=== PATIENT | female | born 1940 | race Caucasian/White ===

== ENCOUNTER → 2016-04-26 | Outpatient (CLI) | payer MEDICARE, BC ==
[2016-04-26 09:47] LABS: ALT 31 U/L (9-52); AST 24 U/L (14-36); Alkaline Phosphatase 61 U/L (38-126); Anion Gap 12 mmol/L; Blood Urea Nitrogen 22 mg/dL (7-17); Calcium 9.7 mg/dL (8.4-10.2); Carbon Dioxide 25 mmol/L (22-30); Chloride 100 mmol/L (98-107); Glucose 138 mg/dL (74-99); Non-African American GFR(MDRD) 51 (>60 ml/min/1.73 sqM); Sodium 137 mmol/L (137-145); Total Bilirubin 1.1 mg/dL (0.2-1.3); Total Protein 7.5 g/dL (6.3-8.2)
[2016-04-26 11:17] LABS: Hemoglobin A1C 3.9 % (4.2-6.1)
== END | disposition home or self-care (01) ==
LOC: LABWHC1 08:38
PROVIDERS: ATTEND Internal Medicine
DX: E87.8 Other disorders of electrolyte and fluid balance, not elsewhere classified (principal); E11.69 Type 2 diabetes mellitus with other specified complication
CPT/HCPCS: 36415; 80053; 83036

== ENCOUNTER → 2016-05-23 | Outpatient (CLI) | payer MEDICARE, BC | END | disposition home or self-care (01) | LOC: LABWHC1 10:16 | PROVIDERS: ATTEND Dermatology | DX: L13.0 Dermatitis herpetiformis (principal) | CPT/HCPCS: 83050 ==

== ENCOUNTER → 2016-10-05 | Outpatient (CLI) | payer MEDICARE, BC | END | disposition home or self-care (01) | LOC: LABWHC1 08:43 | PROVIDERS: ATTEND Dermatology | DX: L13.0 Dermatitis herpetiformis (principal) | CPT/HCPCS: 83050 ==

== ENCOUNTER → 2016-11-03 | Outpatient (CLI) | payer MEDICARE, BC ==
[2016-11-03 08:48] LABS: Basophils % (A) 0 %; CH 33.3; CHCM 32.5; Eosinophils # (A) 0.2 k/uL (0-0.7); Eosinophils % (A) 2 %; HCT 34.1 % (34.0-46.0); HDW 2.45; HGB 11.2 gm/dL (11.4-16.0); Luc # (Auto) 0.13; Luc % (Auto) 2; Lymphocytes # (A) 1.8 k/uL (1.0-4.8); Lymphocytes % (A) 26 %; MCH 33.7 pg (25.0-35.0); MCHC 32.8 g/dL (31.0-37.0); MCV 102.9 fL (80.0-100.0); Macrocytosis Slight; Mean Platelet Volume 8.3; Monocytes # (A) 0.3 k/uL (0-1.0); Monocytes % (A) 5 %; Neutrophils # (A) 4.3 k/uL (1.3-7.7); Neutrophils % (A) 64 %; RBC 3.31 m/uL (3.80-5.40); RDW 14.1 % (11.5-15.5); WBC 6.6 k/uL (3.8-10.6); WBC (Perox) 6.83
[2016-11-03 08:55] LABS: Calcium 9.4 mg/dL (8.4-10.2); Potassium 4.9 mmol/L (3.5-5.1); Total Bilirubin 0.9 mg/dL (0.2-1.3); Total Protein 6.5 g/dL (6.3-8.2)
[2016-11-03 16:33] LABS: Urine Creatinine 26.5 mg/dL
== END | disposition home or self-care (01) ==
LOC: LABWHC1 07:42
PROVIDERS: ATTEND Internal Medicine
DX: E78.2 Mixed hyperlipidemia (principal); E11.69 Type 2 diabetes mellitus with other specified complication; M15.9 Polyosteoarthritis, unspecified; I10 Essential (primary) hypertension
CPT/HCPCS: 36415; 80053; 80061; 82043; 82570; 83036; 85025

== ENCOUNTER → 2017-06-14 | Outpatient (CLI) | payer MEDICARE, BC | END | disposition home or self-care (01) | LOC: LABWHC1 08:10 | PROVIDERS: ATTEND Dermatology | DX: L13.0 Dermatitis herpetiformis (principal) | CPT/HCPCS: 36415; 83050 ==

== ENCOUNTER → 2017-10-02 | Outpatient (CLI) | payer MEDICARE, BC ==
[2017-10-02 15:44] LABS: HCT 33.9 % (34.0-46.0); HGB 10.5 gm/dL (11.4-16.0); MCH 31.5 pg (25.0-35.0); MCV 101.8 fL (80.0-100.0); Macrocytosis Slight; Mean Platelet Volume 8.7; Platelet Count 203 k/uL (150-450); RBC 3.33 m/uL (3.80-5.40); RDW 13.2 % (11.5-15.5); WBC 6.7 k/uL (3.8-10.6)
[2017-10-02 15:54] LABS: Potassium 4.7 mmol/L (3.5-5.1)
== END | disposition home or self-care (01) ==
LOC: LABPAT 14:30
PROVIDERS: ATTEND Internal Medicine Interventional Cardiology
DX: Z01.812 Encounter for preprocedural laboratory examination (principal); I25.118 Atherosclerotic heart disease of native coronary artery with other forms of angina pectoris; I10 Essential (primary) hypertension
CPT/HCPCS: 36415; 80051; 82565; 84520; 85027

== ENCOUNTER → 2017-10-16 | Day surgery (SDC) | payer MEDICARE, BC ==
[2017-10-09 12:19] VITALS: BMI 27.3
[~2017-10-16] MED LIST: ALPRAZolam 0.25 MG TAB PO PRN; ALPRAZolam 0.5 MG TAB PO PRN; ASPIRIN 325 MG TAB PO ONE; ATORVASTATIN 80 MG TAB PO ONE; IOPAMIDOL-370 100ML BTL INJ ONE; LIDOCAINE 1% INJ 10MG/ML (20 ML MDV) ONE; LIDOCAINE 1% INJ 10MG/ML (20 ML MDV) SQ ONE; MIDAZOLAM 2 MG/2 ML VIAL IVP ONE; MIDAZOLAM 2 MG/2 ML VIAL ONE; NITROGLYCERIN SL TABS 0.4 MG TAB SUBLINGUAL ONE; NITROGLYCERIN SL TABS 0.4 MG TAB SUBLINGUAL PRN; SODIUM CHLORIDE 0.9% 1,000 ML in EMPTY BAG 1 BAG IV ONE; diphenhydrAMINE 50 MG/ML 1 ML VIAL IVP ONE; diphenhydrAMINE 50 MG/ML 1 ML VIAL ONE; fentaNYL (PF) 50 MCG/ML 2 ML AMP IVP ONE; fentaNYL (PF) 50 MCG/ML 2 ML AMP ONE
[2017-10-16 06:42] VITALS: TEMP 98
[2017-10-16 07:07] LABS: Glucose,Whole Blood 113 mg/dL (75-99)
[2017-10-16] MEDS: BENZOCAINE SPRAY 1 CAN TOPICAL ONE ×2 (07:13→07:17)
--- NOTE | 2017-10-16 07:54 | ECHOT ---
TRANSESOPHAGEAL ECHOCARDIOGRAM INDICATION: 1. Mitral regurgitation. 2. PFO. PROCEDURE NOTE: After obtaining informed consent, transesophageal echocardiogram was performed in left lateral position using an Omni plane probe. Local and IV sedation were obtained using Xylocaine spray, 2 mg of intravenous Versed and 50 mcg of fentanyl. The patient tolerated the procedure well without any obvious immediate complications. FINDINGS: 1. Mitral valve appears anatomically normal. There is mild to moderate central mitral regurgitation noted. 2. Left atrium appears enlarged. 3. Right atrium and right ventricle seen within normal limits. 4. Left ventricle has diffuse global hypokinesis with an ejection fraction of 50% to 55%. 5. Tricuspid valve shows moderate tricuspid regurgitation. 6. Aortic valve is a 3-leaflet valve. There is no evidence of aortic stenosis or regurgitation. 7. Aortic root appears normal. 8. Interatrial septum: There is evidence of left to right shunt by color-flow Doppler. Agitated saline contrast study did not show [id number] shunt. CONCLUSIONS: 1. [id number] shunt across the interatrial septum. 2. Mild to moderate central mitral regurgitation. MMODL / IJN: [id number] /
[2017-10-16 08:30] LABS: O2 Sat Blood Gas 68.7 %
[2017-10-16 08:32] LABS: O2 Sat Blood Gas 66.8 %
[2017-10-16 08:34] LABS: O2 Sat Blood Gas 67.9 %
[2017-10-16 08:36] LABS: O2 Sat Blood Gas 97.3 %
--- NOTE | 2017-10-16 09:18 | LTR ---
October 16, 2017 Re: NighatVanessa desai Dear Dr. Bateman: Thank you for the opportunity to participate in the care of Mrs. Rucker. Please find enclosed my detailed cardiac cath report for your records. This lady has a small PFO without significant flow and there is no enlargement of right-sided chambers. She has moderate pulmonary hypertension, but no significant obstructive CAD. We will pursue medical therapy with risk factor modification and she will be discharged later on today if she remains stable. Thank you for your referral and please call for questions. With kindest regards. Sincerely yours, Tish Harris MD [id number] / IJN: [id number] /
--- NOTE | 2017-10-16 09:24 | CC ---
CARDIAC CATHETERIZATION REPORT DATE OF SERVICE: 10/16/2017. PROCEDURE: Right and left heart catheterization, coronary angiography. PERFORMED BY: Dr. Tish Harris. CLINICAL INFORMATION: Mrs. 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 She also had some chest tightness and pressure. She was advised coronary angiography after due discussion. She also advised to have a transesophageal echo and was brought in for the procedure electively. Transesophageal echocardiogram revealed PFO without significant flow and moderate mitral regurgitation. LV function was preserved and right side was not enlarged. The moderate conscious sedation time for the procedure was 31 minutes. Patient was administered Versed and fentanyl during the STEVE. Additionally, Benadryl was given. Oxygen saturation, hemodynamics and EKG were monitored closely. PROCEDURE NOTE: Under local anesthesia and strict aseptic precautions, a 6-Ku[place]i introducer was placed in the right femoral artery and an 8-[place] introducer in the right femoral vein. Using a balloon tipped floatation catheter, I performed right heart catheterization, checked hemodynamic saturations and thermodilution cardiac output was performed. Subsequently, using standard Favian catheters I performed coronary angiography and checked LV pressures but did not perform the LV gram. The catheters were taken out and sheaths were pulled and manual compression used to secure hemostasis and she was sent to the room in a stable condition. Results were discussed with the patient and family. CARDIAC CATHETERIZATION FINDINGS: The right atrial pressure was 3 mmHg. The right ventricular pressure was about 44/4. Pulmonary arterial pressure was 44/10 with a mean of 24 mmHg. The pulmonary capillary wedge pressure was 9 to 10 mmHg. The thermodilution cardiac output was 4.07 L/minute. The pulmonary arterial saturation was 68%. Right atrial saturation was 66%. Right ventricular saturation was 68%. There was no oxygen step-up noted. The femoral arterial saturation was 97% on 1 L nasal cannula. Using the PA and FA saturation, the Debra cardiac output was 4.16 L. The left ventricular end-diastolic pressure was about 14 mmHg and there was no gradient across aortic valve. CORONARY ANGIOGRAPHY FINDINGS: RIGHT CORONARY ARTERY: Right coronary artery a technically dominant vessel, has about a 40% minor irregularities in the proximal 1/3, then the caliber improves and distally bifurcates into PDA and PLV, both of which supply a sizable amount of myocardium. There is no significant disease in the branches of the dominant RCA. LEFT MAIN CORONARY ARTERY: This is a short patent disease-free vessel that bifurcates into LAD and circumflex. LEFT ANTERIOR DESCENDING CORONARY ARTERY: Good caliber vessel extends along the anterior wall. In the proximal 1/3, there is about a 30% to 35% narrowing. The caliber improves. It runs all the way to the apex. It gives off septal and diagonal branches, has no significant disease. LEFT POSTERIOR CIRCUMFLEX CORONARY ARTERY: This gives off a single obtuse marginal that runs laterally. Good caliber, mildly tortuous. No significant disease, has minor irregularities. LEFT VENTRICULOGRAM: This was not performed. FINAL IMPRESSION: This patient has moderate pulmonary hypertension with right-sided pressures in the range of 44 mmHg. The mean pulmonary artery pressure is 24 mmHg. There is no oxygen step up. The thermodilution and Debra cardiac output were in the range 4.0 to 4.1 L. An LV-gram was not performed. There is no significant obstructive coronary artery disease. There is a right dominant system noted with 30% to 40% narrowing. RECOMMENDATIONS: Findings were discussed with the patient and . We will pursue medical therapy without any intervention either percutaneously or by surgically. Her PFO is evident on the TE echo, but there is no significant shunt. The right side is not enlarged and the PA pressures are moderate. We will therefore pursue medical therapy. Results were discussed with the patient and family and she will be discharged later on today if she remains stable. MMODL / IJN: [id number] /
[2017-10-16 12:28] VITALS: BP 152/65; PULSE 55; RESP 18
== END ==
LOC: CATHCVL 06:04
PROVIDERS: ATTEND Internal Medicine Interventional Cardiology
DX: I08.1 Rheumatic disorders of both mitral and tricuspid valves (principal); I25.10 Atherosclerotic heart disease of native coronary artery without angina pectoris; I10 Essential (primary) hypertension; Z87.891 Personal history of nicotine dependence; I77.1 Stricture of artery; E78.00 Pure hypercholesterolemia, unspecified; R55 Syncope and collapse; I27.20 Pulmonary hypertension, unspecified; E11.9 Type 2 diabetes mellitus without complications; Z79.84 Long term (current) use of oral hypoglycemic drugs; Z79.82 Long term (current) use of aspirin; Z79.899 Other long term (current) drug therapy; E78.5 Hyperlipidemia, unspecified; Z88.6 Allergy status to analgesic agent
CPT/HCPCS: 93312; 93320; 93325; 93460; 85018; 82810; C1769 ×3; C1894 ×2; J2250; J1200; J2001; J3010; Q9967

== ENCOUNTER → 2017-11-13 | Outpatient (CLI) | payer MEDICARE, BC ==
[2017-11-13 08:27] LABS: HCT 34.7 % (34.0-46.0); HGB 10.9 gm/dL (11.4-16.0); MCHC 31.5 g/dL (31.0-37.0); MCV 101.5 fL (80.0-100.0); Macrocytosis Slight; Mean Platelet Volume 8.7; Platelet Count 199 k/uL (150-450); RBC 3.41 m/uL (3.80-5.40); RDW 13.2 % (11.5-15.5); WBC 4.5 k/uL (3.8-10.6)
[2017-11-13 08:37] LABS: Calcium 9.4 mg/dL (8.4-10.2); Potassium 4.5 mmol/L (3.5-5.1); Total Protein 6.7 g/dL (6.3-8.2)
[2017-11-13 17:38] LABS: Hemoglobin A1C 4.2 % (4.0-6.0)
== END | disposition home or self-care (01) ==
LOC: LABWHC1 07:40
PROVIDERS: ATTEND Internal Medicine
DX: E78.2 Mixed hyperlipidemia (principal); E11.9 Type 2 diabetes mellitus without complications; M15.9 Polyosteoarthritis, unspecified
CPT/HCPCS: 36415; 80053; 80061; 82043; 82570; 83036; 85027

== ENCOUNTER → 2018-04-16 | Outpatient (CLI) | payer MEDICARE, BC | END | disposition home or self-care (01) | LOC: LABWHC1 10:56 | PROVIDERS: ATTEND Dermatology | DX: L13.0 Dermatitis herpetiformis (principal) | CPT/HCPCS: 83050 ==

== ENCOUNTER → 2018-10-12 | Outpatient (CLI) | payer MEDICARE, BC | END | disposition home or self-care (01) | LOC: LABWHC1 09:55 | PROVIDERS: ATTEND Dermatology | DX: D74.9 Methemoglobinemia, unspecified (principal) | CPT/HCPCS: 83050 ==

== ENCOUNTER → 2019-09-12 | Outpatient (CLI) | payer MEDICARE, BC | END | disposition home or self-care (01) | LOC: LABWHC1 10:06 | PROVIDERS: ATTEND Dermatology | DX: D74.9 Methemoglobinemia, unspecified (principal) | CPT/HCPCS: 83050 ==

== ENCOUNTER → 2020-01-17 | Outpatient (CLI) | payer MEDICARE ==
[2020-01-18 02:53] LABS: Albumin 4.5 g/dL (3.80-4.90); Albumin/Globulin Ratio 1.96 (1.60-3.17); Anion Gap 7.6 mmol/L (4.00-12.00); BUN/Creat Ratio 21.43 Ratio (12.00-20.00); Calcium 9.4 mg/dL (8.7-10.3); Carbon Dioxide 28.4 mmol/L (21.6-31.8); Globulin 2.3 g/dL (1.6-3.3); Magnesium 1.9 mg/dL (1.5-2.4); Non-African American GFR(CKD) 35.4 (60.0-200.0); Potassium 4.4 mmol/L (3.5-5.5); Total Bilirubin 1.2 mg/dL (0.3-1.2); Total Protein 6.8 g/dL (6.2-8.2)
== END | disposition home or self-care (01) ==
LOC: LABWHC1 16:09
PROVIDERS: ATTEND Internal Medicine
DX: N18.32 Chronic kidney disease, stage 3b (principal)
CPT/HCPCS: 36415; 80053; 83735

== ENCOUNTER → 2020-01-24 | Outpatient (CLI) | payer MEDICARE ==
--- NOTE | 2020-01-25 08:36 | US ---
EXAMINATION TYPE: US kidneys/renal and bladder DATE OF EXAM: 01/24/2020 COMPARISON: NONE CLINICAL HISTORY: N18.32 stage 3b chronic kidney disease. chronic kidney disease EXAM MEASUREMENTS: Right Kidney: 9.3 x 4.0 x 4.4 cm Left Kidney: 9.1 x 4.8 x 4.1 cm Right Kidney: no evidence of hydronephrosis Left Kidney: no evidence of hydronephrosis Bladder: appears wnl Bilateral Jets seen: yes There is no evidence for hydronephrosis at this point in time. No nephrolithiasis is seen. No ellen s are identified. The urinary bladder is anechoic. Bilateral ureteral jets are seen. IMPRESSION: The kidneys are diminutive in size otherwise distinct abnormality appreciated.
== END | disposition home or self-care (01) ==
LOC: RADUSWWP 15:23
PROVIDERS: ATTEND Internal Medicine
DX: N18.32 Chronic kidney disease, stage 3b (principal)
CPT/HCPCS: 76770

== ENCOUNTER 2020-03-13 08:31 | Inpatient (IN) | payer MEDICARE, OTHER ==
--- NOTE | 2020-03-13 08:55 | ED ---
General Adult HPI - General Chief complaint: Fall Stated complaint: FALL Time Seen by Provider: 03/13/20 08:31 Source: patient, EMS, RN notes reviewed, old records reviewed Mode of arrival: EMS Limitations: no limitations - History of Present Illness Initial comments: This is an 79-year-old female who states she was going to let her dog out and was having no symptoms whatsoever and the next thing she remembers is waking up on the ground. Patient complains of right posterior head pain and bleeding. Patient also complains of right hip pain. Patient states she has no chest pain difficulty breathing shortness of breath. Patient denies abdominal pain patient denies any other extremity pain aside from the right hip. Patient denies any symptoms prior to falling so she has no recollection of the fall itself. Patient states she was unconscious because she does not remember falling and she remembers waking up and she was already on the ground. Patient denies being on any blood thinners. - Related Data Home Medications Medication Instructions Recorded Confirmed Aspirin 81 mg PO DAILY 07/14/14 10/16/17 Folic Acid 1 mg PO DAILY 07/14/14 10/16/17 Metoprolol Tartrate [Lopressor] 25 mg PO BID 07/14/14 10/16/17 [place]-3 Fatty Acids/Fish Oil [Fish 1 tab PO BID 07/14/14 10/16/17 Oil 1,000 mg Softgel] Simvastatin 20 mg PO HS 07/14/14 10/16/17 glipiZIDE [Glipizide ER] 2.5 mg PO DAILY 07/14/14 10/16/17 lisinopriL [Lisinopril] 20 mg PO QAM 07/14/14 10/16/17 metFORMIN HCL 1,000 mg PO 07/14/14 10/16/17 Dapsone 25 mg PO BID 10/09/17 10/16/17 Furosemide [Lasix] 20 mg PO QAM 10/09/17 10/16/17 Gabapentin [Neurontin] 100 mg PO 10/09/17 10/16/17 Allergies Allergy/AdvReac Type Severity Reaction Status Date / Time gluten Allergy Rash/Hives Verified 03/13/20 08:37 Review of Systems ROS Statement: Those systems with pertinent positive or pertinent negative responses have been documented in the HPI. ROS Other: All systems not noted in ROS Statement are negative. Past Medical History Past Medical History: Diabetes Mellitus, Eye Disorder, Skin Disorder Additional Past Medical History / Comment(s): Has an "eye disorder with fluid behind eyes, gets injection in eyes every 4 weeks." Lesions on skin, sees a [facility]. History of Any Multi-Drug Resistant Organisms: None Reported Past Surgical History: Joint Replacement, Orthopedic Surgery Additional Past Surgical History / Comment(s): Right ankle surgery, right leg surgery, left shoulder replacement. Past Anesthesia/Blood Transfusion Reactions: No Reported Reaction Past Psychological History: No Psychological Hx Reported Smoking Status: Never smoker Past Alcohol Use History: None Reported Past Drug Use History: None Reported - Past Family History Sister(s) Family Medical History: Dementia Mother Family Medical History: Congestive Heart Failure (CHF) Additional Family Medical History / Comment(s): at 29 yrs old. General Exam - General Exam Comments Initial Comments: GENERAL: Patient is well-developed and well-nourished. Patient is nontoxic and well-hydrated and is in mild distress. ENT: Neck is soft and supple. No significant lymphadenopathy is noted. Oropharynx is clear. Moist mucous membranes. Neck has full range of motion without eliciting any pain. EYES: The sclera were anicteric and conjunctiva were pink and moist. Extraocular movements were intact and pupils were equal round and reactive to light. Eyelids were unremarkable. PULMONARY: Unlabored respirations. Good breath sounds bilaterally. No audible rales rhonchi or wheezing was noted. CARDIOVASCULAR: There is a regular rate and rhythm without any murmurs gallops or rubs. ABDOMEN: Soft and nontender with normal bowel sounds. SKIN: Skin is clear with no lesions or rashes and otherwise unremarkable. NEUROLOGIC: Patient is alert and oriented x3. Cranial nerves II through XII are grossly intact. Motor and sensory are also intact. Normal speech, volume and content. Symmetrical smile. MUSCULOSKELETAL: Patient's right lateral hip is tender to palpation. Patient hip is painful with even a little flexion. LYMPHATICS: No significant lymphadenopathy is noted PSYCHIATRIC: Normal psychiatric evaluation. Limitations: no limitations Course Vital Signs 03/13/20 08:37 Temperature 97.9 F Pulse Rate 78 Respiratory 20 Rate Blood Pressure 192/85 O2 Sat by Pulse 94 L Oximetry Medical Decision Making - Medical Decision Making EKG shows sinus rhythm at 66 bpm WA interval 264 QRS is 118 QT interval is 432 QTC is 452. Patient's EKG shows no ST segment elevation or depression. CT of the brain shows no acute abnormality. Chest x-ray shows no acute abnormality. CT of the neck shows no acute abnormality however there are some round lytic lesions of the neck that need to be investigated at a later time. X-ray of the right hip shows shortening of the right hip and probable fracture of the right femoral neck I spoke with neck branch he will admit the patient and I'll write admitting orders. - Lab Data Result diagrams: 03/13/20 08:53 03/13/20 08:53 Lab Results 03/13/20 03/13/20 Range/Units 08:53 08:53 WBC 9.3 (3.8-10.6) k/uL RBC 3.31 L (3.80-5.40) m/uL Hgb 10.4 L (11.4-16.0) gm/dL Hct 33.0 L (34.0-46.0) % MCV 99.6 D (80.0-100.0) fL MCH 31.4 (25.0-35.0) pg MCHC 31.5 (31.0-37.0) g/dL RDW 14.7 (11.5-15.5) % Plt Count 243 (150-450) k/uL MPV 7.9 Neutrophils % 80 % Lymphocytes % 14 % Monocytes % 4 % Eosinophils % 1 % Basophils % 0 % Neutrophils # 7.5 (1.3-7.7) k/uL Lymphocytes # 1.3 (1.0-4.8) k/uL Monocytes # 0.3 (0-1.0) k/uL Eosinophils # 0.1 (0-0.7) k/uL Basophils # 0.0 (0-0.2) k/uL Macrocytosis Slight Sodium 130 L (137-145) mmol/L Potassium 4.6 (3.5-5.1) mmol/L Chloride 96 L (98-107) mmol/L Carbon Dioxide 27 (22-30) mmol/L Anion Gap 7 mmol/L BUN 36 H (7-17) mg/dL Creatinine 1.44 H (0.52-1.04) mg/dL Est GFR (CKD-EPI)AfAm 40 (>60 ml/min/1.73 sqM) Est GFR (CKD-EPI)NonAf 34 (>60 ml/min/1.73 sqM) Glucose 173 H (74-99) mg/dL Calcium 9.4 (8.4-10.2) mg/dL Total Bilirubin 1.1 (0.2-1.3) mg/dL AST 30 (14-36) U/L ALT 23 (4-34) U/L Alkaline Phosphatase 76 (38-126) U/L Total Protein 6.9 (6.3-8.2) g/dL Albumin 4.2 (3.5-5.0) g/dL Disposition Clinical Impression: Fall, Femoral neck fracture, Scalp laceration, Lesion of bone of cervical spine Disposition: ADMITTED IP TO THIS HOSP Referrals: None,Stated [Primary Care Provider] - 1-2 days Time of Disposition: 10:12
[2020-03-13] MEDS ORDERED: DIAZEPAM 5 MG/ML 2 ML INJ IVP STA (08:57)
--- NOTE | 2020-03-13 09:26 | XR ---
EXAMINATION TYPE: XR chest 2V DATE OF EXAM: 03/13/2020 COMPARISON: 06/23/1714 TECHNIQUE: PA and lateral views submitted. HISTORY: Shortness of breath FINDINGS: Heart is enlarged and there is diffuse osteopenia and arthropathy of the shoulders and postsurgical c hange left shoulder. No consolidation. Mildly prominent central interstitial. No pleural effusion or pneumothorax. Hypertrophic change of the spine. IMPRESSION: 1. Cardiomegaly with mildly prominent central interstitium could be associated with bronchitis or int erstitial pneumonitis. Correlate clinically.
--- NOTE | 2020-03-13 09:29 | XR ---
EXAMINATION TYPE: XR Hip RT and AP Pelvis DATE OF EXAM: 03/13/2020 COMPARISON: NONE HISTORY: Pain TECHNIQUE: A single AP view of the pelvis is obtained. Two views of the right hip are obtained. FINDINGS: There is diffuse osteopenia and degenerative change of the spine. SI joints symmetric. Art hropathy of the hip bilaterally. There is foreshortening the right femoral neck suspicious for fractu re of the femoral neck. This could be confirmed with CT scan. IMPRESSION: 1. Foreshortening of the right femoral neck suspicious for fracture. CT scan could be obtained for co nfirmation.
[2020-03-13 09:46] LABS: Albumin 4.2 g/dL (3.5-5.0); Calcium 9.4 mg/dL (8.4-10.2); Potassium 4.6 mmol/L (3.5-5.1); Total Bilirubin 1.1 mg/dL (0.2-1.3); Total Protein 6.9 g/dL (6.3-8.2)
[2020-03-13 09:51] LABS: Basophils % (A) 0 %; Eosinophils # (A) 0.1 k/uL (0-0.7); Eosinophils % (A) 1 %; HGB 10.4 gm/dL (11.4-16.0); Lymphocytes # (A) 1.3 k/uL (1.0-4.8); Lymphocytes % (A) 14 %; MCH 31.4 pg (25.0-35.0); MCHC 31.5 g/dL (31.0-37.0); Macrocytosis Slight; Mean Platelet Volume 7.9; Monocytes # (A) 0.3 k/uL (0-1.0); Monocytes % (A) 4 %; Neutrophils # (A) 7.5 k/uL (1.3-7.7); Neutrophils % (A) 80 %; Platelet Count 243 k/uL (150-450); RBC 3.31 m/uL (3.80-5.40); RDW 14.7 % (11.5-15.5); WBC 9.3 k/uL (3.8-10.6)
--- NOTE | 2020-03-13 09:52 | CT ---
EXAMINATION TYPE: CT brain sheryl gusman DATE OF EXAM: 03/13/2020 COMPARISON: NONE HISTORY: Fall injury with headache and neck pain CT DLP: 1295 mGycm. Automated Exposure Control for Dose Reduction was Utilized. TECHNIQUE: CT scan of the head and cervical spine are performed without contrast. FINDINGS: There is no acute intracranial hemorrhage or midline shift identified. Mild to moderate D iffuse ventricular and sulcal prominence. Mild low attenuation in the periventricular white matter. M oderate to large size right parietal acute scalp hematoma. Small area of focal encephalomalacia right parietal lobe axial image 33. The calvarium is intact. Some scattered tiny lucent foci. Incidental s clerotic 3 mm lesion left frontal region coronal image 7. Moderate mucosal thickening with air-fluid level in the left maxillary sinus. Nasal septum is deviated to right of midline. Globes are intact bi laterally. Prominent soft tissue density consistent with cerumen in the right external auditory canal . Cervical spine is visualized in its entirety from C1 through upper thoracic levels and demonstrates satisfactory alignment without evidence of acute fracture or dislocation. Prevertebral soft tissue a ppears within normal limits. The C1-C2 articulation is within normal limits on the coronal images. V ertebral body heights are maintained. Moderate to severe narrowing and spurring C5-C6 level. Mild dis c space narrowing C4-C5 level. Mild disc space narrowing with moderate to severe anterior spurring at C6-C7 level. Posterior spur disc complex effaces anterior thecal sac at C5-C6 level. Review of axial images shows multilevel vertebral facet degenerative changes contributing to multilevel bilateral ne ural foraminal narrowing. There are small round lucent lesions scattered throughout the cervical vert ebra. For reference right C6 4 mm lesion coronal image 22. IMPRESSION: 1. There is no acute fracture or dislocation evident in the cervical spine. Multilevel degenerative c hanges as described above. Multiple round lucent lesions, follow-up advised to exclude osseous metast atic disease or multiple myeloma as etiology. 2. No acute intracranial hemorrhage or midline shift is seen. Moderate to large size acute right paula etal scalp hematoma. Mild to moderate diffuse cerebral atrophy and mild chronic small vessel ischemic change. Old right parietal lobe infarct. 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
[2020-03-13 09:56] LABS: MCV 99.6 fL (80.0-100.0)
[2020-03-13] MEDS ORDERED: SODIUM CHLORIDE 0.9% 1,000 ML IV ONE (10:14)
[2020-03-13] MEDS ORDERED: HYDROmorphone 0.5 MG/0.5 ML SYRINGE IVP STA (10:16)
[2020-03-13] MEDS ORDERED: HYDROmorphone 0.5 MG/0.5 ML SYRINGE IVP PRN (10:16)
--- NOTE | 2020-03-13 11:28 | P.HPOR ---
History of Present Illness H&P Date: 03/13/20 Chief Complaint: Right hip fracture, status post fall from standing Patient is an 79-year-old female who was brought to [facility] early this morning for evaluation of a right leg injury. Apparently the patient was letting her dog out when she apparently tripped and fell in her doorway landing inside the house. She doesn't remember the occurrence of the fall, she does waking up on the ground. This was an unwitnessed fall. Patient was able to contact EMS and they did arrive, she is placed in a c-collar and transported to [facility] for further workup. Upon arrival to the hospital, multiple imaging and lab tests were done. Compu misa tomography scan of the head was negative for any acute fractures or bleeds, there was a notable scalp laceration. X-rays of the pelvis and right hip demonstrate a displaced right femoral neck fracture. I was contacted by the emergency room staff and was able to discuss the case and review the images by attending Dr. Apodaca. Patient was evaluated in the emergency room by myself today. She was resting comfortably in the hospital bed. She notes most discomfort in the right lower extremity with movement. She denies any pain involving the left lower extremity, bilateral upper extremities, new onset cervical, thoracic or lumbar pain. She denies any paresthesias of the bilateral upper or lower extremities. She denies any loss of bowel or bladder control. She does have a history of a previous right ankle fracture that Dr. Apodaca took care of in 2008 and also a right proximal humerus fracture that she underwent surgery by Dr. Apodaca in 2009. She does live alone, she lost her last year. Patient states that she still drives and does most activities by herself. She utilizes a cane occasionally if her balance feels off. Currently she denies any headaches, lightheadedness, chest pain, shortness of breath, fever chills, nausea vomiting. Review of Systems Constitutional: Reports as per HPI Past Medical History Past Medical History: Diabetes Mellitus, Eye Disorder, Skin Disorder Additional Past Medical History / Comment(s): Has an "eye disorder with fluid behind eyes, gets injection in eyes every 4 weeks." Lesions on skin, sees a Film Developer. History of Any Multi-Drug Resistant Organisms: None Reported Past Surgical History: Joint Replacement, Orthopedic Surgery Additional Past Surgical History / Comment(s): Right ankle surgery, right leg surgery, left shoulder replacement. Past Anesthesia/Blood Transfusion Reactions: No Reported Reaction Past Psychological History: No Psychological Hx Reported Smoking Status: Never smoker Past Alcohol Use History: None Reported Past Drug Use History: None Reported - Past Family History Sister(s) Family Medical History: Dementia Mother Family Medical History: Congestive Heart Failure (CHF) Additional Family Medical History / Comment(s): at 29 yrs old. Medications and Allergies Home Medications Medication Instructions Recorded Confirmed Type Aspirin 81 mg PO DAILY 07/14/14 03/13/20 History Folic Acid 1 mg PO DAILY 07/14/14 03/13/20 History [place]-3 Fatty Acids/Fish Oil [Fish 1 cap PO BID 07/14/14 03/13/20 History Oil 1,000 mg Softgel] Simvastatin 20 mg PO HS 07/14/14 03/13/20 History glipiZIDE [Glipizide ER] 2.5 mg PO DAILY 07/14/14 03/13/20 History Dapsone 25 mg PO BID 10/09/17 03/13/20 History Furosemide [Lasix] 20 mg PO DAILY 10/09/17 03/13/20 History Ascorbic Acid [Vitamin C] 1,000 mg PO BID 03/13/20 03/13/20 History Cholecalciferol [Vitamin D3 (25 1,000 unit PO DAILY 03/13/20 03/13/20 History Mcg = 1000 Iu)] Hydrochlorothiazide 12.5 mg PO DAILY 03/13/20 03/13/20 History [hydroCHLOROthiazide] Losartan Potassium [Cozaar] 50 mg PO DAILY 03/13/20 03/13/20 History Metoprolol Succinate (ER) [Toprol 25 mg PO BID 03/13/20 03/13/20 History Xl] Allergies Allergy/AdvReac Type Severity Reaction Status Date / Time gluten Allergy Rash/Hives Verified 03/13/20 10:43 Physical Examination Right lower extremity: No obvious open lesions or sores visualized throughout the extremity. No symptoms areas of erythema or soft tissue swelling. No significant malalignment of the leg is noted. She is unable to straight leg raise, logroll maneuver reproduces pain. There is no effusion present around the knee, there is no tenderness with palpation surrounding the knee, lower leg, foot or ankle. Plantar flexion, dorsiflexion, EHL, FHL are intact. The calf is soft, no tenderness with palpation. Strength testing was not assessed of the right lower extremity. Her dorsalis pedis pulses 2+. Gen. orthopedic exam: No focal neurologic deficits appreciated with exam of the bilateral upper extremities, left lower extremity and limited a right lower extremity exam She demonstrates no tenderness with palpation or step-off throughout the cervical, thoracic or lumbar spine Range of motion is intact in all major muscle groups of bilateral upper extremities, sensory exam to light touch throughout the bilateral upper extremit ies is intact, radial and ulnar pulses are 2+ bilaterally She will tenderness with palpation noted throughout the left lower extremity, range of motion is intact in all groups. Calf is soft, no tenderness with palpation. Plantar flexion, dorsiflexion, EHL, FHL are intact. Sensory exam to light touch throughout the extremity intact. Dorsalis pedis pulses 2+. Results - Labs Labs: Abnormal Lab Results - Last 24 Hours (Table) 03/13/20 03/13/20 Range/Units 08:53 08:53 RBC 3.31 L (3.80-5.40) m/uL Hgb 10.4 L (11.4-16.0) gm/dL Hct 33.0 L (34.0-46.0) % Sodium 130 L (137-145) mmol/L Chloride 96 L (98-107) mmol/L BUN 36 H (7-17) mg/dL Creatinine 1.44 H (0.52-1.04) mg/dL Glucose 173 H (74-99) mg/dL H & H 03/13/20 Range/Units 08:53 Hgb 10.4 L (11.4-16.0) gm/dL Hct 33.0 L (34.0-46.0) % Result Diagrams: 03/13/20 08:53 03/13/20 08:53 - Diagnostic results Hip x-ray: report reviewed, image reviewed (Displaced right femoral neck fracture. Mild to moderate are symmetric changes of the right hip noted with loss of joint space and bone spur formation) CT scan - cervical: report reviewed Assessment and Plan Assessment: Right femoral neck fracture Right hip osteoarthritis Status post fall from standing, syncopal episode Multiple bone lesions cervical spine Other medical comorbidities Plan: I was able to discuss the case comfortable physical exam findings and imaging studies with attending Dr. Apodaca. Taking into consideration the patient's general physical health, age, and fracture pattern we would like to proceed with a total hip arthroplasty of the right hip. Other surgical options were discussed the patient, she would like to proceed with a right total hip arthroplasty. Risks and benefits of procedure were discussed with the patient this including but not excluded, infection, blood loss, neurovascular injury, development of blood clots, pain and stiffness, and adequate healing of bone, need for subsequent surgery. Patient is in good understanding and elect to proceed. Obtain consent Urinary catheter insertion to be done in ER Pain control, IV medication as needed, low-dose narcotics due to age. We'll likely begin orals after surgery DVT prophylaxis, subcu medication after surgery Discussed with internal medicine, they would like clearance prior to surgery, this has been ordered Other medical specialty recommendations With regards to the bone lesions that were found throughout cervical spine, I will discuss my attending and decide whether further imaging will be done during inpatient stay, or consult to hematology/oncology. Further recommendations to follow Time with Patient: Less than 30
[2020-03-13] MEDS ORDERED: RX INFO: IV CONTRAST WAS GIVEN 1 EACH MISC MISCELLANE PRN (12:46)
[2020-03-13] MEDS ORDERED: HEPARIN SODIUM,PORCINE 5,000 UNIT/ML 1 ML VIAL IV PRN (12:53)
[2020-03-13] MEDS ORDERED: HEPARIN SODIUM,PORCINE 10,000 UNIT/ML 1 ML VIAL IV ONE (12:53)
[2020-03-13] MEDS ORDERED: HEPARIN SOD,PORK IN 0.45% NACL 25,000 UNIT in 0.45% NACL 1 250ML.BAG IV SCH (13:00)
--- NOTE | 2020-03-13 13:05 | P.CRDCN ---
History of Present Illness Consult date: 03/13/20 History of present illness: CHIEF COMPLAINT: Cardiac clearance HISTORY OF PRESENT ILLNESS: This is a 79-year-old female with a past medical history significant for diabetes mellitus, hyperlipidemia, hypertension, and pulmonary hypertension. Patient follows in the office with Dr. Harris. We have been asked to see the patient in consultation for cardiac clearance. Patient is admitted with a hip fracture secondary to a fall. She is scheduled for surgery this afternoon. Patient denies chest pain or pressure. She denies shortness of breath. She denies dizziness or lightheadedness. DIAGNOSTICS: EKG reveals sinus mechanism with first-degree AV block. Left axis deviation. Chest xray cardiomegaly with mildly prominent central interstitium could be associated with bronchitis or interstitial pneumonitis Laboratory data: WBC 9.3. Hemoglobin 10.4. Platelet count 243. Sodium 130. Potassium 4.6. BUN 36. Creatinine 1.44. Current home cardiac medications include simvastatin 20 mg daily, losartan 50 mg daily, aspirin 81 mg daily, metoprolol 25 mg twice a day, hydrochlorothiazide 12.5 mg daily, Lasix 20 mg daily Patient underwent STEVE in 2018 revealing [id number] shunt across the interatrial septum and mild to moderate mitral regurgitation Cardiac cath completed in 2018 revealed moderate pulmonary hypertension. No significant obstructive coronary artery disease. REVIEW OF SYSTEMS: At the time of my exam: CONSTITUTIONAL: Denies fever or chills. HEENT: Denies blurred vision, vision changes, or eye pain. Denies hemoptysis CARDIOVASCULAR: Denies chest pain, orthopnea, PND or palpitations RESPIRATORY: No shortness of breath. GASTROINTESTINAL: Denies abdominal pain. Denies nausea or vomiting. HEMATOLOGIC: Denies bleeding disorders. GENITOURINARY: Denies any blood in urine. SKIN: Denies pruitis. Denies rash. PHYSICAL EXAM: VITAL SIGNS: Reviewed. GENERAL: Well-developed in no acute distress. HEENT: Head is normocephalic. Pupils are equal, round. Sclerae anicteric. Mucous membranes of the mouth are moist. Neck supple. No JVD or thyromegaly LUNGS: Respirations even and unlabored. Lungs essentially clear to auscultation bilaterally. HEART: Regular rate and rhythm. S1 and S2 heard. Systolic murmur noted. ABDOMEN: Soft. Nondistended. Nontender. EXTREMITIES: Decreased range of motion of right lower extremity. No clubbing or cyanosis. Peripheral pulses intact. No lower extremity edema NEUROLOGIC: Awake and alert. Oriented x 3. ASSESSMENT: Right hip fracture, s/p fall Hypertension Hyperlipidemia Moderate pulmonary hypertension Moderate mitral regurgitation Elevated d-dimer PLAN: Begin high dose IV heparin Transfer patient to 3S Obtain stat CT angio Resume additional cardiac medications Obtain 2D echo to assess cardiac structure and function Patient is not cleared for surgery today from a cardiac standpoint Further recommendations pending patient course Nurse practitioner note has been reviewed by physician. Signing provider agrees with the documented findings, assessment, and plan of care. Past Medical History Past Medical History: Diabetes Mellitus, Eye Disorder, Skin Disorder Additional Past Medical History / Comment(s): Has an "eye disorder with fluid behind eyes, gets injection in eyes every 4 weeks." Lesions on skin, sees a Car Packer. History of Any Multi-Drug Resistant Organisms: None Reported Past Surgical History: Joint Replacement, Orthopedic Surgery Additional Past Surgical History / Comment(s): Right ankle surgery, right leg surgery, left shoulder replacement. Past Anesthesia/Blood Transfusion Reactions: No Reported Reaction Past Psychological History: No Psychological Hx Reported Smoking Status: Never smoker Past Alcohol Use History: None Reported Past Drug Use History: None Reported - Past Family History Sister(s) Family Medical History: Dementia Mother Family Medical History: Congestive Heart Failure (CHF) Additional Family Medical History / Comment(s): at 29 yrs old. Medications and Allergies Home Medications Medication Instructions Recorded Confirmed Type Aspirin 81 mg PO DAILY 07/14/14 03/13/20 History Folic Acid 1 mg PO DAILY 07/14/14 03/13/20 History [place]-3 Fatty Acids/Fish Oil [Fish 1 cap PO BID 07/14/14 03/13/20 History Oil 1,000 mg Softgel] Simvastatin 20 mg PO HS 07/14/14 03/13/20 History glipiZIDE [Glipizide ER] 2.5 mg PO DAILY 07/14/14 03/13/20 History Dapsone 25 mg PO BID 10/09/17 03/13/20 History Furosemide [Lasix] 20 mg PO DAILY 10/09/17 03/13/20 History Ascorbic Acid [Vitamin C] 1,000 mg PO BID 03/13/20 03/13/20 History Cholecalciferol [Vitamin D3 (25 1,000 unit PO DAILY 03/13/20 03/13/20 History Mcg = 1000 Iu)] Hydrochlorothiazide 12.5 mg PO DAILY 03/13/20 03/13/20 History [hydroCHLOROthiazide] Losartan Potassium [Cozaar] 50 mg PO DAILY 03/13/20 03/13/20 History Metoprolol Succinate (ER) [Toprol 25 mg PO BID 03/13/20 03/13/20 History Xl] Allergies Allergy/AdvReac Type Severity Reaction Status Date / Time gluten Allergy Rash/Hives Verified 03/13/20 10:43 Physical Exam Vitals: Vital Signs Temp Pulse Resp BP Pulse Ox 03/13/20 10:55 98.1 F 60 18 169/71 97 03/13/20 10:25 62 20 173/66 94 L 03/13/20 08:37 97.9 F 78 20 192/85 94 L Intake and Output 03/12/20 03/13/20 03/13/20 22:59 06:59 14:59 Other: Weight 72.121 kg Results 03/13/20 08:53 03/13/20 08:53 Cardiac Enzymes 03/13/20 Range/Units 08:53 AST 30 (14-36) U/L CBC 03/13/20 Range/Units 08:53 WBC 9.3 (3.8-10.6) k/uL RBC 3.31 L (3.80-5.40) m/uL Hgb 10.4 L (11.4-16.0) gm/dL Hct 33.0 L (34.0-46.0) % Plt Count 243 (150-450) k/uL Comprehensive Metabolic Panel 03/13/20 Range/Units 08:53 Sodium 130 L (137-145) mmol/L Potassium 4.6 (3.5-5.1) mmol/L Chloride 96 L (98-107) mmol/L Carbon Dioxide 27 (22-30) mmol/L BUN 36 H (7-17) mg/dL Creatinine 1.44 H (0.52-1.04) mg/dL Glucose 173 H (74-99) mg/dL Calcium 9.4 (8.4-10.2) mg/dL AST 30 (14-36) U/L ALT 23 (4-34) U/L Alkaline Phosphatase 76 (38-126) U/L Total Protein 6.9 (6.3-8.2) g/dL Albumin 4.2 (3.5-5.0) g/dL Current Medications Generic Name Dose Route Start Last Admin Trade Name Freq PRN Reason Stop Dose Admin Hydromorphone HCl 0.5 mg 03/13/20 10:16 Hydromorphone 0.5 Mg/0.5 Ml Syringe IVP Q4HR PRN Pain Sodium Chloride 1,000 mls @ 50 mls/hr 03/13/20 10:14 03/13/20 10:22 Saline 0.9% IV 03/14/20 06:13 50 mls/hr .Q20H ONE Administration Intake and Output 03/12/20 03/13/20 03/13/20 22:59 06:59 14:59 Other: Weight 72.121 kg Patient Weight 03/14/20 06:59 Weight 72.121 kg 03/13/20 08:53 03/13/20 08:53
[2020-03-13] MEDS ORDERED: bisacodyL 5 MG TABLET.DR PO PRN (13:16)
[2020-03-13] MEDS ORDERED: MELATONIN 3 MG TABLET PO PRN (13:16)
[2020-03-13] MEDS ORDERED: ACETAMINOPHEN TAB 325 MG TAB PO PRN (13:16)
[2020-03-13] MEDS ORDERED: NALOXONE 0.4 MG/ML 1 ML VIAL IV PRN (13:16)
[2020-03-13 13:20] LABS: Partial Thromboplastin Time 22.9 sec (22.0-30.0); Prothrombin Time 10.7 sec (9.0-12.0)
--- NOTE | 2020-03-13 13:44 | CT ---
EXAMINATION TYPE: CT chest angio for PE DATE OF EXAM: 03/13/2020 COMPARISON: Chest x-ray earlier today. HISTORY: Elevated d-dimer CT DLP: 368.3 mGycm Automated exposure control for dose reduction was used. CONTRAST: CT Chest for pulmonary embolism performed with with IV Contrast, patient injected with 80 mL of Isovu e 370. FINDINGS: LUNGS: There is 5 mm subpleural calcified nodule or granuloma posteriorly right lower lobe axial imag e 101. There is medial left basilar linear scarring with tiny calcified nodules are granulomas. Exam is degraded by patient motion artifact as patient unable to hold breath. No suspicious focal consolid ation. No pleural effusion or pneumothorax noted bilaterally. MEDIASTINUM: There is satisfactory enhancement of the pulmonary artery and its branches, there is no CT evidence for pulmonary embolism. There are no greater than 1 cm noncalcified hilar or mediastinal lymph nodes. No pericardial effusion is seen. Mild cardiomegaly is present. Coronary artery calci fication is noted which is larger for underlying coronary artery disease. Satisfactory enhancement of the aorta without dissection or aneurysm OTHER: Moderate multilevel spurring in the spine. IMPRESSION: No CT evidence for acute pulmonary embolism. No suspicious acute pulmonary process.
[2020-03-13] MEDS: SODIUM CHLORIDE 0.9% 1,000 ML IV SCH (15:03)
--- NOTE | 2020-03-13 15:03 | US ---
EXAMINATION TYPE: US venous doppler duplex LE BI DATE OF EXAM: 03/13/2020 2:51 PM COMPARISON: NONE CLINICAL HISTORY: rule out DVT. SIDE PERFORMED: Bilateral TECHNIQUE: The lower extremity deep venous system is examined utilizing real time linear array sonog natalie with graded compression, doppler sonography and color-flow sonography. VESSELS IMAGED: Common Femoral Vein Deep Femoral Vein Greater Saphenous Vein * Femoral Vein Popliteal Vein Small Saphenous Vein * Proximal Calf Veins (* superficial vessels) Technically difficult study due to patient position, poor venous return and swelling Right Leg: Appears negative for DVT, posterior calf veins not visualized due to patient positioning. Unable to augment due to technologist reach. Left Leg: Femoral vein is thin with thready flow, unable to compress distally, it is believed there is some chronic DVT in this vein, the popliteal vein appears patent. IMPRESSION: 1. There is reduced flow within the left superficial femoral vein with eccentric suspected thrombus. 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 Small acute component not excluded. Correlate clinically.
--- NOTE | 2020-03-13 15:03 | P.CONS ---
History of Present Illness - Reason for Consult Consult date: 03/13/20 Bone Lesions Requesting physician: Carlos Geronimo - Chief Complaint Syncopal Episode - History of Present Illness this is a pleasant 79 year old female who states she woke up on the floor of her home, last remembering she was taking her dog out. She was [facility] to [facility], with complaints of right hip pain. Denied SOB, Fever, Nausea, VOmiting, loss of bowels or bladder, Headache, or chest pain. She denies ever "passing out" in the past. During work-up renal function mildly elevated, no baseline to trend. Normocytic anemia, CT Neck revealed concern of round cervical lytic lesions and therefore we have been asked to further evaluate for the possibility of malignancy. Her D- Dimer was increased along with increased troponins, was initially on heparin, has since been discontinued. Her CT pelvis and hip reveals possible right femoral neck fracture. Review of Systems All systems: negative Past Medical History Past Medical History: Diabetes Mellitus, Eye Disorder, Skin Disorder Additional Past Medical History / Comment(s): Has an "eye disorder with fluid behind eyes, gets injection in eyes every 4 weeks." Lesions on skin, sees a Social Media Analyst. History of Any Multi-Drug Resistant Organisms: None Reported Past Surgical History: Joint Replacement, Orthopedic Surgery Additional Past Surgical History / Comment(s): Right ankle surgery, right leg surgery, left shoulder replacement. Past Anesthesia/Blood Transfusion Reactions: No Reported Reaction Past Psychological History: No Psychological Hx Reported Smoking Status: Never smoker Past Alcohol Use History: None Reported Past Drug Use History: None Reported - Past Family History Sister(s) Family Medical History: Dementia Mother Family Medical History: Congestive Heart Failure (CHF) Additional Family Medical History / Comment(s): at 29 yrs old. Medications and Allergies Home Medications Medication Instructions Recorded Confirmed Type Aspirin 81 mg PO DAILY 07/14/14 03/13/20 History Folic Acid 1 mg PO DAILY 07/14/14 03/13/20 History [place]-3 Fatty Acids/Fish Oil [Fish 1 cap PO BID 07/14/14 03/13/20 History Oil 1,000 mg Softgel] Simvastatin 20 mg PO HS 07/14/14 03/13/20 History glipiZIDE [Glipizide ER] 2.5 mg PO DAILY 07/14/14 03/13/20 History Dapsone 25 mg PO BID 10/09/17 03/13/20 History Furosemide [Lasix] 20 mg PO DAILY 10/09/17 03/13/20 History Ascorbic Acid [Vitamin C] 1,000 mg PO BID 03/13/20 03/13/20 History Cholecalciferol [Vitamin D3 (25 1,000 unit PO DAILY 03/13/20 03/13/20 History Mcg = 1000 Iu)] Hydrochlorothiazide 12.5 mg PO DAILY 03/13/20 03/13/20 History [hydroCHLOROthiazide] Losartan Potassium [Cozaar] 50 mg PO DAILY 03/13/20 03/13/20 History Metoprolol Succinate (ER) [Toprol 25 mg PO BID 03/13/20 03/13/20 History Xl] Allergies Allergy/AdvReac Type Severity Reaction Status Date / Time gluten Allergy Rash/Hives Verified 03/13/20 10:43 Physical Exam Vitals: Vital Signs Temp Pulse Pulse Resp BP BP Pulse Ox 03/13/20 13:37 98.1 F 65 16 178/52 93 L 03/13/20 10:55 98.1 F 60 18 169/71 97 03/13/20 10:25 62 20 173/66 94 L 03/13/20 08:37 97.9 F 78 20 192/85 94 L Intake and Output 03/12/20 03/13/20 03/13/20 22:59 06:59 14:59 Other: Weight 72.121 kg - Constitutional General appearance: cooperative, no acute distress - EENT Eyes: EOMI ENT: hard of hearing, NA/AT, normal oropharynx - Respiratory Respiratory: bilateral: CTA - Cardiovascular Rhythm: regular Heart sounds: normal: S1, S2 leg Peripheral Edema: right: 1+ - Gastrointestinal General gastrointestinal: soft, tenderness - Integumentary Eccymosis on right hip buttock area of fall - Neurologic Neurologic: CNII-XII intact - Musculoskeletal Musculoskeletal: generalized weakness, right sided weakness - Psychiatric Psychiatric: A&O x's 3, appropriate affect Results CBC & Chem 7: 03/14/20 06:13 03/14/20 06:13 Labs: Abnormal Lab Results - Last 24 Hours (Table) 03/13/20 03/13/20 03/13/20 Range/Units 08:53 08:53 12:02 RBC 3.31 L (3.80-5.40) m/uL Hgb 10.4 L (11.4-16.0) gm/dL Hct 33.0 L (34.0-46.0) % D-Dimer (<0.60) mg/L FEU Sodium 130 L (137-145) mmol/L Chloride 96 L (98-107) mmol/L BUN 36 H (7-17) mg/dL Creatinine 1.44 H (0.52-1.04) mg/dL Glucose 173 H (74-99) mg/dL Troponin I 0.066 H* (0.000-0.034) ng/mL 03/13/20 Range/Units 12:02 RBC (3.80-5.40) m/uL Hgb (11.4-16.0) gm/dL Hct (34.0-46.0) % D-Dimer 25.69 H (<0.60) mg/L FEU Sodium (137-145) mmol/L Chloride (98-107) mmol/L BUN (7-17) mg/dL Creatinine (0.52-1.04) mg/dL Glucose (74-99) mg/dL Troponin I (0.000-0.034) ng/mL Chest x-ray: report reviewed CT Scan - head: report reviewed CT scan - pelvis: report reviewed Venous US: report reviewed Assessment and Plan Plan: Assessment and Recommendations: Cervical Round Lytic Lesion: - Further evaluation for monoclonal proteins and nuclear bone scan ordered - Finding is insignificant at the moment, but will further evaluate for potential underlying malignancy Syncopal Episode with loss of consciousness: - Cardiology and neurology to follow - CT brain without acute abnormality Normocytic Anemia: - Work-up ordered to further evaluate for etiology - In addition work-up for monoclonal proteins and autoimmune inflammatory underlying disorders Right Femoral Fracture: - Ortho following, likely surgical intervention per Ortho Increased D-Dimer/Trop: - CTA negative for PE - Venous doppler is pending - Hep gtt has been discontinued but was initially started Await full work-up of blood work-up and imaging Continue active intervention and monitoring per other specialities for acute problems Thank you for allowing us to participate in the care of your patient will follow along with you.
--- NOTE | 2020-03-13 15:13 | P.CONS ---
<Yan Mayberry - Last Filed: 03/13/20 15:22> History of Present Illness - Reason for Consult Consult date: 03/13/20 syncopal episode - Chief Complaint Loss of consciousness - History of Present Illness History of presenting illness: Patient is an 79-year-old female with a past medical history including hyp ertension, hyperlipidemia, pulmonary hypertension, igb-fitfoge-sojuynkei diabetes mellitus type 2, chronic kidney disease, and dermatitis herpetiformis. Patient presented to [facility] with a chief complaint of head injury and right leg/hip pain status post reported fall with loss of consciousness. Patient reports that she was letting her dog inside and remembers going outside and unhooking the dogs 20 foot leash in bringing the dog inside and the next thing she remembers is awakening on her utility room floor. Patient states she is unsure if she tripped and fell on the leash or had a syncopal episode. Patient does not remember fall. The only thing patient remembers is awakening on the utility room cement floor and sitting up wondering what happened and states she touched her head and noticed a lot of blood on her hands so she became very concerned and attempted to stand up but had pain in her right hip. Patient reports she crawled to the chair in her living room and was able to climb up into the chair and called her neighbor for assistance. Patient states that she lives alone after her this past April. Once in the emergency department, patient was found to have a displaced right femoral neck fracture and a head injury. Laceration to right parietal scalp was repaired in ED with dari. Patient was admitted under orthopedic surgeon with consults placed to cardiology and hospitalist medicine. We were consulted on this patient for continued medical management. Patient was assessed at bedside. She was alert and oriented to person, place, time, and situation. She denied remembering the fall and denies currently or recently having any headache, lightheadedness, dizziness, changes in her vision or hearing, tinnitus, chest p ain, palpitations, shortness of breath, abdominal pain, nausea, vomiting, or any other complaints. She states over the past week she has had a healthy appetite with no recent illnesses or infections, fevers, chills, or any other complaints or concerns. Labs: CBC revealing normocytic normochromic anemia with hemoglobin of 10.4, hematocrit 33.0, MCV 99.6, MCH 31.4, MCHC 31.5, and RDW of 14.7. Coagulation profile normal findings. BMP revealing mild hyponatremia with sodium of 1:30 and hypochloremia with chloride of 96, it is also conclusive with patient stage III CKG with BUN 36, creatinine 1.44, and GFR of 34. D-Dimer was significantly elevated at 25.[address] PE which was negative for acute pulmonary emboli. Troponin also elevated at 0.066. Chest x-ray revealing cardiomegaly with mildly prominent central interstitium could be associated with bronchitis or interstitial pneumonitis. X-ray right hip revealing a displaced right femoral neck fracture. CT head revealing: No acute intracranial hemorrhage or midline shift is seen. Moderate to large sized acute right parietal scalp hematoma. Mild to moderate diffuse cerebral atrophy and mild chronic small vessel ischemic changes. Old right parietal lobe infarct. 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 CT cervical spine revealing: No acute fracture or dislocation evident in the cervical spine with multilevel degenerative changes as described above. Multiple round lucent lesions, follow-up advised to exclude osseous metastatic disease versus multiple myeloma. EKG revealing sinus rhythm at 66 bpm with a first-degree AV block with FL interval of 264 ms Assessment: Review of systems: Pertinent positives and negatives as discussed in HPI, a complete review of systems was performed and all other systems are negative. Physical exam: General: non toxic, no distress, appears at stated age Derm: warm, dry Head: Pt with moderate sized hematoma to right parietal scalp accompanied by laceration with repair, dari intact. Eyes: EOMI, no lid lag, anicteric sclera Mouth: No lip lesion, mucus membranes moist, no evidence that pt bit tongue or lip during loss of consciousness. Cardiovascular: S1S2 reg, soft murmur present, positive posterior tibial pulses bilaterally. Cap refill < 2 seconds. Lungs: Respiratins even, regular, and unlabored on room air. Lungs CTA bilaterally, no rhonchi, no rales, no wheezes and no accessory muscle use Abdominal: Soft, nontender to palpation, no guarding, no appreciable organom egaly. : laura in place to dependent drainage with dark straw colored urine. Ext: Pain upon palpation to right lateral hip and right lateral proximal region of leg. No obvious bruising, no shortening or rotation. Movement and sensation intact to distal region of right leg. Posterior tibial pulses intact bilaterally. LLE normal findings. Neuro: CN II-XII grossly intact, movement and sensation intact, no focal neuro deficits. Psych: Alert, oriented, appropriate affect Plan of care: Loss of Consciousness -Likely secondary to postconcussion syndrome. Cardiology consulted to rule out syncopal episode with cardiac etiology. Unlikely neurologic, as pt had no postictal confusion, involuntary loss of bowel or bladder, and no bite klein to tongue or cheeks. -CT head revealing: No acute intracranial hemorrhage or midline shift is seen. -D-Dimer elevated at 25.69, order was placed for a CT PE, which was negative for acute pulmonary emboli. Troponin also significantly elevated at 0.066. EKG revealed sinus rhythm at 66 bpm with a first-degree AV block with FL interval of 264 ms. Cardiology placed transfer for patient to go to stepdown unit and is recommending to hold off on anticoagulation at this time pending echocardiogram and bilateral lower extremity Doppler results. -Neuro checks to be in place every 4 hours -Fall precaution -Trend troponins every 3 hours 3 Right femoral neck fracture -X-ray right hip revealing a displaced right femoral neck fracture. -Orthopedic surgery to care for with anticipated plan for surgery tomorrow once cleared by cardiology. Head injury with laceration from fall -Patient sustained a head injury status post fall in which patient suffered a loss of consciousness and awoken on the floor. Patient has no memory of the event. Patient remembers everything leading up to and immediately after only. -CT had revealing: No acute intracranial hemorrhage or midline shift is seen. Moderate to large sized acute right parietal scalp hematoma. Mild to moderate diffuse cerebral atrophy and mild chronic small vessel ischemic changes. Old right parietal lobe infarct. 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 -Laceration to right parietal scalp repaired in ED with dari, which are intact. -Neuro checks to remain in place every 4 hours along with fall precautions. Lucent lesions of cervical spine, found incidentally on CT imaging -CT cervical spine revealing: No acute fracture or dislocation evident in the cervical spine with multilevel degenerative changes as described above. Multiple round lucent lesions, follow-up advised to exclude osseous metastatic d isease versus multiple myeloma. -Oncology consult. To rule out multiple myeloma in place order for bone scan at this time. Hyponatremia secondary to mild dehydration -Sodium 130. Chloride 96. -Hold Lasix and hydrochlorothiazide and manage patient with gentle hydration with 0.9% normal saline at 75 mL's per hour. -We will continue to monitor with repeat a.m. labs. Hypertension, elevated above normal limits upon admission. -Monitor vital signs and continue daily medication management. Hyperlipidemia, stable -Continue daily medication management CKD stage III, stable -Patient with a history of CKG stage III currently BUN 36, creatinine 1.44, and GFR 34. -This is patient's baseline levels, we'll continue to monitor with repeat a.m. labs. Dermatitis Herpetiformis, stable -Continue daily dapsone 25 mg twice a day Code status: DNR/DNI, Yes to all medical interventions with the exception of CPR and intubation. DVT prophylaxis: As ordered by primary admitted orthopedic team. Home medications reviewed and ordered. A total of 35 minutes spent on the care of this complex patient more than 50% of the time was spent in counseling and care coordination. Thank you for allowing us to participate in the care of this pleasant patient. Do not hesitate to contact us with questions. Someone can be reached from the [facility] hospitalist group all hours of the day at [phone] or via [employer]. Review of Systems . Past Medical History Past Medical History: Diabetes Mellitus, Eye Disorder, Skin Disorder Additional Past Medical History / Comment(s): Has an "eye disorder with fluid behind eyes, gets injection in eyes every 4 weeks." Lesions on skin, sees a Traffic Checker. History of Any Multi-Drug Resistant Organisms: None Reported Past Surgical History: Joint Replacement, Orthopedic Surgery Additional Past Surgical History / Comment(s): Right ankle surgery, right leg surgery, left shoulder replacement. Past Anesthesia/Blood Transfusion Reactions: No Reported Reaction Past Psychological History: No Psychological Hx Reported Smoking Status: Never smoker Past Alcohol Use History: None Reported Past Drug Use History: None Reported - Past Family History Sister(s) Family Medical History: Dementia Mother Family Medical History: Congestive Heart Failure (CHF) Additional Family Medical History / Comment(s): at 29 yrs old. Medications and Allergies Home Medications Medication Instructions Recorded Confirmed Type Aspirin 81 mg PO DAILY 07/14/14 03/13/20 History Folic Acid 1 mg PO DAILY 07/14/14 03/13/20 History Lutz-3 Fatty Acids/Fish Oil [Fish 1 cap PO BID 07/14/14 03/13/20 History Oil 1,000 mg Softgel] Simvastatin 20 mg PO HS 07/14/14 03/13/20 History glipiZIDE [Glipizide ER] 2.5 mg PO DAILY 07/14/14 03/13/20 History Dapsone 25 mg PO BID 10/09/17 03/13/20 History Furosemide [Lasix] 20 mg PO DAILY 10/09/17 03/13/20 History Ascorbic Acid [Vitamin C] 1,000 mg PO BID 03/13/20 03/13/20 History Cholecalciferol [Vitamin D3 (25 1,000 unit PO DAILY 03/13/20 03/13/20 History Mcg = 1000 Iu)] Hydrochlorothiazide 12.5 mg PO DAILY 03/13/20 03/13/20 History [hydroCHLOROthiazide] Losartan Potassium [Cozaar] 50 mg PO DAILY 03/13/20 03/13/20 History Metoprolol Succinate (ER) [Toprol 25 mg PO BID 03/13/20 03/13/20 History Xl] Allergies Allergy/AdvReac Type Severity Reaction Status Date / Time gluten Allergy Rash/Hives Verified 03/13/20 10:43 Physical Exam Vitals: Vital Signs Temp Pulse Resp BP Pulse Ox 03/13/20 10:55 98.1 F 60 18 169/71 97 03/13/20 10:25 62 20 173/66 94 L 03/13/20 08:37 97.9 F 78 20 192/85 94 L Intake and Output 03/12/20 03/13/20 03/13/20 22:59 06:59 14:59 Other: Weight 72.121 kg Results CBC & Chem 7: 03/13/20 08:53 03/13/20 08:53 Labs: Abnormal Lab Results - Last 24 Hours (Table) 03/13/20 03/13/20 03/13/20 Range/Units 08:53 08:53 12:02 RBC 3.31 L (3.80-5.40) m/uL Hgb 10.4 L (11.4-16.0) gm/dL Hct 33.0 L (34.0-46.0) % D-Dimer 25.69 H (<0.60) mg/L FEU Sodium 130 L (137-145) mmol/L Chloride 96 L (98-107) mmol/L BUN 36 H (7-17) mg/dL Creatinine 1.44 H (0.52-1.04) mg/dL Glucose 173 H (74-99) mg/dL <Dawna Milligan - Last Filed: 03/13/20 15:51> History of Present Illness - History of Present Illness Patient seen and examined independently. Patient was also seen by aYn Mayberry NP and case was discussed. I am in agreement with subjective, physical exam, assessment and plan as written above and amended below. General examination - Alert and Oriented 3 in NAD HEENT: Hematoma on the back of her head with laceration Heart - + S1S2 no murmurs Lungs - Clear to auscultation Abdomen soft NT ND +ve BS Extremities - No edema MAINTENANCE JOB TITLES - Moving all 4 extremities spontaneously Psych - Calm and cooperative Physical Exam Osteopathic Statement: *. No significant issues noted on an osteopathic structural exam other than those noted in the History and Physical/Consult. Vitals: Vital Signs Temp Pulse Pulse Resp BP BP Pulse Ox 03/13/20 15:30 98.1 F 68 16 176/70 98 03/13/20 13:37 98.1 F 65 16 178/52 93 L 03/13/20 10:55 98.1 F 60 18 169/71 97 03/13/20 10:25 62 20 173/66 94 L 03/13/20 08:37 97.9 F 78 20 192/85 94 L Intake and Output 03/13/20 03/13/20 03/13/20 06:59 14:59 22:59 Other: Weight 72.121 kg Results CBC & Chem 7: 03/13/20 08:53 03/13/20 08:53 Labs: Abnormal Lab Results - Last 24 Hours (Table) 03/13/20 03/13/20 03/13/20 Range/Units 08:53 08:53 12:02 RBC 3.31 L (3.80-5.40) m/uL Hgb 10.4 L (11.4-16.0) gm/dL Hct 33.0 L (34.0-46.0) % Retic Count (0.5-2.0) % D-Dimer (<0.60) mg/L FEU Sodium 130 L (137-145) mmol/L Chloride 96 L (98-107) mmol/L BUN 36 H (7-17) mg/dL Creatinine 1.44 H (0.52-1.04) mg/dL Glucose 173 H (74-99) mg/dL Troponin I 0.066 H* (0.000-0.034) ng/mL 03/13/20 03/13/20 Range/Units 12:02 14:56 RBC (3.80-5.40) m/uL Hgb (11.4-16.0) gm/dL Hct (34.0-46.0) % Retic Count 2.3 H (0.5-2.0) % D-Dimer 25.69 H (<0.60) mg/L FEU Sodium (137-145) mmol/L Chloride (98-107) mmol/L BUN (7-17) mg/dL Creatinine (0.52-1.04) mg/dL Glucose (74-99) mg/dL Troponin I (0.000-0.034) ng/mL
[2020-03-13 15:25] LABS: Reticulocyte % 2.3 % (0.5-2.0)
--- NOTE | 2020-03-13 16:26 | ECHOF ---
Referral Reason:surgical clearance MEASUREMENTS -------- HEIGHT: 170.2 cm WEIGHT: 71.2 kg BP: IVSd: 1.4 cm (0.6 - 1.1) LVIDd: 4.3 cm (3.9 - 5.3) LVPWd: 1.4 cm (0.6 - 1.1) IVSs: 1.5 cm LVIDs: 3.6 cm LVPWs: 1.4 cm LAESV Index (A-L): 48.90 ml/m Ao Diam: 2.9 cm (2.0 - 3.7) AV Cusp: 1.6 cm (1.5 - 2.6) LA Diam: 4.5 cm (2.7 - 3.8) MV EXCURSION: 18.395 mm (> 18.000) MV EF SLOPE: 44 mm/s (70 - 150) EPSS: 1.0 cm MV E Олег: 0.54 m/s MV DecT: 385 ms MV A Олег: 0.90 m/s MV E/A Ratio: 0.60 RAP: 5.00 mmHg RVSP: 48.68 mmHg FINDINGS -------- Sinus rhythm. This was a technically adequate study. The left ventricular size is normal. There is moderate concentric left ventricular hypertrophy. O verall left ventricular systolic function is normal with, an EF between 55 - 60 %. The right ventricle is normal in size. LA is severely dilated >40 ml/m2 The right atrial size is normal. There is mild aortic valve sclerosis. Mild mitral annular calcification present. [id number] mitral regurgitation is present. Mild tricuspid regurgitation present. There is mild to moderate pulmonary hypertension. The right ventricular systolic pressure, as measured by Doppler, is 48.68mmHg. There is no pulmonic regurgitation present. The aortic root size is normal. There is no pericardial effusion. CONCLUSIONS -------- 1. There is moderate concentric left ventricular hypertrophy. 2. Overall left ventricular systolic function is normal with, an EF between 55 - 60 %. 3. LA is severely dilated >40 ml/m2 4. There is mild aortic valve sclerosis. 5. [id number] mitral regurgitation is present. 6. Mild tricuspid regurgitation present. 7. There is mild to moderate pulmonary hypertension. 8. There is no pericardial effusion. COURT BAILIFF: Kami Abdi RDCS
[2020-03-13 16:41] LABS: Glucose,Whole Blood 168 mg/dL (75-99)
[2020-03-13] MEDS: INSULIN ASPART (NovoLOG) 100 UNIT/ML VIAL SQ SCH (17:00)
[2020-03-13] MEDS ORDERED: levETIRAcetam IV 1,000 MG in SALINE 1 100ML.BAG IVPB STA (18:38)
--- NOTE | 2020-03-13 18:43 | P.CNNES ---
History of Present Illness Consult date: 03/13/20 Requesting physician: Eloy Milligan Reason for Consult: possible post concussiion syndrome History of Present Illness: This is an 79-year-old woman with history of diabetes, hypertension, chronic kidney insufficiency presented emergency department on the 03/13/2020 after a fall episode. He stated that the she was letting her dog and from the backdoor and then when the she reached down to take off her dog's leash all of a sudden she passed out and lost consciousness. She does not know how long she passed out for. She said that she had the minimal urinary incontinence upon waking up. Denies bowel incontinence or any tongue bites or soreness. He denies any warning signs prior to the episode. She denies of feeling lightheaded, diplopia, chest pain or palpitation. She resides by herself and upon waking up she was crawling and she called her neighbor who came and then the EMS was called as a result. She denies any focal weakness, numbness. Currently she denies any headache, nausea or vomiting. Denies any photophobia or phonophobia. In the ED she complained of pain in the back of the head and she was bleeding from that side. She was also complaining of right hip pain. Patient denies any history of strokes. Denies any history of seizures. She stated that she is on aspirin 81 mg at home daily. She denies any tobacco use or alcohol use. Workup in the hospital consisted of: Initial vitals consisted of blood pressure of 192/85, heart rate of 78, Restoril of 20, temperature of 97.9 Fahrenheit oral and pulse ox of the 94% at room air. CT of the head and the cervical spine is reported as there is no acute fracture or dislocation evident in the cervical spine. Multilevel degenerative changes as described above. Multiple round lucent lesion, follow up advised to exclude osseous metastatic disease or multiple myeloma as etiology. No acute intracranial hemorrhage of midline shift is seen. Moderate to large sized acute right parietal scalp hematoma. Mild to moderate diffuse cerebral atrophy and mild chronic small vessel ischemic change. Old right parietal infarct. 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 EKG is reported as sinus rhythm with first-degree AV block. Left axis deviation. Anterior infarct, age undetermined. Abnormal EKG. Hip x-ray was reported as foreshortening of the right femoral neck suspicious for fracture. CAT scan could be obtained for confirmation. 2-D echo was reported as overall left ventricular systolic function was normal with an ejection fraction between 55-60%. Left atrium is severely dilated. There is mild to moderate mitral regurgitation is present. There is mild to moderate pulmonary hypertension. White blood cell is 9.3 which is normal. Hemoglobin is 10.4. Sodium is 1:30. The BUN is 36 and creatinine is 1.44. The initial serum glucose is 173. The troponin is 0.066 and the repeat his 0.092. Review of Systems 12 point review of system was done and apparent positive and negative per HPI. Past Medical History Past Medical History: Diabetes Mellitus, Eye Disorder, Skin Disorder Additional Past Medical History / Comment(s): Has an "eye disorder with fluid behind eyes, gets injection in eyes every 4 weeks." Lesions on skin, sees a Hand Stripper. History of Any Multi-Drug Resistant Organisms: None Reported Past Surgical History: Joint Replacement, Orthopedic Surgery Additional Past Surgical History / Comment(s): Right ankle surgery, right leg s urgery, left shoulder replacement. Past Anesthesia/Blood Transfusion Reactions: No Reported Reaction Past Psychological History: No Psychological Hx Reported Smoking Status: Never smoker Past Alcohol Use History: None Reported Past Drug Use History: None Reported - Past Family History Sister(s) Family Medical History: Dementia Mother Family Medical History: Congestive Heart Failure (CHF) Additional Family Medical History / Comment(s): at 29 yrs old. Medications and Allergies Home Medications Medication Instructions Recorded Confirmed Type Aspirin 81 mg PO DAILY 07/14/14 03/13/20 History Folic Acid 1 mg PO DAILY 07/14/14 03/13/20 History [place]-3 Fatty Acids/Fish Oil [Fish 1 cap PO BID 07/14/14 03/13/20 History Oil 1,000 mg Softgel] Simvastatin 20 mg PO HS 07/14/14 03/13/20 History glipiZIDE [Glipizide ER] 2.5 mg PO DAILY 07/14/14 03/13/20 History Dapsone 25 mg PO BID 10/09/17 03/13/20 History Furosemide [Lasix] 20 mg PO DAILY 10/09/17 03/13/20 History Ascorbic Acid [Vitamin C] 1,000 mg PO BID 03/13/20 03/13/20 History Cholecalciferol [Vitamin D3 (25 1,000 unit PO DAILY 03/13/20 03/13/20 History Mcg = 1000 Iu)] Hydrochlorothiazide 12.5 mg PO DAILY 03/13/20 03/13/20 History [hydroCHLOROthiazide] Losartan Potassium [Cozaar] 50 mg PO DAILY 03/13/20 03/13/20 History Metoprolol Succinate (ER) [Toprol 25 mg PO BID 03/13/20 03/13/20 History Xl] Allergies Allergy/AdvReac Type Severity Reaction Status Date / Time gluten Allergy Rash/Hives Verified 03/13/20 10:43 Physical Examination - Vital Signs Vital Signs: Vital Signs Temp Pulse Pulse Resp BP BP Pulse Ox 03/13/20 15:30 98.1 F 68 16 176/70 98 03/13/20 13:37 98.1 F 65 16 178/52 93 L 03/13/20 10:55 98.1 F 60 18 169/71 97 03/13/20 10:25 62 20 173/66 94 L 03/13/20 08:37 97.9 F 78 20 192/85 94 L Intake and Output 03/13/20 03/13/20 03/13/20 06:59 14:59 22:59 Other: Weight 72.121 kg GENERAL: The patient is lying in bed and is not in acute distress. HENT: Old blood clot over right posterior/parietal head. CHEST: The heart rate is regular rate rhythm. No murmurs to auscultation. No carotid bruit bilaterally. LUNG: Clear to auscultation bilaterally no wheezing noted throughout. Not labored breathing. ABDOMEN/GI: Bowel sounds present in all 4 quadrants. No tenderness to palpation throughout. NEUROLOGICAL: Higher mental function: The patient is awake, alert, oriented to self, place and time. Patient is following commands. No aphasia and no neglect. Cranial nerves: The pupils are round, equal and reactive to light and accommodation. Visual conteh are full to confrontation throughout. Extraocular movement is intact no nystagmus is noted. There is mild echymosis of right lateral side of eye. Facial sensation is normal to touch throughout. The facial strength is normal throughout. Hearing is normal bilaterally to hand rub. Tongue is midline and moved [id number] without any difficulty. No dysarthria is noted. Shoulder shrug is normal bilaterally. Motor: Gait is deferred because of pain in right hip. The strength is limited of the right lower extremity because of right hip pain from fracture but was able to raise above gravity without difficulty. Otherwise 5 over 5 throughout. Normal tone and bulk. Cerebellum: Normal finger to nose bilaterally. Sensation: Sensation is normal to touch throughout. Reflexes (right/left): 2+ Plantars are downgoing over the right while upgoing over the left. Results Cognition study: PT of 10.7, INR 1.0, PTT of 22.9. - Laboratory Findings CBC and BMP: 03/13/20 08:53 03/13/20 08:53 Abnormal Lab Findings: Abnormal Labs 03/13/20 03/13/20 03/13/20 08:53 08:53 12:02 RBC 3.31 L Hgb 10.4 L Hct 33.0 L Retic Count D-Dimer Sodium 130 L Chloride 96 L BUN 36 H Creatinine 1.44 H Glucose 173 H POC Glucose (mg/dL) Troponin I 0.066 H* 03/13/20 03/13/20 03/13/20 12:02 14:56 14:56 RBC Hgb Hct Retic Count 2.3 H D-Dimer 25.69 H Sodium Chloride BUN Creatinine Glucose POC Glucose (mg/dL) Troponin I 0.092 H* 03/13/20 16:40 RBC Hgb Hct Retic Count D-Dimer Sodium Chloride BUN Creatinine Glucose POC Glucose (mg/dL) 168 H Troponin I Assessment and Plan Assessment: This is an 79-year-old woman who presented emergency department on the 03/13/2020 after a fall episode this morning. She remembers reaching down to unleash her dog but then lost consciousness. He denies any warning signs prior to the episodes. Episode of fall with loss of consciousness: I think the patient had a seizure in my opinion especially since she has a right parietal lesion which can be focus for seizure. Right parietal encephalomalacia (she denies history of stroke that she recalls) Small round lucent lesions scattered throughout the cervical vertebra: Exclude osseous metastasis disease or multiple myeloma Right femoral neck fracture due to fall Mild hyponatremia (Sodium 130) Elevated troponin and likely reactive Hyperlipidemia Chronic stage kidney disease Diabetes mellitus Plan: Placed the patient on Keppra 500 mg 1 tablet twice a day with a loading of 1 gm now. I ordered an EEG but likely will be done Monday. If the patient has further episodes of loss consciousness I recommend getting as stat EEG. I recommend MRI of the brain as well as MRI of the cervical spine with and without gadolinium once the patient's creatinine and GFR improves. I ordered carotid duplex is a history of strokes. Lipid panel on 12/03/2019 and it's the triglyceride is 84, cholesterol is 117, LDL is 61 and HDL is 39. Therefore there is no need to repeat another one. TSH is 1.120 on 12/03/2019 again there is no need to repeat 1. Currently the patient's is on Lipitor 10 mg daily. I recommend for the patient continue her home dose aspirin 81mg, once cleared by Orthopedic team. Physical therapy and occupation therapy are consulted. Heme/Oncology team is consulted for CT of the neck finding because of the concern of round cervical lytic lesion possibility of osseous metastatic lesion vs multiple myeloma. Continue cardiac monitoring Cardiology team is on board. Because of episode of loss of consciousness/seizure patient's avoid driving per [employer] for 6 month until seizure-free. She is to avoid the heavy machinery, [place] or swimming unassisted. Will defer the rest of the medical management to the primary team. The plan was discussed with the patient and her nurse. Thank You for the consultation. There is no neurology service over the weekend. Please Perfect Serve if needed. Dr. Fonseca will take over this coming-up Monday. Davi Reyes M.D. Neuro-hospitalist Time with Patient: Greater than 30
[2020-03-13] MEDS: DAPSONE 25 MG TAB PO SCH (20:06)
[2020-03-13] MEDS: ATORVASTATIN 10 MG TAB PO SCH (20:06)
[2020-03-13] MEDS: METOPROLOL SUCCINATE (ER) 25 MG TAB.ER.24H PO SCH (20:06)
--- NOTE | 2020-03-13 20:09 | NM ---
EXAMINATION TYPE: NM bone scan whole body DATE OF EXAM: 03/13/2020 COMPARISON: NONE HISTORY: Lytic lesions Delayed whole-body scanning was performed following the injection of 22.9 mCi Tc 99m MDP. Images acq uired 4 hours post injection. FINDINGS: There is abnormal increased uptake in the lateral aspect of the right knee involving the lateral femo ral condyle and consistent with arthritic disease. There is also abnormal increased uptake in the lef t ankle region of the distal tibia and the left hindfoot. This is consistent with trauma or arthritic disease. There is focal increased uptake in the posterior right side mid cervical spine and consiste nt with arthritic disease. IMPRESSION: Areas of increased uptake are consistent with arthritic disease. This patient has multiple small oste olytic foci in the cervical vertebra on the CT scan of today. These are nonspecific. This could relat e to multiple myeloma. The bone scan is insensitive for detecting myeloma lesions.
[2020-03-13 20:30] LABS: % Iron Saturation 19.05 (12.00-45.00); Iron 56 ug/dL (50-170); LDH 274 U/L (120-246); Rheumatoid Factor, Qnt 5 IU/mL (0-15); Total Iron Binding Capacity 294 ug/dL (228-460)
[2020-03-13 20:39] LABS: Protein, Total 6.3 g/dL (6.2-8.2)
[2020-03-13 20:46] LABS: Glucose,Whole Blood 237 mg/dL (75-99)
[2020-03-13 20:49] LABS: Ferritin 379.4 ng/mL (10.0-291.0); Folate, Serum >24.0 ng/mL
--- NOTE | 2020-03-13 20:52 | US ---
EXAMINATION TYPE: US carotid duplex BILAT DATE OF EXAM: 03/13/2020 COMPARISON: NONE CLINICAL HISTORY: stroke. stroke EXAM MEASUREMENTS: RIGHT: Peak Systolic Velocity (PSV) cm/sec ----- Right CCA: 85.7 ----- Right ICA: 109.9 ----- Right ECA: 107.3 ICA/CCA ratio: 1.3 RIGHT: End Diastole cm/sec ----- Right CCA: 15.9 ----- Right ICA: 23.2 ----- Right ECA: 0.0 LEFT: Peak Systolic Velocity (PSV) cm/sec ----- Left CCA: 95.6 ----- Left ICA: 112.9 ----- Left ECA: 199.6 ICA/CCA ratio: 1.2 LEFT: End Diastole cm/sec ----- Left CCA: 12.8 ----- Left ICA: 12.8 ----- Left ECA: 0.0 VERTEBRALS (direction of flow): Right Vertebral: Antegrade Left Vertebral: Antegrade Rhythm: Normal Mild plaque bilateral bifurcations. Increased velocities left ECA IMPRESSION: There is antegrade flow in the vertebral arteries. The images and measurements suggest close to 50% s tenosis in both internal carotid arteries. There is 50-70% stenosis in the left external carotid dave ry. Criteria for Assigning % of Stenosis / Diameter reduction (Estimation based on the indirect measurements of the internal carotid artery velocities (ICA PSV). 1. Normal (no stenosis)=ICA PSV < 125 cm/s: ratio < 2.0: ICA EDV<40 cm/s. 2. Less than 50% stenosis=ICA PSV < 125 cm/s: ratio < 2.0: ICA EDV<40 cm/s. 3. 50 to 69% stenosis=ICA PSV of 125 to 230 cm/s: ration 2.0 ? 4.0: ICA EDV 40-100 cm/s. 4. Greater than 70% stenosis to near occlusion= ICA PSV > 230 cm/s: ratio > 4.0: ICA EDV > 100 cm/s. 5. Near occlusion= ICA PSV velocities may be low or undetectable: variable ratio and ICA EDV. 6. Total occlusion=unable to detect flow.
[2020-03-14] MEDS: SODIUM CHLORIDE 0.9% 1,000 ML IV SCH ×2 (02:17→16:17)
[2020-03-14 06:53] LABS: Basophils % (A) 0 %; Eosinophils # (A) 0.2 k/uL (0-0.7); Eosinophils % (A) 2 %; HCT 27.3 % (34.0-46.0); Lymphocytes # (A) 1.3 k/uL (1.0-4.8); Lymphocytes % (A) 14 %; MCH 31.6 pg (25.0-35.0); MCHC 31.7 g/dL (31.0-37.0); MCV 99.7 fL (80.0-100.0); Macrocytosis Slight; Monocytes # (A) 0.4 k/uL (0-1.0); Monocytes % (A) 4 %; Neutrophils # (A) 7.2 k/uL (1.3-7.7); Neutrophils % (A) 79 %; Platelet Count 207 k/uL (150-450); RBC 2.74 m/uL (3.80-5.40); RDW 14.8 % (11.5-15.5); WBC 9.1 k/uL (3.8-10.6)
[2020-03-14 06:57] LABS: HGB 8.6 gm/dL (11.4-16.0)
[2020-03-14 07:06] LABS: Glucose,Whole Blood 156 mg/dL (75-99)
[2020-03-14] MEDS: INSULIN ASPART (NovoLOG) 100 UNIT/ML VIAL SQ SCH ×3 (07:18→17:18)
[2020-03-14] MEDS ORDERED: SUCCINYLCHOLINE CHLORIDE 100 MG/5 ML SYR IV ONE (08:00)
[2020-03-14] MEDS ORDERED: DEXAMETHASONE SOD PHOSPHATE 4 MG/ML 1 ML VIAL ONE (08:00)
[2020-03-14] MEDS ORDERED: fentaNYL (PF) 50 MCG/ML 2 ML AMP ONE (08:00)
[2020-03-14] MEDS ORDERED: TRANEXAMIC ACID 1,000 MG/10 ML VIAL ONE (08:00)
[2020-03-14] MEDS ORDERED: LIDOCAINE 1% INJ 10MG/ML (20 ML MDV) ONE (08:00)
[2020-03-14] MEDS ORDERED: ceFAZolin 1,000 MG VIAL ONE (08:00)
[2020-03-14] MEDS ORDERED: ONDANSETRON 4 MG/2 ML VIAL ONE (08:00)
[2020-03-14] MEDS ORDERED: NEOSTIGMINE 1 MG/ML 10 ML VIAL ONE (08:00)
[2020-03-14] MEDS ORDERED: GLYCOPYRROLATE 0.2 MG/ML 2 ML VIAL ONE (08:00)
[2020-03-14] MEDS ORDERED: PROPOFOL 10 MG/ML 20 ML VIAL IV ONE (08:00)
[2020-03-14] MEDS ORDERED: SODIUM CHLORIDE 0.9% 100 ML BAG ONE ×2 (08:00)
[2020-03-14] MEDS ORDERED: MIDAZOLAM 2 MG/2 ML VIAL ONE (08:00)
[2020-03-14] MEDS ORDERED: ePHEDrine SULFATE/0.9% NACL/PF 50 MG/5 ML SYRINGE IV ONE (08:00)
[2020-03-14] MEDS ORDERED: ROCURONIUM 10 MG/ML (10 ML VIAL) IV ONE (08:00)
[2020-03-14] MEDS ORDERED: LACTATED RINGERS 1,000 ML IV ONE ×2 (08:00→09:18)
[2020-03-14] MEDS ORDERED: TRANEXAMIC ACID 1,000 MG in SODIUM CHLORIDE 0.9% 100 ML IVPB ONE ×2 (08:25→08:30)
[2020-03-14] MEDS ORDERED: ceFAZolin 3,000 MG in SODIUM CHLORIDE 0.9% IRRIGATIO 3,000 ML IRRIGATION ONE (08:36)
[2020-03-14] MEDS ORDERED: hydroCHLOROthiazide 12.5 MG CAP PO SCH (09:00)
[2020-03-14] MEDS ORDERED: FUROSEMIDE 20 MG TAB PO SCH (09:00)
[2020-03-14] MEDS ORDERED: HYDROmorphone 0.5 MG/0.5 ML SYRINGE IVP PRN (09:49)
[2020-03-14] MEDS ORDERED: ACETAMINOPHEN TAB 325 MG TAB PO PRN (09:49)
[2020-03-14] MEDS ORDERED: NALOXONE 0.4 MG/ML 1 ML VIAL IV PRN (09:49)
[2020-03-14 09:57] LABS: Anion Gap 8.3 mmol/L (4.00-12.00); BUN/Creat Ratio 27.14 Ratio (12.00-20.00); Calcium 8.7 mg/dL (8.7-10.3); Carbon Dioxide 25.7 mmol/L (21.6-31.8); Non-African American GFR(CKD) 35.4 (60.0-200.0); Potassium 4.3 mmol/L (3.5-5.5)
--- NOTE | 2020-03-14 09:59 | P.OP ---
Date of Procedure: 03/14/20 Preoperative Diagnosis: Displaced right subcapital femoral neck fracture Postoperative Diagnosis: Same Procedure(s) Performed: Right total hip arthroplastypress-fit Implants: Depuy Corail size 12 standard press-fit collared femoral stem, 36 mm +1.5 cobalt chrome femoral head, 52 mm [place] acetabular shell with neutral polyethylene liner. Anesthesia: PHUONG Surgeon: Jesus Apodaca Estimated Blood Loss (ml): 100 Pathology: other (Femoral head) Condition: stable Disposition: PACU Indications for Procedure: The patient's an 79-year-old community ambulator presents after falling injuring her right hip. Upon evaluation she was noted of evidence of a displaced right subcapital femoral neck fracture. A discussion of the risks and benefits of operative intervention was made with patient. She opted to proceed. Operative risks to include infection, neurovascular injury, development of blood clots, fracture, leg length discrepancy, possible instability need for subsequent procedures was discussed. Operative options also were discussed to include open reduction and internal fixation versus hemiarthroplasty versus total hip arthroplasty. With her active nature/lifestyle, she opted to proceed with total hip arthroplasty. Operative Findings: As below Description of Procedure: The patient was brought to the operating room, and after induction of spinal anesthesia was placed in a lateral decubitus position. The bony prominences were appropriately padded. The pelvis was stable perpendicular to the floor with a pegboard. The right lower extremity was prepped and draped in normal f ashion. A 12 cm incision was then made centered over the greater trochanter extending superiorly to level the ASIS and distally in line with the femoral shaft. The skin and subcutaneous tissues were divided sharply. Electrocautery was used for hemostasis. The fascia jarred and gluteus chelsea fascia was split in line with the skin incision. The muscle fibers were bluntly dissected proximally. A self-retaining retractor was placed. The anterior and posterior margins of the gluteus medius muscles identified and the anterior two thirds was detached from the greater trochanter with electrocautery. The gluteus minimus tendon was identified and detached in a similar fashion. A wide capsulotomy was performed. The femoral neck fracture was identified in the lower neck cut was made approximately 1 1/2 cm above the level of the lesser trochanter with a sagittal saw at a 45 the shaft. The head was then extracted with a corkscrew. Attention was then paid towards preparing the acetabular. Anterior and posterior retractors were placed. The remaining capsular labral tissues debrided sharply clearly defining the acetabular margins. Began reaming with a 45 mm reamer taking care to initially medialize, then reaming at 45 of abduction and 20 of anteversion. Sequential reaming is performed up to 51 mm. This was down to bleeding bony surface. A trial 52 mm acetabular shell was in serted at 45 of abduction and 20 of anteversion. This was fully seated. There was good rim fit and stability. A neutral polyethylene liner was then impacted. Care taken to avoid any soft tissue interposition. Attention was then paid towards preparing the proximal femur. A box chisel was used to open the metaphyseal region. A canal finder was used to find the femoral canal. Sequential broaching was performed up to a size 12. This is placed in 15 of anteversion with the leg perpendicular floor judging off the trans-epicondylar axis. There is good rotational stability. A calcar mill was used to fashion the medial calcar. A trial standard neck along with a 36 mm + 1.5 trial head was placed. The hip was gently reduced. It was taken through range of motion. I felt to be stable in flexion and extension with internal and external rotation. I felt there was adequate druze of soft tissue tension. The hip was gently dislocated. The trial components removed. Pulsatile lavage was utilized. The final size 12 standard collared femoral stem was inserted again with the leg perpendicular to the floor in 15 of anteversion. Again there was good rotational stability. A 36 mm + 1.5 cobalt chrome femoral head was gently impacted. The hip was gently reduced. Again it was taken through motion and felt to be stable in flexion and extension with internal and external rotation. Pulsatile lavage was again utilized. With the leg in abduction the gluteus minimus and medius tendons reattached to the greater trochanter with #2 Ethibond suture. There was minimal drainage therefore a deep drain was not placed. The fascia jarred and gluteus chelsea fascia was closed with #2 Ethibond suture. The subcutaneous tissues were reapproximated interrupted 2-0 Vicryl sutures. The skin was reapproximated with 3-0 subcuticular strata fix suture. Skin tape and adhesive was applied. A sterile dressing was applied. The patient was awoken from sedation and transferred to recovery room in good condition. Blood loss was estimated 100 mL. No complications were incurred. Sponge and needle counts were correct in the case.
--- NOTE | 2020-03-14 10:04 | XR ---
EXAMINATION TYPE: XR Hip Limited RT DATE OF EXAM: 03/14/2020 COMPARISON: NONE HISTORY: Postop TECHNIQUE: One view submitted. FINDINGS: There is postsurgical change in near anatomic alignment. There is soft tissue edema and emphysema. IMPRESSION: 1. Postoperative change. Appears in near-anatomic alignment.
[2020-03-14 10:30] LABS: Glucose,Whole Blood 195 mg/dL (75-99)
[2020-03-14] MEDS ORDERED: INSULIN ASPART (NovoLOG) 100 UNIT/ML VIAL SQ ONE (10:34)
[2020-03-14 11:47] LABS: Glucose,Whole Blood 189 mg/dL (75-99)
--- NOTE | 2020-03-14 11:58 | P.PN ---
Subjective Progress Note Date: 03/14/20 The patient is status post surgery, and was somewhat drowsy postop. She was however arousable. No obvious bleeding. She denies any neck pain. Objective - Vital Signs Vital signs: Vital Signs Temp 97.2 F L 03/14/20 09:53 Pulse 67 03/14/20 10:24 Resp 16 03/14/20 10:24 BP 157/70 03/14/20 10:24 Pulse Ox 98 03/14/20 10:24 Intake & Output 03/13/20 03/14/20 03/14/20 18:59 06:59 18:59 Intake Total 1401 Output Total 1050 325 Balance -1050 1076 Weight 72.121 kg 72.121 kg Intake: IV 1401 Output: Urine 1050 225 Estimated Blood Loss 100 Other: Voiding Method Indwelling Catheter Indwelling Catheter - Constitutional Constitutional Comment(s): Drowsy but arousable - EENT Eyes: Present: EOMI ENT: Present: hearing grossly normal, normal oropharynx - Respiratory Respiratory: bilateral: CTA - Cardiovascular Rhythm: regular Heart sounds: normal: S1, S2 - Gastrointestinal General gastrointestinal: Present: normal bowel sounds, soft - Integumentary Integumentary: Present: normal - Neurologic Neurologic: Present: CNII-XII intact - Musculoskeletal Musculoskeletal: Present: generalized weakness - Psychiatric Psychiatric: Present: A&O x's 3 - Labs CBC & Chem 7: 03/14/20 06:13 03/14/20 06:13 Labs: Abnormal Lab Results - Last 24 Hours (Table) 03/13/20 03/13/20 03/13/20 Range/Units 12:02 12:02 14:56 RBC (3.80-5.40) m/uL Hgb (11.4-16.0) gm/dL Hct (34.0-46.0) % Retic Count (0.5-2.0) % D-Dimer 25.69 H (<0.60) mg/L FEU Sodium (135-145) mmol/L BUN (9.0-27.0) mg/dL Est GFR (CKD-EPI)AfAm (60.0-200.0) Est GFR (CKD-EPI)NonAf (60.0-200.0) BUN/Creatinine Ratio (12.00-20.00) Ratio Glucose (70-110) mg/dL POC Glucose (mg/dL) (75-99) mg/dL Ferritin (10.0-291.0) ng/mL Lactate Dehydrogenase (120-246) U/L Troponin I 0.066 H* 0.092 H* (0.000-0.034) ng/mL 03/13/20 03/13/20 03/13/20 Range/Units 14:56 14:56 16:40 RBC (3.80-5.40) m/uL Hgb (11.4-16.0) gm/dL Hct (34.0-46.0) % Retic Count 2.3 H (0.5-2.0) % D-Dimer (<0.60) mg/L FEU Sodium (135-145) mmol/L BUN (9.0-27.0) mg/dL Est GFR (CKD-EPI)AfAm (60.0-200.0) Est GFR (CKD-EPI)NonAf (60.0-200.0) BUN/Creatinine Ratio (12.00-20.00) Ratio Glucose (70-110) mg/dL POC Glucose (mg/dL) 168 H (75-99) mg/dL Ferritin 379.4 H (10.0-291.0) ng/mL Lactate Dehydrogenase 274 H (120-246) U/L Troponin I (0.000-0.034) ng/mL 03/13/20 03/13/20 03/14/20 Range/Units 17:40 20:45 06:13 RBC 2.74 L (3.80-5.40) m/uL Hgb 8.6 L D (11.4-16.0) gm/dL Hct 27.3 L (34.0-46.0) % Retic Count (0.5-2.0) % D-Dimer (<0.60) mg/L FEU Sodium (135-145) mmol/L BUN (9.0-27.0) mg/dL Est GFR (CKD-EPI)AfAm (60.0-200.0) Est GFR (CKD-EPI)NonAf (60.0-200.0) BUN/Creatinine Ratio (12.00-20.00) Ratio Glucose (70-110) mg/dL POC Glucose (mg/dL) 237 H (75-99) mg/dL Ferritin (10.0-291.0) ng/mL Lactate Dehydrogenase (120-246) U/L Troponin I 0.087 H* (0.000-0.034) ng/mL 03/14/20 03/14/20 03/14/20 Range/Units 06:13 07:04 10:27 RBC (3.80-5.40) m/uL Hgb (11.4-16.0) gm/dL Hct (34.0-46.0) % Retic Count (0.5-2.0) % D-Dimer (<0.60) mg/L FEU Sodium 134 L (135-145) mmol/L BUN 38.0 H (9.0-27.0) mg/dL Est GFR (CKD-EPI)AfAm 41.0 L (60.0-200.0) Est GFR (CKD-EPI)NonAf 35.4 L (60.0-200.0) BUN/Creatinine Ratio 27.14 H (12.00-20.00) Ratio Glucose 155 H (70-110) mg/dL POC Glucose (mg/dL) 156 H 195 H (75-99) mg/dL Ferritin (10.0-291.0) ng/mL Lactate Dehydrogenase (120-246) U/L Troponin I (0.000-0.034) ng/mL 03/14/20 Range/Units 11:44 RBC (3.80-5.40) m/uL Hgb (11.4-16.0) gm/dL Hct (34.0-46.0) % Retic Count (0.5-2.0) % D-Dimer (<0.60) mg/L FEU Sodium (135-145) mmol/L BUN (9.0-27.0) mg/dL Est GFR (CKD-EPI)AfAm (60.0-200.0) Est GFR (CKD-EPI)NonAf (60.0-200.0) BUN/Creatinine Ratio (12.00-20.00) Ratio Glucose (70-110) mg/dL POC Glucose (mg/dL) 189 H (75-99) mg/dL Ferritin (10.0-291.0) ng/mL Lactate Dehydrogenase (120-246) U/L Troponin I (0.000-0.034) ng/mL Assessment and Plan (1) Lesion of bone of cervical spine Narrative/Plan: The patient's bone scan was negative for evidence of metastasis. Patient had mild uptake suggestive of degenerative disease. Therefore solid tumor metastasis can essentially be ruled out. This was discussed with the patient. - Workup for myeloma pending. She was advised that this can cause lytic lesions which would be negative on bone scan. However small lucent areas noted on the x-ray could also be due to bone density loss/ venous lakes. Therefore if labs for myeloma are negative, additional hematology workup would not be required. Current Visit: Yes Status: Acute Code(s): M89.9 - DISORDER OF BONE, UNSPECIFIED SNOMED Code(s): 363623788 (2) Femoral neck fracture Narrative/Plan: Status post surgery which she has tolerated well so far. Defer to orthopedic surgery for continued management Current Visit: Yes Status: Acute Code(s): S72.009A - FRACTURE OF UNSP PART OF NECK OF UNSP FEMUR, INIT SNOMED Code(s): 9760849
[2020-03-14] MEDS: LOSARTAN 50 MG TAB PO SCH (12:12)
[2020-03-14] MEDS: DAPSONE 25 MG TAB PO SCH ×2 (12:12→20:20)
[2020-03-14] MEDS: METOPROLOL SUCCINATE (ER) 25 MG TAB.ER.24H PO SCH ×2 (12:12→20:20)
[2020-03-14] MEDS: levETIRAcetam 500 MG TAB PO SCH ×2 (12:12→20:20)
--- NOTE | 2020-03-14 13:50 | P.PN ---
Subjective Progress Note Date: 03/14/20 Principal diagnosis: Fall with right hip fracture Patient was seen after her hip repair. Patient is currently denying any pain or shortness of breath. Objective - Vital Signs Vital signs: Vital Signs Temp 97.7 F 03/14/20 11:00 Pulse 60 03/14/20 11:00 Resp 98 H 03/14/20 11:00 BP 140/66 03/14/20 13:00 Pulse Ox 98 03/14/20 11:00 Intake & Output 03/13/20 03/14/20 03/14/20 18:59 06:59 18:59 Intake Total 1401 Output Total 1050 375 Balance -1050 1026 Weight 72.121 kg 72.121 kg Intake: IV 1401 Output: Urine 1050 275 Estimated Blood Loss 100 Other: Voiding Method Indwelling Catheter Indwelling Catheter - Exam General examination - Alert and Oriented 3 in NAD. 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 Psych - Calm and cooperative - Labs CBC & Chem 7: 03/14/20 06:13 03/14/20 06:13 Labs: Abnormal Lab Results - Last 24 Hours (Table) 03/13/20 03/13/20 03/13/20 Range/Units 12:02 14:56 14:56 RBC (3.80-5.40) m/uL Hgb (11.4-16.0) gm/dL Hct (34.0-46.0) % Retic Count 2.3 H (0.5-2.0) % Sodium (135-145) mmol/L BUN (9.0-27.0) mg/dL Est GFR (CKD-EPI)AfAm (60.0-200.0) Est GFR (CKD-EPI)NonAf (60.0-200.0) BUN/Creatinine Ratio (12.00-20.00) Ratio Glucose (70-110) mg/dL POC Glucose (mg/dL) (75-99) mg/dL Ferritin (10.0-291.0) ng/mL Lactate Dehydrogenase (120-246) U/L Troponin I 0.066 H* 0.092 H* (0.000-0.034) ng/mL 03/13/20 03/13/20 03/13/20 Range/Units 14:56 16:40 17:40 RBC (3.80-5.40) m/uL Hgb (11.4-16.0) gm/dL Hct (34.0-46.0) % Retic Count (0.5-2.0) % Sodium (135-145) mmol/L BUN (9.0-27.0) mg/dL Est GFR (CKD-EPI)AfAm (60.0-200.0) Est GFR (CKD-EPI)NonAf (60.0-200.0) BUN/Creatinine Ratio (12.00-20.00) Ratio Glucose (70-110) mg/dL POC Glucose (mg/dL) 168 H (75-99) mg/dL Ferritin 379.4 H (10.0-291.0) ng/mL Lactate Dehydrogenase 274 H (120-246) U/L Troponin I 0.087 H* (0.000-0.034) ng/mL 03/13/20 03/14/20 03/14/20 Range/Units 20:45 06:13 06:13 RBC 2.74 L (3.80-5.40) m/uL Hgb 8.6 L D (11.4-16.0) gm/dL Hct 27.3 L (34.0-46.0) % Retic Count (0.5-2.0) % Sodium 134 L (135-145) mmol/L BUN 38.0 H (9.0-27.0) mg/dL Est GFR (CKD-EPI)AfAm 41.0 L (60.0-200.0) Est GFR (CKD-EPI)NonAf 35.4 L (60.0-200.0) BUN/Creatinine Ratio 27.14 H (12.00-20.00) Ratio Glucose 155 H (70-110) mg/dL POC Glucose (mg/dL) 237 H (75-99) mg/dL Ferritin (10.0-291.0) ng/mL Lactate Dehydrogenase (120-246) U/L Troponin I (0.000-0.034) ng/mL 03/14/20 03/14/20 03/14/20 Range/Units 07:04 10:27 11:44 RBC (3.80-5.40) m/uL Hgb (11.4-16.0) gm/dL Hct (34.0-46.0) % Retic Count (0.5-2.0) % Sodium (135-145) mmol/L BUN (9.0-27.0) mg/dL Est GFR (CKD-EPI)AfAm (60.0-200.0) Est GFR (CKD-EPI)NonAf (60.0-200.0) BUN/Creatinine Ratio (12.00-20.00) Ratio Glucose (70-110) mg/dL POC Glucose (mg/dL) 156 H 195 H 189 H (75-99) mg/dL Ferritin (10.0-291.0) ng/mL Lactate Dehydrogenase (120-246) U/L Troponin I (0.000-0.034) ng/mL Assessment and Plan Assessment: Loss of Consciousness -Patient sustained a head injury status post fall in which patient suffered a loss of consciousness and awoken on the floor. Patient has no memory of the event. Patient remembers everything leading up to and immediately after only. -Syncope versus postconcussion syndrome -Carotid Dopplers did not show significant stenosis in the internal carotids -CTA chest negative for pulmonary embolism -Unable to rule out seizure. Patient has been empirically started on Keppra by neurology. EEG ordered. Neurology to order MRI if creatinine function improves. -Cardiology to evaluate for any cardiac etiology. Echocardiogram shows EF of 55-60%. No severe valvular abnormalities noted. Troponin is elevated but does not follow the trend of ACS. -CT head revealing: No acute intracranial hemorrhage or midline shift is seen. -Neuro checks to be in place every 4 hours -Fall precaution Acute blood loss Anemia -Could be due to right parietal scalp hematoma -Monitor patient for bleeding -Monitor CBC Right femoral neck fracture -Status post right hip repair on 03/14/2020 -Appreciated cardiac clearance by cardiology -Your or thrill management Head injury with laceration from fall -Laceration to right parietal scalp repaired in ED with dari, which are intact. -Neuro checks to remain in place every 4 hours along with fall precautions. 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 -Multiple myeloma workup as per hematology Hypovolemic Hyponatremia secondary to mild dehydration -Gentle fluids -Hold home diuretics -Resolved Hypertension, elevated above normal limits upon admission. -Resume current blood pressure medication regimen and monitor BP Hyperlipidemia, stable -Continue daily medication management CKD stage III, stable -Creatinine is stable Dermatitis Herpetiformis, stable -Continue daily dapsone 25 mg twice a day Code status: DNR/DNI, Yes to all medical interventions with the exception of CPR and intubation. DVT prophylaxis: Subcu heparin (started by ortho) Home medications reviewed and ordered.
[2020-03-14 17:19] LABS: Glucose,Whole Blood 306 mg/dL (75-99)
[2020-03-14] MEDS: BENZOCAINE/MENTHOL LOZENG 1 EACH LOZENGE MUCOUS MEM PRN ×2 (18:56→23:36)
[2020-03-14] MEDS: ATORVASTATIN 10 MG TAB PO SCH (20:20)
[2020-03-14] MEDS: HEPARIN SODIUM,PORCINE 5,000 UNIT/ML 1 ML VIAL SQ SCH (20:20)
[2020-03-14 20:22] LABS: Glucose,Whole Blood 306 mg/dL (75-99)
[2020-03-15] MEDS: SODIUM CHLORIDE 0.9% 1,000 ML IV SCH ×2 (04:24→20:17)
[2020-03-15 06:21] LABS: Basophils % (A) 0 %; Eosinophils # (A) 0.1 k/uL (0-0.7); Eosinophils % (A) 1 %; HCT 22.7 % (34.0-46.0); HGB 7.4 gm/dL (11.4-16.0); Lymphocytes # (A) 1.2 k/uL (1.0-4.8); Lymphocytes % (A) 14 %; MCH 32.4 pg (25.0-35.0); MCHC 32.6 g/dL (31.0-37.0); MCV 99.3 fL (80.0-100.0); Mean Platelet Volume 8.4; Monocytes # (A) 0.5 k/uL (0-1.0); Monocytes % (A) 6 %; Neutrophils % (A) 79 %; Platelet Count 168 k/uL (150-450); RBC 2.29 m/uL (3.80-5.40); RDW 14.5 % (11.5-15.5)
[2020-03-15 07:21] LABS: Glucose,Whole Blood 167 mg/dL (75-99)
[2020-03-15] MEDS: INSULIN ASPART (NovoLOG) 100 UNIT/ML VIAL SQ SCH ×3 (07:57→17:09)
[2020-03-15] MEDS: HEPARIN SODIUM,PORCINE 5,000 UNIT/ML 1 ML VIAL SQ SCH ×2 (07:58→20:17)
[2020-03-15] MEDS: DAPSONE 25 MG TAB PO SCH ×2 (07:58→20:17)
[2020-03-15] MEDS: levETIRAcetam 500 MG TAB PO SCH ×2 (07:59→20:17)
[2020-03-15] MEDS: LOSARTAN 50 MG TAB PO SCH (07:59)
[2020-03-15] MEDS: METOPROLOL SUCCINATE (ER) 25 MG TAB.ER.24H PO SCH ×2 (07:59→20:17)
--- NOTE | 2020-03-15 09:05 | P.PN ---
Subjective Progress Note Date: 03/15/20 Principal diagnosis: Status post right total hip arthroplasty for fracture Acute blood loss anemia The patient notes overall she is doing well. She has some mild right hip soreness. She has been out of bed today. Objective - Vital Signs Vital signs: Vital Signs Temp 98.4 F 03/15/20 01:21 Pulse 78 03/15/20 01:21 Resp 15 03/15/20 01:21 BP 148/60 03/15/20 01:21 Pulse Ox 94 L 03/15/20 01:21 Intake & Output 03/14/20 03/15/20 03/15/20 18:59 06:59 18:59 Intake Total 1701 Output Total 625 325 Balance 1076 -325 Weight 72.121 kg Intake: IV 1401 Oral 300 Output: Urine 525 325 Estimated Blood Loss 100 Other: Voiding Method Indwelling Catheter - Exam Right hip dressing clean/try/intact Neurovascular exam intact right lower extremity Homans negative bilaterally - Constitutional General appearance: Present: no acute distress - Labs CBC & Chem 7: 03/15/20 05:52 03/14/20 06:13 Labs: Abnormal Lab Results - Last 24 Hours (Table) 03/14/20 03/14/20 03/14/20 Range/Units 06:13 10:27 11:44 RBC (3.80-5.40) m/uL Hgb (11.4-16.0) gm/dL Hct (34.0-46.0) % Sodium 134 L (135-145) mmol/L BUN 38.0 H (9.0-27.0) mg/dL Est GFR (CKD-EPI)AfAm 41.0 L (60.0-200.0) Est GFR (CKD-EPI)NonAf 35.4 L (60.0-200.0) BUN/Creatinine Ratio 27.14 H (12.00-20.00) Ratio Glucose 155 H (70-110) mg/dL POC Glucose (mg/dL) 195 H 189 H (75-99) mg/dL 03/14/20 03/14/20 03/15/20 Range/Units 17:16 20:18 05:52 RBC 2.29 L (3.80-5.40) m/uL Hgb 7.4 L (11.4-16.0) gm/dL Hct 22.7 L (34.0-46.0) % Sodium (135-145) mmol/L BUN (9.0-27.0) mg/dL Est GFR (CKD-EPI)AfAm (60.0-200.0) Est GFR (CKD-EPI)NonAf (60.0-200.0) BUN/Creatinine Ratio (12.00-20.00) Ratio Glucose (70-110) mg/dL POC Glucose (mg/dL) 306 H 306 H (75-99) mg/dL 03/15/20 Range/Units 07:19 RBC (3.80-5.40) m/uL Hgb (11.4-16.0) gm/dL Hct (34.0-46.0) % Sodium (135-145) mmol/L BUN (9.0-27.0) mg/dL Est GFR (CKD-EPI)AfAm (60.0-200.0) Est GFR (CKD-EPI)NonAf (60.0-200.0) BUN/Creatinine Ratio (12.00-20.00) Ratio Glucose (70-110) mg/dL POC Glucose (mg/dL) 167 H (75-99) mg/dL Assessment and Plan Assessment: Status post right total hip arthroplasty for fracture Acute blood loss anemia Plan: Continue with physical therapy. Discharge planning. Subcu heparin for DVT pro phylaxis. Transfuse 1 unit packed red blood cells today and monitor hemoglobin. Time with Patient: Less than 30
[2020-03-15 10:27] LABS: Immunoglobulin M 28.7 mg/dL (40.0-280.0)
--- NOTE | 2020-03-15 10:36 | P.PN ---
Subjective Progress Note Date: 03/15/20 Principal diagnosis: Fall with right hip fracture Patient denies any acute complaints. No acute issues overnight. Patient denies any chest pain. Objective - Vital Signs Vital signs: Vital Signs Temp 98.4 F 03/15/20: Pulse 78 03/15/20 08:00 Resp 15 03/15/20 08:00 BP 148/60 03/15/20 01:21 Pulse Ox 94 L 03/15/20 01:21 Intake & Output 03/14/20 03/15/20 03/15/20 18:59 06:59 18:59 Intake Total 1701 Output Total 625 325 325 Balance 1076 -325 -325 Weight 72.121 kg Intake: IV 1401 Oral 300 Output: Urine 525 325 325 Estimated Blood Loss 100 Other: Voiding Method Indwelling Catheter Indwelling Catheter - Exam General examination - Alert and Oriented 3 in NAD. 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 Psych - Calm and cooperative - Labs CBC & Chem 7: 03/15/20 05:52 03/14/20 06:13 Labs: Abnormal Lab Results - Last 24 Hours (Table) 03/13/20 03/14/20 03/14/20 Range/Units 14:56 11:44 17:16 RBC (3.80-5.40) m/uL Hgb (11.4-16.0) gm/dL Hct (34.0-46.0) % POC Glucose (mg/dL) 189 H 306 H (75-99) mg/dL IgM 28.7 L (40.0-280.0) mg/dL 03/14/20 03/15/20 03/15/20 Range/Units 20:18 05:52 07:19 RBC 2.29 L (3.80-5.40) m/uL Hgb 7.4 L (11.4-16.0) gm/dL Hct 22.7 L (34.0-46.0) % POC Glucose (mg/dL) 306 H 167 H (75-99) mg/dL IgM (40.0-280.0) mg/dL Assessment and Plan Assessment: Loss of Consciousness -Patient sustained a head injury status post fall in which patient suffered a loss of consciousness and awoken on the floor. Patient has no memory of the event. Patient remembers everything leading up to and immediately after only. -Syncope versus seizure versus postconcussion syndrome -Carotid Dopplers did not show significant stenosis in the internal carotids -CTA chest negative for pulmonary embolism -Unable to rule out seizure. Patient has been empirically started on Keppra by neurology. EEG ordered. Neurology to order MRI if creatinine function improves. -Echocardiogram shows EF of 55-60%. No severe valvular abnormalities noted. Troponin is elevated but does not follow the trend of ACS. -CT head revealing: No acute intracranial hemorrhage or midline shift is seen. -Neuro checks to be in place every 4 hours -Fall precaution Acute blood loss Anemia -Could be due to right parietal scalp hematoma -Monitor patient for bleeding -Monitor CBC -Orthopedic order 1 unit of PRBC Right femoral neck fracture -Status post right hip repair on 03/14/2020 -Appreciated cardiac clearance by cardiology -Your ortho management -PT OT. Patient will likely need placement Head injury with laceration from fall -Laceration to right parietal scalp repaired in ED with dari, which are intact. -Neuro checks to remain in place every 4 hours along with fall precautions. Elevated d-dimer likely due to trauma -CTA head and neck negative for thromboembolism -Lower extremity Dopplers show findings consistent with chronic DVT. Patient has no clinical signs of acute DVT Lucent lesions of cervical spine, found incidentally on CT imaging -Bone scan was done and findings aren't consistent with arthritis and not metastasis. -Multiple myeloma workup as per hematology Hypovolemic Hyponatremia secondary to mild dehydration -Gentle fluids -Hold home diuretics -Resolved Hypertension, elevated above normal limits upon admission. -Resume current blood pressure medication regimen and monitor BP Hyperlipidemia, stable -Continue daily medication management CKD stage III, stable -Creatinine is stable Dermatitis Herpetiformis, stable -Continue daily dapsone 25 mg twice a day Code status: DNR/DNI, Yes to all medical interventions with the exception of CPR and intubation. DVT prophylaxis: Subcu heparin (started by ortho) Home medications reviewed and ordered.
[2020-03-15 10:42] LABS: BUN/Creat Ratio 24.29 Ratio (12.00-20.00); Calcium 8.5 mg/dL (8.7-10.3); Non-African American GFR(CKD) 35.4 (60.0-200.0); Potassium 4.6 mmol/L (3.5-5.5)
[2020-03-15 11:45] LABS: Glucose,Whole Blood 220 mg/dL (75-99)
[2020-03-15 12:01] LABS: Free Kappa Lt Chain Qnt, Serum 5.42 mg/dL (0.33-1.94)
[2020-03-15] MEDS: BENZOCAINE/MENTHOL LOZENG 1 EACH LOZENGE MUCOUS MEM PRN (12:15)
--- NOTE | 2020-03-15 12:21 | P.PN ---
Subjective Progress Note Date: 03/15/20 CHIEF COMPLAINT: Cardiac clearance HISTORY OF PRESENT ILLNESS: Patient examined this morning at the bedside. She is status post right total hip arthroplasty. Postoperative day #1. Patient denies chest pain or pressure. Denies shortness of breath. Blood pressure 148/60. Heart rate in the 70s. PHYSICAL EXAM: VITAL SIGNS: Reviewed. GENERAL: Well-developed in no acute distress. HEENT: Head is normocephalic. Pupils are equal, round. Sclerae anicteric. Mucous membranes of the mouth are moist. Neck supple. No JVD or thyromegaly LUNGS: Respirations even and unlabored. Lungs essentially clear to auscultation bilaterally. HEART: Regular rate and rhythm. S1 and S2 heard. Systolic murmur noted. ABDOMEN: Soft. Nondistended. Nontender. EXTREMITIES: Decreased range of motion of right lower extremity. No clubbing or cyanosis. Peripheral pulses intact. No lower extremity edema NEUROLOGIC: Awake and alert. Oriented x 3. ASSESSMENT: Right hip fracture, s/p fall Hypertension Hyperlipidemia Moderate pulmonary hypertension Moderate mitral regurgitation Elevated d-dimer, CT negative for PE PLAN: Patient is stable from a cardiac standpoint. We will sign off. Please reconsult if needed. Nurse practitioner note has been reviewed by physician. Signing provider agrees with the documented findings, assessment, and plan of care. Objective - Vital Signs Vital signs: Vital Signs Temp 98.4 F 03/15/20 01:21 Pulse 78 03/15/20 08:00 Resp 15 03/15/20 08:00 BP 148/60 03/15/20 01:21 Pulse Ox 94 L 03/15/20 01:21 Intake & Output 03/14/20 03/15/20 03/15/20 18:59 06:59 18:59 Intake Total 1701 Output Total 625 325 325 Balance 1076 -325 -325 Weight 72.121 kg Intake: IV 1401 Oral 300 Output: Urine 525 325 325 Estimated Blood Loss 100 Other: Voiding Method Indwelling Catheter Indwelling Catheter - Labs CBC & Chem 7: 03/15/20 05:52 03/15/20 05:52 Labs: Abnormal Lab Results - Last 24 Hours (Table) 03/13/20 03/13/20 03/14/20 Range/Units 14:56 14:56 17:16 RBC (3.80-5.40) m/uL Hgb (11.4-16.0) gm/dL Hct (34.0-46.0) % Sodium (135-145) mmol/L BUN (9.0-27.0) mg/dL Est GFR (CKD-EPI)AfAm (60.0-200.0) Est GFR (CKD-EPI)NonAf (60.0-200.0) BUN/Creatinine Ratio (12.00-20.00) Ratio Glucose (70-110) mg/dL POC Glucose (mg/dL) 306 H (75-99) mg/dL Calcium (8.7-10.3) mg/dL IgM 28.7 L (40.0-280.0) mg/dL Free [place] LC, Quant 5.42 H (0.33-1.94) mg/dL Crossmatch 03/14/20 03/15/20 03/15/20 Range/Units 20:18 05:52 05:52 RBC 2.29 L (3.80-5.40) m/uL Hgb 7.4 L (11.4-16.0) gm/dL Hct 22.7 L (34.0-46.0) % Sodium 131 L (135-145) mmol/L BUN 34.0 H (9.0-27.0) mg/dL Est GFR (CKD-EPI)AfAm 41.0 L (60.0-200.0) Est GFR (CKD-EPI)NonAf 35.4 L (60.0-200.0) BUN/Creatinine Ratio 24.29 H (12.00-20.00) Ratio Glucose 148 H (70-110) mg/dL POC Glucose (mg/dL) 306 H (75-99) mg/dL Calcium 8.5 L (8.7-10.3) mg/dL IgM (40.0-280.0) mg/dL Free [place] LC, Quant (0.33-1.94) mg/dL Crossmatch 03/15/20 03/15/20 03/15/20 Range/Units 07:19 09:42 11:44 RBC (3.80-5.40) m/uL Hgb (11.4-16.0) gm/dL Hct (34.0-46.0) % Sodium (135-145) mmol/L BUN (9.0-27.0) mg/dL Est GFR (CKD-EPI)AfAm (60.0-200.0) Est GFR (CKD-EPI)NonAf (60.0-200.0) BUN/Creatinine Ratio (12.00-20.00) Ratio Glucose (70-110) mg/dL POC Glucose (mg/dL) 167 H 220 H (75-99) mg/dL Calcium (8.7-10.3) mg/dL IgM (40.0-280.0) mg/dL Free [place] LC, Quant (0.33-1.94) mg/dL Crossmatch See Detail
[2020-03-15 16:44] LABS: Glucose,Whole Blood 180 mg/dL (75-99)
[2020-03-15] MEDS: HYDROcodone/APAP 5-325MG 1 EACH TAB PO PRN ×2 (17:27→23:29)
[2020-03-15] MEDS: ATORVASTATIN 10 MG TAB PO SCH (20:17)
[2020-03-15 20:23] LABS: Glucose,Whole Blood 222 mg/dL (75-99)
[2020-03-16 07:05] LABS: Basophils % (A) 0 %; Eosinophils # (A) 0.3 k/uL (0-0.7); Eosinophils % (A) 5 %; HGB 8.4 gm/dL (11.4-16.0); Lymphocytes # (A) 1.7 k/uL (1.0-4.8); Lymphocytes % (A) 26 %; MCH 32.7 pg (25.0-35.0); MCHC 33.8 g/dL (31.0-37.0); MCV 96.7 fL (80.0-100.0); Mean Platelet Volume 8.3; Monocytes # (A) 0.5 k/uL (0-1.0); Monocytes % (A) 7 %; Neutrophils # (A) 4.1 k/uL (1.3-7.7); Neutrophils % (A) 61 %; Platelet Count 149 k/uL (150-450); RBC 2.58 m/uL (3.80-5.40); RDW 15.4 % (11.5-15.5); WBC 6.8 k/uL (3.8-10.6)
[2020-03-16 07:24] LABS: Glucose,Whole Blood 171 mg/dL (75-99)
--- NOTE | 2020-03-16 10:18 | P.PN ---
Subjective Progress Note Date: 03/16/20 No new complaints today. Pt is overall improving, anticipate discharge in next 24-48 hours. Objective - Vital Signs Vital signs: Vital Signs Temp 98.3 F 03/16/20 08:22 Pulse 68 03/16/20 08:22 Resp 16 03/16/20 08:22 BP 147/70 03/16/20 08:22 Pulse Ox 95 03/16/20 01:24 Intake & Output 03/15/20 03/16/20 03/16/20 18:59 06:59 18:59 Intake Total 310 Output Total 925 1000 Balance -615 -1000 Intake: Blood Product 310 Rc As-1 Unit 310 [id number] Output: Urine 925 1000 Other: Voiding Method Indwelling Catheter # Bowel Movements 0 - Exam Gen: awake, alert HEENT: normocephalic, atraumatic, good hearing acuity, moist mucous membranes Resp: good air exchange, breathing comfortably with no accessory muscle use CVS: good distal perfusion x 4, GI: soft, NTTP, ND : no SPT, no CVAT, laura catheter not present MSK: no pitting edema, no clubbing Neuro: non-focal, moving all extremities Psych: cooperative, euthymic mood - Labs CBC & Chem 7: 03/16/20 06:31 03/15/20 05:52 Labs: Abnormal Lab Results - Last 24 Hours (Table) 03/13/20 03/13/20 03/15/20 Range/Units 14:56 14:56 05:52 RBC (3.80-5.40) m/uL Hgb (11.4-16.0) gm/dL Hct (34.0-46.0) % Plt Count (150-450) k/uL Sodium 131 L (135-145) mmol/L BUN 34.0 H (9.0-27.0) mg/dL Est GFR (CKD-EPI)AfAm 41.0 L (60.0-200.0) Est GFR (CKD-EPI)NonAf 35.4 L (60.0-200.0) BUN/Creatinine Ratio 24.29 H (12.00-20.00) Ratio Glucose 148 H (70-110) mg/dL POC Glucose (mg/dL) (75-99) mg/dL Calcium 8.5 L (8.7-10.3) mg/dL IgM 28.7 L (40.0-280.0) mg/dL Free [place] LC, Quant 5.42 H (0.33-1.94) mg/dL Crossmatch 03/15/20 03/15/20 03/15/20 Range/Units 09:42 11:44 16:43 RBC (3.80-5.40) m/uL Hgb (11.4-16.0) gm/dL Hct (34.0-46.0) % Plt Count (150-450) k/uL Sodium (135-145) mmol/L BUN (9.0-27.0) mg/dL Est GFR (CKD-EPI)AfAm (60.0-200.0) Est GFR (CKD-EPI)NonAf (60.0-200.0) BUN/Creatinine Ratio (12.00-20.00) Ratio Glucose (70-110) mg/dL POC Glucose (mg/dL) 220 H 180 H (75-99) mg/dL Calcium (8.7-10.3) mg/dL IgM (40.0-280.0) mg/dL Free [place] LC, Quant (0.33-1.94) mg/dL Crossmatch See Detail 03/15/20 03/16/20 03/16/20 Range/Units 20:21 06:31 07:07 RBC 2.58 L (3.80-5.40) m/uL Hgb 8.4 L (11.4-16.0) gm/dL Hct 25.0 L (34.0-46.0) % Plt Count 149 L (150-450) k/uL Sodium (135-145) mmol/L BUN (9.0-27.0) mg/dL Est GFR (CKD-EPI)AfAm (60.0-200.0) Est GFR (CKD-EPI)NonAf (60.0-200.0) BUN/Creatinine Ratio (12.00-20.00) Ratio Glucose (70-110) mg/dL POC Glucose (mg/dL) 222 H 171 H (75-99) mg/dL Calcium (8.7-10.3) mg/dL IgM (40.0-280.0) mg/dL Free [place] LC, Quant (0.33-1.94) mg/dL Crossmatch Assessment and Plan Assessment: Loss of Consciousness -Patient sustained a head injury status post fall in which patient suffered a loss of consciousness and awoken on the floor. Patient has no memory of the event. Patient remembers everything leading up to and immediately after only. -Syncope versus seizure versus postconcussion syndrome -Carotid Dopplers did not show significant stenosis in the internal carotids -CTA chest negative for pulmonary embolism -Unable to rule out seizure. Patient has been empirically started on Keppra by neurology. EEG ordered. Neurology to order MRI if creatinine function improves. -Echocardiogram shows EF of 55-60%. No severe valvular abnormalities noted. Troponin is elevated but does not follow the trend of ACS. -CT head revealing: No acute intracranial hemorrhage or midline shift is seen. -Neuro checks to be in place every 4 hours -Fall precaution Acute blood loss Anemia -Could be due to right parietal scalp hematoma -Monitor patient for bleeding -Monitor CBC -Orthopedic order 1 unit of PRBC Right femoral neck fracture -Status post right hip repair on 03/14/2020 -Appreciated cardiac clearance by cardiology -Your ortho management -PT OT. Patient will likely need placement Head injury with laceration from fall -Laceration to right parietal scalp repaired in ED with dari, which are intact. -Neuro checks to remain in place every 4 hours along with fall precautions. Elevated d-dimer likely due to trauma -CTA head and neck negative for thromboembolism -Lower extremity Dopplers show findings consistent with chronic DVT. Patient has no clinical signs of acute DVT Lucent lesions of cervical spine, found incidentally on CT imaging -Bone scan was done and findings aren't consistent with arthritis and not metastasis. -Multiple myeloma workup as per hematology Hypovolemic Hyponatremia secondary to mild dehydration -Gentle fluids -Hold home diuretics -Resolved Hypertension, elevated above normal limits upon admission. -Resume current blood pressure medication regimen and monitor BP Hyperlipidemia, stable -Continue daily medication management CKD stage III, stable -Creatinine is stable Dermatitis Herpetiformis, stable -Continue daily dapsone 25 mg twice a day Code status: DNR/DNI, Yes to all medical interventions with the exception of CPR and intubation. DVT prophylaxis: Subcu heparin (started by ortho) Home medications reviewed and ordered.
[2020-03-16] MEDS: INSULIN ASPART (NovoLOG) 100 UNIT/ML VIAL SQ SCH ×3 (10:25→17:41)
[2020-03-16] MEDS: HEPARIN SODIUM,PORCINE 5,000 UNIT/ML 1 ML VIAL SQ SCH ×2 (10:26→21:20)
[2020-03-16] MEDS: LOSARTAN 50 MG TAB PO SCH (10:26)
[2020-03-16] MEDS: METOPROLOL SUCCINATE (ER) 25 MG TAB.ER.24H PO SCH ×2 (10:26→21:19)
[2020-03-16] MEDS: levETIRAcetam 500 MG TAB PO SCH ×2 (10:26→21:19)
[2020-03-16] MEDS: DAPSONE 25 MG TAB PO SCH ×2 (10:26→21:19)
[2020-03-16] MEDS: HYDROcodone/APAP 5-325MG 1 EACH TAB PO PRN ×2 (10:27→17:42)
[2020-03-16 11:42] LABS: African American GFR (CKD) 49.4 (60.0-200.0); Anion Gap 6.3 mmol/L (4.00-12.00); BUN/Creat Ratio 23.33 Ratio (12.00-20.00); Calcium 8.2 mg/dL (8.7-10.3); Carbon Dioxide 24.7 mmol/L (21.6-31.8); Non-African American GFR(CKD) 42.6 (60.0-200.0); Potassium 4.5 mmol/L (3.5-5.5)
[2020-03-16 11:49] LABS: Glucose,Whole Blood 316 mg/dL (75-99)
[2020-03-16 13:55] LABS: Albumin 3.73 g/dL (3.80-4.90); Gamma Globulin 0.89 g/dL (0.70-1.50)
[2020-03-16] MEDS: SODIUM CHLORIDE 0.9% 1,000 ML IV SCH (14:43)
--- NOTE | 2020-03-16 15:09 | P.PN ---
Subjective Progress Note Date: 03/16/20 Principal diagnosis: Status post right total hip arthroplasty Patient is evaluated at bedside, she is resting comfortably. Patient is actually up in the chair. She did work with physical therapy today. Her hemoglobin is improved from the one unit of packed RBCs that was given. Patient currently denies any headaches, lightheadedness, chest pain or shortness of breath. Objective - Vital Signs Vital signs: Vital Signs Temp 98.3 F 03/16/20 08:22 Pulse 68 03/16/20 08:22 Resp 16 03/16/20 08:22 BP 147/70 03/16/20 08:22 Pulse Ox 95 03/16/20 01:24 Intake & Output 03/15/20 03/16/20 03/16/20 18:59 06:59 18:59 Intake Total 310 360 Output Total 925 1000 1600 Balance -027 -3615 -8770 Intake: Oral 360 Blood Product 310 Rc As-1 Unit 310 [id number] Output: Urine 925 1000 1600 Uretheral (Bletre) 1600 Other: Voiding Method Indwelling Catheter Indwelling Catheter # Bowel Movements 0 - Exam Right lower extremity: Incision is clean, dry, and intact. The exofin fusion tape is in good condition. There is minimal soft tissue swelling and ecchymosis surrounding the medial and lateral aspects of the incision. Calf is soft, no tenderness with palpation. Plantar flexion, dorsiflexion, EHL, FHL are intact. Sensory exam to light touch throughout the extremity is intact, dorsal pedis pulses 2+. - Labs CBC & Chem 7: 03/16/20 06:31 03/16/20 06:31 Labs: Abnormal Lab Results - Last 24 Hours (Table) 03/13/20 03/15/20 03/15/20 Range/Units 14:56 09:42 16:43 RBC (3.80-5.40) m/uL Hgb (11.4-16.0) gm/dL Hct (34.0-46.0) % Plt Count (150-450) k/uL Sodium (135-145) mmol/L BUN (9.0-27.0) mg/dL Est GFR (CKD-EPI)AfAm (60.0-200.0) Est GFR (CKD-EPI)NonAf (60.0-200.0) BUN/Creatinine Ratio (12.00-20.00) Ratio Glucose (70-110) mg/dL POC Glucose (mg/dL) 180 H (75-99) mg/dL Calcium (8.7-10.3) mg/dL Albumin (PEP) 3.73 L (3.80-4.90) g/dL Byoqf-[id number]-Firuywqpc 0.47 L (0.60-1.00) g/dL Crossmatch See Detail 03/15/20 03/16/20 03/16/20 Range/Units 20:21 06:31 06:31 RBC 2.58 L (3.80-5.40) m/uL Hgb 8.4 L (11.4-16.0) gm/dL Hct 25.0 L (34.0-46.0) % Plt Count 149 L (150-450) k/uL Sodium 132 L (135-145) mmol/L BUN 28.0 H (9.0-27.0) mg/dL Est GFR (CKD-EPI)AfAm 49.4 L (60.0-200.0) Est GFR (CKD-EPI)NonAf 42.6 L (60.0-200.0) BUN/Creatinine Ratio 23.33 H (12.00-20.00) Ratio Glucose 141 H (70-110) mg/dL POC Glucose (mg/dL) 222 H (75-99) mg/dL Calcium 8.2 L (8.7-10.3) mg/dL Albumin (PEP) (3.80-4.90) g/dL Eyuee-[id number]-Gjjafkkeh (0.60-1.00) g/dL Crossmatch 03/16/20 03/16/20 Range/Units 07:07 11:47 RBC (3.80-5.40) m/uL Hgb (11.4-16.0) gm/dL Hct (34.0-46.0) % Plt Count (150-450) k/uL Sodium (135-145) mmol/L BUN (9.0-27.0) mg/dL Est GFR (CKD-EPI)AfAm (60.0-200.0) Est GFR (CKD-EPI)NonAf (60.0-200.0) BUN/Creatinine Ratio (12.00-20.00) Ratio Glucose (70-110) mg/dL POC Glucose (mg/dL) 171 H 316 H (75-99) mg/dL Calcium (8.7-10.3) mg/dL Albumin (PEP) (3.80-4.90) g/dL [id number] (0.60-1.00) g/dL Crossmatch Assessment and Plan Assessment: Status post right total hip arthroplasty History of recent fall with right femoral neck fracture Plan: Pain control, continue oral medication as needed DVT prophylaxis, continue current medication Wound care instructions were discussed Continue work with physical therapy, walker ambulation Continue to monitor hemoglobin Other medical specialty recommendations Plan for discharge to rehab the next day or 2 Time with Patient: Less than 30
[2020-03-16 17:04] LABS: Glucose,Whole Blood 209 mg/dL (75-99)
--- NOTE | 2020-03-16 17:10 | P.PN ---
Subjective Progress Note Date: 03/16/20 Principal diagnosis: lytic bone lesions In f/u today pt is doing ok. Her hip is sore but not unbearable. She has been sitting up at the bedside and is in chair today. She denies any acute c/o. We discussed her lab results Objective - Vital Signs Vital signs: Vital Signs Temp 98.0 F 03/16/20 15:18 Pulse 66 03/16/20 15:18 Resp 16 03/16/20 15:18 BP 161/69 03/16/20 15:18 Pulse Ox 98 03/16/20 15:18 Intake & Output 03/15/20 03/16/20 03/16/20 18:59 06:59 18:59 Intake Total 310 360 Output Total 925 1000 1600 Balance -615 1000 1240 Intake: Oral 360 Blood Product 310 Rc As-1 Unit 310 [id number] Output: Urine 925 1000 1600 Uretheral (Beltre) 1600 Other: Voiding Method Indwelling Catheter Indwelling Catheter # Bowel Movements 0 - Constitutional General appearance: Present: average body habitus, cooperative, no acute distress - EENT Eyes: Present: anicteric sclerae, EOMI ENT: Present: hearing grossly normal - Respiratory Details: resp even and unlabored at rest - Integumentary Integumentary: Present: pale - Neurologic Neurologic: Present: CNII-XII intact - Musculoskeletal Musculoskeletal: Present: generalized weakness, strength equal bilaterally - Psychiatric Psychiatric: Present: A&O x's 3, appropriate affect, intact judgment & insight - Labs CBC & Chem 7: 03/16/20 06:31 03/16/20 06:31 Labs: Abnormal Lab Results - Last 24 Hours (Table) 03/13/20 03/15/20 03/15/20 Range/Units 14:56 09:42 20:21 RBC (3.80-5.40) m/uL Hgb (11.4-16.0) gm/dL Hct (34.0-46.0) % Plt Count (150-450) k/uL Sodium (135-145) mmol/L BUN (9.0-27.0) mg/dL Est GFR (CKD-EPI)AfAm (60.0-200.0) Est GFR (CKD-EPI)NonAf (60.0-200.0) BUN/Creatinine Ratio (12.00-20.00) Ratio Glucose (70-110) mg/dL POC Glucose (mg/dL) 222 H (75-99) mg/dL Calcium (8.7-10.3) mg/dL Albumin (PEP) 3.73 L (3.80-4.90) g/dL Hzldq-7-Jqmipvovt 0.47 L (0.60-1.00) g/dL Crossmatch See Detail 03/16/20 03/16/20 03/16/20 Range/Units 06:31 06:31 07:07 RBC 2.58 L (3.80-5.40) m/uL Hgb 8.4 L (11.4-16.0) gm/dL Hct 25.0 L (34.0-46.0) % Plt Count 149 L (150-450) k/uL Sodium 132 L (135-145) mmol/L BUN 28.0 H (9.0-27.0) mg/dL Est GFR (CKD-EPI)AfAm 49.4 L (60.0-200.0) Est GFR (CKD-EPI)NonAf 42.6 L (60.0-200.0) BUN/Creatinine Ratio 23.33 H (12.00-20.00) Ratio Glucose 141 H (70-110) mg/dL POC Glucose (mg/dL) 171 H (75-99) mg/dL Calcium 8.2 L (8.7-10.3) mg/dL Albumin (PEP) (3.80-4.90) g/dL Xrmgl-8-Zevxbwzoc (0.60-1.00) g/dL Crossmatch 03/16/20 Range/Units 11:47 RBC (3.80-5.40) m/uL Hgb (11.4-16.0) gm/dL Hct (34.0-46.0) % Plt Count (150-450) k/uL Sodium (135-145) mmol/L BUN (9.0-27.0) mg/dL Est GFR (CKD-EPI)AfAm (60.0-200.0) Est GFR (CKD-EPI)NonAf (60.0-200.0) BUN/Creatinine Ratio (12.00-20.00) Ratio Glucose (70-110) mg/dL POC Glucose (mg/dL) 316 H (75-99) mg/dL Calcium (8.7-10.3) mg/dL Albumin (PEP) (3.80-4.90) g/dL Bgqqc-1-Wqqpksqfe (0.60-1.00) g/dL Crossmatch Assessment and Plan Plan: Bone lesions on imaging: NM bone scan does not show evidence of lytic lesions. Pending path on bone specimen. Normocytic, normochromic Anemia: Mild, exacerbated post op. No monoclonal paraproteinemia, low normal B12 levels and iron studies. No transfusions needed at this time. Labs daily. F/U on path
[2020-03-16 20:34] LABS: Glucose,Whole Blood 141 mg/dL (75-99)
[2020-03-16] MEDS: ATORVASTATIN 10 MG TAB PO SCH (21:19)
[2020-03-16] MEDS: BENZOCAINE/MENTHOL LOZENG 1 EACH LOZENGE MUCOUS MEM PRN (21:21)
--- NOTE | 2020-03-16 23:31 | EEG ---
ELECTROENCEPHALOGRAM REPORT DATE OF SERVICE: 03/16/2020 PREAMBLE: This is an 79-year-old female who suffered from a fall and passed out, suffering a right femoral neck fracture. The patient did have some minimal loss of control of urine with this spell but no tongue-biting. This study is performed to rule out any epileptiform activity. EEG FINDINGS: This is a 21-channel routine EEG recording in a patient utilizing 10/20 international system with referential and bipolar montages. Background consists of well developed, well regulated, moderate voltage activity in 7-8 hertz, posterior-dominant, reactive to eye opening and closing. There is intermittent frontal rhythmic delta activity seen in bihemispheric region. Different stages of sleep were not clearly seen. No focal or generalized epileptiform activity was seen. Photic driving response was not seen. IMPRESSION: This is an abnormal EEG due to minimal background slowing as well as presence of frontal intermittent rhythmic delta activity. This is suggestive of mild generalized cerebral dysfunction as can be seen with toxic metabolic encephalopathies. No epileptiform activity was seen. MMODL / IJN: [id number] /
[2020-03-17] MEDS: HYDROcodone/APAP 5-325MG 1 EACH TAB PO PRN (02:38)
[2020-03-17 06:47] LABS: Basophils % (A) 0 %; Eosinophils # (A) 0.2 k/uL (0-0.7); Eosinophils % (A) 4 %; HCT 24.2 % (34.0-46.0); HGB 8.4 gm/dL (11.4-16.0); Lymphocytes # (A) 1.7 k/uL (1.0-4.8); Lymphocytes % (A) 27 %; MCH 33.1 pg (25.0-35.0); MCHC 34.5 g/dL (31.0-37.0); MCV 96.1 fL (80.0-100.0); Mean Platelet Volume 8.1; Monocytes # (A) 0.5 k/uL (0-1.0); Monocytes % (A) 8 %; Neutrophils # (A) 3.6 k/uL (1.3-7.7); Neutrophils % (A) 58 %; Platelet Count 158 k/uL (150-450); RBC 2.52 m/uL (3.80-5.40); WBC 6.2 k/uL (3.8-10.6)
[2020-03-17 06:55] LABS: Glucose,Whole Blood 188 mg/dL (75-99)
[2020-03-17] MEDS: METOPROLOL SUCCINATE (ER) 25 MG TAB.ER.24H PO SCH (07:22)
[2020-03-17] MEDS: LOSARTAN 50 MG TAB PO SCH (07:22)
[2020-03-17] MEDS: INSULIN ASPART (NovoLOG) 100 UNIT/ML VIAL SQ SCH ×2 (07:22→12:44)
[2020-03-17] MEDS: HEPARIN SODIUM,PORCINE 5,000 UNIT/ML 1 ML VIAL SQ SCH (07:22)
[2020-03-17] MEDS: levETIRAcetam 500 MG TAB PO SCH (07:23)
[2020-03-17] MEDS: DAPSONE 25 MG TAB PO SCH (07:24)
--- NOTE | 2020-03-17 10:48 | P.PN ---
Subjective Progress Note Date: 03/17/20 Principal diagnosis: Status post right total hip arthroplasty Patient is evaluated at bedside, she is resting comfortably. Patient is actually up in the chair. She did work with physical therapy today. Patient currently denies any headaches, lightheadedness, chest pain or shortness of breath. Objective - Vital Signs Vital signs: Vital Signs Temp 98.3 F 03/17/20 06:40 Pulse 66 03/17/20 06:40 Resp 17 03/17/20 06:40 BP 169/55 03/17/20 06:40 Pulse Ox 97 03/17/20 06:40 Intake & Output 03/16/20 03/17/20 03/17/20 18:59 06:59 18:59 Intake Total 720 Output Total 1950 Balance -1230 Intake: Oral 720 Output: Urine 1950 Uretheral (Beltre) 1600 Other: Voiding Method Indwelling Catheter Toilet # Voids 2 2 - Exam Right lower extremity: Incision is clean, dry, and intact. The exofin fusion tape is in good condition. There is minimal soft tissue swelling and ecchymosis surrounding the medial and lateral aspects of the incision. Calf is soft, no tenderness with palpation. Plantar flexion, dorsiflexion, EHL, FHL are intact. Sensory exam to light touch throughout the extremity is intact, dorsal pedis pulses 2+. - Labs CBC & Chem 7: 03/17/20 05:56 03/16/20 06:31 Labs: Abnormal Lab Results - Last 24 Hours (Table) 03/13/20 03/16/20 03/16/20 Range/Units 14:56 06:31 11:47 RBC (3.80-5.40) m/uL Hgb (11.4-16.0) gm/dL Hct (34.0-46.0) % Sodium 132 L (135-145) mmol/L BUN 28.0 H (9.0-27.0) mg/dL Est GFR (CKD-EPI)AfAm 49.4 L (60.0-200.0) Est GFR (CKD-EPI)NonAf 42.6 L (60.0-200.0) BUN/Creatinine Ratio 23.33 H (12.00-20.00) Ratio Glucose 141 H (70-110) mg/dL POC Glucose (mg/dL) 316 H (75-99) mg/dL Calcium 8.2 L (8.7-10.3) mg/dL Albumin (PEP) 3.73 L (3.80-4.90) g/dL Fhwoj-8-Kzzlosbny 0.47 L (0.60-1.00) g/dL 03/16/20 03/16/20 03/17/20 Range/Units 16:58 20:33 05:56 RBC 2.52 L (3.80-5.40) m/uL Hgb 8.4 L (11.4-16.0) gm/dL Hct 24.2 L (34.0-46.0) % Sodium (135-145) mmol/L BUN (9.0-27.0) mg/dL Est GFR (CKD-EPI)AfAm (60.0-200.0) Est GFR (CKD-EPI)NonAf (60.0-200.0) BUN/Creatinine Ratio (12.00-20.00) Ratio Glucose (70-110) mg/dL POC Glucose (mg/dL) 209 H 141 H (75-99) mg/dL Calcium (8.7-10.3) mg/dL Albumin (PEP) (3.80-4.90) g/dL Zrdzu-9-Oyxvgrffw (0.60-1.00) g/dL 03/17/20 Range/Units 06:51 RBC (3.80-5.40) m/uL Hgb (11.4-16.0) gm/dL Hct (34.0-46.0) % Sodium (135-145) mmol/L BUN (9.0-27.0) mg/dL Est GFR (CKD-EPI)AfAm (60.0-200.0) Est GFR (CKD-EPI)NonAf (60.0-200.0) BUN/Creatinine Ratio (12.00-20.00) Ratio Glucose (70-110) mg/dL POC Glucose (mg/dL) 188 H (75-99) mg/dL Calcium (8.7-10.3) mg/dL Albumin (PEP) (3.80-4.90) g/dL Rhbqa-7-Mkfjrytei (0.60-1.00) g/dL Assessment and Plan Assessment: Status post right total hip arthroplasty History of recent fall with right femoral neck fracture Plan: Pain control, plan for discharge on oral medication DVT prophylaxis, aspirin 81 mg twice a day for 1 month Wound care instructions were discussed Continue work with physical therapy, walker ambulation Ferrous sulfate 325mg bid for 1 month Other medical specialty recommendations Hopeful discharge to rehab today Time with Patient: Less than 30
[2020-03-17 11:21] LABS: Glucose,Whole Blood 181 mg/dL (75-99)
--- NOTE | 2020-03-17 12:55 | P.DS ---
Providers Date of admission: 03/13/20 10:15 Expected date of discharge: 03/17/20 Attending physician: Summer Tyson MD Consults: 03/13/20 10:14 Consult Physician Urgent Consulting Provider: Venkata Dickey Consult Reason/Comments: Medical management Do you want consulting provider notified?: Yes 03/13/20 11:38 Consult Physician Routine Consulting Provider: Moe Rivera Consult Reason/Comments: Bone lesions, cervical spine Do you want consulting provider notified?: Yes 03/13/20 16:02 Consult Physician Routine Consulting Provider: Davi Reyes Consult Reason/Comments: possible post concussion syndrome Do you want consulting provider notified?: Yes Primary care physician: Stated None Hospital Course: 1. Syncope 2. Right Femoral Neck Fracture 3. MGUS with Anemia 4. HTN 5. HLD 6. CKD III 7. Dermatitis Herpetiformis 79 year old woman with HTN/HLD, CKD III, Dematitis Herpetiformis presented after mechanical fall resulted in right hip fracture. She was admitted for further work up and was seen by neurology, cardiology, and orthopedic teams. Pt was pre-operatively cleared by cardiology and then underwent successful ORIF via ortho without complication. She was started on keppra and monitored on telemetry. Carotid doppler demonstrate ~50% stenosis in b/l ICAs. Echo demonstrated large LA, and mild to moderate MR and pHTN. EEG did not demonstr ate findings of epileptic focus, but showed generalized slowing. Patient was noted to be anemic as well, requiring 1U PRBC with appropriate response. Hematology was consulted due to anemia and evidence of lytic lesion in cervical spine. Their workup demonstrated 2:1 [place] to lambda ratio with VALENTIN and SPEP/UPEP pending. Bone scan was negative for abnormal uptake. Pt was seen by PT/OT and was recommended for SNF prior to return home. Pt discharged to [facility] in stable condition. Plan will be to follow up with PCP, ortho, and hematology. I spent 40 minutes preparing this discharge. Assessment: Gen: awake, alert HEENT: normocephalic, atraumatic, good hearing acuity, moist mucous membranes Resp: good air exchange, breathing comfortably with no accessory muscle use CVS: good distal perfusion x 4, GI: soft, NTTP, ND : no SPT, no CVAT, laura catheter not present MSK: no pitting edema, no clubbing Neuro: non-focal, moving all extremities Psych: cooperative, euthymic mood Patient Condition at Discharge: Good Plan - Discharge Summary Discharge Rx Participant: No New Discharge Prescriptions: New Aspirin [Adult Low Dose Aspirin EC] 81 mg PO BID #60 tablet. Docusate [Colace] 100 mg PO DAILY #30 capsule Ferrous Sulfate [Feosol] 325 mg PO BID #30 tab Hydrocodone/Acetaminophen [Norman 5-325] 1 each PO Q6HR PRN #28 tab PRN Reason: Pain levETIRAcetam [Keppra] 500 mg PO Q12HR tab Acetaminophen Tab [Tylenol] 650 mg PO Q4HR PRN tab PRN Reason: Pain Scale 1 To 5 Acetaminophen Tab [Tylenol] 650 mg PO Q6HR PRN tab PRN Reason: Mild Pain Or Fever > 100.5 Continue glipiZIDE [Glipizide ER] 2.5 mg PO DAILY Simvastatin 20 mg PO HS [place]-3 Fatty Acids/Fish Oil [Fish Oil 1,000 mg Softgel] 1 cap PO BID Folic Acid 1 mg PO DAILY Dapsone 25 mg PO BID Furosemide [Lasix] 20 mg PO DAILY Cholecalciferol [Vitamin D3 (25 Mcg = 1000 Iu)] 1,000 unit PO DAILY Losartan Potassium [Cozaar] 50 mg PO DAILY Ascorbic Acid [Vitamin C] 1,000 mg PO BID Metoprolol Succinate (ER) [Toprol XL] 25 mg PO BID Discontinued Aspirin 81 mg PO DAILY Hydrochlorothiazide [hydroCHLOROthiazide] 12.5 mg PO DAILY Discharge Medication List Folic Acid 1 mg PO DAILY 07/14/14 [History] [place]-3 Fatty Acids/Fish Oil [Fish Oil 1,000 mg Softgel] 1 cap PO BID 07/14/14 [History] Simvastatin 20 mg PO HS 07/14/14 [History] glipiZIDE [Glipizide ER] 2.5 mg PO DAILY 07/14/14 [History] Dapsone 25 mg PO BID 10/09/17 [History] Furosemide [Lasix] 20 mg PO DAILY 10/09/17 [History] Ascorbic Acid [Vitamin C] 1,000 mg PO BID 03/13/20 [History] Cholecalciferol [Vitamin D3 (25 Mcg = 1000 Iu)] 1,000 unit PO DAILY 03/13/20 [History] Losartan Potassium [Cozaar] 50 mg PO DAILY 03/13/20 [History] Metoprolol Succinate (ER) [Toprol XL] 25 mg PO BID 03/13/20 [History] Acetaminophen Tab [Tylenol] 650 mg PO Q4HR PRN tab 03/17/20 [Rx] Acetaminophen Tab [Tylenol] 650 mg PO Q6HR PRN tab 03/17/20 [Rx] Aspirin [Adult Low Dose Aspirin EC] 81 mg PO BID #60 tablet. 03/17/20 [Rx] Docusate [Colace] 100 mg PO DAILY #30 capsule 03/17/20 [Rx] Ferrous Sulfate [Feosol] 325 mg PO BID #30 tab 03/17/20 [Rx] Hydrocodone/Acetaminophen [[place] 5-325] 1 each PO Q6HR PRN #28 tab 03/17/20 [Rx] levETIRAcetam [Keppra] 500 mg PO Q12HR tab 03/17/20 [Rx] Follow up Appointment(s)/Referral(s): Carlos Geronimo PAC [PHYSICIAN RESIDENTIAL INSURANCE INSPECTOR] - 04/01/20 10:40 am None,Stated [Primary Care Provider] - 1-2 days Activity/Diet/Wound Care/Special Instructions: Orthopedic discharge instructions: 1. Pain medication as needed 2. Aspirin 81 mg twice a day for DVT prophylaxis for month 3. Utilize walker with ambulation at all times 4. Keep incision dry and covered while showering 5. Tape may be removed from incision on 03/28/2020 6. Ferrous sulfate 325 mg twice a day for anemia, utilize for the next 3-4 weeks 7. Plan [facility] 2 [facility] for checkup Discharge Disposition: TRANSFER TO SNF/ECF
[2020-03-17 14:26] VITALS: BP 154/63; PULSE 81; RESP 16; TEMP 97.6
--- NOTE | 2020-03-17 15:36 | P.PN ---
Subjective Progress Note Date: 03/17/20 Patient was seen for a follow-up. Patient initially seen by Dr. Davi Reyes in consultation on 03/13/2020. Please refer to his note for details. Patient is sitting in the recliner, very pleasant, in no distress. Patient states that she fell down prior to arrival to the hospital. Patient states she went outside as the dog was tangled up. She opened the least, and somehow without any idea, she fell. She does not remember how she got into the house. When she came to, she was sitting in the recliner. Patient apparently crawled from walkway to inside the house and managed to get up on the recliner, called the neighbor and was brought to the hospital. Patient was diagnosed with right hip fracture. She had undergone surgery on 03/14/2020. Patient states that today she is feeling better. She was able to walk with assist. Patient has history of right ankle fracture in 2008, left shoulder fracture in 2009 as well, requiring surgery. Patient had a carotid Doppler on 03/13/2020 which revealed antegrade flow in the vertebral arteries. There is close to 50% stenosis in both ICAs. There is 50- 70% stenosis in the left external carotid artery. 2-D echo showed moderate concentric LVH, EF is 55-60%. Left atrium is severely dilated. Mild aortic valve sclerosis. Mild to moderate mitral regurgitation. EEG revealed minimal background slowing as well as presence of frontal intermittent rhythmic delta activity. Objective - Vital Signs Vital signs: Vital Signs Temp 97.6 F 03/17/20 14:00 Pulse 81 03/17/20 14:00 Resp 16 03/17/20 14:00 BP 154/63 03/17/20 14:00 Pulse Ox 96 03/17/20 14:00 Intake & Output 03/16/20 03/17/20 03/17/20 18:59 06:59 18:59 Intake Total 720 Output Total 1950 Balance -1230 Intake: Oral 720 Output: Urine 1950 Uretheral (Beltre) 1600 Other: Voiding Method Indwelling Catheter Toilet Toilet # Voids 2 2 - Exam Patient's mental status, speech and language functions are normal. She is alert and oriented 3. Knows it is 03/17/2020. She knows that it is [facility]. Speech and language functions are normal. Cranial nerves are grossly normal. Muscle strength is normal except left deltoid which is weak from previous fracture. Right leg not checked. Ankles appears normal. Sensations are equal. No ataxia for powzws-cf-rjbl testing. - Labs CBC & Chem 7: 03/17/20 05:56 03/16/20 06:31 Labs: Abnormal Lab Results - Last 24 Hours (Table) 03/16/20 03/16/20 03/17/20 Range/Units 16:58 20:33 05:56 RBC 2.52 L (3.80-5.40) m/uL Hgb 8.4 L (11.4-16.0) gm/dL Hct 24.2 L (34.0-46.0) % POC Glucose (mg/dL) 209 H 141 H (75-99) mg/dL 03/17/20 03/17/20 Range/Units 06:51 11:18 RBC (3.80-5.40) m/uL Hgb (11.4-16.0) gm/dL Hct (34.0-46.0) % POC Glucose (mg/dL) 188 H 181 H (75-99) mg/dL Assessment and Plan Assessment: * Status post fall with possible syncope. Patient suffered from right hip fracture, status post arthroplasty. * Elevated troponins. * Chronic renal disease (mild). * Rule out myeloma * Anemia Plan: * Patient's mentation is normal. Exam is relatively nonfocal. * Patient had normal carotid Doppler. * Bone scan was negative for myeloma. Hematology saw the patient, does not feel patient has myeloma. Myeloma workup negative. * EEG showed minimal background slowing frontal intermittent rhythmic delta activity. Patient on Keppra 500 mg twice a day. * Other recommendations as per initial consultation from Dr. Reyes.
== END 2020-03-17 14:48 | DRG 522 ==
LOC: EC 08:31 → 4SSUR 10:15
PROVIDERS: ADMIT Internal Medicine; ATTEND Internal Medicine
PROC: 0HQ0XZZ Repair Scalp Skin, External Approach (ICD-10-PCS; 2020-03-13)
PROC: 0SR902A Replacement of Right Hip Joint with Metal on Polyethylene Synthetic Substitute, Uncemented, Open Approach (ICD-10-PCS; principal; 2020-03-14 08:00)
PROC: 30233N1 Transfusion of Nonautologous Red Blood Cells into Peripheral Vein, Percutaneous Approach (ICD-10-PCS; 2020-03-15)
DX: S72.011A Unspecified intracapsular fracture of right femur, initial encounter for closed fracture (principal); D62 Acute posthemorrhagic anemia; E87.1 Hypo-osmolality and hyponatremia; I27.20 Pulmonary hypertension, unspecified; F07.81 Postconcussional syndrome; L13.0 Dermatitis herpetiformis; E11.22 Type 2 diabetes mellitus with diabetic chronic kidney disease; N18.30 Chronic kidney disease, stage 3 unspecified; Z20.822 Contact with and (suspected) exposure to COVID-19; D47.2 Monoclonal gammopathy; E86.0 Dehydration; S01.01XA Laceration without foreign body of scalp, initial encounter; Z66 Do not resuscitate; G93.89 Other specified disorders of brain; I12.9 Hypertensive chronic kidney disease with stage 1 through stage 4 chronic kidney disease, or unspecified chronic kidney disease; M16.11 Unilateral primary osteoarthritis, right hip; E86.1 Hypovolemia; I65.23 Occlusion and stenosis of bilateral carotid arteries; J01.00 Acute maxillary sinusitis, unspecified; J32.0 Chronic maxillary sinusitis; H57.9 Unspecified disorder of eye and adnexa; E78.5 Hyperlipidemia, unspecified; I08.0 Rheumatic disorders of both mitral and aortic valves; I44.0 Atrioventricular block, first degree; M89.9 Disorder of bone, unspecified; M54.9 Dorsalgia, unspecified; R77.8 Other specified abnormalities of plasma proteins; R32 Unspecified urinary incontinence; H91.90 Unspecified hearing loss, unspecified ear; Z79.82 Long term (current) use of aspirin; Z79.84 Long term (current) use of oral hypoglycemic drugs; Z79.899 Other long term (current) drug therapy; Z87.81 Personal history of (healed) traumatic fracture; Z96.612 Presence of left artificial shoulder joint; Z91.018 Allergy to other foods; W01.0XXA Fall on same level from slipping, tripping and stumbling without subsequent striking against object, initial encounter; Y92.008 Other place in unspecified non-institutional (private) residence as the place of occurrence of the external cause; Z81.8 Family history of other mental and behavioral disorders; Z82.49 Family history of ischemic heart disease and other diseases of the circulatory system; Z86.73 Personal history of transient ischemic attack (TIA), and cerebral infarction without residual deficits
CPT/HCPCS: 36415; 70450; 71046; 71275; 72125; 73501; 73502; 78306; 80048; 80053; 82607; 82728; 82746; 82784; 83540; 83550; 83615; 83883; 84165; 84484; 85025; 85045; 85379; 85610; 85652; 85730; 86038; 86334; 86431; 86850; 86900; 86901; 86920; 87635; 88305; 88311; 93005; 93306; 93880; 93970; 95819; 96374; 99285

== ENCOUNTER → 2020-07-06 | Outpatient (CLI) | payer MEDICARE ==
[2020-07-06 12:36] LABS: ALT 8 U/L (4-34); AST 17 U/L (14-36); African American GFR (CKD) 52 (>60 ml/min/1.73 sqM); Albumin 3.3 g/dL (3.5-5.0); Albumin/Globulin Ratio 1.2; Alkaline Phosphatase 76 U/L (38-126); Anion Gap 9 mmol/L; Blood Urea Nitrogen 30 mg/dL (7-17); Calcium 8.4 mg/dL (8.4-10.2); Carbon Dioxide 24 mmol/L (22-30); Chloride 94 mmol/L (98-107); Globulin 2.8 g/dL; Glucose 195 mg/dL (74-99); Magnesium 1.8 mg/dL (1.6-2.3); Non-African American GFR(CKD) 45 (>60 ml/min/1.73 sqM); Phosphorus 3.7 mg/dL (2.5-4.5); Sodium 127 mmol/L (137-145); Total Bilirubin 2.1 mg/dL (0.2-1.3); Total Protein 6.1 g/dL (6.3-8.2); Uric Acid 5.3 mg/dL (3.7-7.4)
[2020-07-06 12:40] LABS: Amorphous Sediment,Urine Occasional /hpf; Appearance,Urine Cloudy (Clear); Bilirubin,Urine Negative (Negative); Blood,Urine Trace (Negative); Color,Urine Yellow; Glucose,Urine (UA) Negative (Negative); Ketones,Urine Negative (Negative); Leukocyte Esterase,Urine Large (Negative); Mucus,Urine Rare /hpf; Nitrite,Urine Negative (Negative); Protein,Urine 1+ (Negative); RBC,Urine 9 /hpf (0-5); Specific Gravity,Urine 1.016 (1.001-1.035); Squamous Epithelial Cell,Urine 3 /hpf (0-4); WBC,Urine 28 /hpf (0-5)
[2020-07-06 18:44] LABS: Basophils # (A) 0.02 X 10*3/uL (0.00-0.10); Basophils % (A) 0.2 %; Eosinophils # (A) 0.02 X 10*3/uL (0.04-0.35); Eosinophils % (A) 0.2 %; HCT 29.1 % (37.2-46.3); HGB 9.4 g/dL (12.0-15.0); Lymphocytes # (A) 0.97 X 10*3/uL (0.90-5.00); Lymphocytes % (A) 8.3 %; MCH 32.9 pg (27.0-32.0); MCHC 32.3 g/dL (32.0-37.0); MCV 101.7 fL (80.0-97.0); Mean Platelet Volume 10.7 fL (9.5-12.2); Monocytes # (A) 0.95 X 10*3/uL (0.20-1.00); Monocytes % (A) 8.1 %; Neutrophils # (A) 9.67 X 10*3/uL (1.80-7.70); Neutrophils % (A) 82.8 %; Platelet Count 204 X 10*3/uL (140-440); RBC 2.86 X 10*6/uL (4.10-5.20); RDW 14.7 % (11.5-14.5); WBC 11.68 X 10*3/uL (4.50-10.00)
[2020-07-06 19:56] LABS: Ferritin 184.1 ng/mL (10.0-291.0)
[2020-07-06 20:04] LABS: % Iron Saturation 5.62 (12.00-45.00); Iron 14 ug/dL (50-170); Total Iron Binding Capacity 249 ug/dL (228-460)
[2020-07-07 02:30] LABS: Urine Creatinine 102.7 mg/dL
== END | disposition home or self-care (01) ==
LOC: LABWHC1 10:31
PROVIDERS: ATTEND Nurse Practitioner Family
DX: N18.32 Chronic kidney disease, stage 3b (principal); N39.0 Urinary tract infection, site not specified; E87.1 Hypo-osmolality and hyponatremia; E83.39 Other disorders of phosphorus metabolism; D64.9 Anemia, unspecified; M10.9 Gout, unspecified; N25.81 Secondary hyperparathyroidism of renal origin; R80.9 Proteinuria, unspecified
CPT/HCPCS: 36415; 80053; 81001; 82043; 82306; 82570; 82728; 83540; 83550; 83735; 83930; 83935; 83970; 84100; 84300; 84550; 85025

== ENCOUNTER 2020-07-30 11:04 | Emergency (ER) | payer MEDICARE ==
[2020-07-30 11:27] VITALS: RESP 16; TEMP 98.7
--- NOTE | 2020-07-30 12:58 | XR ---
EXAMINATION TYPE: XR Hip RT and AP Pelvis DATE OF EXAM: 07/30/2020 COMPARISON: Pelvic and hip xray March 13, 2020 HISTORY: Pain after fall injury 3 weeks ago. TECHNIQUE: A single AP view of the pelvis is obtained. Two views of the right hip are obtained. FINDINGS: Osseous structures are demineralized which is notable radiographic sensitivity. There is no displaced fracture evident in the pelvis. The sacroiliac joints remain symmetric and within normal limits. Pubic symphysis is intact. Moderate axial joint space loss left hip. Scattered pelvic vascula r calcification. Two views of right hip show no acute fracture or dislocation. Metallic prosthesis is satisfactory in position. The overlying soft tissue is unremarkable. IMPRESSION: There is no acute fracture or dislocation in the pelvis or right hip.
--- NOTE | 2020-07-30 13:23 | ED ---
Lower Extremity Injury HPI - General Chief Complaint: Extremity Injury, Lower Stated Complaint: Hip pain Time Seen by Provider: 07/30/20 11:41 Source: patient, family (Son), EMS, RN notes reviewed Mode of arrival: EMS - History of Present Illness Initial Comments: 79-year-old white female presents to emergency room, alert and oriented 4, with nephew at bedside. Patient states that the night before last she was sitting in chair when her book fell to the floor, as she reached down to pharmacy picking technician book she felt a pop in her right hip. Pt was able to go out to a restaurant with use of her walker yesterday and had no complications however today she started increased pain with weight bearing on the right hip. Patient states pain is 9 out of 10. Patient had a hip fracture in March 2020 and had a prostatitis placed at that time. Patient states she is already done physical therapy post hip replacement and is scheduled to do occupational therapy. MD Complaint: hip injury (Patient had a hip fracture on the right with prosthesis placed March 2020) -: days(s) (1) Injury: Hip: Right Type of Injury: unknown Place: home Severity scale (1-10): 9 Improves With: immobilization Worsens With: weight bearing, movement Context: other (Reached over to get appropriate sitting in a chair and felt a pop) - Related Data Home Medications Medication Instructions Recorded Confirmed Folic Acid 1 mg PO DAILY 07/14/14 07/30/20 [place]-3 Fatty Acids/Fish Oil [Fish 1 cap PO BID 07/14/14 07/30/20 Oil 1,000 mg Softgel] Simvastatin 20 mg PO HS 07/14/14 07/30/20 glipiZIDE [Glipizide ER] 2.5 mg PO DAILY 07/14/14 07/30/20 Dapsone 25 mg PO BID 10/09/17 07/30/20 Losartan Potassium [Cozaar] 50 mg PO DAILY 03/13/20 07/30/20 Metoprolol Succinate (ER) [Toprol 25 mg PO BID 03/13/20 07/30/20 XL] Aspirin [Adult Low Dose Aspirin EC] 81 mg PO DAILY 07/30/20 07/30/20 Medihoney 1 applic TOPICAL DAILY 07/30/20 07/30/20 hydroCHLOROthiazide [Hydrodiuril] 12.5 mg PO DAILY 07/30/20 07/30/20 Allergies Allergy/AdvReac Type Severity Reaction Status Date / Time gluten Allergy Rash/Hives Verified 07/30/20 12:46 Review of Systems ROS Statement: Those systems with pertinent positive or pertinent negative responses have been documented in the HPI. ROS Other: All systems not noted in ROS Statement are negative. Past Medical History Past Medical History: Diabetes Mellitus, Eye Disorder, Hypertension, Renal Disease, Skin Disorder Additional Past Medical History / Comment(s): Has an "eye disorder with fluid behind eyes, gets injection in eyes every 4 weeks." Lesions on skin, sees a Chemist Physical. History of Any Multi-Drug Resistant Organisms: None Reported Past Surgical History: Joint Replacement, Orthopedic Surgery Additional Past Surgical History / Comment(s): Right ankle surgery, right leg surgery, left shoulder replacement.rt hip replacement Past Anesthesia/Blood Transfusion Reactions: No Reported Reaction Past Psychological History: No Psychological Hx Reported Smoking Status: Former smoker Past Alcohol Use History: None Reported Past Drug Use History: None Reported - Past Family History Sister(s) Family Medical History: Dementia Mother Family Medical History: Congestive Heart Failure (CHF) Additional Family Medical History / Comment(s): at 29 yrs old. General Exam General appearance: alert, in no apparent distress Head exam: Present: atraumatic, normocephalic, normal inspection Eye exam: Present: normal appearance, PERRL, EOMI. Absent: scleral icterus, conjunctival injection, periorbital swelling ENT exam: Present: normal exam, normal oropharynx, mucous membranes moist Neck exam: Present: normal inspection. Absent: tenderness, meningismus, lymphadenopathy Respiratory exam: Present: normal lung sounds bilaterally. Absent: respiratory distress, wheezes, rales, rhonchi, stridor, decreased breath sounds Cardiovascular Exam: Present: regular rate, normal rhythm, normal heart sounds. Absent: systolic murmur, diastolic murmur, rubs, gallop, clicks GI/Abdominal exam: Present: soft, normal bowel sounds. Absent: distended, tenderness, guarding, rebound, rigid Extremities exam: Present: normal inspection, full ROM, normal capillary refill. Absent: tenderness, pedal edema, joint swelling, calf tenderness Right Hip exam: Present: normal inspection, tenderness. Absent: deformity Upper Leg exam: Present: normal inspection. Absent: ecchymosis, deformity Knee exam: Present: normal inspection. Absent: dislocation Lower Leg exam: Present: normal inspection. Absent: dislocation, erythema Ankle exam: Present: normal inspection Foot/Toe exam: Present: normal inspection Neurovascular tendon exam: Present: no vascular compromise. Absent: abnormal cap refill, motor deficit, sensory deficit, extremity cold to touch, pallor, foot drop Back exam: Present: normal inspection. Absent: tenderness, CVA tenderness (R), CVA tenderness (L), muscle spasm, paraspinal tenderness, vertebral tenderness Neurological exam: Present: alert, oriented X3, CN II-XII intact Psychiatric exam: Present: normal affect, normal mood Skin exam: Present: warm, dry, intact, normal color. Absent: rash Course Vital Signs 07/30/20 11:20 Temperature 98.7 F Pulse Rate 65 Respiratory 16 Rate Blood Pressure 182/80 O2 Sat by Pulse 98 Oximetry Medical Decision Making - Medical Decision Making X-ray of the right hip and pelvis shows no acute fracture dislocation. There is moderate metallic prosthesis in satisfactory position. Patient states is able to ambulate when she has her walker. Neurovascularly intact in the right lower extremity. Patient's nephew at bedside will take patient home. Patient directed to follow up with Dr. Nicole this week. Patient refusing any pain medication at this time states she does not take pain pills. Patient offered Tylenol and refused. Case discussed with Dr. Castro who is agreeable to discharge. Disposition Clinical Impression: Hip pain Disposition: HOME SELF-CARE Condition: Fair Instructions (If sedation given, give patient instructions): Hip Pain (ED) Additional Instructions: Continue to use walker, follow-up with Dr. Apodaca office next week. Is patient prescribed a controlled substance at d/c from ED?: No Referrals: Janeen Banks MD [Primary Care Provider] - 1-2 days Jesus Apodaca MD [STAFF PHYSICIAN] - 1-2 days Time of Disposition: 13:40
[2020-07-30 14:16] VITALS: BP 161/83; PULSE 66
== END 2020-07-30 14:37 | disposition home or self-care (01) ==
LOC: EC 11:04
DX: M25.551 Pain in right hip (principal); I10 Essential (primary) hypertension; E11.9 Type 2 diabetes mellitus without complications; Z87.891 Personal history of nicotine dependence; Z79.84 Long term (current) use of oral hypoglycemic drugs; Z79.82 Long term (current) use of aspirin; Z79.899 Other long term (current) drug therapy; Z96.641 Presence of right artificial hip joint; Z96.612 Presence of left artificial shoulder joint
CPT/HCPCS: 73502; 99284

== ENCOUNTER → 2020-10-19 | Outpatient (CLI) | payer MEDICARE ==
[2020-10-19 14:57] LABS: Anisocytosis Slight; Basophils # (A) 0.1 k/uL (0-0.2); Basophils % (A) 1 %; Eosinophils # (A) 0.2 k/uL (0-0.7); Eosinophils % (A) 3 %; HCT 36.3 % (34.0-46.0); HGB 10.8 gm/dL (11.4-16.0); Hypochromasia Slight; Lymphocytes % (A) 23 %; MCH 26.4 pg (25.0-35.0); MCHC 29.8 g/dL (31.0-37.0); MCV 88.6 fL (80.0-100.0); Mean Platelet Volume 7.5; Monocytes # (A) 0.5 k/uL (0-1.0); Monocytes % (A) 6 %; Neutrophils # (A) 5.8 k/uL (1.3-7.7); Neutrophils % (A) 67 %; Platelet Count 452 k/uL (150-450); RBC 4.09 m/uL (3.80-5.40); RDW 16.4 % (11.5-15.5); WBC 8.7 k/uL (3.8-10.6)
[2020-10-19 15:16] LABS: C Reactive Protein 3.3 mg/dL (<1.0); Potassium 4.5 mmol/L (3.5-5.1)
[2020-10-19 15:21] LABS: Prothrombin Time 10.8 sec (9.0-12.0)
[2020-10-19 17:38] LABS: Erythrocyte Sedimentation Rate 79 mm/hr (0-20)
== END | disposition home or self-care (01) ==
LOC: LABPAT 14:01
PROVIDERS: ATTEND Orthopaedic Surgery
DX: Z01.812 Encounter for preprocedural laboratory examination (principal); T14.8XXD Other injury of unspecified body region, subsequent encounter
CPT/HCPCS: 36415; 80051; 85025; 85610; 85652; 86140

== ENCOUNTER 2020-10-20 13:06 | Inpatient (IN) | payer MEDICARE, OTHER ==
--- NOTE | 2020-10-19 15:07 | HP ---
HISTORY AND PHYSICAL CHIEF COMPLAINT: Right hip pain. HISTORY OF PRESENT ILLNESS: Patient is an 79-year-old retired female who presents after undergoing a right total hip arthroplasty for fracture, March 14, 2020, with a 2 day history of a lump over her right lateral hip with new drainage. She denies any fevers or chills. She notes a clear drainage for the past day or so. She has been using a walker for balance. She has otherwise been doing well with the hip. PAST MEDICAL HISTORY: Significant for hypertension, hypercholesterolemia, and type 2 diabetes. PAST SURGICAL HISTORY: Significant for right total hip arthroplasty for a femoral neck fracture. CURRENT MEDICATIONS: Aspirin, Colace, dapsone, iron, glipizide, Keppra, Lasix, losartan, simvastatin, Toprol, and Tylenol. ALLERGIES: She denies drug allergies. FAMILY HISTORY: Noncontributory. SOCIAL HISTORY: Negative for current tobacco or alcohol use. REVIEW OF SYSTEMS: Sixteen-point review of systems otherwise reviewed and is noncontributory. PHYSICAL EXAMINATION: On examination, the patient is approximately 5 feet 7 inches, 148 pounds of mesomorphic habitus. HEENT exam is nonfocal. NECK is supple. On examination RIGHT HIP, she does have erythema about the distal incision. There is a 1 to 2 mm opening with mild serous drainage. There is swelling, however, no gross fluctuance. Passive motion right hip, flexion 90 degrees, external rotation with the hip flexed 70 degrees, internal rotation 20 degrees. Homans are negative. Right lower extremity. Her distal neurovascular exam appears intact in the right lower extremity. X-rays of the right hip to include AP and lateral views obtained in the office show a total hip arthroplasty and overall good alignment. IMPRESSION: 1. Right hip probable seroma. 2. Status post right total hip arthroplasty for a femoral neck fracture. RECOMMENDATIONS: I talked to the patient at length regarding her condition, along with treatment options. At this point, I would recommend proceeding with surgical intervention to include incision and drainage of the distal incision/seroma. At this point, I do not feel this is a deep infection. However, we will obtain laboratory studies to include CBC with differential, sed rate and C-reactive protein prior to the procedure. We will potentially keep the patient for 23 hour hold postoperatively. We will also obtain deep cultures during the procedure. MMODL / IJN: [id number] /
[~2020-10-20 13:06] MED LIST changes: -ALPRAZolam 0.25 MG TAB PO PRN; -ALPRAZolam 0.5 MG TAB PO PRN; -ASPIRIN 325 MG TAB PO ONE; -ATORVASTATIN 80 MG TAB PO ONE; +DEXAMETHASONE SOD PHOSPHATE 4 MG/ML 1 ML VIAL IV ONE; +HYDROmorphone 0.5 MG/0.5 ML SYRINGE IVP PRN; -IOPAMIDOL-370 100ML BTL INJ ONE; -LIDOCAINE 1% INJ 10MG/ML (20 ML MDV) ONE; -LIDOCAINE 1% INJ 10MG/ML (20 ML MDV) SQ ONE; +MIDAZOLAM 2 MG/2 ML VIAL IV PRN; -MIDAZOLAM 2 MG/2 ML VIAL IVP ONE; -MIDAZOLAM 2 MG/2 ML VIAL ONE; -NITROGLYCERIN SL TABS 0.4 MG TAB SUBLINGUAL ONE; -NITROGLYCERIN SL TABS 0.4 MG TAB SUBLINGUAL PRN; +ONDANSETRON 4 MG/2 ML VIAL IVP ONE; -SODIUM CHLORIDE 0.9% 1,000 ML in EMPTY BAG 1 BAG IV ONE; -diphenhydrAMINE 50 MG/ML 1 ML VIAL IVP ONE; -diphenhydrAMINE 50 MG/ML 1 ML VIAL ONE; -fentaNYL (PF) 50 MCG/ML 2 ML AMP IVP ONE; -fentaNYL (PF) 50 MCG/ML 2 ML AMP ONE
[2020-10-20 13:44] LABS: Glucose,Whole Blood 107 mg/dL (75-99)
[2020-10-20] MEDS: LACTATED RINGERS 1,000 ML IV SCH (13:47)
[2020-10-20] MEDS ORDERED: LIDOCAINE 1% INJ 10MG/ML (20 ML MDV) ONE (14:32)
[2020-10-20] MEDS ORDERED: fentaNYL (PF) 50 MCG/ML 2 ML AMP ONE (14:32)
[2020-10-20] MEDS ORDERED: PROPOFOL 10 MG/ML 20 ML VIAL IV ONE (14:32)
[2020-10-20] MEDS ORDERED: ePHEDrine SULFATE/0.9% NACL/PF 50 MG/5 ML SYRINGE IV ONE (14:32)
[2020-10-20] MEDS ORDERED: ceFAZolin 1,000 MG in SODIUM CHLORIDE 0.9% 1,000 ML IRRIGATION ONE ×2 (15:05→15:06)
[2020-10-20] MEDS ORDERED: ACETAMINOPHEN TAB 325 MG TAB PO PRN (15:18)
[2020-10-20] MEDS ORDERED: NALOXONE 0.4 MG/ML 1 ML VIAL IV PRN (15:18)
--- NOTE | 2020-10-20 15:24 | P.OP ---
Date of Procedure: 10/20/20 Preoperative Diagnosis: Right hip abscesssuperficial Postoperative Diagnosis: Same Procedure(s) Performed: Incision and drainage with irrigation and debridement right superficial hip abscess Anesthesia: PHUONG Surgeon: Jesus [employer] Coordinator #1: Jerrod Clemens Estimated Blood Loss (ml): 10 Pathology: other (Cultures) Condition: stable Disposition: PACU Indications for Procedure: The patient is 79-year-old female who in March of this year underwent right total hip arthroplasty for fracture presents with a 2 day history of swelling about the right hip and drainage for 1 day. She denies fevers or chills. She is doing well up until this point. Clinically she was noted to have evidence of a localized cellulitis with possible superficial abscess. A discussion of the risks and benefits of operative intervention was made with patient. She opted to proceed. Operative risks to include persistence of infection and possible need for subsequent procedures was discussed. Informed consent was obtained. Operative Findings: As below Description of Procedure: The patient was brought to the operating room, and after induction of general anesthesia was placed in the lateral decubitus position. The pelvis was stabilized perpendicular floor with a pegboard. Bony prominences were properly padded. The right lower extremity was prepped and draped in normal fashion. The distal 5 cm of the previous incision was opened sharply with a scalpel. Moderate purulence was encountered in the superficial soft tissues. Cultures were obtained. The underlying fascia was completely intact. The wound edges were sharply debrided with a scalpel including skin and subcutaneous tissue down to level of the fascia. This was taken back to bleeding healthy-appearing tissue. Pulsatile lavage was utilized copiously. Since the fascia was intact, it was elected to not go into the deep tissues. The skin was loosely reapproximated with simple 3-0 nylon suture. A sterile dressing was applied. The patient was then awoken from general anesthesia and transferred to recovery room in good condition. Blood loss was estimated at 10 mL. No complications were incurred. Sponge and needle counts were correct in the case.
[2020-10-20] MEDS ORDERED: hydrALAZINE HCL 20 MG/ML 1 ML VIAL ONE (15:55)
[2020-10-20] MEDS ORDERED: hydrALAZINE HCL 20 MG/ML 1 ML VIAL IVP ONE (15:57)
[2020-10-20 16:20] LABS: Glucose,Whole Blood 113 mg/dL (75-99)
[2020-10-20 17:45] LABS: Anisocytosis Slight; Basophils % (A) 0 %; Eosinophils % (A) 0 %; HCT 34.1 % (34.0-46.0); HGB 10.7 gm/dL (11.4-16.0); Hypochromasia Slight; Lymphocytes # (A) 0.5 k/uL (1.0-4.8); Lymphocytes % (A) 10 %; MCH 27.7 pg (25.0-35.0); MCHC 31.3 g/dL (31.0-37.0); MCV 88.6 fL (80.0-100.0); Mean Platelet Volume 7.9; Monocytes # (A) 0.1 k/uL (0-1.0); Monocytes % (A) 1 %; Neutrophils # (A) 4.9 k/uL (1.3-7.7); Neutrophils % (A) 88 %; Platelet Count 357 k/uL (150-450); RBC 3.86 m/uL (3.80-5.40); RDW 16.6 % (11.5-15.5); WBC 5.5 k/uL (3.8-10.6)
--- NOTE | 2020-10-20 20:36 | P.CONS ---
History of Present Illness - Reason for Consult Consult date: 10/20/20 - History of Present Illness Patient is an 79-year-old female with a PMH of hypertension, hyperlipidemia, type II DM, right total hip arthroplasty who was admitted for a scheduled incision and drainage of a right hip superficial abscess. The patient underwent the procedure earlier today with no immediate postoperative complications. She was seen postoperatively on the medicine unit. She reported excellent control of her pain, currently at a 1 out of 10. She denied any additional complaints. She has been up and out of bed to use the bedside commode. She also has been passing gas and urine. She denied chest discomfort, shortness of breath, fever, chills, cough. Also denied nausea, vomiting, abdominal pain, diarrhea. Review of systems: Pertinent positives and negatives as discussed in HPI, a complete review of systems was performed and all other systems are negative. Physical examination: General: non toxic, no distress, appears at stated age, normal weight Derm: no unusual rashes/lesions no unusual ecchymoses, warm, dry Head: atraumatic, normocephalic, symmetric Eyes: EOMI, no lid lag, anicteric sclera, pupils equal round reactive to light ENT: Nose and ears atraumatic, no thrush, no pharyngeal erythema Neck: No thyromegaly, no cervical lymphadenopathy, trachea midline, supple Mouth: no lip lesion, mucus membranes moist Cardiovascular: S1S2 reg, no murmur, positive posterior tibial pulse bilateral, no edema, capillary refill less than 2 seconds Lungs: CTA bilateral, no rhonchi, no rales , no accessory muscle use Abdominal: soft, nontender to palpation, no guarding, no appreciable organo megaly, normal bowel sounds Ext: no gross muscle atrophy, muscle strength 5 out of 5 in all 4 extremities grossly, no contractures, right lateral hip dressing in place clean and dry Neuro: CN II-XI grossly intact, light touch intact all 4 extremities, finger to nose within normal limits, Psych: Alert, oriented, appropriate affect Assessment/plan Chronic conditions: Type II DM, hypertension, hyperlipidemia -Continue with home meds -Check A1c -Lispro insulin sliding scale blood glucose monitoring Status post right hip incision and drainage for superficial abscess with history of right hip arthroplasty -Defer management including pain control and DVT prophylaxis to the surgery service We appreciate this opportunity to be involved in this patient's care. We will follow the patient with you. For any further questions, please not hesitate to contact the [facility] inpatient team. Past Medical History Past Medical History: Diabetes Mellitus, Eye Disorder, Hypertension, Renal Disease, Skin Disorder Additional Past Medical History / Comment(s): Has an "eye disorder with fluid behind eyes, gets injection in eyes every 4 weeks." Lesions on skin, sees a Batter Out. History of Any Multi-Drug Resistant Organisms: None Reported Past Surgical History: Joint Replacement, Orthopedic Surgery Additional Past Surgical History / Comment(s): Right ankle surgery, right leg surgery, left shoulder replacement.rt hip replacement Past Anesthesia/Blood Transfusion Reactions: No Reported Reaction Past Psychological History: No Psychological Hx Reported Smoking Status: Never smoker Past Alcohol Use History: None Reported Additional Past Alcohol Use History / Comment(s): Quit smoking at 34 yrs old. Past Drug Use History: None Reported - Past Family History Sister(s) Family Medical History: Dementia Mother Family Medical History: Congestive Heart Failure (CHF) Additional Family Medical History / Comment(s): at 29 yrs old. Medications and Allergies Home Medications Medication Instructions Recorded Confirmed Type Folic Acid 1 mg PO DAILY 07/14/14 10/20/20 History [place]-3 Fatty Acids/Fish Oil [Fish 1 cap PO BID 07/14/14 10/20/20 History Oil 1,000 mg Softgel] Simvastatin 20 mg PO HS 07/14/14 10/20/20 History glipiZIDE [Glipizide ER] 2.5 mg PO DAILY 07/14/14 10/20/20 History Dapsone 25 mg PO BID 10/09/17 10/20/20 History Losartan Potassium [Cozaar] 50 mg PO BID 03/13/20 10/20/20 History Metoprolol Succinate (ER) [Toprol 25 mg PO BID 03/13/20 10/20/20 History XL] Aspirin [Adult Low Dose Aspirin EC] 81 mg PO DAILY 07/30/20 10/20/20 History Medihoney 1 applic TOPICAL DAILY 07/30/20 10/20/20 History Furosemide [Lasix] 20 mg PO DAILY 10/09/20 10/20/20 History Allergies Allergy/AdvReac Type Severity Reaction Status Date / Time gluten Allergy Rash/Hives Verified 10/20/20 13:32 Physical Exam Vitals: Vital Signs Temp Pulse Pulse Resp BP Pulse Ox 10/20/20 20:00 97.6 F 78 16 178/83 98 10/20/20 16:42 97.5 F L 55 L 17 166/64 94 L 10/20/20 16:16 65 16 158/67 92 L 10/20/20 16:01 61 16 191/76 98 10/20/20 15:45 63 16 203/84 100 10/20/20 15:31 61 12 187/80 100 10/20/20 15:22 97.2 F L 67 10 L 187/82 100 10/20/20 13:46 177/79 10/20/20 13:37 98.3 F 69 16 206/82 99 Intake and Output 10/20/20 10/20/20 10/20/20 06:59 14:59 22:59 Intake Total 850 2 Output Total 10 Balance 850 -8 Intake: IV 850 2 Output: Estimated Blood Loss 10 Other: Weight 66 kg 66 kg Results CBC & Chem 7: 10/20/20 17:34 Labs: Abnormal Lab Results - Last 24 Hours (Table) 10/20/20 10/20/20 10/20/20 Range/Units 13:43 16:19 17:34 Hgb 10.7 L (11.4-16.0) gm/dL RDW 16.6 H (11.5-15.5) % Lymphocytes # 0.5 L (1.0-4.8) k/uL POC Glucose (mg/dL) 107 H 113 H (75-99) mg/dL C-Reactive Protein (<1.0) mg/dL 10/20/20 Range/Units 17:34 Hgb (11.4-16.0) gm/dL RDW (11.5-15.5) % Lymphocytes # (1.0-4.8) k/uL POC Glucose (mg/dL) (75-99) mg/dL C-Reactive Protein 4.0 H (<1.0) mg/dL
[2020-10-20 21:25] LABS: Glucose,Whole Blood 339 mg/dL (75-99)
[2020-10-20 21:25] LABS: Erythrocyte Sedimentation Rate 65 mm/hr (0-20)
[2020-10-20] MEDS: METOPROLOL SUCCINATE (ER) 25 MG TAB.ER.24H PO SCH (21:52)
[2020-10-20] MEDS: SENNOSIDES-DOCUSATE SODIUM 1 EACH TAB PO SCH (21:53)
[2020-10-20] MEDS: LOSARTAN 50 MG TAB PO SCH (21:53)
[2020-10-20] MEDS: ATORVASTATIN 10 MG TAB PO SCH (21:53)
[2020-10-20] MEDS: INSULIN ASPART (NovoLOG) 100 UNIT/ML VIAL SQ SCH (21:54)
[2020-10-20] MEDS: DAPSONE 25 MG TAB PO SCH (22:13)
[2020-10-21 06:32] LABS: Anisocytosis Slight; Basophils % (A) 0 %; Eosinophils % (A) 0 %; Hypochromasia Slight; Lymphocytes # (A) 0.8 k/uL (1.0-4.8); Lymphocytes % (A) 17 %; MCH 27.9 pg (25.0-35.0); MCHC 31.4 g/dL (31.0-37.0); MCV 88.9 fL (80.0-100.0); Mean Platelet Volume 7.8; Monocytes # (A) 0.2 k/uL (0-1.0); Monocytes % (A) 5 %; Neutrophils # (A) 3.8 k/uL (1.3-7.7); Neutrophils % (A) 77 %; Platelet Count 378 k/uL (150-450); RDW 16.7 % (11.5-15.5); WBC 4.9 k/uL (3.8-10.6)
[2020-10-21] MEDS: LACTATED RINGERS 1,000 ML IV SCH (07:07)
[2020-10-21 07:44] LABS: Glucose,Whole Blood 169 mg/dL (75-99)
[2020-10-21] MEDS: LOSARTAN 50 MG TAB PO SCH ×2 (08:21→20:51)
[2020-10-21] MEDS: FOLIC ACID 1 MG TAB PO SCH (08:21)
[2020-10-21] MEDS: ASPIRIN 81 MG PO SCH (08:21)
[2020-10-21] MEDS: METOPROLOL SUCCINATE (ER) 25 MG TAB.ER.24H PO SCH ×2 (08:21→20:51)
[2020-10-21] MEDS: FUROSEMIDE 20 MG TAB PO SCH (08:21)
[2020-10-21] MEDS: DAPSONE 25 MG TAB PO SCH ×2 (08:22→20:51)
[2020-10-21] MEDS: INSULIN ASPART (NovoLOG) 100 UNIT/ML VIAL SQ SCH ×4 (08:22→20:51)
[2020-10-21] MEDS ORDERED: VANCOMYCIN IV PER PHARMACY 1 EACH MISC MISCELLANE PRN (08:42)
[2020-10-21] MEDS ORDERED: VANCOMYCIN 1,500 MG in SODIUM CHLORIDE 0.9% 250 ML IVPB ONE (09:15)
[2020-10-21 09:46] LABS: African American GFR (CKD) 63 (>60 ml/min/1.73 sqM); Anion Gap 9 mmol/L; Blood Urea Nitrogen 21 mg/dL (7-17); Calcium 8.9 mg/dL (8.4-10.2); Carbon Dioxide 25 mmol/L (22-30); Chloride 97 mmol/L (98-107); Glucose 180 mg/dL (74-99); Non-African American GFR(CKD) 55 (>60 ml/min/1.73 sqM); Potassium 4.8 mmol/L (3.5-5.1); Sodium 131 mmol/L (137-145)
--- NOTE | 2020-10-21 10:45 | P.PN ---
Subjective Progress Note Date: 10/21/20 Principal diagnosis: Right hip abscess Patient seen at bedside this morning. Patient was lying semirecumbent in bed reading a book. Patient says she is doing well with pain control. Patient says yesterday she used ice over hip. She says she did have some pain in her hip yesterday evening, but has since subsided. She says she is wondering when she can go home. Patient denies chest pain, fever, shortness breath, nausea, vomiting, change in vision, loss of bowel/bladder control. Objective - Vital Signs Vital signs: Vital Signs Temp 97.5 F L 10/21/20 05:42 Pulse 56 L 10/21/20 05:42 Resp 16 10/21/20 05:42 BP 164/69 10/21/20 05:42 Pulse Ox 99 10/21/20 05:42 Intake & Output 10/20/20 10/21/20 10/21/20 18:59 06:59 18:59 Intake Total 852 Output Total 10 Balance 842 Weight 66 kg Intake: IV 852 Output: Estimated Blood Loss 10 Other: Voiding Method Bedside Commode # Voids 3 - Exam Right hip: Sutures intact and in good position. Minimal serous drainage from incision site. Minimal ecchymosis. Some tenderness to palpation along incision site. Negative for any fluctuance/purulence. Neurovascularly intact. Cap refill under 3 seconds. Dorsalis pedis pulses present, intact, 2+. Negative Homans. - Labs CBC & Chem 7: 10/21/20 05:42 10/21/20 05:42 Labs: Abnormal Lab Results - Last 24 Hours (Table) 10/20/20 10/20/20 10/20/20 Range/Units 13:43 16:19 17:34 RBC (3.80-5.40) m/uL Hgb 10.7 L (11.4-16.0) gm/dL Hct (34.0-46.0) % RDW 16.6 H (11.5-15.5) % Lymphocytes # 0.5 L (1.0-4.8) k/uL ESR 65 H (0-20) mm/hr Sodium (137-145) mmol/L Chloride (98-107) mmol/L BUN (7-17) mg/dL Glucose (74-99) mg/dL POC Glucose (mg/dL) 107 H 113 H (75-99) mg/dL C-Reactive Protein (<1.0) mg/dL 10/20/20 10/20/20 10/21/20 Range/Units 17:34 21:23 05:42 RBC 3.60 L (3.80-5.40) m/uL Hgb 10.0 L (11.4-16.0) gm/dL Hct 32.0 L (34.0-46.0) % RDW 16.7 H (11.5-15.5) % Lymphocytes # 0.8 L (1.0-4.8) k/uL ESR (0-20) mm/hr Sodium (137-145) mmol/L Chloride (98-107) mmol/L BUN (7-17) mg/dL Glucose (74-99) mg/dL POC Glucose (mg/dL) 339 H (75-99) mg/dL C-Reactive Protein 4.0 H (<1.0) mg/dL 10/21/20 10/21/20 Range/Units 05:42 07:43 RBC (3.80-5.40) m/uL Hgb (11.4-16.0) gm/dL Hct (34.0-46.0) % RDW (11.5-15.5) % Lymphocytes # (1.0-4.8) k/uL ESR (0-20) mm/hr Sodium 131 L (137-145) mmol/L Chloride 97 L (98-107) mmol/L BUN 21 H (7-17) mg/dL Glucose 180 H (74-99) mg/dL POC Glucose (mg/dL) 169 H (75-99) mg/dL C-Reactive Protein (<1.0) mg/dL Microbiology - Last 24 Hours (Table) 10/20/20 15:10 Gram Stain - Preliminary Hip - Right Wound Culture - Preliminary 10/20/20 15:10 Gram Stain - Preliminary Hip - Right Wound Culture - Preliminary 10/20/20 15:10 Anaerobic Culture - Preliminary Hip - Right 10/20/20 15:10 Anaerobic Culture - Preliminary Hip - Right Assessment and Plan Assessment: Right hip superficial abscess Postoperative day #1 status post Incision and drainage with irrigation and debridement right superficial hip abscess Plan: 1. Right hip superficial abscess - Incision and drainage with irrigation and debridement right superficial hip abscess performed yesterday, 10/20/2020. Patient stable this morning. Cultures pending. We'll continue to follow 2. Appreciate medical management; appreciate infectious disease management - On vanco 3. Pain management - stable at this time. Tylenol prn 4. GI prophylaxis - Senna 5. DVT prophylaxis - mechanical 6. PT/OT - weightbearing as tolerated with walker for assistance 7. Discharge planning - planning to discharge home tomorrow versus Monday. Time with Patient: Less than 30
[2020-10-21 11:25] LABS: Glucose,Whole Blood 198 mg/dL (75-99)
--- NOTE | 2020-10-21 14:07 | P.PN ---
Subjective Progress Note Date: 10/21/20 Principal diagnosis: hip pain Patient is an 79 year-old female hypertension, dyslipidemia, and osteoarthtis who was sent in by ortho due to sermoa or hip abscess and underwent operative I and D on 10/21. Cultures are pending. Patient seen and examined at bedside. No chest pain, no nasuea, no shortness of breath. She lives alone. General: non toxic, no distress, appears at stated age Derm: incision right hip C/D/I no arround cellulitis, warm, dry Head: atraumatic, normocephalic, symmetric Eyes: EOMI, no lid lag, anicteric sclera Mouth: no lip lesion, mucus membranes moist Cardiovascular: S1S2 reg, no murmur, positive posterior tibial pulse bilateral, Lungs: Decreased bs bilateral, no rhonchi, no rales , no accessory muscle use Abdominal: soft, nontender to palpation, no guarding, no appreciable organomegaly Ext: no gross muscle atrophy, no edema, no contractures Neuro: CN II-XI grossly intact, no focal neuro deficits Psych: Alert, oriented, appropriate affect RIght hip abscess - await cultures - vanco - ID recs - IV fluids DM 2 - hold oral - SSI - follow BS HTN - losartan - lasix - follow BP HLD - statin Anemia - chronic at bedside - follow CBC - check iron levels Thank you for allowing us to participate in the care of this pleasant patient. Do not hesitate to contact us with questions. Someone can be reached from the [facility] hospitalist group all hours of the day at [phone] or via perfect serve. Objective - Vital Signs Vital signs: Vital Signs Temp 97.9 F 10/21/20 11:58 Pulse 60 10/21/20 11:58 Resp 17 10/21/20 11:58 BP 141/57 10/21/20 11:58 Pulse Ox 100 10/21/20 11:58 Intake & Output 10/20/20 10/21/20 10/21/20 18:59 06:59 18:59 Intake Total 852 Output Total 10 Balance 842 Weight 66 kg Intake: IV 852 Output: Estimated Blood Loss 10 Other: Voiding Method Bedside Commode Bedside Commode # Voids 3 - Labs CBC & Chem 7: 10/21/20 05:42 10/21/20 05:42 Labs: Abnormal Lab Results - Last 24 Hours (Table) 10/20/20 10/20/20 10/20/20 Range/Units 16:19 17:34 17:34 RBC (3.80-5.40) m/uL Hgb 10.7 L (11.4-16.0) gm/dL Hct (34.0-46.0) % RDW 16.6 H (11.5-15.5) % Lymphocytes # 0.5 L (1.0-4.8) k/uL ESR 65 H (0-20) mm/hr Sodium (137-145) mmol/L Chloride (98-107) mmol/L BUN (7-17) mg/dL Glucose (74-99) mg/dL POC Glucose (mg/dL) 113 H (75-99) mg/dL C-Reactive Protein 4.0 H (<1.0) mg/dL 10/20/20 10/21/20 10/21/20 Range/Units 21:23 05:42 05:42 RBC 3.60 L (3.80-5.40) m/uL Hgb 10.0 L (11.4-16.0) gm/dL Hct 32.0 L (34.0-46.0) % RDW 16.7 H (11.5-15.5) % Lymphocytes # 0.8 L (1.0-4.8) k/uL ESR (0-20) mm/hr Sodium 131 L (137-145) mmol/L Chloride 97 L (98-107) mmol/L BUN 21 H (7-17) mg/dL Glucose 180 H (74-99) mg/dL POC Glucose (mg/dL) 339 H (75-99) mg/dL C-Reactive Protein (<1.0) mg/dL 10/21/20 10/21/20 Range/Units 07:43 11:24 RBC (3.80-5.40) m/uL Hgb (11.4-16.0) gm/dL Hct (34.0-46.0) % RDW (11.5-15.5) % Lymphocytes # (1.0-4.8) k/uL ESR (0-20) mm/hr Sodium (137-145) mmol/L Chloride (98-107) mmol/L BUN (7-17) mg/dL Glucose (74-99) mg/dL POC Glucose (mg/dL) 169 H 198 H (75-99) mg/dL C-Reactive Protein (<1.0) mg/dL Microbiology - Last 24 Hours (Table) 10/20/20 15:10 Gram Stain - Preliminary Hip - Right Wound Culture - Preliminary 10/20/20 15:10 Gram Stain - Preliminary Hip - Right Wound Culture - Preliminary 10/20/20 15:10 Anaerobic Culture - Preliminary Hip - Right 10/20/20 15:10 Anaerobic Culture - Preliminary Hip - Right
[2020-10-21 17:52] LABS: Glucose,Whole Blood 170 mg/dL (75-99)
[2020-10-21 20:09] LABS: Glucose,Whole Blood 257 mg/dL (75-99)
[2020-10-21 20:15] VITALS: RESP 16
[2020-10-21] MEDS: SENNOSIDES-DOCUSATE SODIUM 1 EACH TAB PO SCH (20:51)
[2020-10-21] MEDS: ATORVASTATIN 10 MG TAB PO SCH (20:51)
--- NOTE | 2020-10-21 23:38 | P.CONS ---
History of Present Illness - Reason for Consult Consult date: 10/21/20 right hip abscess Requesting physician: Jesus Apodaca - Chief Complaint right hip swelling and pian x few days - History of Present Illness History of present illness : Patient is 79-year-old female with a past medical history significant for right total hip arthroplasty for fracture that was done on March 14, 2020 patient subsequently did well postoperatively however over the last 2 days patient noticed to have a lump over her right lateral hip with drainage from the site patient denies having any trauma to the area she has been complaining of some pain which is more of a dull aching 3-4 out of 10 and no radiation patient denies having any fever or chills with the symptom the patient has been evaluated by orthopedic surgery patient on presentation the hospital was afebrile did have a normal white count patient was taken to the OR yesterday afternoon and the patient is status post I&D of the right hip superficial abscess culture has been obtained underlying fascia was intact with no extension onto the wound patient did receive cefazolin periopera tively infectious was consulted for further management of antibiotic therapy Review of system: Positive point has been mentioned in HPI rest of the systems are negative Past medical history : Reviewed, documented below Past surgical history : Reviewed, documented below Social history: Reviewed, documented below Medications: Reviewed, as documented below GENERAL DESCRIPTION: Elderly female lying in bed, no distress. No tachypnea or accessory muscle of respiration use. HEENT: Shows Pallor , no scleral icterus. Oral mucous membrane is dry. NECK: Trachea central, no thyromegaly. LUNGS: Unlabored breathing. Clear to auscultation anteriorly. No wheeze or crackle. HEART: S1, S2, regular rate and rhythm. ABDOMEN: Soft, no tenderness , guarding or rigidity EXTREMITIES: No edema of feet. Right hip incision is currently intact no significant swelling or drainage SKIN: No rash, no masses palpable. NEUROLOGICAL: The patient is awake, alert, oriented x3, mood and affect normal. LABS AND RADIOLOGY: Reviewed results see below Assessment : Patient presented to hospital with painful lump to the right hip area and its patient did have history of right hip arthroplasty for fracture patient is status post drainage of a superficial abscess with the fascia intact and no evidence of any extension of infection down to the prosthetic hip will need to cover for the gram-positive skin lion to be the likely pathogen Plan: 1-vancomycin pharmacy to dose her with a target trough of 15 while andrew jenni her kidney function and Vanco trough closely. 2-discharge antibiotic on the basis of the culture report however the patient would benefit from a short course of IV antibiotic in view of underlying prosthetic joint We will follow on clinical condition and cultures to further adjust medication if needed Thank you for this consultation we will follow the patient along with you Past Medical History Past Medical History: Diabetes Mellitus, Eye Disorder, Hypertension, Renal Disease, Skin Disorder Additional Past Medical History / Comment(s): Has an "eye disorder with fluid behind eyes, gets injection in eyes every 4 weeks." Lesions on skin, sees a Physical Integration Practitioner. History of Any Multi-Drug Resistant Organisms: None Reported Past Surgical History: Joint Replacement, Orthopedic Surgery Additional Past Surgical History / Comment(s): Right ankle surgery, right leg surgery, left shoulder replacement.rt hip replacement Past Anesthesia/Blood Transfusion Reactions: No Reported Reaction Past Psychological History: No Psychological Hx Reported Smoking Status: Never smoker Past Alcohol Use History: None Reported Additional Past Alcohol Use History / Comment(s): Quit smoking at 34 yrs old. Past Drug Use History: None Reported - Past Family History Sister(s) Family Medical History: Dementia Mother Family Medical History: Congestive Heart Failure (CHF) Additional Family Medical History / Comment(s): at 29 yrs old. Medications and Allergies Home Medications Medication Instructions Recorded Confirmed Type Folic Acid 1 mg PO DAILY 07/14/14 10/20/20 History [place]-3 Fatty Acids/Fish Oil [Fish 1 cap PO BID 07/14/14 10/20/20 History Oil 1,000 mg Softgel] Simvastatin 20 mg PO HS 07/14/14 10/20/20 History glipiZIDE [Glipizide ER] 2.5 mg PO DAILY 07/14/14 10/20/20 History Dapsone 25 mg PO BID 10/09/17 10/20/20 History Losartan Potassium [Cozaar] 50 mg PO BID 03/13/20 10/20/20 History Metoprolol Succinate (ER) [Toprol 25 mg PO BID 03/13/20 10/20/20 History XL] Aspirin [Adult Low Dose Aspirin EC] 81 mg PO DAILY 07/30/20 10/20/20 History Medihoney 1 applic TOPICAL DAILY 07/30/20 10/20/20 History Furosemide [Lasix] 20 mg PO DAILY 10/09/20 10/20/20 History Allergies Allergy/AdvReac Type Severity Reaction Status Date / Time gluten Allergy Rash/Hives Verified 10/20/20 13:32 Physical Exam Vitals: Vital Signs Temp Pulse Pulse Resp BP Pulse Ox 10/21/20 05:42 97.5 F L 56 L 16 164/69 99 10/20/20 20:00 97.6 F 78 16 178/83 98 10/20/20 16:42 97.5 F L 55 L 17 166/64 94 L 10/20/20 16:16 65 16 158/67 92 L 10/20/20 16:01 61 16 191/76 98 10/20/20 15:45 63 16 203/84 100 10/20/20 15:31 61 12 187/80 100 10/20/20 15:22 97.2 F L 67 10 L 187/82 100 10/20/20 13:46 177/79 10/20/20 13:37 98.3 F 69 16 206/82 99 Intake and Output 10/20/20 10/21/20 10/21/20 22:59 06:59 14:59 Intake Total 2 Output Total 10 Balance -8 Intake: IV 2 Output: Estimated Blood Loss 10 Other: Voiding Method Bedside Commode # Voids 3 Weight 66 kg Results CBC & Chem 7: 10/21/20 05:42 10/21/20 05:42 Labs: Abnormal Lab Results - Last 24 Hours (Table) 10/20/20 10/20/20 10/20/20 Range/Units 13:43 16:19 17:34 RBC (3.80-5.40) m/uL Hgb 10.7 L (11.4-16.0) gm/dL Hct (34.0-46.0) % RDW 16.6 H (11.5-15.5) % Lymphocytes # 0.5 L (1.0-4.8) k/uL ESR 65 H (0-20) mm/hr POC Glucose (mg/dL) 107 H 113 H (75-99) mg/dL C-Reactive Protein (<1.0) mg/dL 10/20/20 10/20/20 10/21/20 Range/Units 17:34 21:23 05:42 RBC 3.60 L (3.80-5.40) m/uL Hgb 10.0 L (11.4-16.0) gm/dL Hct 32.0 L (34.0-46.0) % RDW 16.7 H (11.5-15.5) % Lymphocytes # 0.8 L (1.0-4.8) k/uL ESR (0-20) mm/hr POC Glucose (mg/dL) 339 H (75-99) mg/dL C-Reactive Protein 4.0 H (<1.0) mg/dL 10/21/20 Range/Units 07:43 RBC (3.80-5.40) m/uL Hgb (11.4-16.0) gm/dL Hct (34.0-46.0) % RDW (11.5-15.5) % Lymphocytes # (1.0-4.8) k/uL ESR (0-20) mm/hr POC Glucose (mg/dL) 169 H (75-99) mg/dL C-Reactive Protein (<1.0) mg/dL Microbiology - Last 24 Hours (Table) 10/20/20 15:10 Gram Stain - Preliminary Hip - Right Wound Culture - Preliminary 10/20/20 15:10 Gram Stain - Preliminary Hip - Right Wound Culture - Preliminary 10/20/20 15:10 Anaerobic Culture - Preliminary Hip - Right 10/20/20 15:10 Anaerobic Culture - Preliminary Hip - Right
[2020-10-22] MEDS: VANCOMYCIN 1,250 MG in SODIUM CHLORIDE 0.9% 250 ML IVPB SCH ×2 (02:31→18:05)
[2020-10-22] MEDS: LACTATED RINGERS 1,000 ML IV SCH (04:57)
[2020-10-22 07:21] LABS: Glucose,Whole Blood 122 mg/dL (75-99)
[2020-10-22] MEDS: INSULIN ASPART (NovoLOG) 100 UNIT/ML VIAL SQ SCH ×4 (07:33→20:48)
[2020-10-22 07:42] LABS: Anisocytosis Slight; Basophils % (A) 1 %; Eosinophils # (A) 0.1 k/uL (0-0.7); Eosinophils % (A) 2 %; HCT 29.9 % (34.0-46.0); HGB 9.7 gm/dL (11.4-16.0); Lymphocytes # (A) 1.8 k/uL (1.0-4.8); Lymphocytes % (A) 32 %; MCHC 32.3 g/dL (31.0-37.0); MCV 86.6 fL (80.0-100.0); Mean Platelet Volume 7.6; Monocytes # (A) 0.3 k/uL (0-1.0); Monocytes % (A) 6 %; Neutrophils # (A) 3.3 k/uL (1.3-7.7); Neutrophils % (A) 58 %; Platelet Count 345 k/uL (150-450); RBC 3.45 m/uL (3.80-5.40); RDW 16.7 % (11.5-15.5); WBC 5.7 k/uL (3.8-10.6)
[2020-10-22] MEDS: DAPSONE 25 MG TAB PO SCH ×2 (08:31→20:49)
[2020-10-22] MEDS: ASPIRIN 81 MG PO SCH (08:31)
[2020-10-22] MEDS: LOSARTAN 50 MG TAB PO SCH ×2 (08:31→20:49)
[2020-10-22] MEDS: FOLIC ACID 1 MG TAB PO SCH (08:31)
[2020-10-22] MEDS: METOPROLOL SUCCINATE (ER) 25 MG TAB.ER.24H PO SCH ×2 (08:31→20:49)
[2020-10-22] MEDS: FUROSEMIDE 20 MG TAB PO SCH (08:31)
--- NOTE | 2020-10-22 09:58 | P.PN ---
Subjective Progress Note Date: 10/22/20 Principal diagnosis: Right hip abscess Patient seen at bedside this morning. Patient was lying semirecumbent in bed eating breakfast. Patient says she is doing well with pain control. Patient says yesterday she used ice over hip. She says she did have some pain in her hip yesterday but has since subsided. She says she is wondering when she can go home. Patient denies chest pain, fever, shortness breath, nausea, vomiting, change in vision, loss of bowel/bladder control. Objective - Vital Signs Vital signs: Vital Signs Temp 97.6 F 10/22/20 05:00 Pulse 60 10/22/20 08:35 Resp 16 10/22/20 05:00 BP 157/65 10/22/20 08:35 Pulse Ox 96 10/22/20 05:00 Intake & Output 10/21/20 10/22/20 10/22/20 18:59 06:59 18:59 Intake Total 1320 Balance 1320 Intake: Intake, IV Titration 250 Amount Vancomycin 1,250 mg In 250 Sodium Chloride 0.9% 250 ml @ 125 mls/hr IVPB Q16H [facility] Rx#:[id number] Oral 1070 Other: Voiding Method Bedside Commode Bedside Commode # Voids 3 2 - Exam Right hip: Sutures intact and in good position. Minimal serous drainage from incision site. Minimal ecchymosis. Some tenderness to palpation along incision site. Negative for any fluctuance/purulence. Neurovascularly intact. Cap refill under 3 seconds. Dorsalis pedis pulses present, intact, 2+. Negative Homans. - Labs CBC & Chem 7: 10/22/20 07:06 10/21/20 05:42 Labs: Abnormal Lab Results - Last 24 Hours (Table) 10/21/20 10/21/20 10/21/20 Range/Units 05:42 11:24 17:50 RBC (3.80-5.40) m/uL Hgb (11.4-16.0) gm/dL Hct (34.0-46.0) % RDW (11.5-15.5) % POC Glucose (mg/dL) 198 H 170 H (75-99) mg/dL Hemoglobin A1c 8.4 H (4.0-6.0) % 10/21/20 10/22/20 10/22/20 Range/Units 20:08 07:06 07:19 RBC 3.45 L (3.80-5.40) m/uL Hgb 9.7 L (11.4-16.0) gm/dL Hct 29.9 L (34.0-46.0) % RDW 16.7 H (11.5-15.5) % POC Glucose (mg/dL) 257 H 122 H (75-99) mg/dL Hemoglobin A1c (4.0-6.0) % Microbiology - Last 24 Hours (Table) 10/20/20 15:10 Gram Stain - Preliminary Hip - Right Wound Culture - Preliminary 10/20/20 15:10 Gram Stain - Preliminary Hip - Right Wound Culture - Preliminary Assessment and Plan Assessment: Right hip superficial abscess Postoperative day #2 status post Incision and drainage with irrigation and debridement right superficial hip abscess Plan: 1. Right hip superficial abscess - Incision and drainage with irrigation and debridement right superficial hip abscess performed 10/20/2020. Patient stable this morning. Cultures pending. We'll continue to follow 2. Appreciate medical management; appreciate infectious disease management - On vanco; waiting on cultures. 3. Pain management - stable at this time. Tylenol prn 4. GI prophylaxis - Senna 5. DVT prophylaxis - mechanical 6. PT/OT - weightbearing as tolerated with walker for assistance 7. Discharge planning - planning to discharge home later today vs tomorrow with abx, pending cultures and ID recommendations Time with Patient: Less than 30
[2020-10-22] MEDS ORDERED: LACTULOSE 20 GM/30 ML CUP PO ONE (11:16)
[2020-10-22 11:49] LABS: Glucose,Whole Blood 168 mg/dL (75-99)
[2020-10-22 12:44] LABS: Erythrocyte Sedimentation Rate 40 mm/hr (0-20)
[2020-10-22 14:24] LABS: Ferritin 96.6 ng/mL (10.0-291.0)
[2020-10-22 14:30] LABS: African American GFR (CKD) 54.9 (60.0-200.0); Anion Gap 7.3 mmol/L (4.00-12.00); BUN/Creat Ratio 14.55 Ratio (12.00-20.00); C Reactive Protein 1.6 mg/dL (0.0-0.8); Calcium 8.8 mg/dL (8.7-10.3); Carbon Dioxide 26.7 mmol/L (21.6-31.8); Non-African American GFR(CKD) 47.4 (60.0-200.0); Potassium 4.3 mmol/L (3.5-5.5)
--- NOTE | 2020-10-22 15:47 | P.PN ---
Subjective Progress Note Date: 10/22/20 Principal diagnosis: hip pain Patient is an 79 year-old female hypertension, dyslipidemia, and osteoarthtis who was sent in by ortho due to sermoa or hip abscess and underwent operative I and D on 10/21. Cultures are pending. Patient seen and examined at bedside. She does not have to do IV antibiotics at home as she lives alone. She denies any chest discomfort, shortness of breath. Still with no bowel movement since Monday. General: non toxic, no distress, appears at stated age Derm: incision right hip C/D/I no surrounding cellulitis, warm, dry Head: atraumatic, normocephalic, symmetric Eyes: EOMI, no lid lag, anicteric sclera Mouth: no lip lesion, mucus membranes moist Cardiovascular: S1S2 reg, no murmur, positive posterior tibial pulse bilateral, Lungs: Decreased bs bilateral, no rhonchi, no rales , no accessory muscle use Abdominal: soft, nontender to palpation, no guarding, no appreciable organomegaly Ext: no gross muscle atrophy, no edema, no contractures Neuro: CN II-XI grossly intact, no focal neuro deficits Psych: Alert, oriented, appropriate affect RIght hip abscess, preliminary staph. - await cultures - vanco - ID recs, may need short course of IV antibiotics - IV fluids DM 2, mildly elevated, start low-dose Levemir - hold oral, add januvia on discharge - a1c 8.4 - SSI - follow BS HTN - losartan - lasix - follow BP HLD - statin Anemia of chronic disease - chronic at bedside - follow CBC Thank you for allowing us to participate in the care of this pleasant patient. Do not hesitate to contact us with questions. Someone can be reached from the [facility] hospitalist group all hours of the day at [phone] or via perfect serve. Objective - Vital Signs Vital signs: Vital Signs Temp 97.8 F 10/22/20 11:47 Pulse 61 10/22/20 11:47 Resp 16 10/22/20 11:47 BP 155/68 10/22/20 11:47 Pulse Ox 99 10/22/20 11:47 Intake & Output 10/21/20 10/22/20 10/22/20 18:59 06:59 18:59 Intake Total 1320 Balance 1320 Intake: Intake, IV Titration 250 Amount Vancomycin 1,250 mg In 250 Sodium Chloride 0.9% 250 ml @ 125 mls/hr IVPB Q16H [facility] Rx#:[id number] Oral 1070 Other: Voiding Method Bedside Commode Bedside Commode # Voids 3 2 - Labs CBC & Chem 7: 10/22/20 07:06 10/22/20 07:06 Labs: Abnormal Lab Results - Last 24 Hours (Table) 10/21/20 10/21/20 10/21/20 Range/Units 05:42 17:50 20:08 RBC (3.80-5.40) m/uL Hgb (11.4-16.0) gm/dL Hct (34.0-46.0) % RDW (11.5-15.5) % ESR (0-20) mm/hr Sodium (135-145) mmol/L Est GFR (CKD-EPI)AfAm (60.0-200.0) Est GFR (CKD-EPI)NonAf (60.0-200.0) Glucose (70-110) mg/dL POC Glucose (mg/dL) 170 H 257 H (75-99) mg/dL Hemoglobin A1c 8.4 H (4.0-6.0) % Iron (50-170) ug/dL TIBC (228-460) ug/dL C-Reactive Protein (0.0-0.8) mg/dL 10/22/20 10/22/20 10/22/20 Range/Units 07:06 07:06 07:19 RBC 3.45 L (3.80-5.40) m/uL Hgb 9.7 L (11.4-16.0) gm/dL Hct 29.9 L (34.0-46.0) % RDW 16.7 H (11.5-15.5) % ESR 40 H (0-20) mm/hr Sodium 134 L (135-145) mmol/L Est GFR (CKD-EPI)AfAm 54.9 L (60.0-200.0) Est GFR (CKD-EPI)NonAf 47.4 L (60.0-200.0) Glucose 130 H (70-110) mg/dL POC Glucose (mg/dL) 122 H (75-99) mg/dL Hemoglobin A1c (4.0-6.0) % Iron 28 L (50-170) ug/dL TIBC 200 L (228-460) ug/dL C-Reactive Protein 1.6 H (0.0-0.8) mg/dL 10/22/20 Range/Units 11:45 RBC (3.80-5.40) m/uL Hgb (11.4-16.0) gm/dL Hct (34.0-46.0) % RDW (11.5-15.5) % ESR (0-20) mm/hr Sodium (135-145) mmol/L Est GFR (CKD-EPI)AfAm (60.0-200.0) Est GFR (CKD-EPI)NonAf (60.0-200.0) Glucose (70-110) mg/dL POC Glucose (mg/dL) 168 H (75-99) mg/dL Hemoglobin A1c (4.0-6.0) % Iron (50-170) ug/dL TIBC (228-460) ug/dL C-Reactive Protein (0.0-0.8) mg/dL Microbiology - Last 24 Hours (Table) 10/20/20 15:10 Gram Stain - Preliminary Hip - Right Wound Culture - Preliminary Presumptive Staph aureus 10/20/20 15:10 Gram Stain - Preliminary Hip - Right Wound Culture - Preliminary Presumptive Staph aureus
[2020-10-22 17:38] LABS: Glucose,Whole Blood 177 mg/dL (75-99)
--- NOTE | 2020-10-22 18:14 | PN ---
PROGRESS NOTE DATE OF SERVICE: 10/22/2020. REASON FOR FOLLOWUP: Right hip abscess and cellulitis. INTERVAL HISTORY: Patient is afebrile. The patient did have mild pain to the hip area but no worsening. The patient denies having any chest pain. No shortness of breath or cough. No abdominal pain or diarrhea. PHYSICAL EXAMINATION: Blood pressure 155/68 with a pulse of 61, temperature 97.8. She is 99% on room air. General description is an elderly female lying in bed in no distress. Respiratory system: Unlabored breathing, clear to auscultation anteriorly. Heart S1, S2. Regular rate and rhythm. Abdomen soft, no tenderness. Right hip is currently dressed. No drainage on the dressing. LABS: Wound culture showing a Staph aureus. Diagnostic impression and plan : patient with right hip abscess status post drainage. Culture with Staph aureus sensitivity is currently pending. Patient likely will need a PICC line for outpatient discharge antibiotic therapy, with discharge antibiotic based on the final cultures. Continue supportive care. MMODL / IJN: [id number] / JACKY
[2020-10-22 20:10] LABS: Glucose,Whole Blood 187 mg/dL (75-99)
[2020-10-22] MEDS: ATORVASTATIN 10 MG TAB PO SCH (20:49)
[2020-10-22] MEDS: SENNOSIDES-DOCUSATE SODIUM 1 EACH TAB PO SCH (20:49)
[2020-10-22] MEDS ORDERED: INSULIN DETEMIR (LEVEMIR) 100 UNIT/ML SYR SQ SCH (21:00)
[2020-10-23 06:10] LABS: Anisocytosis Slight; Basophils % (A) 0 %; Eosinophils # (A) 0.2 k/uL (0-0.7); Eosinophils % (A) 4 %; HCT 30.8 % (34.0-46.0); HGB 9.5 gm/dL (11.4-16.0); Hypochromasia Slight; Lymphocytes # (A) 1.7 k/uL (1.0-4.8); Lymphocytes % (A) 29 %; MCHC 30.8 g/dL (31.0-37.0); MCV 87.9 fL (80.0-100.0); Mean Platelet Volume 7.5; Monocytes # (A) 0.4 k/uL (0-1.0); Monocytes % (A) 6 %; Neutrophils # (A) 3.5 k/uL (1.3-7.7); Neutrophils % (A) 60 %; Platelet Count 355 k/uL (150-450); RDW 17.1 % (11.5-15.5); WBC 5.9 k/uL (3.8-10.6)
[2020-10-23 07:42] LABS: Glucose,Whole Blood 72 mg/dL (75-99)
--- NOTE | 2020-10-23 08:22 | P.PN ---
Subjective Progress Note Date: 10/23/20 Principal diagnosis: Right hip abscess Patient seen at bedside this morning. Patient was lying semirecumbent in bed eating breakfast. Patient says she is doing well with pain control. Patient says yesterday she used ice over hip. She says she has not had much pain in her hip. Patient denies chest pain, fever, shortness breath, nausea, vomiting, change in vision, loss of bowel/bladder control. Objective - Vital Signs Vital signs: Vital Signs Temp 97.8 F 10/23/20 05:00 Pulse 57 L 10/23/20 05:00 Resp 16 10/23/20 05:00 BP 165/73 10/23/20 05:00 Pulse Ox 96 10/23/20 05:00 Intake & Output 10/22/20 10/23/20 10/23/20 18:59 06:59 18:59 Intake Total 830 Balance 830 Intake: Oral 830 Other: Voiding Method Bedside Commode Bedside Commode # Voids 2 5 # Bowel Movements 1 - Exam Right hip: Sutures intact and in good position. Minimal serous drainage from incision site. Minimal ecchymosis. Some tenderness to palpation along incision site. Negative for any fluctuance/purulence. Neurovascularly intact. Cap refill under 3 seconds. Dorsalis pedis pulses present, intact, 2+. Negative Homans. - Labs CBC & Chem 7: 10/23/20 05:32 10/22/20 07:06 Labs: Abnormal Lab Results - Last 24 Hours (Table) 10/22/20 10/22/20 10/22/20 Range/Units 07:06 07:06 11:45 RBC (3.80-5.40) m/uL Hgb (11.4-16.0) gm/dL Hct (34.0-46.0) % MCHC (31.0-37.0) g/dL RDW (11.5-15.5) % ESR 40 H (0-20) mm/hr Sodium 134 L (135-145) mmol/L Est GFR (CKD-EPI)AfAm 54.9 L (60.0-200.0) Est GFR (CKD-EPI)NonAf 47.4 L (60.0-200.0) Glucose 130 H (70-110) mg/dL POC Glucose (mg/dL) 168 H (75-99) mg/dL Iron 28 L (50-170) ug/dL TIBC 200 L (228-460) ug/dL C-Reactive Protein 1.6 H (0.0-0.8) mg/dL 10/22/20 10/22/20 10/23/20 Range/Units 17:36 20:08 05:32 RBC 3.50 L (3.80-5.40) m/uL Hgb 9.5 L (11.4-16.0) gm/dL Hct 30.8 L (34.0-46.0) % MCHC 30.8 L (31.0-37.0) g/dL RDW 17.1 H (11.5-15.5) % ESR (0-20) mm/hr Sodium (135-145) mmol/L Est GFR (CKD-EPI)AfAm (60.0-200.0) Est GFR (CKD-EPI)NonAf (60.0-200.0) Glucose (70-110) mg/dL POC Glucose (mg/dL) 177 H 187 H (75-99) mg/dL Iron (50-170) ug/dL TIBC (228-460) ug/dL C-Reactive Protein (0.0-0.8) mg/dL 10/23/20 Range/Units 07:40 RBC (3.80-5.40) m/uL Hgb (11.4-16.0) gm/dL Hct (34.0-46.0) % MCHC (31.0-37.0) g/dL RDW (11.5-15.5) % ESR (0-20) mm/hr Sodium (135-145) mmol/L Est GFR (CKD-EPI)AfAm (60.0-200.0) Est GFR (CKD-EPI)NonAf (60.0-200.0) Glucose (70-110) mg/dL POC Glucose (mg/dL) 72 L (75-99) mg/dL Iron (50-170) ug/dL TIBC (228-460) ug/dL C-Reactive Protein (0.0-0.8) mg/dL Microbiology - Last 24 Hours (Table) 10/20/20 15:10 Gram Stain - Preliminary Hip - Right Wound Culture - Preliminary Presumptive Staph aureus 10/20/20 15:10 Gram Stain - Preliminary Hip - Right Wound Culture - Preliminary Presumptive Staph aureus Assessment and Plan Assessment: Right hip superficial abscess Postoperative day #3 status post Incision and drainage with irrigation and debridement right superficial hip abscess Plan: 1. Right hip superficial abscess - Incision and drainage with irrigation and debridement right superficial hip abscess performed 10/20/2020. Patient stable this morning. Cultures pending. We'll continue to follow 2. Appreciate medical management; appreciate infectious disease management - On vanco; waiting on cultures. PICC line today 3. Pain management - stable at this time. Tylenol prn 4. GI prophylaxis - Senna 5. DVT prophylaxis - mechanical 6. PT/OT - weightbearing as tolerated with walker for assistance 7. Discharge planning - planning to discharge to rehab today w/ PICC line, pending cultures and ID recommendations Time with Patient: Less than 30
[2020-10-23] MEDS: LACTATED RINGERS 1,000 ML IV SCH (08:33)
[2020-10-23] MEDS: INSULIN ASPART (NovoLOG) 100 UNIT/ML VIAL SQ SCH ×2 (08:33→13:05)
[2020-10-23] MEDS: FOLIC ACID 1 MG TAB PO SCH (09:17)
[2020-10-23] MEDS: METOPROLOL SUCCINATE (ER) 25 MG TAB.ER.24H PO SCH (09:17)
[2020-10-23] MEDS: ASPIRIN 81 MG PO SCH (09:17)
[2020-10-23] MEDS: FUROSEMIDE 20 MG TAB PO SCH (09:17)
[2020-10-23] MEDS: LOSARTAN 50 MG TAB PO SCH (09:17)
[2020-10-23] MEDS: DAPSONE 25 MG TAB PO SCH (09:17)
[2020-10-23] MEDS ORDERED: LIDOCAINE 1% INJ 10MG/ML (20 ML MDV) SQ ONE (09:36)
--- NOTE | 2020-10-23 10:11 | IR ---
PICC LINE PLACEMENT: HISTORY: Infection requiring long-term antibiotic therapy PROCEDURE: Ultrasound and fluoroscopic guidance of PICC line placement. COMPLICATIONS: None ANESTHESIA: 1. 1% Lidocaine locally. FINDINGS/TECHNIQUE: The procedure was explained to the patient. The risks, complications, benefits and alternatives were discussed and any questions were answered. Informed consent was obtained. The patient was placed supine on the fluoroscopic table and prepped and draped in the usual sterile fash ion. Utilizing a 21 gauge needle and sonographic and fluoroscopic guidance, access in the left basi lic vein was achieved and there is placement of a 0.018 guidewire. The vein is patent. A 4-F sheath was placed over the guidewire. The guidewire and dilator were removed and a 4-F. PICC line was plac ed through the sheath with the tip at the level of the SVC. The sheath was removed, the catheter was flushed and sutured into position. The patient was stable throughout the procedure and remained sta ble upon discharge from the Department of Radiology. The vein puncture was patent under ultrasound. A leiva scale image was obtained to document patency of the vein punctured. All elements of the maximal barrier technique were utilized. FLUOROSCOPY TIME: 0.1 minutes and 1 minute images submitted IMPRESSION: Successful PICC line placement under ultrasound and fluoroscopic guidance.
[2020-10-23 10:54] LABS: African American GFR (CKD) 54.9 (60.0-200.0); Anion Gap 7.4 mmol/L (4.00-12.00); BUN/Creat Ratio 16.36 Ratio (12.00-20.00); Calcium 8.5 mg/dL (8.7-10.3); Carbon Dioxide 27.6 mmol/L (21.6-31.8); Non-African American GFR(CKD) 47.4 (60.0-200.0); Potassium 4.1 mmol/L (3.5-5.5)
[2020-10-23] MEDS: VANCOMYCIN 1,250 MG in SODIUM CHLORIDE 0.9% 250 ML IVPB SCH (10:58)
[2020-10-23] MEDS ORDERED: DARBEPOETIN ALFA 40 MCG/0.4 ML SYRINGE SQ SCH (11:00)
[2020-10-23 11:55] LABS: Glucose,Whole Blood 180 mg/dL (75-99)
[2020-10-23 12:33] VITALS: BP 164/71; PULSE 62; TEMP 97.9
--- NOTE | 2020-10-23 14:47 | P.PN ---
Subjective Progress Note Date: 10/23/20 Principal diagnosis: hip pain Patient is an 79 year-old female hypertension, dyslipidemia, and osteoarthtis who was sent in by ortho due to sermoa or hip abscess and underwent operative I and D on 10/21. Cultures are pending. Patient seen and examined at bedside. Feeling well, still a bit week, no nausea or vomiting, had BM yesterday General: non toxic, no distress, appears at stated age Derm: incision right hip C/D/I no surrounding cellulitis, warm, dry Head: atraumatic, normocephalic, symmetric Eyes: EOMI, no lid lag, anicteric sclera Mouth: no lip lesion, mucus membranes moist Cardiovascular: S1S2 reg, no murmur, positive posterior tibial pulse bilateral, Lungs: Decreased bs bilateral, no rhonchi, no rales , no accessory muscle use Abdominal: soft, nontender to palpation, no guarding, no appreciable organomegaly Ext: no gross muscle atrophy, no edema, no contractures Neuro: CN II-XI grossly intact, no focal neuro deficits Psych: Alert, oriented, appropriate affect MSSA RIght hip abscess - Cefazolin - ID recs,IV abx X 2 weeks DM 2, mildly elevated, start low-dose Levemir - resume oral and add januvia - a1c 8.4 - SSI - follow BS HTN - losartan - lasix - follow BP HLD - statin Anemia of chronic disease - chronic at bedside - follow CBC Med recs addressed. D/W Dr. Wallace Cefazolin 2 gram q 8 hours for 2 weeks in total of antibiotics. Objective - Vital Signs Vital signs: Vital Signs Temp 97.9 F 10/23/20 11:56 Pulse 62 10/23/20 11:56 Resp 16 10/23/20 11:56 BP 164/71 10/23/20 11:56 Pulse Ox 98 10/23/20 11:56 Intake & Output 10/22/20 10/23/20 10/23/20 18:59 06:59 18:59 Intake Total 830 Balance 830 Intake: Oral 830 Other: Voiding Method Bedside Commode Bedside Commode # Voids 2 5 1 # Bowel Movements 1 1 - Labs CBC & Chem 7: 10/23/20 05:32 10/23/20 05:32 Labs: Abnormal Lab Results - Last 24 Hours (Table) 10/22/20 10/22/20 10/23/20 Range/Units 17:36 20:08 05:32 RBC 3.50 L (3.80-5.40) m/uL Hgb 9.5 L (11.4-16.0) gm/dL Hct 30.8 L (34.0-46.0) % MCHC 30.8 L (31.0-37.0) g/dL RDW 17.1 H (11.5-15.5) % Est GFR (CKD-EPI)AfAm (60.0-200.0) Est GFR (CKD-EPI)NonAf (60.0-200.0) POC Glucose (mg/dL) 177 H 187 H (75-99) mg/dL Calcium (8.7-10.3) mg/dL 10/23/20 10/23/20 10/23/20 Range/Units 05:32 07:40 11:53 RBC (3.80-5.40) m/uL Hgb (11.4-16.0) gm/dL Hct (34.0-46.0) % MCHC (31.0-37.0) g/dL RDW (11.5-15.5) % Est GFR (CKD-EPI)AfAm 54.9 L (60.0-200.0) Est GFR (CKD-EPI)NonAf 47.4 L (60.0-200.0) POC Glucose (mg/dL) 72 L 180 H (75-99) mg/dL Calcium 8.5 L (8.7-10.3) mg/dL Microbiology - Last 24 Hours (Table) 10/20/20 15:10 Gram Stain - Final Hip - Right Wound Culture - Final Staphylococcus aureus 10/20/20 15:10 Gram Stain - Final Hip - Right Wound Culture - Final Staphylococcus aureus
--- NOTE | 2020-10-23 14:48 | P.DS ---
Providers Date of admission: 10/20/2020 Expected date of discharge: 10/23/20 Attending physician: Jesus Apdoaca Consults: 10/20/20 15:22 Consult Physician Routine Consulting Provider: Charles Wallace Consult Reason/Comments: Infectious disease - s/p I&D abscess right hip; cultures pending Do you want consulting provider notified?: Yes 10/20/20 15:23 Consult Physician Routine Consulting Provider: Rere Cosme Consult Reason/Comments: Medical Management s/p I&D abscess right hip Do you want consulting provider notified?: Yes Primary care physician: Janeen Banks [facility] Course: Date of admission: 10/20/2020 Date of discharge: 10/23/2020 Admission diagnosis: Right hip superficial abscess Discharge diagnosis: Same Attending physician: Dr. Apodaca Surgical procedures: Incision and drainage with irrigation and debridement right superficial hip abscess Brief history: Patient is a 79-year-old female with a history of right total hip arthroplasty 6 months ago and right hip superficial abscess. At this point patient has failed conservative treatment measures and has opted to proceed with a elective Incision and drainage with irrigation and debridement right superficial hip abscess. Hospital course: Details of patient's surgery can be found in operative report. Patient tolerated the procedure well and was subsequently transported to orthopedic floor. Patient's orthopedic and medical care was provided daily. Patient had daily laboratory tests performed for evaluation of overall blood counts. Patient had daily physical therapy to include strengthening range of motion as well as education with walker ambulation. Patient was treated with aspirin for their postoperative DVT prophylaxis during their inpatient stay. Patient was noted to have a relatively uneventful postoperative course. Patient reported satisfactory pain control with oral pain medications by postoperative day 3. Patient showed satisfactory progress with physical therapy. Patient moved steadily through the program and had no difficulty meeting the goals by postoperative day 3. Given patient's otherwise satisfactory course and having met physical therapy goals, plan is to discharge patient to [facility] for rehab on postoperative day 3. Discharge condition/disposition: Patient will be discharged to [facility] for rehab in stable condition. Discharge medications: Instructions are given on resumption of patient's normal daily medications per primary care recommendation, in addition patient will be prescribed Kefzol, Senna. Discharge instructions: 1. Wound care and infection precautions, keep incision dry and covered while showering, no lotions, creams, moisturizers. No soaking, tubs, pools, hottubs. Do not scrub over the incision. 2. Weight-bear as tolerated with walker / cane until follow-up. 3. Ice and elevate when necessary. Do not exceed 20 minutes per hour with ice pack. 4. Utilize compression sleeve until seen at first follow up appointment. 5. Visiting nursing care. 6. Home physical therapy. 7. Pain meds and anticoagulants per prescription. 8. Pain medication has potential to cause constipation. Increase oral fluid and fiber intake. Contact primary care provider if you have not had a bowel movement within 48 hours after discharge 9. No anti-inflammatory medication until discussed at first post operative visit, this including Motrin, Aleve, Mobic, Diclofenac. 10. Follow up in office at 2 weeks postop with Melvin Geronimo PA-C / Jerrod Clemens PA-C 11. Follow up with your primary care doctor 7-10 days after discharge. 12. Contact [facility] with any questions, . Assessment: Right hip superficial abscess Procedures: Incision and drainage with irrigation and debridement right superficial hip abscess Patient Condition at Discharge: Good Plan - Discharge Summary Discharge Rx Participant: No New Discharge Prescriptions: New Sennosides-Docusate Sodium [Senokot-S] 2 each PO HS tab ceFAZolin [Kefzol] 2 gm IVP Q8HR 13 Days #39 bag Continue glipiZIDE [Glipizide ER] 2.5 mg PO DAILY Simvastatin 20 mg PO HS [place]-3 Fatty Acids/Fish Oil [Fish Oil 1,000 mg Softgel] 1 cap PO BID Folic Acid 1 mg PO DAILY Dapsone 25 mg PO BID Losartan Potassium [Cozaar] 50 mg PO BID Metoprolol Succinate (ER) [Toprol XL] 25 mg PO BID Aspirin [Adult Low Dose Aspirin EC] 81 mg PO DAILY Furosemide [Lasix] 20 mg PO DAILY Discontinued Medihoney 1 applic TOPICAL DAILY Discharge Medication List Folic Acid 1 mg PO DAILY 07/14/14 [History] [place]-3 Fatty Acids/Fish Oil [Fish Oil 1,000 mg Softgel] 1 cap PO BID 07/14/14 [History] Simvastatin 20 mg PO HS 07/14/14 [History] glipiZIDE [Glipizide ER] 2.5 mg PO DAILY 07/14/14 [History] Dapsone 25 mg PO BID 08/06/18 [History] Losartan Potassium [Cozaar] 50 mg PO BID 03/13/20 [History] Metoprolol Succinate (ER) [Toprol XL] 25 mg PO BID 03/13/20 [History] Aspirin [Adult Low Dose Aspirin EC] 81 mg PO DAILY 07/30/20 [History] Furosemide [Lasix] 20 mg PO DAILY 10/09/20 [History] Sennosides-Docusate Sodium [Senokot-S] 2 each PO HS tab 10/23/20 [Rx] ceFAZolin [Kefzol] 2 gm IVP Q8HR 13 Days #39 bag 10/23/20 [Rx] Follow up Appointment(s)/Referral(s): Jerrod Clemens PAC [PHYSICIAN RESPIRATORY CARE TECHNICIAN] - 11/05/20 Activity/Diet/Wound Care/Special Instructions: Orthopedic Discharge Instructions: 1. Wound care and infection precautions, keep incision dry and covered while showering, no lotions, creams, moisturizers. No soaking, pools, hot tubs. Do not scrub over incision. 2. Weight-bear as tolerated with walker / cane until follow-up. 3. Ice and elevate when necessary. Do not exceed 20 minutes per hour with ice pack. 4. Utilize compression sleeve until seen at first follow up appointment. 5. Pain meds and anticoagulants per prescription. 6. Pain medication has potential to cause constipation. Increase oral fluid and fiber intake. Contact primary care provider if you have not had a bowel movement within 48 hours after discharge. 7. No anti-inflammatory medication until discussed at first post operative visit, this including Motrin, Aleve, Mobic, Diclofenac. 8. Follow up in office at 2 weeks postop with Melvin Geronimo PA-C / Jerrod Clemens PA-C 9. Follow up with your primary care doctor 7-10 days after discharge. 10. Contact [facility] with any questions, . Discharge Disposition: TRANSFER TO SNF/ECF
--- NOTE | 2020-10-23 16:49 | PN ---
PROGRESS NOTE DATE OF SERVICE: 10/23/2020 REASON FOR FOLLOWUP: Right hip abscess, cellulitis. INTERVAL HISTORY: The patient is currently afebrile. The patient is feeling better. Pain to the right hip area has improved. No chest pain, shortness of breath or cough. No abdominal pain or diarrhea. PHYSICAL EXAMINATION: Blood pressure 164/71 with a pulse of 62, temperature 97.9. She is 98% on room air. GENERAL DESCRIPTION: General description is an elderly female up in the chair in no distress. RESPIRATORY SYSTEM: Unlabored breathing. Clear to auscultation anteriorly. HEART: S1, S2. Regular rate and rhythm. ABDOMEN: Soft. No tenderness. Right hip is currently dressed. No obvious drainage on the dressing. LABS: Hemoglobin is 9.4, white count 5.9, BUN of 18, creatinine 1.1. Culture has been finalized with MSSA. DIAGNOSTIC IMPRESSION AND PLAN: Patient with right gluteal abscess, superficial no extension down to the joint, status post drainage. Culture with MSSA. Antibiotic switched to cefazolin 2 grams q.8 hours for 2 weeks and close outpatient followup. MMODL / IJN: [id number] / MTDD
[2020-10-23] MEDS ORDERED: INSULIN DETEMIR (LEVEMIR) 100 UNIT/ML SYR SQ SCH (21:00)
[2020-10-24] MEDS ORDERED: VANCOMYCIN TROUGH DUE 1 EACH MISC MISCELLANE ONE (17:00)
--- NOTE | 2020-10-29 07:45 | CDI ---
Documentation Clarification Form Date: 10/29/20 From: Alondra Fuentes Admit Date: 10/23/2020 03:48:00 PM Patient Name: Vanessa Rucker Visit Number: [id number] Discharge Date: 10/23/2020 03:48:00 PM ATTENTION: The Clinical Documentation Specialists (CDI) and [facility] Coding Staff appreciate your assistance in clarifying documentation. Please respond to the clarification below the line at the bottom and electronically sign. The CDI & [facility] Coding staff will review the response and follow-up if needed. Please note: Queries are made part of the Legal Health Record. If you have any questions, please contact the author of this message via ITS. Dr. Jesus Apodaca, A debridement is documented in the op report on 10/20. Additional clarification regarding the procedure is requested. History/Risk Factors: March of this year underwent right total hip arthroplasty for fracture Clinical Indicators: Localized cellulitis with possible superficial abscess of right hip. Treatment: Incision and drainage with irrigation and debridement right superficial hip abscess Please clarify the type of procedure performed: [ ] Excisional debridement (the removal of necrotic, devitalized tissue or slough by means of cutting away of tissue) [ ] Non-excisional debridement (the removal of necrotic, devitalized tissue or slough by means of flushing, brushing, or washing. (Irrigation) [ ] Other; please specify [ ] Unable to determine Five elements required for accurate and compliant documentation of a debridement: Technique used (e.g., excisional, excised, cutting, brushing, jet lavage etc.) Instrument(s) used (e.g., scalpel, curette, etc.) Nature of the tissue removed (e.g., necrotic, devitalized tissues, non-viable tissue, etc.) Appearance and size of the wound (e.g., down to fresh bleeding tissue, 7cm x 10cm, etc.) Depth of the debridement* (e.g., skin, subcutaneous tissue, fascia, muscle, bone, etc.) excisional debridement of sloughing tissue with a scalpel and jet lavage. Nonviable tissue excised. Down to fascia, bleeding tissue measuring 4 by 6 cm. MTDD
== END 2020-10-23 15:48 | DRG 857 ==
LOC: OR 13:06 → 5NMEDONC 15:33 → OR 10-23 13:58 → 5NMEDONC 10-23 15:48 → OBSVTOIN 10-23 15:48 → UNDODISOB 10-23 18:07
PROVIDERS: ADMIT Orthopaedic Surgery; ATTEND Orthopaedic Surgery
PROC: 0JBL0ZZ Excision of Right Upper Leg Subcutaneous Tissue and Fascia, Open Approach (ICD-10-PCS; principal; 2020-10-20 14:25)
PROC: 02HV33Z Insertion of Infusion Device into Superior Vena Cava, Percutaneous Approach (ICD-10-PCS; 2020-10-23)
DX: T81.41XA Infection following a procedure, superficial incisional surgical site, initial encounter (principal); L02.415 Cutaneous abscess of right lower limb; L03.115 Cellulitis of right lower limb; D63.8 Anemia in other chronic diseases classified elsewhere; E11.9 Type 2 diabetes mellitus without complications; B95.61 Methicillin susceptible Staphylococcus aureus infection as the cause of diseases classified elsewhere; Z20.822 Contact with and (suspected) exposure to COVID-19; I10 Essential (primary) hypertension; E78.5 Hyperlipidemia, unspecified; E78.00 Pure hypercholesterolemia, unspecified; H57.9 Unspecified disorder of eye and adnexa; N28.9 Disorder of kidney and ureter, unspecified; L98.9 Disorder of the skin and subcutaneous tissue, unspecified; Z79.82 Long term (current) use of aspirin; Z79.84 Long term (current) use of oral hypoglycemic drugs; Z79.899 Other long term (current) drug therapy; Z60.2 Problems related to living alone; Z96.641 Presence of right artificial hip joint; Z87.81 Personal history of (healed) traumatic fracture; Z96.612 Presence of left artificial shoulder joint; Z87.891 Personal history of nicotine dependence; Z91.018 Allergy to other foods; Z81.8 Family history of other mental and behavioral disorders; Z82.49 Family history of ischemic heart disease and other diseases of the circulatory system
CPT/HCPCS: 36573; 80048; 83036; 85025; 85652; 86140; 87070; 87075; 87077; 87186; 87205; 87635

== ENCOUNTER → 2021-03-08 | Outpatient (CLI) | payer MEDICARE ==
[2021-03-08 17:17] LABS: Anisocytosis Slight; Basophils % (A) 0 %; Eosinophils # (A) 0.3 k/uL (0-0.7); Eosinophils % (A) 4 %; HCT 34.9 % (34.0-46.0); HGB 10.6 gm/dL (11.4-16.0); Hypochromasia Moderate; Lymphocytes # (A) 2.2 k/uL (1.0-4.8); Lymphocytes % (A) 27 %; MCH 27.5 pg (25.0-35.0); MCHC 30.5 g/dL (31.0-37.0); MCV 90.2 fL (80.0-100.0); Mean Platelet Volume 7.4; Monocytes # (A) 0.4 k/uL (0-1.0); Monocytes % (A) 5 %; Neutrophils % (A) 62 %; Platelet Count 389 k/uL (150-450); RBC 3.86 m/uL (3.80-5.40); RDW 17.2 % (11.5-15.5); WBC 8.1 k/uL (3.8-10.6)
[2021-03-08 17:27] LABS: C Reactive Protein 1.8 mg/dL (<1.0); Calcium 9.4 mg/dL (8.4-10.2); Potassium 4.9 mmol/L (3.5-5.1)
[2021-03-08 17:47] LABS: Erythrocyte Sedimentation Rate 90 mm/hr (0-20)
== END | disposition home or self-care (01) ==
LOC: LABPAT 16:12
PROVIDERS: ATTEND Orthopaedic Surgery
DX: Z01.812 Encounter for preprocedural laboratory examination (principal); T84.51XA Infection and inflammatory reaction due to internal right hip prosthesis, initial encounter
CPT/HCPCS: 80048; 85025; 85652; 86140

== ENCOUNTER → 2021-05-20 | Outpatient (CLI) | payer MEDICARE ==
[2021-05-20 18:26] LABS: African American GFR (CKD) 54.5 (60.0-200.0); Albumin/Globulin Ratio 1.21 (1.60-3.17); Anion Gap 10.2 mmol/L (10.00-18.00); BUN/Creat Ratio 38.27 Ratio (12.00-20.00); Blood Urea Nitrogen 42.1 mg/dL (9.0-27.0); C Reactive Protein 0.4 mg/dL (0.00-0.80); Calcium 9.8 mg/dL (8.7-10.3); Carbon Dioxide 24.8 mmol/L (20.0-27.5); Globulin 3.3 g/dL (1.6-3.3); Potassium 5.4 mmol/L (3.5-5.5); Total Bilirubin 0.3 mg/dL (0.30-1.20); Total Protein 7.3 g/dL (6.2-8.2)
[2021-05-20 18:27] LABS: Basophils # (A) 0.03 X 10*3/uL (0.00-0.10); Basophils % (A) 0.5 %; Eosinophils # (A) 0.26 X 10*3/uL (0.04-0.35); Eosinophils % (A) 4.3 %; HCT 41.2 % (37.2-46.3); HGB 12.7 g/dL (12.0-15.0); Immature Grans, Automated 0.3 %; Lymphocytes # (A) 1.72 X 10*3/uL (0.90-5.00); Lymphocytes % (A) 28.7 %; MCH 28.3 pg (27.0-32.0); MCHC 30.8 g/dL (32.0-37.0); MCV 91.8 fL (80.0-97.0); Mean Platelet Volume 11.1 fL (9.5-12.2); Monocytes # (A) 0.63 X 10*3/uL (0.20-1.00); Monocytes % (A) 10.5 %; NRBC Per 100 WBC 0 /100 WBCS (0.0-0.0); Neutrophils # (A) 3.34 X 10*3/uL (1.80-7.70); Neutrophils % (A) 55.7 %; Platelet Count 284 X 10*3/uL (140-440); RBC 4.49 X 10*6/uL (4.10-5.20); RDW 14.4 % (11.5-14.5)
[2021-05-20 19:19] LABS: Erythrocyte Sedimentation Rate 20 mm/Hr (0-30)
== END | disposition home or self-care (01) ==
LOC: LABWHC1 10:37
PROVIDERS: ATTEND Internal Medicine Infectious Disease
DX: M00.9 Pyogenic arthritis, unspecified (principal)
CPT/HCPCS: 36415; 80053; 85025; 85652; 86140

== ENCOUNTER 2022-03-30 18:32 | Emergency (ER) | payer MEDICARE ==
[2022-03-30 18:41] VITALS: TEMP 97.7
--- NOTE | 2022-03-30 18:58 | ED ---
General Adult HPI - General Chief complaint: Recheck/Abnormal Lab/Rx Stated complaint: Low hemoglobin Time Seen by Provider: 03/30/22 18:41 Source: patient, EMS Mode of arrival: EMS Limitations: no limitations - History of Present Illness Initial comments: Dictation was produced using [employer] dictation software. please excuse any grammatical, word or spelling errors. Chief Complaint: 81-year-old female presents emergency department for anemia History of Present Illness: Is 81-year-old female presents emergency department for anemia she had blood work drawn today found a hemoglobin of 6.7. Patient has had low hemoglobin in the past. Patient is a poor historian. She denies any complaints at this time. [facility] According to EMS patient was was be discharged from rehab facility tomorrow. Patient denies any anticoagulation medications. The ROS documented in this emergency department record has been reviewed and confirmed by me. Those systems with pertinent positive or negative responses have been documented in the HPI. All other systems are other negative and/or noncontributory. PHYSICAL EXAM: General Impression: Alert and oriented x3, not in acute distress HEENT: Normocephalic atraumatic, extra-ocular movements intact, pupils equal and reactive to light bilaterally, mucous membranes moist. Cardiovascular: Heart regular rate and rhythm Chest: Able to complete full sentences, no retractions, no tachypnea Abdomen: abdomen soft, non-tender, non-distended, no organomegaly Musculoskeletal: Pulses present and equal in all extremities, no peripheral edema Motor: no focal deficits noted Neurological: CN II-XII grossly intact, no focal motor or sensory deficits noted Skin: Intact with no visualized rashes Psych: Normal affect and mood Rectal exam: No gross blood, no black or bloody stools or melanotic stools. ED course: 66-year-old female presents to This emergency department with hemoglobin of 6.7. Vital signs upon arrival are within acceptable limits. Transient interpretation was reviewed. Nursing notes and chart review was performed EKG interpreted by me: Ventricular rate 82, sinus rhythm,. Interval 1262, QRS 108, QTc 440. No DC prolongation, no QTC prolongation, no ST or T-wave changes noted. EKG compared to 03/13/2020 showing no changes. Overall, this EKG is u nremarkable Laboratory evaluation obtained. CBC is unremarkable. Hemoglobin is 8.1. Concerned that patient likely had a lab error. Coag panel metabolic panel is unremarkable. Stool occult blood is negative. Patient discharged. Blood transfusion was considered however patient's repeat hemoglobin is normal for her. Was pt. sent in by a medical professional or institution (DENIA Simon, BACK ROLL LATHE OPERATOR, urgent care, hospital, or shelter...) When possible be specific @ -shelter Did you speak to anyone other than the patient for history (EMS, parent, family, police, friend...)? What history was obtained from this source @ -No Did you review nursing and triage notes (agree or disagree)? Why? @ -I reviewed and agree with nursing and triage notes Were old charts reviewed (outside hosp., previous admission, EMS record, old EKG, old radiological studies, urgent care reports/EKG's, shelter records)? Report findings @ -No old charts were reviewed Differential Diagnosis (chest pain, altered mental status, abdominal pain women, abdominal pain men, vaginal bleeding, weakness, fever, dyspnea, syncope, hea dache, dizziness, GI bleed, back pain, seizure, CVA, palpatations, mental health)? @ -not applicable EKG interpreted by me (3pts min.). @ -As above X-rays interpreted by me (1pt min.). @ -None done CT interpreted by me (1pt min.). @ -None done U/S interpreted by me (1pt. min.). @ -None done What testing was considered but not performed or refused? (CT, X-rays, U/S, labs)? Why? @ -None What meds were considered but not given or refused? Why? @ -See above Did you discuss the management of the patient with other professionals (pro fessionals i.e. DENIA Simon, BACK ROLL LATHE OPERATOR, lab, RT, psych nurse, social sciences professor, tetryl screen operator, teacher, conservation officer, cyanide case hardener)? Give summary @ -No Was smoking cessation discussed for >3mins.? @ -No Was critical care preformed (if so, how long)? @ -No Were there social determinants of health that impacted care today? How? (Homelessness, low income, unemployed, alcoholism, drug addiction, transporta tion, low edu. Level, literacy, decrease access to med. care, detention, rehab)? @ -Rehab Was there de-escalation of care discussed even if they declined (Discuss DNR or withdrawal of care, Hospice)? DNR status @ -No What co-morbidities impacted this encounter? (DM, HTN, Smoking, COPD, CAD, Cancer, CVA, ARF, Chemo, Hep., AIDS, mental health diagnosis, sleep apnea, morbid obesity)? @ -None Was patient admitted / discharged? Hospital course, mention meds given and route, prescriptions, significant lab abnormalities, going to OR and other pertinent info. @ -See above Undiagnosed new problem with uncertain prognosis? @ -No Drug Therapy requiring intensive monitoring for toxicity (Heparin, Nitro, Insulin, Cardizem)? @ -No Were any procedures done? @ -No Diagnosis/symptom? @ -Abnormal outpatient blood work Acute, or Chronic, or Acute on Chronic? @ -Acute Uncomplicated (without systemic symptoms) or Complicated (systemic symptoms)? @ -default Side effects of treatment? @ -No Exacerbation, Progression, or Severe Exacerbation? @ -No Poses a threat to life or bodily function? How? (Chest pain, [place], [place], pneumonia, PE, COPD, DKA, ARF, appy, cholecystitis, CVA, Diverticulitis, Homicidal, Suicidal, threat to staff... and all critical care pts) @ -No - Related Data Home Medications Medication Instructions Recorded Confirmed Folic Acid 1 mg PO DAILY 07/14/14 03/09/21 [place]-3 Fatty Acids/Fish Oil [Fish 1 cap PO BID 07/14/14 03/09/21 Oil 1,000 mg Softgel] Simvastatin 20 mg PO HS 07/14/14 03/09/21 glipiZIDE [Glipizide ER] 2.5 mg PO DAILY 07/14/14 03/09/21 Losartan Potassium [Cozaar] 50 mg PO BID 03/13/20 03/09/21 Metoprolol Succinate (ER) [Toprol 25 mg PO BID 03/13/20 03/09/21 XL] Aspirin [Adult Low Dose Aspirin EC] 81 mg PO DAILY 07/30/20 03/09/21 Acetaminophen Tab [Tylenol] 650 mg PO Q6H PRN 03/09/21 03/09/21 Ascorbic Acid [Vitamin C] 1,000 mg PO DAILY 03/09/21 03/09/21 Cholecalciferol [Vitamin D3 (25 25 mcg PO DAILY 03/09/21 03/09/21 Mcg = 1000 Iu)] Docusate [Colace] 100 mg PO DAILY 03/09/21 03/09/21 Ferrous Sulfate [Iron (65 MG 325 mg PO DAILY 03/09/21 03/09/21 Elemental)] HYDROcodone/APAP 5-325MG [[place] 1 tab PO Q6HR PRN 03/09/21 03/09/21 5-325] Previous Rx's Medication Instructions Recorded Acetaminophen Tab [Tylenol] 650 mg PO Q6H #24 tab 03/12/21 Aspirin [Adult Low Dose Aspirin EC] 81 mg PO BID #60 tab 03/12/21 Docusate [Colace] 100 mg PO DAILY #30 capsule 03/12/21 ceFAZolin [Kefzol] 2 gm IVP Q8HR 42 Days ml 03/12/21 Allergies Allergy/AdvReac Type Severity Reaction Status Date / Time gluten Allergy Rash/Hives Verified 03/09/21 10:29 Review of Systems ROS Statement: Those systems with pertinent positive or pertinent negative responses have been documented in the HPI. ROS Other: All systems not noted in ROS Statement are negative. 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 History of Any Multi-Drug Resistant Organisms: None Reported Past Surgical History: Joint Replacement, Orthopedic Surgery Additional Past Surgical History / Comment(s): Right ankle surgery, right leg surgery, left shoulder replacement.rt hip replacement, right hip I&D and revision (03/09/21) Past Anesthesia/Blood Transfusion Reactions: No Reported Reaction Past Psychological History: No Psychological Hx Reported Smoking Status: Former smoker Past Alcohol Use History: None Reported Past Drug Use History: None Reported - Past Family History Sister(s) Family Medical History: Dementia Mother Family Medical History: Congestive Heart Failure (CHF) Additional Family Medical History / Comment(s): at 29 yrs old. General Exam Limitations: no limitations Course Vital Signs 03/30/22 18:35 Temperature 97.7 F Pulse Rate 89 Respiratory 18 Rate Blood Pressure 127/90 O2 Sat by Pulse 99 Oximetry Medical Decision Making - Lab Data Result diagrams: 03/30/22 18:50 03/30/22 18:50 Lab Results 03/30/22 03/30/22 03/30/22 Range/Units 18:50 18:50 18:50 WBC 6.1 (3.8-10.6) k/uL RBC 2.31 L (3.80-5.40) m/uL Hgb 8.1 L (11.4-16.0) gm/dL Hct 25.8 L (34.0-46.0) % MCV 111.5 H (80.0-100.0) fL MCH 34.8 (25.0-35.0) pg MCHC 31.2 (31.0-37.0) g/dL RDW 16.3 H (11.5-15.5) % Plt Count 276 (150-450) k/uL MPV 8.4 Neutrophils % 51 % Lymphocytes % 33 % Monocytes % 9 % Eosinophils % 3 % Basophils % 1 % Neutrophils # 3.1 (1.3-7.7) k/uL Lymphocytes # 2.0 (1.0-4.8) k/uL Monocytes # 0.6 (0-1.0) k/uL Eosinophils # 0.2 (0-0.7) k/uL Basophils # 0.0 (0-0.2) k/uL Anisocytosis Slight Macrocytosis Marked A PT 10.2 (9.0-12.0) sec INR 1.0 (<1.2) APTT 25.0 (22.0-30.0) sec Sodium (137-145) mmol/L Potassium (3.5-5.1) mmol/L Chloride (98-107) mmol/L Carbon Dioxide (22-30) mmol/L Anion Gap mmol/L BUN (7-17) mg/dL Creatinine (0.52-1.04) mg/dL Est GFR (CKD-EPI)AfAm (>60 ml/min/1.73 sqM) Est GFR (CKD-EPI)NonAf (>60 ml/min/1.73 sqM) Glucose (74-99) mg/dL Calcium (8.4-10.2) mg/dL Stool Occult Blood Negative (Negative) 03/30/22 Range/Units 18:50 WBC (3.8-10.6) k/uL RBC (3.80-5.40) m/uL Hgb (11.4-16.0) gm/dL Hct (34.0-46.0) % MCV (80.0-100.0) fL MCH (25.0-35.0) pg MCHC (31.0-37.0) g/dL RDW (11.5-15.5) % Plt Count (150-450) k/uL MPV Neutrophils % % Lymphocytes % % Monocytes % % Eosinophils % % Basophils % % Neutrophils # (1.3-7.7) k/uL Lymphocytes # (1.0-4.8) k/uL Monocytes # (0-1.0) k/uL Eosinophils # (0-0.7) k/uL Basophils # (0-0.2) k/uL Anisocytosis Macrocytosis PT (9.0-12.0) sec INR (<1.2) APTT (22.0-30.0) sec Sodium 133 L (137-145) mmol/L Potassium 4.7 (3.5-5.1) mmol/L Chloride 102 (98-107) mmol/L Carbon Dioxide 24 (22-30) mmol/L Anion Gap 7 mmol/L BUN 38 H (7-17) mg/dL Creatinine 1.67 H (0.52-1.04) mg/dL Est GFR (CKD-EPI)AfAm 33 (>60 ml/min/1.73 sqM) Est GFR (CKD-EPI)NonAf 28 (>60 ml/min/1.73 sqM) Glucose 162 H (74-99) mg/dL Calcium 8.4 (8.4-10.2) mg/dL Stool Occult Blood (Negative) Disposition Clinical Impression: Abnormal laboratory test Disposition: HOME SELF-CARE Condition: Good Instructions (If sedation given, give patient instructions): Anemia (ED) Is patient prescribed a controlled substance at d/c from ED?: No Referrals: None,Stated [REFERRING] - 1-2 days Time of Disposition: 19:48
[2022-03-30 19:02] LABS: Anisocytosis Slight; Basophils % (A) 1 %; Eosinophils # (A) 0.2 k/uL (0-0.7); Eosinophils % (A) 3 %; HCT 25.8 % (34.0-46.0); HGB 8.1 gm/dL (11.4-16.0); Lymphocytes % (A) 33 %; MCH 34.8 pg (25.0-35.0); MCHC 31.2 g/dL (31.0-37.0); MCV 111.5 fL (80.0-100.0); Macrocytosis Marked; Mean Platelet Volume 8.4; Monocytes # (A) 0.6 k/uL (0-1.0); Monocytes % (A) 9 %; Neutrophils # (A) 3.1 k/uL (1.3-7.7); Neutrophils % (A) 51 %; Platelet Count 276 k/uL (150-450); RBC 2.31 m/uL (3.80-5.40); RDW 16.3 % (11.5-15.5); WBC 6.1 k/uL (3.8-10.6)
[2022-03-30 19:15] LABS: Calcium 8.4 mg/dL (8.4-10.2); Potassium 4.7 mmol/L (3.5-5.1)
[2022-03-30 19:35] LABS: Prothrombin Time 10.2 sec (9.0-12.0)
[2022-03-30 20:16] VITALS: BP 131/85; PULSE 75; RESP 15
== END 2022-03-30 20:39 | disposition home or self-care (01) ==
LOC: EC 18:32
DX: R79.9 Abnormal finding of blood chemistry, unspecified (principal); D64.9 Anemia, unspecified; E11.9 Type 2 diabetes mellitus without complications; I10 Essential (primary) hypertension; Z87.891 Personal history of nicotine dependence; Z91.048 Other nonmedicinal substance allergy status; Z79.82 Long term (current) use of aspirin; Z79.84 Long term (current) use of oral hypoglycemic drugs; Z79.899 Other long term (current) drug therapy
CPT/HCPCS: 36415; 80048; 82272; 85025; 85610; 85730; 86850; 86900; 86901; 99285

== ENCOUNTER 2022-11-30 12:44 | Inpatient (IN) | payer MEDICARE ==
--- NOTE | 2022-11-30 13:28 | ED ---
Lower Extremity Injury HPI - General Source: patient, family, RN notes reviewed Mode of arrival: wheelchair Limitations: no limitations <Real Lancaster - Last Filed: 11/30/22 13:27> <Yolanda Billingsley - Last Filed: 12/01/22 07:26> - General Chief Complaint: Extremity Injury, Lower Stated Complaint: R Leg Infection Time Seen by Provider: 11/30/22 13:27 - History of Present Illness Initial Comments: 81-year-old female presents emergency Department chief complaint infection to her right hip. Patient states she had surgery in the past with following up with wound center advised that she may need to have surgery again. Patient has been monitoring the area and states that pain has worsened along with the wound. Patient had surgery by Dr. Apodaca. (Real Lancaster) 81 year old female presents to ED with complaint of infection to her right hip. Patient had hip replacement in 2020. Patient reports afterwards she developed an infection. It was recommended she have the joint replaced but patient states she is "too old" to have any more procedures. States that her hip has been more painful. She has had more drainage from the site. She is currently on Cipro from Dr. Apodaca who performed the procedure. She has been on rounds of antibiotics previously as well. She sees wound care. She took 2 Tylenol before coming into the emergency department. She denies any fevers. No other allevia ting, precipitating or modifying factors (Yolanda Billingsley) - Related Data Home Medications Medication Instructions Recorded Confirmed Metoprolol Succinate (ER) [Toprol 12.5 mg PO BID 03/13/20 11/30/22 XL] Aspirin [Adult Low Dose Aspirin EC] 81 mg PO DAILY 07/30/20 11/30/22 Ascorbic Acid [Vitamin C] 1,000 mg PO DAILY 03/09/21 11/30/22 Cholecalciferol [Vitamin D3 (25 25 mcg PO DAILY 03/09/21 11/30/22 Mcg = 1000 Iu)] Ferrous Sulfate [Iron (65 MG 162.5 mg PO BID 03/09/21 11/30/22 Elemental)] Atorvastatin [Lipitor] 20 mg PO DAILY 05/05/22 11/30/22 Ciprofloxacin HCl [Cipro] 250 mg PO DAILY 11/30/22 11/30/22 Dapsone 100 mg PO DAILY PRN 11/30/22 11/30/22 Docusate [Colace] 100 mg PO DAILY PRN 11/30/22 11/30/22 Furosemide [Lasix] 20 mg PO Q48H 11/30/22 11/30/22 Omeprazole [PriLOSEC] 20 mg PO DAILY 11/30/22 11/30/22 calcitrioL [Calcitriol] 0.25 mcg PO FR 11/30/22 11/30/22 metFORMIN HCL ER [Glucophage XR] 500 mg PO DAILY 11/30/22 11/30/22 Allergies Allergy/AdvReac Type Severity Reaction Status Date / Time cefazolin Allergy Swelling Verified 11/30/22 16:00 gluten Allergy Rash/Hives Verified 11/30/22 16:00 Review of Systems ROS Other: All systems not noted in ROS Statement are negative. <Real Lancaster - Last Filed: 11/30/22 13:27> ROS Other: All systems not noted in ROS Statement are negative. <Yolanda Billingsley - Last Filed: 12/01/22 07:26> ROS Statement: Those systems with pertinent positive or pertinent negative responses have been documented in the HPI. Past Medical History Past Medical History: Diabetes Mellitus, Eye Disorder, Hypertension, Renal Disease, Skin Disorder Additional Past Medical History / Comment(s): Has an "eye disorder with fluid behind eyes, gets injection in eyes every 4 weeks." Lesions on skin, sees a Manager Asset. History of Any Multi-Drug Resistant Organisms: None Reported Past Surgical History: Joint Replacement, Orthopedic Surgery Additional Past Surgical History / Comment(s): Right ankle surgery, right leg surgery, left shoulder replacement.rt hip replacement, right hip I&D and revision (03/09/21) Past Anesthesia/Blood Transfusion Reactions: No Reported Reaction Past Psychological History: No Psychological Hx Reported Smoking Status: Former smoker - Past Family History Sister(s) Family Medical History: Dementia Mother Family Medical History: Congestive Heart Failure (CHF) Additional Family Medical History / Comment(s): at 29 yrs old. <Real Lancaster - Last Filed: 11/30/22 13:27> General Exam Limitations: no limitations <Real Lancaster - Last Filed: 11/30/22 13:27> General appearance: alert, in no apparent distress Head exam: Present: atraumatic, normocephalic, normal inspection Eye exam: Present: normal appearance, PERRL, EOMI. Absent: scleral icterus, conjunctival injection, periorbital swelling ENT exam: Present: normal exam, mucous membranes moist Neck exam: Present: normal inspection. Absent: tenderness, meningismus, lymphadenopathy Respiratory exam: Present: normal lung sounds bilaterally. Absent: respiratory distress, wheezes, rales, rhonchi, stridor Cardiovascular Exam: Present: regular rate, normal rhythm, normal heart sounds. Absent: systolic murmur, diastolic murmur, rubs, gallop, clicks GI/Abdominal exam: Present: soft, normal bowel sounds. Absent: distended, tenderness, guarding, rebound, rigid Extremities exam: Present: tenderness (Surgical incision over the right lateral hip. Most superior aspect has a half centimeter defect. There is purulent drainage coming from the site. Joint is tender to touch), normal capillary refill. Absent: pedal edema, joint swelling, calf tenderness Back exam: Present: normal inspection Neurological exam: Present: alert, oriented X3, CN II-XII intact Psychiatric exam: Present: normal affect, normal mood Skin exam: Present: warm, dry, intact, normal color. Absent: rash <Yolanda Billingsley - Last Filed: 12/01/22 07:26> - General Exam Comments Initial Comments: Visual Physical Exam Vital signs reviewed General: Well-appearing, nontoxic, no acute distress. Head: Normocephalic, atraumatic Eyes: PERRLA, EOMI ENT: Airway patent Chest: Nonlabored breathing Skin: No visual rash, normal skin tone Neuro: Alert and oriented 3 Musculoskeletal: No gross abnormalities (Real Lancaster) Course Vital Signs 11/30/22 11/30/22 11/30/22 12:50 18:00 20:37 Temperature 98.5 F 98.7 F 98.1 F Pulse Rate 100 76 74 Pulse Rate [ Left] Respiratory 20 15 18 Rate Blood Pressure 121/72 161/78 156/76 Blood Pressure [Left Arm] O2 Sat by Pulse 98 96 97 Oximetry 11/30/22 20:44 Temperature 97.9 F Pulse Rate Pulse Rate [ 74 Left] Respiratory 18 Rate Blood Pressure Blood Pressure 151/51 [Left Arm] O2 Sat by Pulse 97 Oximetry Medical Decision Making <Real Lancaster - Last Filed: 11/30/22 13:27> - Lab Data Result diagrams: 11/30/22 14:18 11/30/22 14:18 <Yolanda Billingsley - Last Filed: 12/01/22 07:26> - Medical Decision Making I performed a quick note portion of this chart signed Real Lancaster PA-C (Real Lancaster) Was pt. sent in by a medical professional or institution (DENIA Simon, TREASURY ASSISTANT, urgent care, hospital, or skilled nursing...) When possible be specific @ -Patient was sent in by her home care nurse Did you speak to anyone other than the patient for history (EMS, parent, family, police, friend...)? What history was obtained from this source @ -I spoke with a caregiver for the patient for history Did you review nursing and triage notes (agree or disagree)? Why? @ -I reviewed and agree with nursing and triage notes Were old charts reviewed (outside hosp., previous admission, EMS record, old EKG, old radiological studies, urgent care reports/EKG's, skilled nursing records)? Report findings @ -I reviewed the patient's chart including operative report from her right hip replacement Differential Diagnosis (chest pain, altered mental status, abdominal pain women, abdominal pain men, vaginal bleeding, weakness, fever, dyspnea, syncope, headache, dizziness, GI bleed, back pain, seizure, CVA, palpatations, mental health, musculoskeletal)? @ -Septic joint, infected prosthesis, cellulitis, bedsore EKG interpreted by me (3pts min.). @ -Not completed X-rays interpreted by me (1pt min.). @ -Yes and demonstrates no acute process CT interpreted by me (1pt min.). @ -None done U/S interpreted by me (1pt. min.). @ -None done What testing was considered but not performed or refused? (CT, X-rays, U/S, labs)? Why? @ -None What meds were considered but not given or refused? Why? @ -None Did you discuss the management of the patient with other professionals (professionals i.e. DENIA Simon, TREASURY ASSISTANT, lab, RT, psych nurse, social service coordinator, team driver, teacher, security flex utility officer, pillowcase sewer)? Give summary @ -I spoke with [facility]ma from [facility] - admit to medicine with ortho and ID consult Was smoking cessation discussed for >3mins.? @ -No Was critical care preformed (if so, how long)? @ -No Were there social determinants of health that impacted care today? How? (Homelessness, low income, unemployed, alcoholism, drug addiction, transportation, low edu. Level, literacy, decrease access to med. care, skilled nursing, rehab)? @ -No Was there de-escalation of care discussed even if they declined (Discuss DNR or withdrawal of care, Hospice)? DNR status @ -No What co-morbidities impacted this encounter? (DM, HTN, Smoking, COPD, CAD, Cancer, CVA, ARF, Chemo, Hep., AIDS, mental health diagnosis, sleep apnea, morbid obesity)? @ -None Was patient admitted / discharged? Hospital course, mention meds given and route, prescriptions, significant lab abnormalities, going to OR and other pertinent info. @ -Upon arrival patient was placed into room 33. A thorough history and physical exam was performed. I did culture this site. There is significant purulent drainage. Laboratory studies are conducted. X-ray was performed. I did speak with Alma who requested the patient be admitted to medicine. I did draw blood cultures and the patient will be started on Unasyn and Vanco. Patient was agreeable to admission. Awaiting about on the floor in stable condition Undiagnosed new problem with uncertain prognosis? @ -No Drug Therapy requiring intensive monitoring for toxicity (Heparin, Nitro, Insulin, Cardizem)? @ -No Were any procedures done? @ -No Diagnosis/symptom? @ -Acute right hip pain, suspected infected right hip prosthesis Acute, or Chronic, or Acute on Chronic? @ -Acute on chronic Uncomplicated (without systemic symptoms) or Complicated (systemic symptoms)? @ -Complicated Side effects of treatment? @ -No Exacerbation, Progression, or Severe Exacerbation? @ -No Poses a threat to life or bodily function? How? (Chest pain, [place], [place], pneumonia, PE, COPD, DKA, ARF, appy, cholecystitis, CVA, Diverticulitis, Homicidal, Suicidal, threat to staff... and all critical care pts) @ -No (Yolanda Billingsley) - Lab Data Lab Results 11/30/22 11/30/22 11/30/22 Range/Units 14:18 14:18 14:18 WBC 16.4 H (3.8-10.6) k/uL RBC 2.32 L (3.80-5.40) m/uL Hgb 7.1 L (11.4-16.0) gm/dL Hct 22.9 L (34.0-46.0) % MCV 98.6 (80.0-100.0) fL MCH 30.4 (25.0-35.0) pg MCHC 30.9 L (31.0-37.0) g/dL RDW 16.3 H (11.5-15.5) % Plt Count 363 (150-450) k/uL MPV 8.9 Neutrophils % 89 % Lymphocytes % 7 % Monocytes % 3 % Eosinophils % 0 % Basophils % 0 % Neutrophils # 14.5 H (1.3-7.7) k/uL Lymphocytes # 1.2 (1.0-4.8) k/uL Monocytes # 0.6 (0-1.0) k/uL Eosinophils # 0.1 (0-0.7) k/uL Basophils # 0.0 (0-0.2) k/uL Hypochromasia Marked Poikilocytosis Slight Anisocytosis Slight Macrocytosis Slight Sodium 130 L (137-145) mmol/L Potassium 5.2 H (3.5-5.1) mmol/L Chloride 98 (98-107) mmol/L Carbon Dioxide 22 (22-30) mmol/L Anion Gap 10 mmol/L BUN 56 H (7-17) mg/dL Creatinine 2.03 H (0.52-1.04) mg/dL Est GFR (CKD-EPI)AfAm 26 (>60 ml/min/1.73 sqM) Est GFR (CKD-EPI)NonAf 22 (>60 ml/min/1.73 sqM) Glucose 330 H (74-99) mg/dL Lactic Ac Sepsis Rflx Plasma Lactic Acid Adrian 2.1 H* (0.7-2.0) mmol/L Calcium 8.9 (8.4-10.2) mg/dL Total Bilirubin 1.7 H (0.2-1.3) mg/dL AST 15 (14-36) U/L ALT 12 (4-34) U/L Alkaline Phosphatase 116 (38-126) U/L C-Reactive Protein 21.0 H (<1.0) mg/dL Total Protein 6.5 (6.3-8.2) g/dL Albumin 3.3 L (3.5-5.0) g/dL 11/30/22 Range/Units 14:50 WBC (3.8-10.6) k/uL RBC (3.80-5.40) m/uL Hgb (11.4-16.0) gm/dL Hct (34.0-46.0) % MCV (80.0-100.0) fL MCH (25.0-35.0) pg MCHC (31.0-37.0) g/dL RDW (11.5-15.5) % Plt Count (150-450) k/uL MPV Neutrophils % % Lymphocytes % % Monocytes % % Eosinophils % % Basophils % % Neutrophils # (1.3-7.7) k/uL Lymphocytes # (1.0-4.8) k/uL Monocytes # (0-1.0) k/uL Eosinophils # (0-0.7) k/uL Basophils # (0-0.2) k/uL Hypochromasia Poikilocytosis Anisocytosis Macrocytosis Sodium (137-145) mmol/L Potassium (3.5-5.1) mmol/L Chloride (98-107) mmol/L Carbon Dioxide (22-30) mmol/L Anion Gap mmol/L BUN (7-17) mg/dL Creatinine (0.52-1.04) mg/dL Est GFR (CKD-EPI)AfAm (>60 ml/min/1.73 sqM) Est GFR (CKD-EPI)NonAf (>60 ml/min/1.73 sqM) Glucose (74-99) mg/dL Lactic Ac Sepsis Rflx Y Plasma Lactic Acid Adrian (0.7-2.0) mmol/L Calcium (8.4-10.2) mg/dL Total Bilirubin (0.2-1.3) mg/dL AST (14-36) U/L ALT (4-34) U/L Alkaline Phosphatase (38-126) U/L C-Reactive Protein (<1.0) mg/dL Total Protein (6.3-8.2) g/dL Albumin (3.5-5.0) g/dL Disposition <Real Lancaster - Last Filed: 11/30/22 13:27> Is patient prescribed a controlled substance at d/c from ED?: No Time of Disposition: 15:33 Decision to Admit Reason: Admit from EC Decision Date: 11/30/22 Decision Time: 15:33 <Yolanda Billingsley - Last Filed: 12/01/22 07:26> 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
--- NOTE | 2022-11-30 14:05 | XR ---
EXAMINATION TYPE: XR Hip RT and AP Pelvis DATE OF EXAM: 11/30/2022 CLINICAL HISTORY: pain TECHNIQUE: AP and frogleg views of the right hip are obtained. Single view pelvis is also submitted. COMPARISON: None. FINDINGS: There is no acute fracture/dislocation evident. Right total hip arthroplasty is noted to b e in place. Mild degenerative narrowing left hip joint space. The overlying soft tissue appears unrem arkable. IMPRESSION: 1. There is no acute fracture or dislocation. ICD 10 NO FRACTURE, INITIAL EVALUATION
[2022-11-30 14:31] LABS: Anisocytosis Slight; Basophils % (A) 0 %; Eosinophils # (A) 0.1 k/uL (0-0.7); Eosinophils % (A) 0 %; HCT 22.9 % (34.0-46.0); HGB 7.1 gm/dL (11.4-16.0); Hypochromasia Marked; Lymphocytes # (A) 1.2 k/uL (1.0-4.8); Lymphocytes % (A) 7 %; MCH 30.4 pg (25.0-35.0); MCHC 30.9 g/dL (31.0-37.0); MCV 98.6 fL (80.0-100.0); Macrocytosis Slight; Mean Platelet Volume 8.9; Monocytes # (A) 0.6 k/uL (0-1.0); Monocytes % (A) 3 %; Neutrophils # (A) 14.5 k/uL (1.3-7.7); Neutrophils % (A) 89 %; Platelet Count 363 k/uL (150-450); Poikilocytosis Slight; RBC 2.32 m/uL (3.80-5.40); RDW 16.3 % (11.5-15.5); WBC 16.4 k/uL (3.8-10.6)
[2022-11-30 14:47] LABS: ALT 12 U/L (4-34); AST 15 U/L (14-36); African American GFR (CKD) 26 (>60 ml/min/1.73 sqM); Albumin 3.3 g/dL (3.5-5.0); Alkaline Phosphatase 116 U/L (38-126); Anion Gap 10 mmol/L; Blood Urea Nitrogen 56 mg/dL (7-17); Calcium 8.9 mg/dL (8.4-10.2); Carbon Dioxide 22 mmol/L (22-30); Chloride 98 mmol/L (98-107); Glucose 330 mg/dL (74-99); Non-African American GFR(CKD) 22 (>60 ml/min/1.73 sqM); Potassium 5.2 mmol/L (3.5-5.1); Sodium 130 mmol/L (137-145); Total Bilirubin 1.7 mg/dL (0.2-1.3); Total Protein 6.5 g/dL (6.3-8.2)
[2022-11-30] MEDS ORDERED: MORPHINE SULFATE 4 MG/ML SYRINGE IV PRN (15:34)
[2022-11-30] MEDS ORDERED: NALOXONE 0.4 MG/ML 1 ML VIAL IV PRN (15:34)
[2022-11-30] MEDS ORDERED: VANCOMYCIN IV PER PHARMACY 1 EACH MISC MISCELLANE PRN (16:10)
[2022-11-30] MEDS ORDERED: AMPICILLIN-SULBACTAM 3 GM in SODIUM CHLORIDE 0.9% 100 ML IVPB STA (16:11)
[2022-11-30] MEDS ORDERED: VANCOMYCIN 1,000 MG in SODIUM CHLORIDE 0.9% 250 ML IVPB ONE (16:30)
[2022-11-30] MEDS ORDERED: DOCUSATE 100 MG CAP PO PRN (21:13)
[2022-11-30] MEDS ORDERED: DAPSONE 25 MG TAB PO PRN (21:13)
[2022-11-30] MEDS ORDERED: DEXTROSE 50% SYRINGE 50 ML IVP PRN ×2 (21:14)
--- NOTE | 2022-11-30 22:25 | P.CONS ---
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 and this patient was status post I&D and exchange of the femoral head that was done in March 2021 patient did received a 6-week course of IV cefazolin and the patient did have a overall healing of her right hip wound subsequently was on a suppressive oral antibiotic therapy however the patient was lost to follow-up patient now presenting back to [facility] ER this afternoon with the patient complaining of infection to the right hip apparently the patient did have reopening of the wound to the right hip and the patient has been following up in the wound care center at [facility] with Dr. Tyler and the patient was noticed to have worsening drainage from the right hip for the patient was sent to the ER for further evaluation patient mention she has nonhealing of this wound for couple of weeks now patient has been complaining of pain to the right hip to be more of a dull aching to sharp especially with weightbearing intensity could be 5-6 out of 10 no radiation with associated drainage denies fever no nausea vomiting abdominal pain or any diarrhea patient on presentation to the hospital was afebrile and no fever has been recorded subsequently patient did have white count 16.4 BUN/crea tinine has been mildly elevated lactic acid was 2.1 liver enzymes are normal blood culture has been obtained I was able to take deep culture from the right hip area patient is currently on vancomycin because of her cefazolin allergy infectious disease was consulted for further management of antibiotic therapy Review of Systems Positive point and negatives has been mentioned in the HPI, complete review of systems was performed and all other systems are negative Past Medical History Past Medical History: Diabetes Mellitus, Eye Disorder, Hypertension, Renal Disease, Skin Disorder Additional Past Medical History / Comment(s): Has an "eye disorder with fluid behind eyes, gets injection in eyes every 4 weeks." Lesions on skin, sees a Umbrella Frame Maker. History of Any Multi-Drug Resistant Organisms: None Reported Past Surgical History: Joint Replacement, Orthopedic Surgery Additional Past Surgical History / Comment(s): Right ankle surgery, right leg surgery, left shoulder replacement.rt hip replacement, right hip I&D and rev ision (03/09/21) Past Anesthesia/Blood Transfusion Reactions: No Reported Reaction Past Psychological History: No Psychological Hx Reported Smoking Status: Former smoker - Past Family History Sister(s) Family Medical History: Dementia Mother Family Medical History: Congestive Heart Failure (CHF) Additional Family Medical History / Comment(s): at 29 yrs old. Medications and Allergies Home Medications Medication Instructions Recorded Confirmed Type Metoprolol Succinate (ER) [Toprol 12.5 mg PO BID 03/13/20 11/30/22 History XL] Aspirin [Adult Low Dose Aspirin EC] 81 mg PO DAILY 07/30/20 11/30/22 History Ascorbic Acid [Vitamin C] 1,000 mg PO DAILY 03/09/21 11/30/22 History Cholecalciferol [Vitamin D3 (25 25 mcg PO DAILY 03/09/21 11/30/22 History Mcg = 1000 Iu)] Ferrous Sulfate [Iron (65 MG 162.5 mg PO BID 03/09/21 11/30/22 History Elemental)] Atorvastatin [Lipitor] 20 mg PO DAILY 05/05/22 11/30/22 History Ciprofloxacin HCl [Cipro] 250 mg PO DAILY 11/30/22 11/30/22 History Dapsone 100 mg PO DAILY PRN 11/30/22 11/30/22 History Docusate [Colace] 100 mg PO DAILY PRN 11/30/22 11/30/22 History Furosemide [Lasix] 20 mg PO Q48H 11/30/22 11/30/22 History Omeprazole [PriLOSEC] 20 mg PO DAILY 11/30/22 11/30/22 History calcitrioL [Calcitriol] 0.25 mcg PO FR 11/30/22 11/30/22 History metFORMIN HCL ER [Glucophage XR] 500 mg PO DAILY 11/30/22 11/30/22 History HYDROcodone/APAP 5-325MG [[place] 1 tab PO Q4HR PRN #21 tab 12/07/22 Rx 5-325] Allergies Allergy/AdvReac Type Severity Reaction Status Date / Time cefazolin Allergy Swelling Verified 11/30/22 16:00 gluten Allergy Rash/Hives Verified 11/30/22 16:00 Physical Exam Vitals: Vital Signs Temp Pulse Resp BP Pulse Ox 11/30/22 12:50 98.5 F 100 20 121/72 98 Intake and Output 11/30/22 11/30/22 11/30/22 06:59 14:59 22:59 Other: Weight 60.781 kg GENERAL DESCRIPTION: Elderly female lying in bed, no distress. No tachypnea or accessory muscle of respiration use. HEENT: Shows Pallor , no scleral icterus. Oral mucous membrane is dry. NECK: Trachea central, no thyromegaly. LUNGS: Unlabored breathing. Clear to auscultation anteriorly. No wheeze or crackle. HEART: S1, S2, regular rate and rhythm. No loud murmur ABDOMEN: Soft, no tenderness , EXTREMITIES: Right hip with the draining sinus with swelling redness and tenderness SKIN: No rash, no masses palpable. NEUROLOGICAL: The patient is awake, alert, oriented x3, mood and affect normal. Results CBC & Chem 7: 12/05/22 21:32 12/06/22 05:26 Labs: Abnormal Lab Results - Last 24 Hours (Table) 11/30/22 11/30/22 11/30/22 Range/Units 14:18 14:18 14:18 WBC 16.4 H (3.8-10.6) k/uL RBC 2.32 L (3.80-5.40) m/uL Hgb 7.1 L (11.4-16.0) gm/dL Hct 22.9 L (34.0-46.0) % MCHC 30.9 L (31.0-37.0) g/dL RDW 16.3 H (11.5-15.5) % Neutrophils # 14.5 H (1.3-7.7) k/uL Sodium 130 L (137-145) mmol/L Potassium 5.2 H (3.5-5.1) mmol/L BUN 56 H (7-17) mg/dL Creatinine 2.03 H (0.52-1.04) mg/dL Glucose 330 H (74-99) mg/dL Plasma Lactic Acid Adrian 2.1 H* (0.7-2.0) mmol/L Total Bilirubin 1.7 H (0.2-1.3) mg/dL C-Reactive Protein 21.0 H (<1.0) mg/dL Albumin 3.3 L (3.5-5.0) g/dL Assessment and Plan (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 Current Visit: Yes Status: Acute Code(s): T84.51XA - INFECT/INFLM REACTION DUE TO INTERNAL RIGHT HIP PROSTH, INIT SNOMED Code(s): 30173595472941538 Plan: 1patient presented hospital with a increasing pain to the right hip in addition to the reopening of the right hip wound and drainage high clinical suspicious for right hip septic arthritis with a previous culture positive for MSSA 2-cefazolin allergy therapy limit the number of antibiotics safe to use 3-renal insufficiency high risk of nephrotoxicity from vancomycin 4-await Ortho evaluation for further surgical procedure and deep culture 5-discontinue vancomycin we will start the patient on daptomycin while waiting for the culture to finalize We will follow on clinical condition and cultures to further adjust medication if needed Thank you for this consultation we will follow the patient along with you Dictation was produced using [employer] dictation software. please excuse any grammatical, word or spelling errors. Time with Patient: Greater than 30
[2022-11-30] MEDS: ACETAMINOPHEN TAB 325 MG TAB PO PRN (22:53)
[2022-12-01] MEDS: ACETAMINOPHEN TAB 325 MG TAB PO PRN ×2 (05:41→21:18)
[2022-12-01 06:31] LABS: Glucose,Whole Blood 326 mg/dL (70-110)
[2022-12-01] MEDS: INSULIN ASPART (NovoLOG) 100 UNIT/ML VIAL SQ SCH ×4 (06:36→21:18)
[2022-12-01] MEDS ORDERED: ATORVASTATIN 20 MG TAB PO SCH (09:00)
[2022-12-01] MEDS ORDERED: DAPTOmycin 350 MG in SODIUM CHLORIDE 0.9% 50 ML IVPB SCH (09:00)
[2022-12-01] MEDS ORDERED: FAMOTIDINE 20 MG/2 ML VIAL IV SCH (09:00)
[2022-12-01] MEDS: METOPROLOL SUCCINATE (ER) 25 MG TAB.ER.24H PO SCH ×2 (09:04→21:19)
[2022-12-01] MEDS: SODIUM CHLORIDE 0.9% 1,000 ML IV SCH (09:06)
[2022-12-01] MEDS: FERROUS SULFATE 325 MG TAB PO SCH ×2 (09:06→21:21)
[2022-12-01] MEDS: HEPARIN SODIUM,PORCINE 5,000 UNIT/ML 1 ML VIAL SQ SCH ×2 (09:07→21:18)
[2022-12-01] MEDS: ASPIRIN 81 MG PO SCH (09:07)
[2022-12-01] MEDS: FAMOTIDINE 20 MG/2 ML VIAL IV SCH (09:07)
[2022-12-01 11:19] LABS: ALT 6 U/L (8-44); AST 8 U/L (13-35); Albumin 3.2 d/dL (3.8-4.9); Albumin/Globulin Ratio 1.23 Ratio (1.60-3.17); Alkaline Phosphatase 102 U/L (41-126); Blood Urea Nitrogen 58.4 mg/dL (9.0-27.0); Calcium 8.5 mg/dL (8.7-10.3); Carbon Dioxide 22.8 mmol/L (21.6-31.8); Chloride 99 mmol/L (96-109); Globulin 2.6 d/dL (1.6-3.3); Glucose 259 mg/dL (70-110); Potassium 4.7 mmol/L (3.5-5.5); Sodium 132 mmol/L (135-145); Total Protein 5.8 d/dL (6.2-8.2)
--- NOTE | 2022-12-01 11:19 | P.HPIM ---
History of Present Illness This is a pleasant 81 years old female with past medical history of Diabetes Mellitus, Hypertension, Rt hip Replacement, Orthopedic Surgery, right hip I&D and revision (03/09/21) Patient she is awake and alert, she says she came because of her right hip infection. She states that her in 2019 she broke her hip and she got infected and after treatment she broke again 2020 and now is looks have similar problem. She has purulent discharge from the fistula and the lateral side of the right upper thigh. Patient denies other complaints. No chest pain or dyspnea. She denies smoking alcohol or illicit drugs Afebrile vitals stable Labs show leukocytosis 16.4 Hemoglobin 7.1, patient has history of anemia and hemoglobin fluctuating 6.5-10+ since beginning of 2021) last hemoglobin or system on 06/2022 was 7.9. Sodium 1:30, creatinine 2.0 which is elevated from baseline. On 03/30/22 creatinine was 1.59, before that it was 1.0-1. X-ray of the hip and pelvis showing no fracture Echocardiogram on 03/23/2020: Ejection fraction 55-60% with [id number] mitral and tricuspid regurgitation Review of Systems Review of systems CONSTITUTIONAL: No fever, no malaise, no fatigue. HEENT: No recent visual problems or hearing problems. Denied any sore throat. CARDIOVASCULAR: No orthopnea, PND, no palpitations, no syncope. PULMONARY: No shortness of breath, no cough, no hemoptysis. GASTROINTESTINAL: No diarrhea, no nausea, no vomiting, no abdominal pain. Normoactive bowel sounds. NEUROLOGICAL: No headaches, no weakness, no numbness. HEMATOLOGICAL: Denies any bleeding or petechiae. GENITOURINARY: Denies any burning micturition, frequency, or urgency. MUSCULOSKELETAL/RHEUMATOLOGICAL: Denies any joint pain, swelling, or any muscle pain. ENDOCRINE: Denies any polyuria or polydipsia. Past Medical History Past Medical History: Diabetes Mellitus, Eye Disorder, Hypertension, Renal Disease, Skin Disorder Additional Past Medical History / Comment(s): Has an "eye disorder with fluid behind eyes, gets injection in eyes every 4 weeks." Lesions on skin, sees a Assembly Inspector. History of Any Multi-Drug Resistant Organisms: None Reported Past Surgical History: Joint Replacement, Orthopedic Surgery Additional Past Surgical History / Comment(s): Right ankle surgery, right leg surgery, left shoulder replacement.rt hip replacement, right hip I&D and revision (03/09/21) Past Anesthesia/Blood Transfusion Reactions: No Reported Reaction Past Psychological History: No Psychological Hx Reported Smoking Status: Former smoker - Past Family History Sister(s) Family Medical History: Dementia Mother Family Medical History: Congestive Heart Failure (CHF) Additional Family Medical History / Comment(s): at 29 yrs old. Medications and Allergies Home Medications Medication Instructions Recorded Confirmed Type Metoprolol Succinate (ER) [Toprol 12.5 mg PO BID 03/13/20 11/30/22 History XL] Aspirin [Adult Low Dose Aspirin EC] 81 mg PO DAILY 07/30/20 11/30/22 History Ascorbic Acid [Vitamin C] 1,000 mg PO DAILY 03/09/21 11/30/22 History Cholecalciferol [Vitamin D3 (25 25 mcg PO DAILY 03/09/21 11/30/22 History Mcg = 1000 Iu)] Ferrous Sulfate [Iron (65 MG 162.5 mg PO BID 03/09/21 11/30/22 History Elemental)] Atorvastatin [Lipitor] 20 mg PO DAILY 05/05/22 11/30/22 History Ciprofloxacin HCl [Cipro] 250 mg PO DAILY 11/30/22 11/30/22 History Dapsone 100 mg PO DAILY PRN 11/30/22 11/30/22 History Docusate [Colace] 100 mg PO DAILY PRN 11/30/22 11/30/22 History Furosemide [Lasix] 20 mg PO Q48H 11/30/22 11/30/22 History Omeprazole [PriLOSEC] 20 mg PO DAILY 11/30/22 11/30/22 History calcitrioL [Calcitriol] 0.25 mcg PO FR 11/30/22 11/30/22 History metFORMIN HCL ER [Glucophage XR] 500 mg PO DAILY 11/30/22 11/30/22 History Allergies Allergy/AdvReac Type Severity Reaction Status Date / Time cefazolin Allergy Swelling Verified 11/30/22 16:00 gluten Allergy Rash/Hives Verified 11/30/22 16:00 Physical Exam Vitals: Vital Signs Temp Pulse Pulse Resp BP BP Pulse Ox 12/01/22 01:19 98.1 F 78 18 121/67 95 11/30/22 20:44 97.9 F 74 18 151/51 97 11/30/22 20:37 98.1 F 74 18 156/76 97 11/30/22 18:00 98.7 F 76 15 161/78 96 11/30/22 12:50 98.5 F 100 20 121/72 98 Intake and Output 11/30/22 12/01/22 12/01/22 22:59 06:59 14:59 Other: Voiding Method Toilet # Voids 1 # Bowel Movements 1 Weight 60.781 kg GENERAL: The patient is alert and oriented x3, not in any acute distress. Well developed, well nourished. HEENT: Pupils are round and equally reacting to light. EOMI. No scleral icterus. No conjunctival pallor. Normocephalic, atraumatic. No pharyngeal erythema. No thyromegaly. CARDIOVASCULAR: S1 and S2 present. No murmurs, rubs, or gallops. PULMONARY: Chest is clear to auscultation, no wheezing , no crackles. ABDOMEN: Soft, nontender, nondistended, normoactive bowel sounds. No palpable organomegaly. MUSCULOSKELETAL: No joint swelling or deformity. -EXTREMITIES: No cyanosis, clubbing, or pedal edema. open fistula on the lateral side with yellowish discharge. No surrounding cellulitis. No deformity NEUROLOGICAL: Gross neurological examination did not reveal any focal deficits. SKIN: No rashes. no petechiae. Results CBC & Chem 7: 11/30/22 14:18 11/30/22 14:18 Labs: Abnormal Lab Results - Last 24 Hours (Table) 11/30/22 11/30/22 11/30/22 Range/Units 14:18 14:18 14:18 WBC 16.4 H (3.8-10.6) k/uL RBC 2.32 L (3.80-5.40) m/uL Hgb 7.1 L (11.4-16.0) gm/dL Hct 22.9 L (34.0-46.0) % MCHC 30.9 L (31.0-37.0) g/dL RDW 16.3 H (11.5-15.5) % Neutrophils # 14.5 H (1.3-7.7) k/uL Sodium 130 L (137-145) mmol/L Potassium 5.2 H (3.5-5.1) mmol/L BUN 56 H (7-17) mg/dL Creatinine 2.03 H (0.52-1.04) mg/dL Glucose 330 H (74-99) mg/dL POC Glucose (mg/dL) (70-110) mg/dL Plasma Lactic Acid Adrian 2.1 H* (0.7-2.0) mmol/L Total Bilirubin 1.7 H (0.2-1.3) mg/dL C-Reactive Protein 21.0 H (<1.0) mg/dL Albumin 3.3 L (3.5-5.0) g/dL 12/01/22 Range/Units 06:29 WBC (3.8-10.6) k/uL RBC (3.80-5.40) m/uL Hgb (11.4-16.0) gm/dL Hct (34.0-46.0) % MCHC (31.0-37.0) g/dL RDW (11.5-15.5) % Neutrophils # (1.3-7.7) k/uL Sodium (137-145) mmol/L Potassium (3.5-5.1) mmol/L BUN (7-17) mg/dL Creatinine (0.52-1.04) mg/dL Glucose (74-99) mg/dL POC Glucose (mg/dL) 326 H (70-110) mg/dL Plasma Lactic Acid Adrian (0.7-2.0) mmol/L Total Bilirubin (0.2-1.3) mg/dL C-Reactive Protein (<1.0) mg/dL Albumin (3.5-5.0) g/dL Thrombosis Risk Factor Assmnt - Choose All That Apply Each Risk Factor Represents 3 Points: Age 75 years or older Thrombosis Risk Factor Assessment Total Risk Factor Score: 3 Thrombosis Risk Factor Assessment Level: Moderate Risk Assessment and Plan Assessment: Septic arthritis of the right hip, recurrent Sepsis secondary to above normochromic, normocytic anemia Chronic normocytic, normochromic anemia Acute kidney injury on chronic kidney disease stage III Hypertension Diabetes mellitus History of right hip replacement and history of infected right hip status post I&D and revision on 03/09/2021 Pulmonary hypertension Plan: Continue with antibiotic, currently with IV daptomycin as per ID team will follow the case closely. Follow-up culture results Orthopedic team consult Start normal saline at 75 mL/h Follow-up creatinine. Check bladder scan. Check hemoglobin A1c, monitor glucose with insulin sliding scale Labs and medication were reviewed.. Continue same treatment. Continue with symptomatic treatment. Resume home medication. Monitor labs and vitals. DVT and GI prophylaxis. Further recommendations as per clinical course of the patient DVT prophylaxis: Subcutaneous heparin GI Prophylaxis: Pepcid PT/OT: deferred Prognosis is guarded
[2022-12-01 11:21] LABS: Basophils # (A) 0.02 X 10*3/uL (0.00-0.10); Basophils % (A) 0.2 %; Eosinophils # (A) 0.06 X 10*3/uL (0.04-0.35); Eosinophils % (A) 0.5 %; HCT 19.5 % (37.2-46.3); HGB 5.8 d/dL (12.0-15.0); Lymphocytes # (A) 1.06 X 10*3/uL (0.90-5.00); MCH 29.4 pg (27.0-32.0); MCHC 29.7 d/dL (32.0-37.0); Mean Platelet Volume 10.3 FL (9.5-12.2); Monocytes % (A) 5.1 %; NRBC Per 100 WBC 0 X 10*3/uL (0.00-0.01); Neutrophils # (A) 9.89 X 10*3/uL (1.80-7.70); Neutrophils % (A) 84.4 %; Platelet Count 287 X 10*3/uL (140-440); RBC 1.97 X 10*6/uL (4.10-5.20); RDW 17.2 % (11.5-14.5); WBC 11.72 X 10*3/uL (4.50-10.00)
[2022-12-01 11:34] LABS: Erythrocyte Sedimentation Rate 26 mm/Hr (0-30)
[2022-12-01 11:36] LABS: Glucose,Whole Blood 238 mg/dL (70-110)
[2022-12-01 12:00] VITALS: BMI 20.9
[2022-12-01] MEDS ORDERED: VANCOMYCIN 1,000 MG in SODIUM CHLORIDE 0.9% 250 ML IVPB ONE (12:00)
--- NOTE | 2022-12-01 14:54 | P.PN ---
Subjective Progress Note Date: 12/01/22 Principal diagnosis: Right hip septic arthritis Patient is a 81-year-old female with a past medical history significant for diabetes mellitus hypertension patient also have a hip history of right hip septic arthritis and this patient was status post I&D and exchange of the femoral head that was done in March 2021 , patient presented to hospital with reopening of the right hip incision wound and drainage. On today's evaluation and that is12/01/2022, the patient remains to be afebrile, , the patient is breathing comfortably on room air , the patient denies chest pain shortness of breath or cough, patient denies nausea / vomiting and no abdominal pain , no diarrhea reported, the patient denies having any worsening pain to the right hip area Patient did have white count of 11.72, creatinine is 2.0, cultures are currently pending Objective - Vital Signs Vital signs: Vital Signs Temp 97.8 F 12/01/22 07:44 Pulse 67 12/01/22 07:44 Resp 17 12/01/22 07:44 BP 94/57 12/01/22 07:44 Pulse Ox 94 L 12/01/22 07:44 FiO2 Intake & Output 11/30/22 12/01/22 12/01/22 18:59 06:59 18:59 Weight 60.781 kg 60.781 kg 60.781 kg Other: Voiding Method Toilet # Voids 1 # Bowel Movements 1 - Exam GENERAL DESCRIPTION: An elderly female lying in bed in no distress RESPIRATORY SYSTEM: Unlabored breathing , decreased breath sounds at bases HEART: S1 S2 regular rate and rhythm , ABDOMEN: Soft , no tenderness EXTREMITIES: No edema feet - Labs CBC & Chem 7: 12/01/22 07:05 12/01/22 07:05 Labs: Abnormal Lab Results - Last 24 Hours (Table) 11/30/22 11/30/22 11/30/22 Range/Units 14:18 14:18 14:18 WBC 16.4 H (3.8-10.6) k/uL RBC 2.32 L (3.80-5.40) m/uL Hgb 7.1 L (11.4-16.0) gm/dL Hct 22.9 L (34.0-46.0) % MCV (80.0-97.0) FL MCHC 30.9 L (31.0-37.0) g/dL RDW 16.3 H (11.5-15.5) % Neutrophils # 14.5 H (1.3-7.7) k/uL Sodium 130 L (137-145) mmol/L Potassium 5.2 H (3.5-5.1) mmol/L BUN 56 H (7-17) mg/dL Creatinine 2.03 H (0.52-1.04) mg/dL Est GFR (CKD-EPI) (>=60) BUN/Creatinine Ratio (12.00-20.00) Ratio Glucose 330 H (74-99) mg/dL POC Glucose (mg/dL) (70-110) mg/dL Plasma Lactic Acid Adrian 2.1 H* (0.7-2.0) mmol/L Calcium (8.7-10.3) mg/dL Total Bilirubin 1.7 H (0.2-1.3) mg/dL AST (13-35) U/L ALT (8-44) U/L C-Reactive Protein 21.0 H (<1.0) mg/dL Total Protein (6.2-8.2) d/dL Albumin 3.3 L (3.5-5.0) g/dL Albumin/Globulin Ratio (1.60-3.17) Ratio Crossmatch 12/01/22 12/01/22 12/01/22 Range/Units 06:29 07:05 07:05 WBC 11.72 H (3.8-10.6) k/uL RBC 1.97 L (3.80-5.40) m/uL Hgb 5.8 H* (11.4-16.0) gm/dL Hct 19.5 H* (34.0-46.0) % MCV 99.0 H (80.0-97.0) FL MCHC 29.7 L (31.0-37.0) g/dL RDW 17.2 H (11.5-15.5) % Neutrophils # 9.89 H (1.3-7.7) k/uL Sodium 132 L (137-145) mmol/L Potassium (3.5-5.1) mmol/L BUN 58.4 H (7-17) mg/dL Creatinine 2.0 H (0.52-1.04) mg/dL Est GFR (CKD-EPI) 24 L (>=60) BUN/Creatinine Ratio 29.20 H (12.00-20.00) Ratio Glucose 259 H (74-99) mg/dL POC Glucose (mg/dL) 326 H (70-110) mg/dL Plasma Lactic Acid Adrian (0.7-2.0) mmol/L Calcium 8.5 L (8.7-10.3) mg/dL Total Bilirubin (0.2-1.3) mg/dL AST 8 L (13-35) U/L ALT 6 L (8-44) U/L C-Reactive Protein 15.20 H (<1.0) mg/dL Total Protein 5.8 L (6.2-8.2) d/dL Albumin 3.2 L (3.5-5.0) g/dL Albumin/Globulin Ratio 1.23 L (1.60-3.17) Ratio Crossmatch 12/01/22 12/01/22 Range/Units 11:34 11:35 WBC (3.8-10.6) k/uL RBC (3.80-5.40) m/uL Hgb (11.4-16.0) gm/dL Hct (34.0-46.0) % MCV (80.0-97.0) FL MCHC (31.0-37.0) g/dL RDW (11.5-15.5) % Neutrophils # (1.3-7.7) k/uL Sodium (137-145) mmol/L Potassium (3.5-5.1) mmol/L BUN (7-17) mg/dL Creatinine (0.52-1.04) mg/dL Est GFR (CKD-EPI) (>=60) BUN/Creatinine Ratio (12.00-20.00) Ratio Glucose (74-99) mg/dL POC Glucose (mg/dL) 238 H (70-110) mg/dL Plasma Lactic Acid Adrian (0.7-2.0) mmol/L Calcium (8.7-10.3) mg/dL Total Bilirubin (0.2-1.3) mg/dL AST (13-35) U/L ALT (8-44) U/L C-Reactive Protein (<1.0) mg/dL Total Protein (6.2-8.2) d/dL Albumin (3.5-5.0) g/dL Albumin/Globulin Ratio (1.60-3.17) Ratio Crossmatch See Detail Microbiology - Last 24 Hours (Table) 11/30/22 14:38 Gram Stain - Preliminary Hip - Right Assessment and Plan (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 Current Visit: Yes Status: Acute Code(s): T84.51XA - INFECT/INFLM REACTION DUE TO INTERNAL RIGHT HIP PROSTH, INIT SNOMED Code(s): 565995377 Plan: 1patient presented hospital with a increasing pain to the right hip in addition to the reopening of the right hip wound and drainage high clinical suspicious for right hip septic arthritis with a previous culture positive for MSSA 2-cefazolin allergy therapy limit the number of antibiotics safe to use 3-renal insufficiency high risk of nephrotoxicity from vancomycin 4Patient has been evaluated by Ortho with a plan for surgery on Monday morning 5Patient to continue with daptomycin while waiting for the culture to finalize Dictation was produced using paOnde dictation software. please excuse any grammatical, word or spelling errors. Time with Patient: Less than 30
--- NOTE | 2022-12-01 16:02 | P.CNOR ---
History of Present Illness - HPI Consult date: 12/01/22 History of present illness: Patient is an 7-year-old female who presented to the hospital due to worsening infection/drainage from the right hip. Patient did have revision right total hip arthroplasty in March [address] Apodaca with incision and drainage exchange of femoral head and acetabular liner. Patient was seen at [facility] this morning lying semirecumbent position. Patient says she has been following up at wound care center and recently the amount of drainage and frequency of need for dressing changes has increased. Patient mentions there is a brown type of discharge from the top portion of the incision. Patient denies having any significant fever/chills. Patient mentions the pain has increased some. Patient is currently been on ciprofloxacin daily to help control the infection. Patient denies any other issues at this time. Patient says she does ambulate at home and she is able to manage the pain when she ambulates. Patient denies any significant chest pain, fever, shortness breath, nausea, vomiting, change in vision, loss of bowel/bladder control. Past Medical History Past Medical History: Diabetes Mellitus, Eye Disorder, Hypertension, Renal Disease, Skin Disorder Additional Past Medical History / Comment(s): Has an "eye disorder with fluid behind eyes, gets injection in eyes every 4 weeks." Lesions on skin, sees a Computer Graphic Artist. History of Any Multi-Drug Resistant Organisms: None Reported Past Surgical History: Joint Replacement, Orthopedic Surgery Additional Past Surgical History / Comment(s): Right ankle surgery, right leg surgery, left shoulder replacement.rt hip replacement, right hip I&D and revision (03/09/21) Past Anesthesia/Blood Transfusion Reactions: No Reported Reaction Past Psychological History: No Psychological Hx Reported Smoking Status: Former smoker - Past Family History Sister(s) Family Medical History: Dementia Mother Family Medical History: Congestive Heart Failure (CHF) Additional Family Medical History / Comment(s): at 29 yrs old. Medications and Allergies Home Medications Medication Instructions Recorded Confirmed Type Metoprolol Succinate (ER) [Toprol 12.5 mg PO BID 03/13/20 11/30/22 History XL] Aspirin [Adult Low Dose Aspirin EC] 81 mg PO DAILY 07/30/20 11/30/22 History Ascorbic Acid [Vitamin C] 1,000 mg PO DAILY 03/09/21 11/30/22 History Cholecalciferol [Vitamin D3 (25 25 mcg PO DAILY 03/09/21 11/30/22 History Mcg = 1000 Iu)] Ferrous Sulfate [Iron (65 MG 162.5 mg PO BID 03/09/21 11/30/22 History Elemental)] Atorvastatin [Lipitor] 20 mg PO DAILY 05/05/22 11/30/22 History Ciprofloxacin HCl [Cipro] 250 mg PO DAILY 11/30/22 11/30/22 History Dapsone 100 mg PO DAILY PRN 11/30/22 11/30/22 History Docusate [Colace] 100 mg PO DAILY PRN 11/30/22 11/30/22 History Furosemide [Lasix] 20 mg PO Q48H 11/30/22 11/30/22 History Omeprazole [PriLOSEC] 20 mg PO DAILY 11/30/22 11/30/22 History calcitrioL [Calcitriol] 0.25 mcg PO FR 11/30/22 11/30/22 History metFORMIN HCL ER [Glucophage XR] 500 mg PO DAILY 11/30/22 11/30/22 History Allergies Allergy/AdvReac Type Severity Reaction Status Date / Time cefazolin Allergy Swelling Verified 11/30/22 16:00 gluten Allergy Rash/Hives Verified 11/30/22 16:00 Physical Examination Inspection: Brown purulent discharge evident from the superior portion of the incision measuring about 1 cm in length. Rest of the incision does look well- healed at this time. Minimal swelling. There is some erythema surrounding the open portion of the incision. Negative for any open fractures, significant ecchymosis/other wounds Sensation: Equal, symmetric, bilateral intact at the upper and lower extremities. Range of motion: Patient has full range of motion throughout bilateral upper extremities on exam. There is some minimal limited range of motion in the right hip secondary to referred pain to the right hip. Full range of motion throughout rest of lower extremities. Motor: 4/5 in resisted right hip flexion/extension. 4+/5 in all other major motor is in bilateral lower and upper extremities. Palpation: Fair to moderate amount of tenderness to palpation over the superior portion of the incision near the drainage. Nontender to palpation throughout rest of exam. Special tests: Negative log roll maneuver. Negative Homans. Neurovascular status: Radial pulses intact, 2+ bilaterally. Skin is lukewarm to touch in the right lower extremity. DP pulses palpable. Cap refill under 3 seconds in digits of upper extremities. Results - Labs Labs: Abnormal Lab Results - Last 24 Hours (Table) 11/30/22 11/30/22 11/30/22 Range/Units 14:18 14:18 14:18 WBC 16.4 H (3.8-10.6) k/uL RBC 2.32 L (3.80-5.40) m/uL Hgb 7.1 L (11.4-16.0) gm/dL Hct 22.9 L (34.0-46.0) % MCHC 30.9 L (31.0-37.0) g/dL RDW 16.3 H (11.5-15.5) % Neutrophils # 14.5 H (1.3-7.7) k/uL Sodium 130 L (137-145) mmol/L Potassium 5.2 H (3.5-5.1) mmol/L BUN 56 H (7-17) mg/dL Creatinine 2.03 H (0.52-1.04) mg/dL Glucose 330 H (74-99) mg/dL POC Glucose (mg/dL) (70-110) mg/dL Plasma Lactic Acid Adrian 2.1 H* (0.7-2.0) mmol/L Total Bilirubin 1.7 H (0.2-1.3) mg/dL C-Reactive Protein 21.0 H (<1.0) mg/dL Albumin 3.3 L (3.5-5.0) g/dL 12/01/22 Range/Units 06:29 WBC (3.8-10.6) k/uL RBC (3.80-5.40) m/uL Hgb (11.4-16.0) gm/dL Hct (34.0-46.0) % MCHC (31.0-37.0) g/dL RDW (11.5-15.5) % Neutrophils # (1.3-7.7) k/uL Sodium (137-145) mmol/L Potassium (3.5-5.1) mmol/L BUN (7-17) mg/dL Creatinine (0.52-1.04) mg/dL Glucose (74-99) mg/dL POC Glucose (mg/dL) 326 H (70-110) mg/dL Plasma Lactic Acid Adrian (0.7-2.0) mmol/L Total Bilirubin (0.2-1.3) mg/dL C-Reactive Protein (<1.0) mg/dL Albumin (3.5-5.0) g/dL Microbiology - Last 24 Hours (Table) 11/30/22 14:38 Gram Stain - Preliminary Hip - Right H & H 11/30/22 Range/Units 14:18 Hgb 7.1 L (11.4-16.0) gm/dL Hct 22.9 L (34.0-46.0) % Result Diagrams: 12/01/22 07:05 12/01/22 07:05 - Diagnostic results Hip x-ray: report reviewed, image reviewed (X-ray of the right hip and pelvis does reveal right total hip arthroplasty in place. Negative for any acute fracture/dislocation. Compared to old exams there is no evident change in position of the implant.) Assessment and Plan Assessment: 1. Right hip septic arthritis/infection Plan: 1. Right hip septic arthritis/infection - patient was examined at bedside this morning. I did discuss the findings of the imaging with my attending, Dr. Apodaca and discussed potential intervention with the patient. X-ray of the right hip and pelvis does reveal right total hip arthroplasty in place. Negative for any acute fracture/dislocation. Compared to old exams there is no evident change in position of the implant. At this time we are recommending surgical intervention in the form of revision right total hip arthroplasty and insertion of antibiotic spacer due to the patient's continued infection which has not been able to be controlled with oral antibiotics. The patient is aware the risks of surgery versus not performing surgery. Surgery has been scheduled for 12/03/2022. With hold blood thinners at this time. Weight-bear as tolerated with walker and assistance. Pain medication as needed. Antibiotics per medicine/infectious disease. We will continue to follow patient during her stay in hospital. 2. Appreciate medical and ID management 3. Pain management - [place] 4. GI prophylaxis - Colace; Pepcid 5. DVT prophylaxis - with hold blood thinners at this time. 6. PT/OT - weightbearing as tolerated with walker and assistance 7. Encourage incentive spirometer use 8. Appreciate consult Time with Patient: Less than 30
[2022-12-01 17:27] LABS: Glucose,Whole Blood 438 mg/dL (70-110)
[2022-12-01 19:54] LABS: Glucose,Whole Blood 351 mg/dL (70-110)
[2022-12-02 05:43] LABS: Glucose,Whole Blood 235 mg/dL (70-110)
[2022-12-02] MEDS: SODIUM CHLORIDE 0.9% 1,000 ML IV SCH ×3 (06:48→21:18)
[2022-12-02] MEDS: INSULIN ASPART (NovoLOG) 100 UNIT/ML VIAL SQ SCH ×4 (06:52→21:14)
[2022-12-02] MEDS: ASPIRIN 81 MG PO SCH (08:51)
[2022-12-02] MEDS: METOPROLOL SUCCINATE (ER) 25 MG TAB.ER.24H PO SCH ×2 (08:54→21:14)
[2022-12-02] MEDS: FERROUS SULFATE 325 MG TAB PO SCH ×2 (08:54→21:13)
[2022-12-02] MEDS: FAMOTIDINE 20 MG/2 ML VIAL IV SCH (08:55)
[2022-12-02] MEDS: HEPARIN SODIUM,PORCINE 5,000 UNIT/ML 1 ML VIAL SQ SCH ×2 (09:02→21:14)
--- NOTE | 2022-12-02 10:37 | P.PN ---
Subjective Progress Note Date: 12/02/22 Principal diagnosis: Right hip septic arthritis/infection Patient was seen at bedside this morning lying semirecumbent position with dressing over right hip. Patient says she is aware that her hemoglobin is low. Patient mentions she did receive blood yesterday. Patient denies any lightheadedness/dizziness/fatigue. Patient says she does live with her hemoglobin on the low and. Patient says her brother was planning to come to visit her later today. Patient denies any other changes at this time and is aware and planning for surgery this weekend. Patient denies chest pain, fever, shortness of breath, nausea, vomiting, change in vision, loss of bowel/bladder control. Objective - Vital Signs Vital signs: Vital Signs Temp 98.7 F 12/02/22 07:06 Pulse 67 12/02/22 07:06 Resp 16 12/02/22 07:06 BP 131/57 12/02/22 07:06 Pulse Ox 96 12/02/22 07:06 FiO2 Intake & Output 12/01/22 12/02/22 12/02/22 18:59 06:59 18:59 Intake Total 960 0 Balance 960 0 Weight 60.781 kg Intake: Intake, IV Titration 650 Amount DAPTOmycin 350 mg In 50 Sodium Chloride 0.9% 50 ml @ 100 mls/hr IVPB Q48H [facility] Rx#:[id number] Sodium Chloride 0.9% 1, 600 000 ml @ 75 mls/hr IV . [id number] [facility] Rx#:[id number] Blood Product 310 0 Rc As-1 Unit 0 0 [id number] Rc As-1 Unit 310 [id number] Other: Voiding Method Toilet # Voids 2 - Exam Inspection: Brown purulent discharge evident from the superior portion of the incision measuring about 1 cm in length. Rest of the incision does look well- healed at this time. Minimal swelling. There is some erythema surrounding the open portion of the incision. Negative for any open fractures, significant ecchymosis/other wounds Sensation: Equal, symmetric, bilateral intact at the upper and lower extremities. Range of motion: Patient has full range of motion throughout bilateral upper extremities on exam. There is some minimal limited range of motion in the right hip secondary to referred pain to the right hip. Full range of motion throughout rest of lower extremities. Motor: 4/5 in resisted right hip flexion/extension. 4+/5 in all other major motor is in bilateral lower and upper extremities. Palpation: Fair to moderate amount of tenderness to palpation over the superior portion of the incision near the drainage. Nontender to palpation throughout rest of exam. Special tests: Negative log roll maneuver. Negative Homans. Neurovascular status: Radial pulses intact, 2+ bilaterally. Skin is lukewarm to touch in the right lower extremity. DP pulses palpable. Cap refill under 3 seconds in digits of upper extremities. - Labs CBC & Chem 7: 12/01/22 07:05 12/01/22 07:05 Labs: Abnormal Lab Results - Last 24 Hours (Table) 12/01/22 12/01/22 12/01/22 Range/Units 07:05 07:05 11:34 WBC 11.72 H (4.50-10.00) X 10*3/uL RBC 1.97 L (4.10-5.20) X 10*6/uL Hgb 5.8 H* (12.0-15.0) d/dL Hct 19.5 H* (37.2-46.3) % MCV 99.0 H (80.0-97.0) FL MCHC 29.7 L (32.0-37.0) d/dL RDW 17.2 H (11.5-14.5) % Neutrophils # 9.89 H (1.80-7.70) X 10*3/uL Sodium 132 L (135-145) mmol/L BUN 58.4 H (9.0-27.0) mg/dL Creatinine 2.0 H (0.6-1.5) mg/dL Est GFR (CKD-EPI) 24 L (>=60) BUN/Creatinine Ratio 29.20 H (12.00-20.00) Ratio Glucose 259 H (70-110) mg/dL POC Glucose (mg/dL) 238 H (70-110) mg/dL Calcium 8.5 L (8.7-10.3) mg/dL AST 8 L (13-35) U/L ALT 6 L (8-44) U/L C-Reactive Protein 15.20 H (0.00-0.80) mg/dL Total Protein 5.8 L (6.2-8.2) d/dL Albumin 3.2 L (3.8-4.9) d/dL Albumin/Globulin Ratio 1.23 L (1.60-3.17) Ratio Crossmatch 12/01/22 12/01/22 12/01/22 Range/Units 11:35 17:24 19:51 WBC (4.50-10.00) X 10*3/uL RBC (4.10-5.20) X 10*6/uL Hgb (12.0-15.0) d/dL Hct (37.2-46.3) % MCV (80.0-97.0) FL MCHC (32.0-37.0) d/dL RDW (11.5-14.5) % Neutrophils # (1.80-7.70) X 10*3/uL Sodium (135-145) mmol/L BUN (9.0-27.0) mg/dL Creatinine (0.6-1.5) mg/dL Est GFR (CKD-EPI) (>=60) BUN/Creatinine Ratio (12.00-20.00) Ratio Glucose (70-110) mg/dL POC Glucose (mg/dL) 438 H 351 H (70-110) mg/dL Calcium (8.7-10.3) mg/dL AST (13-35) U/L ALT (8-44) U/L C-Reactive Protein (0.00-0.80) mg/dL Total Protein (6.2-8.2) d/dL Albumin (3.8-4.9) d/dL Albumin/Globulin Ratio (1.60-3.17) Ratio Crossmatch See Detail 12/02/22 Range/Units 05:42 WBC (4.50-10.00) X 10*3/uL RBC (4.10-5.20) X 10*6/uL Hgb (12.0-15.0) d/dL Hct (37.2-46.3) % MCV (80.0-97.0) FL MCHC (32.0-37.0) d/dL RDW (11.5-14.5) % Neutrophils # (1.80-7.70) X 10*3/uL Sodium (135-145) mmol/L BUN (9.0-27.0) mg/dL Creatinine (0.6-1.5) mg/dL Est GFR (CKD-EPI) (>=60) BUN/Creatinine Ratio (12.00-20.00) Ratio Glucose (70-110) mg/dL POC Glucose (mg/dL) 235 H (70-110) mg/dL Calcium (8.7-10.3) mg/dL AST (13-35) U/L ALT (8-44) U/L C-Reactive Protein (0.00-0.80) mg/dL Total Protein (6.2-8.2) d/dL Albumin (3.8-4.9) d/dL Albumin/Globulin Ratio (1.60-3.17) Ratio Crossmatch Microbiology - Last 24 Hours (Table) 11/30/22 14:38 Gram Stain - Preliminary Hip - Right Wound Culture - Preliminary Presumptive Staph aureus 11/30/22 14:15 Blood Culture - Preliminary Blood 11/30/22 14:00 Blood Culture - Preliminary Blood Assessment and Plan Assessment: 1. Right hip septic arthritis/infection Plan: 1. Right hip septic arthritis/infection - patient was examined at bedside this morning. At this time we are recommending surgical intervention in the form of revision right total hip arthroplasty and insertion of antibiotic spacer due to the patient's continued infection which has not been able to be controlled with oral antibiotics. The patient is aware the risks of surgery versus not performing surgery. Surgery has been scheduled for 12/03/2022. Patient Hb was 5.8 yesterday and given PRBCs yesterday. New labs drawn this morning and pending. With hold blood thinners at this time. Weight-bear as tolerated with walker and assistance. Pain medication as needed. Antibiotics per medicine/infectious disease. NPO after midnight tonight. We will continue to follow patient during her stay in hospital. 2. Appreciate medical and ID management 3. Pain management - [place] 4. GI prophylaxis - Colace; Pepcid 5. DVT prophylaxis - with hold blood thinners at this time. 6. PT/OT - weightbearing as tolerated with walker and assistance 7. Encourage incentive spirometer use 8. Appreciate consult Time with Patient: Less than 30
[2022-12-02 11:21] LABS: BUN/Creat Ratio 30.24 Ratio (12.00-20.00); Blood Urea Nitrogen 51.4 mg/dL (9.0-27.0); Calcium 8.4 mg/dL (8.7-10.3); Carbon Dioxide 21.3 mmol/L (21.6-31.8); Chloride 101 mmol/L (96-109); Glucose 203 mg/dL (70-110); Sodium 132 mmol/L (135-145)
[2022-12-02 11:33] LABS: Basophils # (A) 0.05 X 10*3/uL (0.00-0.10); Basophils % (A) 0.3 %; Eosinophils # (A) 0.05 X 10*3/uL (0.04-0.35); Eosinophils % (A) 0.3 %; HCT 28.6 % (37.2-46.3); HGB 8.9 d/dL (12.0-15.0); Lymphocytes # (A) 1.56 X 10*3/uL (0.90-5.00); Lymphocytes % (A) 10.6 %; MCH 28.8 pg (27.0-32.0); MCHC 31.1 d/dL (32.0-37.0); MCV 92.6 FL (80.0-97.0); Mean Platelet Volume 10.2 FL (9.5-12.2); Monocytes # (A) 1.14 X 10*3/uL (0.20-1.00); Monocytes % (A) 7.7 %; NRBC Per 100 WBC 0 X 10*3/uL (0.00-0.01); Neutrophils # (A) 11.85 X 10*3/uL (1.80-7.70); Neutrophils % (A) 80.3 %; Platelet Count 261 X 10*3/uL (140-440); RBC 3.09 X 10*6/uL (4.10-5.20); RDW 18.3 % (11.5-14.5); WBC 14.77 X 10*3/uL (4.50-10.00)
[2022-12-02 11:48] LABS: Glucose,Whole Blood 389 mg/dL (70-110)
--- NOTE | 2022-12-02 12:05 | P.PN ---
Subjective Progress Note Date: 12/02/22 Principal diagnosis: Right hip septic arthritis Patient is a 81-year-old female with a past medical history significant for diabetes mellitus hypertension patient also have a hip history of right hip septic arthritis and this patient was status post I&D and exchange of the femoral head that was done in March 2021 , patient presented to hospital with reopening of the right hip incision wound and drainage. On today's evaluation and that is 12/02/2022, the patient continues to be afebrile, , the patient is breathing comfortably on room air , the patient denies chest pain shortness or cough, patient denies nausea / vomiting and no diarrhea, denies having any abdominal pain, the patient pain to the right hip area is controlled, and some pain to the right lower extremity Patient did have white count of 14.77, creatinine is 1.7, local culture was staph aureus , blood cultures pending Objective - Vital Signs Vital signs: Vital Signs Temp 98.7 F 12/02/22 07:06 Pulse 67 12/02/22 07:06 Resp 16 12/02/22 07:06 BP 131/57 12/02/22 07:06 Pulse Ox 96 12/02/22 07:06 FiO2 Intake & Output 12/01/22 12/02/22 12/02/22 18:59 06:59 18:59 Intake Total 960 0 Balance 960 0 Weight 60.781 kg Intake: Intake, IV Titration 650 Amount DAPTOmycin 350 mg In 50 Sodium Chloride 0.9% 50 ml @ 100 mls/hr IVPB Q48H [facility] Rx#:[id number] Sodium Chloride 0.9% 1, 600 000 ml @ 75 mls/hr IV . [id number] [facility] Rx#:[id number] Blood Product 310 0 Rc As-1 Unit 0 0 [id number] Rc As-1 Unit 310 [id number] Other: Voiding Method Toilet # Voids 2 - Exam GENERAL DESCRIPTION: An elderly female lying in bed in no distress RESPIRATORY SYSTEM: Unlabored breathing , decreased breath sounds at bases HEART: S1 S2 regular rate and rhythm , ABDOMEN: Soft , no tenderness EXTREMITIES: No edema feet - Labs CBC & Chem 7: 12/02/22 06:20 12/02/22 06:20 Labs: Abnormal Lab Results - Last 24 Hours (Table) 12/01/22 12/01/22 12/01/22 Range/Units 11:35 17:24 19:51 WBC (4.50-10.00) X 10*3/uL RBC (4.10-5.20) X 10*6/uL Hgb (12.0-15.0) d/dL Hct (37.2-46.3) % MCHC (32.0-37.0) d/dL RDW (11.5-14.5) % Neutrophils # (1.80-7.70) X 10*3/uL Monocytes # (0.20-1.00) X 10*3/uL Sodium (135-145) mmol/L Carbon Dioxide (21.6-31.8) mmol/L BUN (9.0-27.0) mg/dL Creatinine (0.6-1.5) mg/dL Est GFR (CKD-EPI) (>=60) BUN/Creatinine Ratio (12.00-20.00) Ratio Glucose (70-110) mg/dL POC Glucose (mg/dL) 438 H 351 H (70-110) mg/dL Calcium (8.7-10.3) mg/dL Crossmatch See Detail 12/02/22 12/02/22 12/02/22 Range/Units 05:42 06:20 06:20 WBC 14.77 H (4.50-10.00) X 10*3/uL RBC 3.09 L (4.10-5.20) X 10*6/uL Hgb 8.9 L (12.0-15.0) d/dL Hct 28.6 L (37.2-46.3) % MCHC 31.1 L (32.0-37.0) d/dL RDW 18.3 H (11.5-14.5) % Neutrophils # 11.85 H (1.80-7.70) X 10*3/uL Monocytes # 1.14 H (0.20-1.00) X 10*3/uL Sodium 132 L (135-145) mmol/L Carbon Dioxide 21.3 L (21.6-31.8) mmol/L BUN 51.4 H (9.0-27.0) mg/dL Creatinine 1.7 H (0.6-1.5) mg/dL Est GFR (CKD-EPI) 30 L (>=60) BUN/Creatinine Ratio 30.24 H (12.00-20.00) Ratio Glucose 203 H (70-110) mg/dL POC Glucose (mg/dL) 235 H (70-110) mg/dL Calcium 8.4 L (8.7-10.3) mg/dL Crossmatch 12/02/22 Range/Units 11:46 WBC (4.50-10.00) X 10*3/uL RBC (4.10-5.20) X 10*6/uL Hgb (12.0-15.0) d/dL Hct (37.2-46.3) % MCHC (32.0-37.0) d/dL RDW (11.5-14.5) % Neutrophils # (1.80-7.70) X 10*3/uL Monocytes # (0.20-1.00) X 10*3/uL Sodium (135-145) mmol/L Carbon Dioxide (21.6-31.8) mmol/L BUN (9.0-27.0) mg/dL Creatinine (0.6-1.5) mg/dL Est GFR (CKD-EPI) (>=60) BUN/Creatinine Ratio (12.00-20.00) Ratio Glucose (70-110) mg/dL POC Glucose (mg/dL) 389 H (70-110) mg/dL Calcium (8.7-10.3) mg/dL Crossmatch Microbiology - Last 24 Hours (Table) 11/30/22 14:38 Gram Stain - Preliminary Hip - Right Wound Culture - Preliminary Presumptive Staph aureus 11/30/22 14:15 Blood Culture - Preliminary Blood 11/30/22 14:00 Blood Culture - Preliminary Blood Assessment and Plan (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 Current Visit: Yes Status: Acute Code(s): T84.51XA - INFECT/INFLM REACTION DUE TO INTERNAL RIGHT HIP PROSTH, INIT SNOMED Code(s): 262125731 Plan: 1patient presented hospital with a increasing pain to the right hip in addition to the reopening of the right hip wound and drainage high clinical suspicious for right hip septic arthritis with a previous culture positive for MSSA 2-cefazolin allergy therapy limit the number of antibiotics safe to use 3-renal insufficiency high risk of nephrotoxicity from vancomycin, patient did have improvement in her creatinine 4Patient has been evaluated by Ortho with a plan for surgery on Monday morning 5Patient to continue with daptomycin however does need to be adjusted up to every 24-hour as the patient did have improvement in the kidney function and the white count is trending up discussed with the pharmacy Dictation was produced using [employer] dictation software. please excuse any grammatical, word or spelling errors. Time with Patient: Less than 30
[2022-12-02 16:40] LABS: Glucose,Whole Blood 322 mg/dL (70-110)
[2022-12-02 20:41] LABS: Glucose,Whole Blood 340 mg/dL (70-110)
[2022-12-02] MEDS: ACETAMINOPHEN TAB 325 MG TAB PO PRN (21:14)
[2022-12-02] MEDS: HYDROcodone/APAP 5-325MG 1 EACH TAB PO PRN (23:40)
[2022-12-03 05:54] LABS: Glucose,Whole Blood 232 mg/dL (70-110)
[2022-12-03] MEDS: HYDROcodone/APAP 5-325MG 1 EACH TAB PO PRN ×2 (06:37→20:28)
[2022-12-03] MEDS: INSULIN ASPART (NovoLOG) 100 UNIT/ML VIAL SQ SCH ×4 (06:37→21:08)
[2022-12-03 07:15] LABS: Anisocytosis Slight; Basophils % (A) 0 %; Eosinophils # (A) 0.1 k/uL (0-0.7); Eosinophils % (A) 1 %; HCT 25.8 % (34.0-46.0); HGB 8.4 gm/dL (11.4-16.0); Hypochromasia Marked; Lymphocytes # (A) 1.5 k/uL (1.0-4.8); Lymphocytes % (A) 12 %; MCH 31.8 pg (25.0-35.0); MCHC 32.7 g/dL (31.0-37.0); MCV 97.4 fL (80.0-100.0); Macrocytosis Slight; Mean Platelet Volume 8.7; Monocytes # (A) 0.7 k/uL (0-1.0); Monocytes % (A) 5 %; Neutrophils # (A) 10.1 k/uL (1.3-7.7); Neutrophils % (A) 81 %; Platelet Count 242 k/uL (150-450); Poikilocytosis Slight; RBC 2.65 m/uL (3.80-5.40); RDW 16.6 % (11.5-15.5); WBC 12.6 k/uL (3.8-10.6)
[2022-12-03] MEDS: METOPROLOL SUCCINATE (ER) 25 MG TAB.ER.24H PO SCH ×2 (08:40→21:08)
[2022-12-03] MEDS: FERROUS SULFATE 325 MG TAB PO SCH ×2 (08:40→21:08)
[2022-12-03] MEDS: DAPTOmycin 350 MG in SODIUM CHLORIDE 0.9% 50 ML IVPB SCH (08:41)
[2022-12-03] MEDS: FAMOTIDINE 20 MG/2 ML VIAL IV SCH (08:41)
[2022-12-03] MEDS: ASPIRIN 81 MG PO SCH (08:41)
[2022-12-03] MEDS: HEPARIN SODIUM,PORCINE 5,000 UNIT/ML 1 ML VIAL SQ SCH ×2 (08:41→21:07)
--- NOTE | 2022-12-03 11:06 | P.PN ---
Subjective Progress Note Date: 12/03/22 Principal diagnosis: Right hip septic arthritis/infection Patient was seen at bedside this morning lying semirecumbent position with dressing over right hip. Patient says she is aware that surgery is tomorrow morning and is planning for it. Patient says her brother will be here with her as well. Patient denies any lightheadedness/dizziness/fatigue. Patient denies any other changes at this time and is aware and planning for surgery this weekend. Patient denies chest pain, fever, shortness of breath, nausea, vomiting, change in vision, loss of bowel/bladder control. Objective - Vital Signs Vital signs: Vital Signs Temp 98.6 F 12/03/22 07:28 Pulse 66 12/03/22 07:28 Resp 16 12/03/22 07:28 BP 128/49 12/03/22 07:28 Pulse Ox 97 12/03/22 07:28 FiO2 Intake & Output 12/02/22 12/03/22 12/03/22 18:59 06:59 18:59 Intake Total 650 Balance 650 Weight 60.781 kg Intake: Intake, IV Titration 650 Amount DAPTOmycin 350 mg In 50 Sodium Chloride 0.9% 50 ml @ 100 mls/hr IVPB Q48H [facility] Rx#:[id number] Sodium Chloride 0.9% 1, 600 000 ml @ 75 mls/hr IV . [id number] [facility] Rx#:[id number] Other: Voiding Method Toilet # Voids 2 - Exam Inspection: Brown purulent discharge evident from the superior portion of the incision measuring about 1 cm in length. Rest of the incision does look well- healed at this time. Minimal swelling. There is some erythema surrounding the open portion of the incision. Negative for any open fractures, significant ecchymosis/other wounds Sensation: Equal, symmetric, bilateral intact at the upper and lower extremities. Range of motion: Patient has full range of motion throughout bilateral upper extremities on exam. There is some minimal limited range of motion in the right hip secondary to referred pain to the right hip. Full range of motion throughout rest of lower extremities. Motor: 4/5 in resisted right hip flexion/extension. 4+/5 in all other major motor is in bilateral lower and upper extremities. Palpation: Fair to moderate amount of tenderness to palpation over the superior portion of the incision near the drainage. Nontender to palpation throughout rest of exam. Special tests: Negative log roll maneuver. Negative Homans. Neurovascular status: Radial pulses intact, 2+ bilaterally. Skin is lukewarm to touch in the right lower extremity. DP pulses palpable. Cap refill under 3 seconds in digits of upper extremities. - Labs CBC & Chem 7: 12/03/22 06:02 12/02/22 06:20 Labs: Abnormal Lab Results - Last 24 Hours (Table) 12/02/22 12/02/22 12/02/22 Range/Units 06:20 06:20 11:46 WBC 14.77 H (4.50-10.00) X 10*3/uL RBC 3.09 L (4.10-5.20) X 10*6/uL Hgb 8.9 L (12.0-15.0) d/dL Hct 28.6 L (37.2-46.3) % MCHC 31.1 L (32.0-37.0) d/dL RDW 18.3 H (11.5-14.5) % Neutrophils # 11.85 H (1.80-7.70) X 10*3/uL Monocytes # 1.14 H (0.20-1.00) X 10*3/uL Sodium 132 L (135-145) mmol/L Carbon Dioxide 21.3 L (21.6-31.8) mmol/L BUN 51.4 H (9.0-27.0) mg/dL Creatinine 1.7 H (0.6-1.5) mg/dL Est GFR (CKD-EPI) 30 L (>=60) BUN/Creatinine Ratio 30.24 H (12.00-20.00) Ratio Glucose 203 H (70-110) mg/dL POC Glucose (mg/dL) 389 H (70-110) mg/dL Calcium 8.4 L (8.7-10.3) mg/dL 12/02/22 12/02/22 12/03/22 Range/Units 16:39 20:34 05:53 WBC (4.50-10.00) X 10*3/uL RBC (4.10-5.20) X 10*6/uL Hgb (12.0-15.0) d/dL Hct (37.2-46.3) % MCHC (32.0-37.0) d/dL RDW (11.5-14.5) % Neutrophils # (1.80-7.70) X 10*3/uL Monocytes # (0.20-1.00) X 10*3/uL Sodium (135-145) mmol/L Carbon Dioxide (21.6-31.8) mmol/L BUN (9.0-27.0) mg/dL Creatinine (0.6-1.5) mg/dL Est GFR (CKD-EPI) (>=60) BUN/Creatinine Ratio (12.00-20.00) Ratio Glucose (70-110) mg/dL POC Glucose (mg/dL) 322 H 340 H 232 H (70-110) mg/dL Calcium (8.7-10.3) mg/dL 12/03/22 Range/Units 06:02 WBC 12.6 H (4.50-10.00) X 10*3/uL RBC 2.65 L (4.10-5.20) X 10*6/uL Hgb 8.4 L (12.0-15.0) d/dL Hct 25.8 L (37.2-46.3) % MCHC (32.0-37.0) d/dL RDW 16.6 H (11.5-14.5) % Neutrophils # 10.1 H (1.80-7.70) X 10*3/uL Monocytes # (0.20-1.00) X 10*3/uL Sodium (135-145) mmol/L Carbon Dioxide (21.6-31.8) mmol/L BUN (9.0-27.0) mg/dL Creatinine (0.6-1.5) mg/dL Est GFR (CKD-EPI) (>=60) BUN/Creatinine Ratio (12.00-20.00) Ratio Glucose (70-110) mg/dL POC Glucose (mg/dL) (70-110) mg/dL Calcium (8.7-10.3) mg/dL Microbiology - Last 24 Hours (Table) 11/30/22 14:38 Gram Stain - Final Hip - Right Wound Culture - Final Staphylococcus aureus 11/30/22 14:15 Blood Culture - Preliminary Blood 11/30/22 14:00 Blood Culture - Preliminary Blood 12/01/22 07:05 Blood Culture - Preliminary Blood Assessment and Plan Assessment: 1. Right hip septic arthritis/infection Plan: 1. Right hip septic arthritis/infection - patient was examined at bedside this morning. At this time we are recommending surgical intervention in the form of revision right total hip arthroplasty and insertion of antibiotic spacer due to the patient's continued infection which has not been able to be controlled with oral antibiotics. The patient is aware the risks of surgery versus not performing surgery. Surgery has been scheduled for tomorrow, 12/04/2022. Patient Hb 8.4 today. With hold blood thinners at this time. Weight-bear as tolerated with walker and assistance. Pain medication as needed. Antibiotics per medicine/infectious disease. NPO after midnight tonight. We will continue to follow patient during her stay in hospital. 2. Appreciate medical and ID management 3. Pain management - [place] 4. GI prophylaxis - Colace; Pepcid 5. DVT prophylaxis - with hold blood thinners at this time. 6. PT/OT - weightbearing as tolerated with walker and assistance 7. Encourage incentive spirometer use Time with Patient: Less than 30
[2022-12-03 11:25] LABS: Glucose,Whole Blood 256 mg/dL (70-110)
--- NOTE | 2022-12-03 13:02 | P.PN ---
Subjective Progress Note Date: 12/03/22 Principal diagnosis: Right hip septic arthritis Patient is a 81-year-old female with a past medical history significant for diabetes mellitus hypertension patient also have a hip history of right hip septic arthritis and this patient was status post I&D and exchange of the femoral head that was done in March 2021 , patient presented to hospital with reopening of the right hip incision wound and drainage. On today's evaluation and that is 12/03/2022, the patient remains to be afebrile, , the patient is breathing comfortably on room air , the patient denies chest pain and no significant cough, patient denies abdominal pain, nausea or vomiting and no diarrhea has been reported by the nursing staff, the patient denies any worsening pain to the right hip area Patient did have white count of 12.6 creatinine is 1.7 as of yesterday, local culture MSSA , blood cultures pending Objective - Vital Signs Vital signs: Vital Signs Temp 98.6 F 12/03/22 07:28 Pulse 66 12/03/22 07:28 Resp 16 12/03/22 07:28 BP 128/49 12/03/22 07:28 Pulse Ox 97 12/03/22 07:28 FiO2 Intake & Output 12/02/22 12/03/22 12/03/22 18:59 06:59 18:59 Intake Total 650 Balance 650 Weight 60.781 kg Intake: Intake, IV Titration 650 Amount DAPTOmycin 350 mg In 50 Sodium Chloride 0.9% 50 ml @ 100 mls/hr IVPB Q48H [facility] Rx#:[id number] Sodium Chloride 0.9% 1, 600 000 ml @ 75 mls/hr IV . [id number] [facility] Rx#:[id number] Other: Voiding Method Toilet # Voids 2 - Exam GENERAL DESCRIPTION: An elderly female lying in bed in no distress RESPIRATORY SYSTEM: Unlabored breathing , decreased breath sounds at bases HEART: S1 S2 regular rate and rhythm , ABDOMEN: Soft , no tenderness EXTREMITIES: No edema feet - Labs CBC & Chem 7: 12/03/22 06:02 12/02/22 06:20 Labs: Abnormal Lab Results - Last 24 Hours (Table) 12/02/22 12/02/22 12/02/22 Range/Units 11:46 16:39 20:34 WBC (3.8-10.6) k/uL RBC (3.80-5.40) m/uL Hgb (11.4-16.0) gm/dL Hct (34.0-46.0) % RDW (11.5-15.5) % Neutrophils # (1.3-7.7) k/uL POC Glucose (mg/dL) 389 H 322 H 340 H (70-110) mg/dL 12/03/22 12/03/22 12/03/22 Range/Units 05:53 06:02 11:23 WBC 12.6 H (3.8-10.6) k/uL RBC 2.65 L (3.80-5.40) m/uL Hgb 8.4 L (11.4-16.0) gm/dL Hct 25.8 L (34.0-46.0) % RDW 16.6 H (11.5-15.5) % Neutrophils # 10.1 H (1.3-7.7) k/uL POC Glucose (mg/dL) 232 H 256 H (70-110) mg/dL Microbiology - Last 24 Hours (Table) 11/30/22 14:38 Gram Stain - Final Hip - Right Wound Culture - Final Staphylococcus aureus 11/30/22 14:15 Blood Culture - Preliminary Blood 11/30/22 14:00 Blood Culture - Preliminary Blood 12/01/22 07:05 Blood Culture - Preliminary Blood Assessment and Plan (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 Current Visit: Yes Status: Acute Code(s): T84.51XA - INFECT/INFLM REACTION DUE TO INTERNAL RIGHT HIP PROSTH, INIT SNOMED Code(s): 746047439 Plan: 1patient presented hospital with a increasing pain to the right hip in addition to the reopening of the right hip wound and drainage high clinical suspicious for right hip septic arthritis with a previous culture positive for MSSA 2-cefazolin allergy therapy limit the number of antibiotics safe to use 3-renal insufficiency high risk of nephrotoxicity from vancomycin, patient did have improvement in her creatinine as of yesterday 4Patient has been evaluated by Ortho with a plan for surgery tomorrow morning 5Patient to continue with daptomycin and monitor clinical course closely Dictation was produced using [employer] software. please excuse any grammatical, word or spelling errors. Time with Patient: Less than 30
--- NOTE | 2022-12-03 14:16 | P.PN ---
Subjective Progress Note Date: 12/02/22 81 years old female with past medical history of Diabetes Mellitus, Hypertension, Rt hip Replacement, Orthopedic Surgery, right hip I&D and revision (03/09/21) Patient she is awake and alert, she says she came because of her right hip infection. She states that her in 2019 she broke her hip and she got infected and after treatment she broke again 2020 and now is looks have similar problem. She has purulent discharge from the fistula and the lateral side of the right upper thigh. Patient denies other complaints. No chest pain or dyspnea. She denies smoking alcohol or illicit drugs Afebrile vitals stable Labs show leukocytosis 16.4 Hemoglobin 7.1, patient has history of anemia and hemoglobin fluctuating 6.5-10+ since beginning of 2021) last hemoglobin or system on 06/2022 was 7.9. Sodium 1:30, creatinine 2.0 which is elevated from baseline. On 03/30/22 creatinine was 1.59, before that it was 1.0-1. X-ray of the hip and pelvis showing no fracture Echocardiogram on 03/23/2020: Ejection fraction 55-60% with [id number] mitral and tricuspid regurgitation Objective - Vital Signs Vital signs: Vital Signs Temp 98.7 F 12/02/22 07:06 Pulse 67 12/02/22 07:06 Resp 16 12/02/22 07:06 BP 131/57 12/02/22 07:06 Pulse Ox 96 12/02/22 07:06 FiO2 Intake & Output 12/01/22 12/02/22 12/02/22 18:59 06:59 18:59 Intake Total 960 0 Balance 960 0 Weight 60.781 kg Intake: Intake, IV Titration 650 Amount DAPTOmycin 350 mg In 50 Sodium Chloride 0.9% 50 ml @ 100 mls/hr IVPB Q48H [facility] Rx#:[id number] Sodium Chloride 0.9% 1, 600 000 ml @ 75 mls/hr IV . [id number] [facility] Rx#:[id number] Blood Product 310 0 Rc As-1 Unit 0 0 [id number] Rc As-1 Unit 310 [id number] Other: Voiding Method Toilet # Voids 2 - Exam GENERAL: The patient is alert and oriented x3, not in any acute distress. Well developed, well nourished. HEENT: Pupils are round and equally reacting to light. EOMI. No scleral icterus. No conjunctival pallor. Normocephalic, atraumatic. No pharyngeal erythema. No thyromegaly. CARDIOVASCULAR: S1 and S2 present. No murmurs, rubs, or gallops. PULMONARY: Chest is clear to auscultation, no wheezing , no crackles. ABDOMEN: Soft, nontender, nondistended, normoactive bowel sounds. No palpable organomegaly. MUSCULOSKELETAL: No joint swelling or deformity. -EXTREMITIES: No cyanosis, clubbing, or pedal edema. open fistula on the lateral side with yellowish discharge. No surrounding cellulitis. No deformity NEUROLOGICAL: Gross neurological examination did not reveal any focal deficits. SKIN: No rashes. no petechiae. - Labs CBC & Chem 7: 12/03/22 06:02 12/02/22 06:20 Labs: Abnormal Lab Results - Last 24 Hours (Table) 12/01/22 12/01/22 12/01/22 Range/Units 11:35 17:24 19:51 WBC (4.50-10.00) X 10*3/uL RBC (4.10-5.20) X 10*6/uL Hgb (12.0-15.0) d/dL Hct (37.2-46.3) % MCHC (32.0-37.0) d/dL RDW (11.5-14.5) % Neutrophils # (1.80-7.70) X 10*3/uL Monocytes # (0.20-1.00) X 10*3/uL Sodium (135-145) mmol/L Carbon Dioxide (21.6-31.8) mmol/L BUN (9.0-27.0) mg/dL Creatinine (0.6-1.5) mg/dL Est GFR (CKD-EPI) (>=60) BUN/Creatinine Ratio (12.00-20.00) Ratio Glucose (70-110) mg/dL POC Glucose (mg/dL) 438 H 351 H (70-110) mg/dL Calcium (8.7-10.3) mg/dL Crossmatch See Detail 12/02/22 12/02/22 12/02/22 Range/Units 05:42 06:20 06:20 WBC 14.77 H (4.50-10.00) X 10*3/uL RBC 3.09 L (4.10-5.20) X 10*6/uL Hgb 8.9 L (12.0-15.0) d/dL Hct 28.6 L (37.2-46.3) % MCHC 31.1 L (32.0-37.0) d/dL RDW 18.3 H (11.5-14.5) % Neutrophils # 11.85 H (1.80-7.70) X 10*3/uL Monocytes # 1.14 H (0.20-1.00) X 10*3/uL Sodium 132 L (135-145) mmol/L Carbon Dioxide 21.3 L (21.6-31.8) mmol/L BUN 51.4 H (9.0-27.0) mg/dL Creatinine 1.7 H (0.6-1.5) mg/dL Est GFR (CKD-EPI) 30 L (>=60) BUN/Creatinine Ratio 30.24 H (12.00-20.00) Ratio Glucose 203 H (70-110) mg/dL POC Glucose (mg/dL) 235 H (70-110) mg/dL Calcium 8.4 L (8.7-10.3) mg/dL Crossmatch 12/02/22 Range/Units 11:46 WBC (4.50-10.00) X 10*3/uL RBC (4.10-5.20) X 10*6/uL Hgb (12.0-15.0) d/dL Hct (37.2-46.3) % MCHC (32.0-37.0) d/dL RDW (11.5-14.5) % Neutrophils # (1.80-7.70) X 10*3/uL Monocytes # (0.20-1.00) X 10*3/uL Sodium (135-145) mmol/L Carbon Dioxide (21.6-31.8) mmol/L BUN (9.0-27.0) mg/dL Creatinine (0.6-1.5) mg/dL Est GFR (CKD-EPI) (>=60) BUN/Creatinine Ratio (12.00-20.00) Ratio Glucose (70-110) mg/dL POC Glucose (mg/dL) 389 H (70-110) mg/dL Calcium (8.7-10.3) mg/dL Crossmatch Microbiology - Last 24 Hours (Table) 11/30/22 14:38 Gram Stain - Preliminary Hip - Right Wound Culture - Preliminary Presumptive Staph aureus 11/30/22 14:15 Blood Culture - Preliminary Blood 11/30/22 14:00 Blood Culture - Preliminary Blood Assessment and Plan Assessment: Septic arthritis of the right hip, recurrent Sepsis secondary to above normochromic, normocytic anemia Chronic normocytic, normochromic anemia Acute kidney injury on chronic kidney disease stage III Hypertension Diabetes mellitus History of right hip replacement and history of infected right hip status post I&D and revision on 03/09/2021 Pulmonary hypertension Plan: Continue with antibiotic, currently with IV daptomycin as per ID team will follow the case closely. Follow-up culture results Orthopedic team consult Start normal saline at 75 mL/h Follow-up creatinine. Check bladder scan. Check hemoglobin A1c, monitor glucose with insulin sliding scale Labs and medication were reviewed.. Continue same treatment. Continue with symptomatic treatment. Resume home medication. Monitor labs and vitals. DVT and GI prophylaxis. Further recommendations as per clinical course of the patient DVT prophylaxis: Subcutaneous heparin GI Prophylaxis: Pepcid PT/OT: deferred Prognosis is guarded
[2022-12-03 16:21] LABS: Glucose,Whole Blood 354 mg/dL (70-110)
--- NOTE | 2022-12-03 19:51 | P.PN ---
Subjective Progress Note Date: 12/03/22 81 years old female with past medical history of Diabetes Mellitus, Hypertension, Rt hip Replacement, Orthopedic Surgery, right hip I&D and revision (03/09/21) Patient she is awake and alert, she says she came because of her right hip infection. She states that her in 2019 she broke her hip and she got infected and after treatment she broke again 2020 and now is looks have similar problem. She has purulent discharge from the fistula and the lateral side of the right upper thigh. Patient denies other complaints. No chest pain or dyspnea. She denies smoking alcohol or illicit drugs Afebrile vitals stable Labs show leukocytosis 16.4 Hemoglobin 7.1, patient has history of anemia and hemoglobin fluctuating 6.5-10+ since beginning of 2021) last hemoglobin or system on 06/2022 was 7.9. Sodium 1:30, creatinine 2.0 which is elevated from baseline. On 03/30/22 creatinine was 1.59, before that it was 1.0-1. X-ray of the hip and pelvis showing no fracture Echocardiogram on 03/23/2020: Ejection fraction 55-60% with [id number] mitral and tricuspid regurgitation 12/03/2022 patient presented hospital with a increasing pain to the right hip in addition to the reopening of the right hip wound and drainage high clinical suspicious for right hip septic arthritis with a previous culture positive for MSSA -cefazolin allergy therapy limit the number of antibiotics safe to use -renal insufficiency high risk of nephrotoxicity from vancomycin, patient did have improvement in her creatinine as of yesterday Patient has been evaluated by Ortho with a plan for surgery tomorrow morning Patient to continue with daptomycin and monitor clinical course closely Objective - Vital Signs Vital signs: Vital Signs Temp 98.6 F 12/03/22 07:28 Pulse 66 12/03/22 08:00 Resp 16 12/03/22 08:00 BP 128/49 12/03/22 07:28 Pulse Ox 97 12/03/22 07:28 FiO2 Intake & Output 12/02/22 12/03/22 12/03/22 18:59 06:59 18:59 Intake Total 650 Balance 650 Weight 60.781 kg Intake: Intake, IV Titration 650 Amount DAPTOmycin 350 mg In 50 Sodium Chloride 0.9% 50 ml @ 100 mls/hr IVPB Q48H [facility] Rx#:[id number] Sodium Chloride 0.9% 1, 600 000 ml @ 75 mls/hr IV . [id number] [facility] Rx#:[id number] Other: Voiding Method Toilet Toilet # Voids 2 - Exam GENERAL: The patient is alert and oriented x3, not in any acute distress. Well developed, well nourished. HEENT: Pupils are round and equally reacting to light. EOMI. No scleral icterus. No conjunctival pallor. Normocephalic, atraumatic. No pharyngeal erythema. No thyromegaly. CARDIOVASCULAR: S1 and S2 present. No murmurs, rubs, or gallops. PULMONARY: Chest is clear to auscultation, no wheezing , no crackles. ABDOMEN: Soft, nontender, nondistended, normoactive bowel sounds. No palpable organomegaly. MUSCULOSKELETAL: No joint swelling or deformity. -EXTREMITIES: No cyanosis, clubbing, or pedal edema. open fistula on the lateral side with yellowish discharge. No surrounding cellulitis. No deformity NEUROLOGICAL: Gross neurological examination did not reveal any focal deficits. SKIN: No rashes. no petechiae. - Labs CBC & Chem 7: 12/03/22 06:02 12/02/22 06:20 Labs: Abnormal Lab Results - Last 24 Hours (Table) 12/02/22 12/02/22 12/03/22 Range/Units 16:39 20:34 05:53 WBC (3.8-10.6) k/uL RBC (3.80-5.40) m/uL Hgb (11.4-16.0) gm/dL Hct (34.0-46.0) % RDW (11.5-15.5) % Neutrophils # (1.3-7.7) k/uL POC Glucose (mg/dL) 322 H 340 H 232 H (70-110) mg/dL 12/03/22 12/03/22 Range/Units 06:02 11:23 WBC 12.6 H (3.8-10.6) k/uL RBC 2.65 L (3.80-5.40) m/uL Hgb 8.4 L (11.4-16.0) gm/dL Hct 25.8 L (34.0-46.0) % RDW 16.6 H (11.5-15.5) % Neutrophils # 10.1 H (1.3-7.7) k/uL POC Glucose (mg/dL) 256 H (70-110) mg/dL Microbiology - Last 24 Hours (Table) 12/01/22 07:05 Blood Culture - Preliminary Blood 11/30/22 14:38 Gram Stain - Final Hip - Right Wound Culture - Final Staphylococcus aureus 11/30/22 14:15 Blood Culture - Preliminary Blood 11/30/22 14:00 Blood Culture - Preliminary Blood Assessment and Plan Assessment: Septic arthritis of the right hip, recurrent Sepsis secondary to above normochromic, normocytic anemia Chronic normocytic, normochromic anemia Acute kidney injury on chronic kidney disease stage III Hypertension Diabetes mellitus History of right hip replacement and history of infected right hip status post I&D and revision on 03/09/2021 Pulmonary hypertension Plan: Continue with antibiotic, currently with IV daptomycin as per ID team will follow the case closely. Follow-up culture results Orthopedic team consult Start normal saline at 75 mL/h Follow-up creatinine. Check bladder scan. Check hemoglobin A1c, monitor glucose with insulin sliding scale Labs and medication were reviewed.. Continue same treatment. Continue with symptomatic treatment. Resume home medication. Monitor labs and vitals. DVT and GI prophylaxis. Further recommendations as per clinical course of the patient DVT prophylaxis: Subcutaneous heparin GI Prophylaxis: Pepcid PT/OT: deferred Prognosis is guarded
[2022-12-03 20:24] LABS: Glucose,Whole Blood 346 mg/dL (70-110)
[2022-12-03] MEDS: SODIUM CHLORIDE 0.9% 1,000 ML IV SCH (20:24)
[2022-12-04] MEDS: SODIUM CHLORIDE 0.9% 1,000 ML IV SCH ×2 (01:04→21:35)
[2022-12-04 05:50] LABS: Glucose,Whole Blood 250 mg/dL (70-110)
[2022-12-04] MEDS: INSULIN ASPART (NovoLOG) 100 UNIT/ML VIAL SQ SCH ×4 (06:23→21:45)
[2022-12-04] MEDS ORDERED: fentaNYL (PF) 50 MCG/ML 2 ML AMP ONE (08:10)
[2022-12-04] MEDS ORDERED: MIDAZOLAM 2 MG/2 ML VIAL ONE (08:10)
[2022-12-04] MEDS ORDERED: KETAMINE HCL IN 0.9 % NACL 50 MG/5 ML SYRINGE ONE (08:10)
[2022-12-04] MEDS ORDERED: ceFAZolin 3,000 MG in SODIUM CHLORIDE 0.9% IRRIGATIO 3,000 ML IRRIGATION ONE (08:15)
[2022-12-04] MEDS ORDERED: IV FLUID CONTINUATION 1,000 ML IV ONE (08:15)
[2022-12-04 08:18] LABS: African American GFR (CKD) 39 (>60 ml/min/1.73 sqM); Anion Gap 5 mmol/L; Blood Urea Nitrogen 40 mg/dL (7-17); Calcium 8.1 mg/dL (8.4-10.2); Carbon Dioxide 20 mmol/L (22-30); Chloride 103 mmol/L (98-107); Glucose 222 mg/dL (74-99); Non-African American GFR(CKD) 34 (>60 ml/min/1.73 sqM); Potassium 5.1 mmol/L (3.5-5.1); Sodium 128 mmol/L (137-145)
[2022-12-04 09:53] LABS: Basophils # (A) 0.02 X 10*3/uL (0.00-0.10); Basophils % (A) 0.2 %; Eosinophils # (A) 0.08 X 10*3/uL (0.04-0.35); Eosinophils % (A) 0.7 %; HCT 25.2 % (37.2-46.3); HGB 7.9 d/dL (12.0-15.0); Lymphocytes # (A) 1.11 X 10*3/uL (0.90-5.00); Lymphocytes % (A) 9.2 %; MCH 29.9 pg (27.0-32.0); MCHC 31.3 d/dL (32.0-37.0); MCV 95.5 FL (80.0-97.0); Mean Platelet Volume 10.2 FL (9.5-12.2); Monocytes # (A) 1.01 X 10*3/uL (0.20-1.00); Monocytes % (A) 8.3 %; NRBC Per 100 WBC 0 X 10*3/uL (0.00-0.01); Neutrophils # (A) 9.82 X 10*3/uL (1.80-7.70); Neutrophils % (A) 80.9 %; Platelet Count 232 X 10*3/uL (140-440); RBC 2.64 X 10*6/uL (4.10-5.20); WBC 12.13 X 10*3/uL (4.50-10.00)
[2022-12-04] MEDS ORDERED: LACTATED RINGERS 1,000 ML IV ONE (10:10)
[2022-12-04] MEDS: HEPARIN SODIUM,PORCINE 5,000 UNIT/ML 1 ML VIAL SQ SCH ×2 (10:20→21:45)
[2022-12-04] MEDS: ASPIRIN 81 MG PO SCH (10:20)
[2022-12-04] MEDS: FAMOTIDINE 20 MG/2 ML VIAL IV SCH (10:20)
[2022-12-04] MEDS: FERROUS SULFATE 325 MG TAB PO SCH ×2 (10:20→21:44)
[2022-12-04] MEDS: METOPROLOL SUCCINATE (ER) 25 MG TAB.ER.24H PO SCH ×2 (10:21→21:45)
[2022-12-04] MEDS ORDERED: NALOXONE 0.4 MG/ML 1 ML VIAL IV PRN (10:24)
[2022-12-04] MEDS ORDERED: HYDROmorphone 0.5 MG/0.5 ML SYRINGE IVP PRN (10:24)
[2022-12-04] MEDS ORDERED: hydrOXYzine pamoate 25 MG CAP PO PRN (10:24)
[2022-12-04] MEDS ORDERED: MAGNESIUM HYDROXIDE 2,400 MG/30 ML CUP PO PRN (10:24)
--- NOTE | 2022-12-04 10:42 | P.OP ---
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 Postoperative Diagnosis: Same Procedure(s) Performed: Revision right total hip arthroplasty/extraction femoral and acetabular components with reimplantation femoral stem/cement spacer Incision and drainage right hip Implants: [employer] short/medium cement spacer Anesthesia: spinal Surgeon: Jesus Apodaca Parts Finisher #1: Jerrod Clemens Estimated Blood Loss (ml): 100 Pathology: other (deep cultures) Condition: stable Disposition: PACU Indications for Procedure: The patient is an 81-year-old female who presents with persistent right hip drainage despite suppressive antibiotic treatment for a deep infection. He discussion of the risks and benefits of operative intervention was made with the patient and her family. They understand the serious nature of her disease process and potential for complications. Specific risks of surgery to include persistence of infection, development of blood clots, neurovascular injury, fracture, possible component loosening/failure need for subsequent procedures was discussed. Informed consent was obtained. Operative Findings: As below Description of Procedure: The patient was brought to the operating room, and after induction of spinal anesthesia was positioned in the lateral decubitus position on the pegboard. The pelvis was stabilized perpendicular to the floor. Bony prominences were appropriately padded. An axillary roll was placed. The right lower extremity was prepped and draped in a normal fashion. The previous lateral incision was utilized extending approximately 15 cm. The skin incision was made sharply. Subcutaneous tissues were divided sharply. The fascia jarred was identified and split in line with the skin incision. Abundant purulence was then noted. The anterior two thirds the gluteus medius was detached from the greater trochanter sharply. The pseudocapsule was excised. Abundant purulence was noted down to level of the socket. Deep cultures were obtained. The hip was gently dislocated. The femoral head was extracted. Attention was then paid towards the femoral component. This was grossly loose. It was easily extracted. The canal was then curetted removing the pseudocapsule and tissue. Attention was then paid towards the acetabular. The liner was easily removed. Acetabular osteotomes were utilized around the cup. This was then extracted. Minimal bone loss was noted. Extensive pulsatile lavage was utilized with 9 L of fluid. The soft tissues were debrided sharply back to healthy bleeding tissue. The pseudocapsule was incised sharply down to level of bone. The OR crew changed gloves and exchanged instruments. The proximal femur was then sized most probably had a short medium stem. This was cemented in place in approximately 15 of anteversion utilizing tobramycin cement. Pulsatile lavage was then again utilized. The hip was then relocated. It was felt to be stable. A deep drain was placed exiting anteriorly. The gluteus medius was reattached with #2 Ethibond suture. The fascia jarred was closed with running #2 Ethibond suture. The subcutaneous tissues reapproximated interrupted 2-0 Vicryl sutures. The skin was reprepped with 3-0 nylon sutures. A sterile dressing was applied. The patient was then awoken from sedation and transferred to recovery room in stable condition. Blood loss was estimated at 100 mL. No complications were incurred. Sponge and needle counts were correct at the end of the case.
[2022-12-04] MEDS ORDERED: HYDROmorphone 0.5 MG/0.5 ML SYRINGE IVP ONE ×2 (10:50)
--- NOTE | 2022-12-04 11:20 | XR ---
Limited right hip. HISTORY: Postop right hip arthroplasty. COMPARISON: None TECHNIQUE: Single AP view the right hip was obtained FINDINGS: There is a total right hip replacement which appears to be in anatomic alignment. There is a drainage catheter tip of which is in the region of the prosthetic femoral neck. Graft there are marked vascul ar calcifications IMPRESSION: Satisfactory postoperative right hip prosthesis.
[2022-12-04 13:11] LABS: Glucose,Whole Blood 287 mg/dL (70-110)
[2022-12-04] MEDS: HYDROmorphone 0.5 MG/0.5 ML SYRINGE IVP PRN ×2 (14:30→21:46)
--- NOTE | 2022-12-04 14:48 | P.PN ---
Subjective Progress Note Date: 12/04/22 81 years old female with past medical history of Diabetes Mellitus, Hypertension, Rt hip Replacement, Orthopedic Surgery, right hip I&D and revision (03/09/21) Patient she is awake and alert, she says she came because of her right hip infection. She states that her in 2019 she broke her hip and she got infected and after treatment she broke again 2020 and now is looks have similar problem. She has purulent discharge from the fistula and the lateral side of the right upper thigh. Patient denies other complaints. No chest pain or dyspnea. She denies smoking alcohol or illicit drugs Afebrile vitals stable Labs show leukocytosis 16.4 Hemoglobin 7.1, patient has history of anemia and hemoglobin fluctuating 6.5-10+ since beginning of 2021) last hemoglobin or system on 06/2022 was 7.9. Sodium 1:30, creatinine 2.0 which is elevated from baseline. On 03/30/22 creatinine was 1.59, before that it was 1.0-1. X-ray of the hip and pelvis showing no fracture Echocardiogram on 03/23/2020: Ejection fraction 55-60% with [id number] mitral and tricuspid regurgitation 12/03/2022 patient presented hospital with a increasing pain to the right hip in addition to the reopening of the right hip wound and drainage high clinical suspicious for right hip septic arthritis with a previous culture positive for MSSA -cefazolin allergy therapy limit the number of antibiotics safe to use -renal insufficiency high risk of nephrotoxicity from vancomycin, patient did have improvement in her creatinine as of yesterday Patient has been evaluated by Ortho with a plan for surgery tomorrow morning Patient to continue with daptomycin and monitor clinical course closely 12/04/2022 Patient is seen and evaluated in room at bedside; patient is status post Revision right total hip arthroplasty/extraction femoral and acetabular components with reimplantation femoral stem/cement spacer; POD # 0 Vital signs are reviewed and stable with temperature of 97.5, pulse 58, respirations 17 and blood pressure 174/64 with O2 saturation 100% on 2 L Laboratory review shows a hemoglobin of 7.9, WBC of 12.3; creatinine slightly trended up at 1.7 from 1.44 yesterday;sodium level of 128 down from 1:30 to yesterday - Patient remains on IV daptomycin -- Blood glucoses reviewed and remain elevated ; we will recommend adjusting therapy once oral intake is established Objective - Vital Signs Vital signs: Vital Signs Temp 97.5 F L 12/04/22 11:36 Pulse 58 L 12/04/22 11:36 Resp 17 12/04/22 11:36 BP 174/64 12/04/22 11:36 Pulse Ox 100 12/04/22 11:36 FiO2 Intake & Output 12/03/22 12/04/22 12/04/22 18:59 06:59 18:59 Intake Total 300 1001 Output Total 600 Balance 300 401 Weight 60.781 kg Intake: IV 1001 Oral 300 Output: Urine 500 Estimated Blood Loss 100 Other: Voiding Method Toilet Toilet Toilet # Voids 1 2 # Bowel Movements 1 - Exam GENERAL: The patient is alert and oriented x3, not in any acute distress. Well developed, well nourished. HEENT: Pupils are round and equally reacting to light. EOMI. No scleral icterus. No conjunctival pallor. Normocephalic, atraumatic. No pharyngeal erythema. No thyromegaly. CARDIOVASCULAR: S1 and S2 present. No murmurs, rubs, or gallops. PULMONARY: Chest is clear to auscultation, no wheezing , no crackles. ABDOMEN: Soft, nontender, nondistended, normoactive bowel sounds. No palpable organomegaly. MUSCULOSKELETAL: No joint swelling or deformity. -EXTREMITIES: No cyanosis, clubbing, or pedal edema. open fistula on the lateral side with yellowish discharge. No surrounding cellulitis. No deformity NEUROLOGICAL: Gross neurological examination did not reveal any focal deficits. SKIN: No rashes. no petechiae. - Labs CBC & Chem 7: 12/04/22 06:41 12/04/22 06:41 Labs: Abnormal Lab Results - Last 24 Hours (Table) 12/03/22 12/03/22 12/04/22 Range/Units 16:19 20:23 05:49 WBC (4.50-10.00) X 10*3/uL RBC (4.10-5.20) X 10*6/uL Hgb (12.0-15.0) d/dL Hct (37.2-46.3) % MCHC (32.0-37.0) d/dL RDW (11.5-14.5) % Neutrophils # (1.80-7.70) X 10*3/uL Monocytes # (0.20-1.00) X 10*3/uL Sodium (137-145) mmol/L Carbon Dioxide (22-30) mmol/L BUN (7-17) mg/dL Creatinine (0.52-1.04) mg/dL Glucose (74-99) mg/dL POC Glucose (mg/dL) 354 H 346 H 250 H (70-110) mg/dL Calcium (8.4-10.2) mg/dL 12/04/22 12/04/22 Range/Units 06:41 06:41 WBC 12.13 H (4.50-10.00) X 10*3/uL RBC 2.64 L (4.10-5.20) X 10*6/uL Hgb 7.9 L (12.0-15.0) d/dL Hct 25.2 L (37.2-46.3) % MCHC 31.3 L (32.0-37.0) d/dL RDW 18.0 H (11.5-14.5) % Neutrophils # 9.82 H (1.80-7.70) X 10*3/uL Monocytes # 1.01 H (0.20-1.00) X 10*3/uL Sodium 128 L (137-145) mmol/L Carbon Dioxide 20 L (22-30) mmol/L BUN 40 H (7-17) mg/dL Creatinine 1.44 H (0.52-1.04) mg/dL Glucose 222 H (74-99) mg/dL POC Glucose (mg/dL) (70-110) mg/dL Calcium 8.1 L (8.4-10.2) mg/dL Microbiology - Last 24 Hours (Table) 11/30/22 14:15 Blood Culture - Preliminary Blood 11/30/22 14:00 Blood Culture - Preliminary Blood 12/01/22 07:05 Blood Culture - Preliminary Blood Assessment and Plan Assessment: Septic arthritis of the right hip, recurrent Sepsis secondary to above normochromic, normocytic anemia Chronic normocytic, normochromic anemia Acute kidney injury on chronic kidney disease stage III Hypertension Diabetes mellitus History of right hip replacement and history of infected right hip status post I&D and revision on 03/09/2021 Pulmonary hypertension Plan: Continue with antibiotic, currently with IV daptomycin as per ID team will follow the case closely. Follow-up culture results Orthopedic team consult Start normal saline at 75 mL/h Follow-up creatinine. Check bladder scan. Check hemoglobin A1c, monitor glucose with insulin sliding scale Labs and medication were reviewed.. Continue same treatment. Continue with symptomatic treatment. Resume home medication. Monitor labs and vitals. DVT and GI prophylaxis. Further recommendations as per clinical course of the patient DVT prophylaxis: Subcutaneous heparin GI Prophylaxis: Pepcid PT/OT: deferred Prognosis is guarded
[2022-12-04 16:57] LABS: Glucose,Whole Blood 304 mg/dL (70-110)
[2022-12-04 20:33] LABS: Glucose,Whole Blood 296 mg/dL (70-110)
[2022-12-04] MEDS: SENNOSIDES-DOCUSATE SODIUM 1 EACH TAB PO SCH (21:45)
[2022-12-05] MEDS: HYDROmorphone 0.5 MG/0.5 ML SYRINGE IVP PRN ×2 (04:33→08:33)
[2022-12-05] MEDS: SODIUM CHLORIDE 0.9% 1,000 ML IV SCH ×2 (04:40→17:49)
[2022-12-05 05:50] LABS: Glucose,Whole Blood 222 mg/dL (70-110)
[2022-12-05] MEDS: HYDROcodone/APAP 5-325MG 1 EACH TAB PO PRN ×2 (06:40→22:11)
[2022-12-05] MEDS: INSULIN ASPART (NovoLOG) 100 UNIT/ML VIAL SQ SCH ×4 (06:41→22:14)
[2022-12-05 09:03] LABS: Basophils # (A) 0.02 X 10*3/uL (0.00-0.10); Basophils % (A) 0.2 %; Eosinophils # (A) 0.03 X 10*3/uL (0.04-0.35); Eosinophils % (A) 0.3 %; HCT 18.4 % (37.2-46.3); HGB 5.6 d/dL (12.0-15.0); Lymphocytes # (A) 1.64 X 10*3/uL (0.90-5.00); MCH 28.9 pg (27.0-32.0); MCHC 30.4 d/dL (32.0-37.0); MCV 94.8 FL (80.0-97.0); Mean Platelet Volume 10.6 FL (9.5-12.2); Monocytes # (A) 0.98 X 10*3/uL (0.20-1.00); NRBC Per 100 WBC 0 X 10*3/uL (0.00-0.01); Neutrophils # (A) 8.17 X 10*3/uL (1.80-7.70); Neutrophils % (A) 74.8 %; Platelet Count 255 X 10*3/uL (140-440); RBC 1.94 X 10*6/uL (4.10-5.20); RDW 17.9 % (11.5-14.5); WBC 10.92 X 10*3/uL (4.50-10.00)
[2022-12-05] MEDS: ENOXAPARIN 30 MG/0.3 ML SYRINGE SQ SCH (09:08)
[2022-12-05] MEDS: DAPTOmycin 350 MG in SODIUM CHLORIDE 0.9% 50 ML IVPB SCH (09:09)
[2022-12-05] MEDS: FERROUS SULFATE 325 MG TAB PO SCH ×2 (09:09→22:13)
[2022-12-05] MEDS: ASPIRIN 81 MG PO SCH (09:09)
[2022-12-05] MEDS: METOPROLOL SUCCINATE (ER) 25 MG TAB.ER.24H PO SCH ×2 (09:09→22:13)
[2022-12-05] MEDS: FAMOTIDINE 20 MG/2 ML VIAL IV SCH (10:12)
[2022-12-05 10:20] LABS: BUN/Creat Ratio 25.76 Ratio (12.00-20.00); Blood Urea Nitrogen 43.8 mg/dL (9.0-27.0); Carbon Dioxide 18.9 mmol/L (21.6-31.8); Chloride 103 mmol/L (96-109); Glucose 190 mg/dL (70-110); Potassium 5.3 mmol/L (3.5-5.5); Sodium 130 mmol/L (135-145)
[2022-12-05 11:13] LABS: Glucose,Whole Blood 344 mg/dL (70-110)
[2022-12-05 16:47] LABS: Glucose,Whole Blood 340 mg/dL (70-110)
--- NOTE | 2022-12-05 17:03 | P.PN ---
Subjective Progress Note Date: 12/05/22 Principal diagnosis: Right hip septic arthritis/infection Patient was seen at bedside this morning lying semirecumbent position with dressing present to the right lateral hip. Patient says she is having some pain in the right hip at this time. Patient says she has not been up out of bed sensory was performed. Patient is looking forward to working with therapy later this morning. Patient denies any other issues at this time. Patient denies chest pain, fever, drainage breath, nausea, change in vision, loss of bowel/bladder control. Objective - Vital Signs Vital signs: Vital Signs Temp 98.2 F 12/05/22 02:18 Pulse 68 12/05/22 02:18 Resp 17 12/05/22 02:18 BP 117/58 12/05/22 02:18 Pulse Ox 100 12/05/22 02:18 FiO2 Intake & Output 12/04/22 12/05/22 12/05/22 18:59 06:59 18:59 Intake Total 1601 Output Total 1080 400 Balance 521 -400 Weight 60.781 kg Intake: IV 1001 Intake, IV Titration 300 Amount Sodium Chloride 0.9% 1, 300 000 ml @ 75 mls/hr IV . [id number] [facility] Rx#:[id number] Oral 300 Output: Drainage 400 Right Hip 400 Urine 980 Estimated Blood Loss 100 Other: Voiding Method Toilet Indwelling Catheter - Exam Inspection: Bulky dressing present over the right lateral hip. Negative for any change. There is some spotting present over the dressing. Sutures are well aligned and in good placement. There is some erythema surrounding the open portion of the incision. Negative for any open fractures, significant ecchymos is/other wounds Sensation: Equal, symmetric, bilateral intact at the upper and lower extremities. Range of motion: Patient has full range of motion throughout bilateral upper extremities on exam. There is some minimal limited range of motion in the right hip secondary to referred pain to the right hip. Full range of motion throughout rest of lower extremities. Motor: 4/5 in resisted right hip flexion/extension. 4+/5 in all other major motor is in bilateral lower and upper extremities. Palpation: Fair to moderate amount of tenderness to palpation over the superior portion of the incision near the drainage. Nontender to palpation throughout rest of exam. Special tests: Negative log roll maneuver. Negative Homans. Neurovascular status: Radial pulses intact, 2+ bilaterally. Skin is lukewarm to touch in the right lower extremity. DP pulses palpable. Cap refill under 3 seconds in digits of upper extremities. - Labs CBC & Chem 7: 12/05/22 05:47 12/05/22 05:47 Labs: Abnormal Lab Results - Last 24 Hours (Table) 12/04/22 12/04/22 12/04/22 Range/Units 06:41 13:08 16:54 WBC 12.13 H (4.50-10.00) X 10*3/uL RBC 2.64 L (4.10-5.20) X 10*6/uL Hgb 7.9 L (12.0-15.0) d/dL Hct 25.2 L (37.2-46.3) % MCHC 31.3 L (32.0-37.0) d/dL RDW 18.0 H (11.5-14.5) % Neutrophils # 9.82 H (1.80-7.70) X 10*3/uL Monocytes # 1.01 H (0.20-1.00) X 10*3/uL Eosinophils # (0.04-0.35) X 10*3/uL POC Glucose (mg/dL) 287 H 304 H (70-110) mg/dL 12/04/22 12/05/22 12/05/22 Range/Units 20:31 05:47 05:47 WBC 10.92 H (4.50-10.00) X 10*3/uL RBC 1.94 L (4.10-5.20) X 10*6/uL Hgb 5.6 H* (12.0-15.0) d/dL Hct 18.4 H* (37.2-46.3) % MCHC 30.4 L (32.0-37.0) d/dL RDW 17.9 H (11.5-14.5) % Neutrophils # 8.17 H (1.80-7.70) X 10*3/uL Monocytes # (0.20-1.00) X 10*3/uL Eosinophils # 0.03 L (0.04-0.35) X 10*3/uL POC Glucose (mg/dL) 296 H 222 H (70-110) mg/dL Microbiology - Last 24 Hours (Table) 12/01/22 07:05 Blood Culture - Preliminary Blood Assessment and Plan Assessment: 1. 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 Patient stable at bedside this morning with dressing on right hip. Patient to be only toe-touch weightbearing for transfers only. Remain nonweightbearing otherwise. PT/OT daily. They medication as needed. Plan for discharge to rehab when available. Cultures pending . We'll continue to follow patient during her stay in hospital. 2. Appreciate medical and infectious disease management 3. Pain management - Tylenol; [place] 4. DVT prophylaxis - Lovenox; aspirin 5. GI prophylaxis - Pepcid; milk of magnesia 6. PT/OT - right lower extremity toe-touch for transfers only. Remain nonweightbearing to the right lower extremity otherwise. Left lower extremity weightbearing as tolerated 7. Encourage incentive spirometer use 8. Discharge planning - plan for discharge to rehab when bed available Time with Patient: Less than 30
--- NOTE | 2022-12-05 18:03 | P.PN ---
Subjective Progress Note Date: 12/04/22 Principal diagnosis: Right hip septic arthritis Patient is a 81-year-old female with a past medical history significant for diabetes mellitus hypertension patient also have a hip history of right hip septic arthritis and this patient was status post I&D and exchange of the femoral head that was done in March 2021 , patient presented to hospital with reopening of the right hip incision wound and drainage. Patient is status post revision right total hip arthroplasty/extension of the femoral and acetabular components and placement of cement spacer On today's evaluation and that is 12/04/2022, the patient continues to be afebrile, , the patient is breathing comfortably on room air , the patient denies chest pain and no significant cough, patient denies abdominal pain, nausea or vomiting and no diarrhea has been reported by the nursing staff, the patient pain to the right hip area is currently controlled Patient labs were reviewed Objective - Vital Signs Vital signs: Vital Signs Temp 98.2 F 12/04/22 19:40 Pulse 73 12/04/22 19:40 Resp 17 12/04/22 19:40 BP 119/59 12/04/22 19:40 Pulse Ox 100 12/04/22 19:40 FiO2 Intake & Output 12/04/22 12/04/22 12/05/22 06:59 18:59 06:59 Intake Total 1601 Output Total 1080 Balance 521 Weight 60.781 kg Intake: IV 1001 Intake, IV Titration 300 Amount Sodium Chloride 0.9% 1, 300 000 ml @ 75 mls/hr IV . [id number] [facility] Rx#:[id number] Oral 300 Output: Urine 980 Estimated Blood Loss 100 Other: Voiding Method Toilet Toilet Indwelling Catheter # Voids 2 # Bowel Movements 1 - Exam GENERAL DESCRIPTION: An elderly female lying in bed in no distress RESPIRATORY SYSTEM: Unlabored breathing , decreased breath sounds at bases HEART: S1 S2 regular rate and rhythm , ABDOMEN: Soft , no tenderness EXTREMITIES: No edema feet - Labs CBC & Chem 7: 12/05/22 05:47 12/05/22 05:47 Labs: Abnormal Lab Results - Last 24 Hours (Table) 12/04/22 12/04/22 12/04/22 Range/Units 05:49 06:41 06:41 WBC 12.13 H (4.50-10.00) X 10*3/uL RBC 2.64 L (4.10-5.20) X 10*6/uL Hgb 7.9 L (12.0-15.0) d/dL Hct 25.2 L (37.2-46.3) % MCHC 31.3 L (32.0-37.0) d/dL RDW 18.0 H (11.5-14.5) % Neutrophils # 9.82 H (1.80-7.70) X 10*3/uL Monocytes # 1.01 H (0.20-1.00) X 10*3/uL Sodium 128 L (137-145) mmol/L Carbon Dioxide 20 L (22-30) mmol/L BUN 40 H (7-17) mg/dL Creatinine 1.44 H (0.52-1.04) mg/dL Glucose 222 H (74-99) mg/dL POC Glucose (mg/dL) 250 H (70-110) mg/dL Calcium 8.1 L (8.4-10.2) mg/dL 12/04/22 12/04/22 12/04/22 Range/Units 13:08 16:54 20:31 WBC (4.50-10.00) X 10*3/uL RBC (4.10-5.20) X 10*6/uL Hgb (12.0-15.0) d/dL Hct (37.2-46.3) % MCHC (32.0-37.0) d/dL RDW (11.5-14.5) % Neutrophils # (1.80-7.70) X 10*3/uL Monocytes # (0.20-1.00) X 10*3/uL Sodium (137-145) mmol/L Carbon Dioxide (22-30) mmol/L BUN (7-17) mg/dL Creatinine (0.52-1.04) mg/dL Glucose (74-99) mg/dL POC Glucose (mg/dL) 287 H 304 H 296 H (70-110) mg/dL Calcium (8.4-10.2) mg/dL Microbiology - Last 24 Hours (Table) 12/01/22 07:05 Blood Culture - Preliminary Blood 11/30/22 14:15 Blood Culture - Preliminary Blood 11/30/22 14:00 Blood Culture - Preliminary Blood Assessment and Plan (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 Current Visit: Yes Status: Acute Code(s): T84.51XA - INFECT/INFLM REACTION DUE TO INTERNAL RIGHT HIP PROSTH, INIT SNOMED Code(s): 930768378 Plan: 1patient presented hospital with a increasing pain to the right hip in addition to the reopening of the right hip wound and drainage high clinical suspicious for right hip septic arthritis with a previous culture positive for MSSA 2-cefazolin allergy therapy limit the number of antibiotics safe to use 3-renal insufficiency high risk of nephrotoxicity from vancomycin, patient did have improvement in her creatinine as of yesterday 4Patient is status post surgery with removal of the infected hardware and placement of antibiotic spacer 5Patient to continue with daptomycin, will need a PICC line for outpatient IV antibiotic therapy Dictation was produced using [employer] dictation software. please excuse any grammatical, word or spelling errors. Time with Patient: Less than 30
[2022-12-05 21:12] LABS: Glucose,Whole Blood 295 mg/dL (70-110)
[2022-12-05] MEDS: SENNOSIDES-DOCUSATE SODIUM 1 EACH TAB PO SCH (22:13)
[2022-12-05] MEDS: INSULIN DETEMIR (LEVEMIR) 100 UNIT/ML SYR SQ SCH (22:15)
[2022-12-05 22:23] LABS: Anisocytosis Slight; Basophils % (A) 0 %; Eosinophils # (A) 0.1 k/uL (0-0.7); Eosinophils % (A) 1 %; HGB 9.2 gm/dL (11.4-16.0); Hypochromasia Marked; Lymphocytes # (A) 1.4 k/uL (1.0-4.8); Lymphocytes % (A) 14 %; MCH 30.1 pg (25.0-35.0); MCHC 31.9 g/dL (31.0-37.0); MCV 94.6 fL (80.0-100.0); Mean Platelet Volume 8.7; Monocytes # (A) 0.5 k/uL (0-1.0); Monocytes % (A) 4 %; Neutrophils # (A) 8.3 k/uL (1.3-7.7); Neutrophils % (A) 80 %; Platelet Count 263 k/uL (150-450); Poikilocytosis Moderate; RBC 3.06 m/uL (3.80-5.40); RDW 16.7 % (11.5-15.5); WBC 10.4 k/uL (3.8-10.6)
--- NOTE | 2022-12-05 22:34 | P.PN ---
Subjective Progress Note Date: 12/05/22 81 years old female with past medical history of Diabetes Mellitus, Hypertension, Rt hip Replacement, Orthopedic Surgery, right hip I&D and revision (03/09/21) Patient she is awake and alert, she says she came because of her right hip infection. She states that her in 2019 she broke her hip and she got infected and after treatment she broke again 2020 and now is looks have similar problem. She has purulent discharge from the fistula and the lateral side of the right upper thigh. Patient denies other complaints. No chest pain or dyspnea. She denies smoking alcohol or illicit drugs Afebrile vitals stable Labs show leukocytosis 16.4 Hemoglobin 7.1, patient has history of anemia and hemoglobin fluctuating 6.5-10+ since beginning of 2021) last hemoglobin or system on 06/2022 was 7.9. Sodium 1:30, creatinine 2.0 which is elevated from baseline. On 03/30/22 creatinine was 1.59, before that it was 1.0-1. X-ray of the hip and pelvis showing no fracture Echocardiogram on 03/23/2020: Ejection fraction 55-60% with [id number] mitral and tricuspid regurgitation 12/03/2022 patient presented hospital with a increasing pain to the right hip in addition to the reopening of the right hip wound and drainage high clinical suspicious for right hip septic arthritis with a previous culture positive for MSSA -cefazolin allergy therapy limit the number of antibiotics safe to use -renal insufficiency high risk of nephrotoxicity from vancomycin, patient did have improvement in her creatinine as of yesterday Patient has been evaluated by Ortho with a plan for surgery tomorrow morning Patient to continue with daptomycin and monitor clinical course closely 12/04/2022 Patient is seen and evaluated in room at bedside; patient is status post Revision right total hip arthroplasty/extraction femoral and acetabular components with reimplantation femoral stem/cement spacer; POD # 0 Vital signs are reviewed and stable with temperature of 97.5, pulse 58, respirations 17 and blood pressure 174/64 with O2 saturation 100% on 2 L Laboratory review shows a hemoglobin of 7.9, WBC of 12.3; creatinine slightly trended up at 1.7 from 1.44 yesterday;sodium level of 128 down from 1:30 to yesterday - Patient remains on IV daptomycin -- Blood glucoses reviewed and remain elevated ; we will recommend adjusting therapy once oral intake is established 12/05/2022 Patient is seen and evaluated in follow-up this morning. Hemoglobin was found to be 5.6 this morning and will order 2 units and follow-up with repeat labs prior to ordering any additional units. Patient is significantly weak and maintained on antibiotics with infectious disease following along with orthopedics. Patient is status post revision with orthopedics along with an antibiotic spacer placed. Patient is afebrile not really eating much and is significantly weak. Patient denies shortness of breath or chest pain. Patient is lethargic. Patient maintained on gentle IV hydration and sodium is improved slightly at 130. Patient is attempting to eat although not very hungry she reports. Blood sugars are uncontrolled and elevated will add long-acting insulin and continue sliding scale and Accu-Cheks. Review of systems: Constitutional: reports of fatigue, no fever, or chills Cardiovascular: No reports of chest pain or palpitations Respiratory: No reports of shortness of breath or cough GI: No reports of nausea, vomiting, or diarrhea, reports not much of an appetite : No reports of dysuria or retention Neurovascular: reports of generalized weakness All medications have been reviewed Physical exam: GENERAL: The patient is alert and oriented x3, extremely lethargic. Well developed, thin built, elderly appearing, pale HEENT: Pupils are round and equally reacting to light. EOMI. No scleral icterus. No conjunctival pallor. Normocephalic, atraumatic. No pharyngeal erythema. No thyromegaly. CARDIOVASCULAR: S1 and S2 present. No murmurs, rubs, or gallops. PULMONARY: Chest is clear to auscultation, no wheezing , no crackles. ABDOMEN: Soft, nontender, nondistended, normoactive bowel sounds. No palpable organomegaly. MUSCULOSKELETAL: No joint swelling or deformity. EXTREMITIES: No cyanosis, clubbing, or pedal edema. open fistula on the right lateral side with yellowish discharge. No surrounding cellulitis. No deformity NEUROLOGICAL: Gross neurological examination did not reveal any focal deficits. SKIN: No rashes. no petechiae. Assessment: Septic arthritis of the right hip, recurrent Sepsis secondary to above Chronic normocytic, normochromic anemia Acute kidney injury on chronic kidney disease stage III Hypertension Diabetes mellitus History of right hip replacement and history of infected right hip status post I&D and revision on 03/09/2021 Pulmonary hypertension history Moderate protein calorie malnutrition with BMI of 21.0 GI prophylaxis DVT prophylaxis No code Plan: Continue with antibiotic, currently with IV daptomycin as per ID team will follow the case closely. Awaiting repeat cultures, currently showing presumptive staph aureus Orthopedic team following his patient is status post revision of the right total hip arthroplasty with extraction of the femoral and acetabular components with reimplantation of the femoral stem was of a spacer along with incision and drainage of the right hip Continue gentle IV hydration and follow-up on repeat labs. Creatinine is 1.7 Hemoglobin was found to be 5.9 today and will transfuse 2 units in follow-up with repeat labs this evening as well as this a.m. Continue Accu-Cheks before meals and at bedtime along with sliding scale and adding long-acting blood sugars are elevated Awaiting PT/OT therapy with case management following his family at the bedside with like the patient to move closer to her which is being worked on currently Infectious disease following awaiting repeat cultures that were done on 12/04/2022 during surgery. Presumptive staph preliminary at this time The impression and plan of care has been dictated by Mara Lebron, Nurse Practitioner as directed. Dr. Chau MD I have performed a history and examination and MDM of this patient, discussed the same with the dictator, and agree with the dictator's assessment and plan as written ,documented as a scribe. Based on total visit time, I have performed more than 50% of the visit. Objective - Vital Signs Vital signs: Vital Signs Temp 97.7 F 12/05/22 15:26 Pulse 65 12/05/22 15:26 Resp 16 12/05/22 15:26 BP 118/63 12/05/22 15:26 Pulse Ox 97 12/05/22 13:11 FiO2 Intake & Output 12/04/22 12/05/22 12/05/22 18:59 06:59 18:59 Intake Total 1601 310 Output Total 1080 400 240 Balance 521 -400 70 Weight 60.781 kg Intake: IV 1001 Intake, IV Titration 300 Amount Sodium Chloride 0.9% 1, 300 000 ml @ 75 mls/hr IV . [id number] [facility] Rx#:[id number] Oral 300 Blood Product 310 Rc As-1 Unit 310 [id number] Output: Drainage 400 240 Right Hip 400 240 Urine 980 Estimated Blood Loss 100 Other: Voiding Method Toilet Indwelling Catheter Indwelling Catheter - Labs CBC & Chem 7: 12/05/22 21:32 12/05/22 05:47 Labs: Abnormal Lab Results - Last 24 Hours (Table) 12/04/22 12/04/22 12/05/22 Range/Units 16:54 20:31 05:47 WBC 10.92 H (4.50-10.00) X 10*3/uL RBC 1.94 L (4.10-5.20) X 10*6/uL Hgb 5.6 H* (12.0-15.0) d/dL Hct 18.4 H* (37.2-46.3) % MCHC 30.4 L (32.0-37.0) d/dL RDW 17.9 H (11.5-14.5) % Neutrophils # 8.17 H (1.80-7.70) X 10*3/uL Eosinophils # 0.03 L (0.04-0.35) X 10*3/uL Sodium (135-145) mmol/L Carbon Dioxide (21.6-31.8) mmol/L BUN (9.0-27.0) mg/dL Creatinine (0.6-1.5) mg/dL Est GFR (CKD-EPI) (>=60) BUN/Creatinine Ratio (12.00-20.00) Ratio Glucose (70-110) mg/dL POC Glucose (mg/dL) 304 H 296 H (70-110) mg/dL Calcium (8.7-10.3) mg/dL Crossmatch 12/05/22 12/05/22 12/05/22 Range/Units 05:47 05:47 10:46 WBC (4.50-10.00) X 10*3/uL RBC (4.10-5.20) X 10*6/uL Hgb (12.0-15.0) d/dL Hct (37.2-46.3) % MCHC (32.0-37.0) d/dL RDW (11.5-14.5) % Neutrophils # (1.80-7.70) X 10*3/uL Eosinophils # (0.04-0.35) X 10*3/uL Sodium 130 L (135-145) mmol/L Carbon Dioxide 18.9 L (21.6-31.8) mmol/L BUN 43.8 H (9.0-27.0) mg/dL Creatinine 1.7 H (0.6-1.5) mg/dL Est GFR (CKD-EPI) 30 L (>=60) BUN/Creatinine Ratio 25.76 H (12.00-20.00) Ratio Glucose 190 H (70-110) mg/dL POC Glucose (mg/dL) 222 H (70-110) mg/dL Calcium 8.0 L (8.7-10.3) mg/dL Crossmatch See Detail 12/05/22 Range/Units 11:09 WBC (4.50-10.00) X 10*3/uL RBC (4.10-5.20) X 10*6/uL Hgb (12.0-15.0) d/dL Hct (37.2-46.3) % MCHC (32.0-37.0) d/dL RDW (11.5-14.5) % Neutrophils # (1.80-7.70) X 10*3/uL Eosinophils # (0.04-0.35) X 10*3/uL Sodium (135-145) mmol/L Carbon Dioxide (21.6-31.8) mmol/L BUN (9.0-27.0) mg/dL Creatinine (0.6-1.5) mg/dL Est GFR (CKD-EPI) (>=60) BUN/Creatinine Ratio (12.00-20.00) Ratio Glucose (70-110) mg/dL POC Glucose (mg/dL) 344 H (70-110) mg/dL Calcium (8.7-10.3) mg/dL Crossmatch Microbiology - Last 24 Hours (Table) 12/01/22 07:05 Blood Culture - Preliminary Blood
[2022-12-06] MEDS: HYDROmorphone 0.5 MG/0.5 ML SYRINGE IVP PRN ×2 (01:37→20:12)
[2022-12-06] MEDS: HYDROcodone/APAP 5-325MG 1 EACH TAB PO PRN ×3 (06:23→18:57)
[2022-12-06 06:25] LABS: Glucose,Whole Blood 131 mg/dL (70-110)
[2022-12-06] MEDS: INSULIN DETEMIR (LEVEMIR) 100 UNIT/ML SYR SQ SCH ×2 (06:55→21:59)
[2022-12-06] MEDS: INSULIN ASPART (NovoLOG) 100 UNIT/ML VIAL SQ SCH ×4 (06:58→22:00)
[2022-12-06] MEDS: ASPIRIN 81 MG PO SCH (09:47)
[2022-12-06] MEDS: FERROUS SULFATE 325 MG TAB PO SCH ×2 (09:47→21:59)
[2022-12-06] MEDS: METOPROLOL SUCCINATE (ER) 25 MG TAB.ER.24H PO SCH ×2 (09:47→21:59)
[2022-12-06] MEDS: FAMOTIDINE 20 MG/2 ML VIAL IV SCH (09:47)
[2022-12-06] MEDS: ENOXAPARIN 30 MG/0.3 ML SYRINGE SQ SCH (09:54)
[2022-12-06 11:11] LABS: BUN/Creat Ratio 25.61 Ratio (12.00-20.00); Blood Urea Nitrogen 46.1 mg/dL (9.0-27.0); Calcium 7.9 mg/dL (8.7-10.3); Carbon Dioxide 18.1 mmol/L (21.6-31.8); Chloride 103 mmol/L (96-109); Glucose 118 mg/dL (70-110); Magnesium 1.7 mg/dL (1.5-2.4); Potassium 5.8 mmol/L (3.5-5.5); Sodium 132 mmol/L (135-145)
[2022-12-06 11:25] LABS: Glucose,Whole Blood 86 mg/dL (70-110)
--- NOTE | 2022-12-06 12:40 | P.PN ---
Subjective Progress Note Date: 12/06/22 Principal diagnosis: Right hip septic arthritis/infection Patient was seen at bedside this morning lying semirecumbent position with dressing present to the right lateral hip. Patient says she is having a lot of pain to RLE whenever she moves attempts to move it. Patient says she has not been up out of bed since surgery was performed. Patient is looking forward to working with therapy. Patient denies any other issues at this time. Patient denies chest pain, fever, drainage breath, nausea, change in vision, loss of bowel/bladder control. Objective - Vital Signs Vital signs: Vital Signs Temp 97.5 F L 12/06/22 07:16 Pulse 82 12/06/22 07:35 Resp 17 12/06/22 07:35 BP 96/63 12/06/22 07:16 Pulse Ox 95 12/06/22 09:00 FiO2 21 12/06/22 09:00 Intake & Output 12/05/22 12/06/22 12/06/22 18:59 06:59 18:59 Intake Total 310 310 Output Total 540 720 120 Balance -230 -410 -120 Intake: Blood Product 310 310 Rc As-1 Unit 310 [id number] Rc As-1 Unit 0 310 [id number] Output: Drainage 240 120 120 Right Hip 240 120 120 Urine 300 600 Other: Voiding Method Indwelling Catheter Indwelling Catheter Indwelling Catheter - Exam Inspection: Bulky dressing present over the right lateral hip. Negative for anyactive drainage. 120 cc output overnight. drain moved to gravity. There is some spotting present over the dressing. Sutures are well aligned and in good placement. There is some erythema surrounding the open portion of the incision. Negative for any open fractures, significant ecchymosis/other wounds Sensation: Equal, symmetric, bilateral intact at the upper and lower extremities. Range of motion: Patient has full range of motion throughout bilateral upper extremities on exam. There is some minimal limited range of motion in the right hip secondary to referred pain to the right hip. Full range of motion throughout rest of lower extremities. Motor: 4/5 in resisted right hip flexion/extension. 4+/5 in all other major motor is in bilateral lower and upper extremities. Palpation: Fair to moderate amount of tenderness to palpation over the superior portion of the incision near the drainage. Nontender to palpation throughout rest of exam. Special tests: Negative log roll maneuver. Negative Homans. Neurovascular status: Radial pulses intact, 2+ bilaterally. Skin is lukewarm to touch in the right lower extremity. DP pulses palpable. Cap refill under 3 seconds in digits of upper extremities. - Labs CBC & Chem 7: 12/05/22 21:32 12/06/22 05:26 Labs: Abnormal Lab Results - Last 24 Hours (Table) 12/05/22 12/05/22 12/05/22 Range/Units 05:47 10:46 11:09 RBC (3.80-5.40) m/uL Hgb (11.4-16.0) gm/dL Hct (34.0-46.0) % RDW (11.5-15.5) % Neutrophils # (1.3-7.7) k/uL Sodium 130 L (135-145) mmol/L Carbon Dioxide 18.9 L (21.6-31.8) mmol/L BUN 43.8 H (9.0-27.0) mg/dL Creatinine 1.7 H (0.6-1.5) mg/dL Est GFR (CKD-EPI) 30 L (>=60) BUN/Creatinine Ratio 25.76 H (12.00-20.00) Ratio Glucose 190 H (70-110) mg/dL POC Glucose (mg/dL) 344 H (70-110) mg/dL Calcium 8.0 L (8.7-10.3) mg/dL Crossmatch See Detail 12/05/22 12/05/22 12/05/22 Range/Units 16:46 21:11 21:32 RBC 3.06 L (3.80-5.40) m/uL Hgb 9.2 L (11.4-16.0) gm/dL Hct 29.0 L (34.0-46.0) % RDW 16.7 H (11.5-15.5) % Neutrophils # 8.3 H (1.3-7.7) k/uL Sodium (135-145) mmol/L Carbon Dioxide (21.6-31.8) mmol/L BUN (9.0-27.0) mg/dL Creatinine (0.6-1.5) mg/dL Est GFR (CKD-EPI) (>=60) BUN/Creatinine Ratio (12.00-20.00) Ratio Glucose (70-110) mg/dL POC Glucose (mg/dL) 340 H 295 H (70-110) mg/dL Calcium (8.7-10.3) mg/dL Crossmatch 12/06/22 Range/Units 06:24 RBC (3.80-5.40) m/uL Hgb (11.4-16.0) gm/dL Hct (34.0-46.0) % RDW (11.5-15.5) % Neutrophils # (1.3-7.7) k/uL Sodium (135-145) mmol/L Carbon Dioxide (21.6-31.8) mmol/L BUN (9.0-27.0) mg/dL Creatinine (0.6-1.5) mg/dL Est GFR (CKD-EPI) (>=60) BUN/Creatinine Ratio (12.00-20.00) Ratio Glucose (70-110) mg/dL POC Glucose (mg/dL) 131 H (70-110) mg/dL Calcium (8.7-10.3) mg/dL Crossmatch Microbiology - Last 24 Hours (Table) 11/30/22 14:15 Blood Culture - Final Blood 11/30/22 14:00 Blood Culture - Final Blood 12/04/22 08:59 Gram Stain - Preliminary Hip - Right Wound Culture - Preliminary Presumptive Staph aureus 12/04/22 08:50 Gram Stain - Preliminary Hip - Right Wound Culture - Preliminary Presumptive Staph aureus Assessment and Plan Assessment: 1. 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 Patient stable at bedside this morning with dressing on right hip. Patient to be only toe-touch weightbearing for transfers only. Remain nonweightbearing otherwise. PT/OT daily. Pain medication as needed. Plan for discharge to rehab when available. Cultures show Staph aureus. Abx per ID. 120 cc serosanguineous output in drain. Drain moved to gravity. Plan for drain removal tmrw. We'll continue to follow patient during her stay in hospital. 2. Appreciate medical and infectious disease management 3. Pain management - Tylenol; [place] 4. DVT prophylaxis - Lovenox; aspirin 5. GI prophylaxis - Pepcid; milk of magnesia 6. PT/OT - right lower extremity toe-touch for transfers only. Remain nonweightbearing to the right lower extremity otherwise. Left lower extremity weightbearing as tolerated 7. Encourage incentive spirometer use 8. Discharge planning - plan for discharge to rehab when bed available Time with Patient: Less than 30
--- NOTE | 2022-12-06 13:14 | P.PN ---
Subjective Progress Note Date: 12/05/22 Principal diagnosis: Right hip septic arthritis Patient is a 81-year-old female with a past medical history significant for diabetes mellitus hypertension patient also have a hip history of right hip septic arthritis and this patient was status post I&D and exchange of the femoral head that was done in March 2021 , patient presented to hospital with reopening of the right hip incision wound and drainage. Patient is status post revision right total hip arthroplasty/extension of the femoral and acetabular components and placement of cement spacer On today's evaluation and that is 12/05/2022, the patient denies any fever or any chills , the patient is breathing comfortably on room air , the patient denies chest pain or cough, patient denies ausea or vomiting and no abdominal pain, no diarrhea the patient pain to the right hip surgical site is currently controlled with pain medication Patient did have white count 10.4, creatinine is 1.7 Objective - Vital Signs Vital signs: Vital Signs Temp 97.7 F 12/05/22 15:26 Pulse 65 12/05/22 15:26 Resp 16 12/05/22 15:26 BP 118/63 12/05/22 15:26 Pulse Ox 97 12/05/22 13:11 FiO2 Intake & Output 12/04/22 12/05/22 12/05/22 18:59 06:59 18:59 Intake Total 1601 310 Output Total 1080 400 240 Balance 521 -400 70 Weight 60.781 kg Intake: IV 1001 Intake, IV Titration 300 Amount Sodium Chloride 0.9% 1, 300 000 ml @ 75 mls/hr IV . [id number] [facility] Rx#:[id number] Oral 300 Blood Product 310 Rc As-1 Unit 310 [id number] Output: Drainage 400 240 Right Hip 400 240 Urine 980 Estimated Blood Loss 100 Other: Voiding Method Toilet Indwelling Catheter Indwelling Catheter - Exam GENERAL DESCRIPTION: An elderly female lying in bed in no distress RESPIRATORY SYSTEM: Unlabored breathing , decreased breath sounds at bases HEART: S1 S2 regular rate and rhythm , ABDOMEN: Soft , no tenderness EXTREMITIES: No edema feet - Labs CBC & Chem 7: 12/05/22 21:32 12/06/22 05:26 Labs: Abnormal Lab Results - Last 24 Hours (Table) 12/04/22 12/05/22 12/05/22 Range/Units 20:31 05:47 05:47 WBC 10.92 H (4.50-10.00) X 10*3/uL RBC 1.94 L (4.10-5.20) X 10*6/uL Hgb 5.6 H* (12.0-15.0) d/dL Hct 18.4 H* (37.2-46.3) % MCHC 30.4 L (32.0-37.0) d/dL RDW 17.9 H (11.5-14.5) % Neutrophils # 8.17 H (1.80-7.70) X 10*3/uL Eosinophils # 0.03 L (0.04-0.35) X 10*3/uL Sodium 130 L (135-145) mmol/L Carbon Dioxide 18.9 L (21.6-31.8) mmol/L BUN 43.8 H (9.0-27.0) mg/dL Creatinine 1.7 H (0.6-1.5) mg/dL Est GFR (CKD-EPI) 30 L (>=60) BUN/Creatinine Ratio 25.76 H (12.00-20.00) Ratio Glucose 190 H (70-110) mg/dL POC Glucose (mg/dL) 296 H (70-110) mg/dL Calcium 8.0 L (8.7-10.3) mg/dL Crossmatch 12/05/22 12/05/22 12/05/22 Range/Units 05:47 10:46 11:09 WBC (4.50-10.00) X 10*3/uL RBC (4.10-5.20) X 10*6/uL Hgb (12.0-15.0) d/dL Hct (37.2-46.3) % MCHC (32.0-37.0) d/dL RDW (11.5-14.5) % Neutrophils # (1.80-7.70) X 10*3/uL Eosinophils # (0.04-0.35) X 10*3/uL Sodium (135-145) mmol/L Carbon Dioxide (21.6-31.8) mmol/L BUN (9.0-27.0) mg/dL Creatinine (0.6-1.5) mg/dL Est GFR (CKD-EPI) (>=60) BUN/Creatinine Ratio (12.00-20.00) Ratio Glucose (70-110) mg/dL POC Glucose (mg/dL) 222 H 344 H (70-110) mg/dL Calcium (8.7-10.3) mg/dL Crossmatch See Detail 12/05/22 Range/Units 16:46 WBC (4.50-10.00) X 10*3/uL RBC (4.10-5.20) X 10*6/uL Hgb (12.0-15.0) d/dL Hct (37.2-46.3) % MCHC (32.0-37.0) d/dL RDW (11.5-14.5) % Neutrophils # (1.80-7.70) X 10*3/uL Eosinophils # (0.04-0.35) X 10*3/uL Sodium (135-145) mmol/L Carbon Dioxide (21.6-31.8) mmol/L BUN (9.0-27.0) mg/dL Creatinine (0.6-1.5) mg/dL Est GFR (CKD-EPI) (>=60) BUN/Creatinine Ratio (12.00-20.00) Ratio Glucose (70-110) mg/dL POC Glucose (mg/dL) 340 H (70-110) mg/dL Calcium (8.7-10.3) mg/dL Crossmatch Microbiology - Last 24 Hours (Table) 12/04/22 08:59 Gram Stain - Preliminary Hip - Right 12/04/22 08:50 Gram Stain - Preliminary Hip - Right Assessment and Plan (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 Current Visit: Yes Status: Acute Code(s): T84.51XA - SNOMED Code(s): 93343054225142554 Plan: 1patient presented hospital with a increasing pain to the right hip in addition to the reopening of the right hip wound and drainage high clinical suspicious for right hip septic arthritis with a previous culture positive for MSSA 2-cefazolin allergy therapy limit the number of antibiotics safe to use 3-renal insufficiency high risk of nephrotoxicity from vancomycin, patient did have improvement in her creatinine as of yesterday 4Patient is status post surgery with removal of the infected hardware and placement of antibiotic spacer, culture with staph aureus 5Patient to continue with daptomycin, will try to find out about her cefazolin ALLERGIES and it may be better to use cefazolin on DC, patient brother was at bedside he has no idea about her cefazolin ALLERGY and so do the patient Dictation was produced using [employer] dictation software. please excuse any grammatical, word or spelling errors. Time with Patient: Less than 30
--- NOTE | 2022-12-06 13:16 | P.PN ---
Subjective Progress Note Date: 12/06/22 Principal diagnosis: Right hip septic arthritis Patient is a 81-year-old female with a past medical history significant for diabetes mellitus hypertension patient also have a hip history of right hip septic arthritis and this patient was status post I&D and exchange of the femoral head that was done in March 2021 , patient presented to hospital with reopening of the right hip incision wound and drainage. Patient is status post revision right total hip arthroplasty/extension of the femoral and acetabular components and placement of cement spacer On today's evaluation and that is 12/06/2022, the patient remains to be afebrile, the patient is breathing comfortably on room air , the patient denies chest pain or cough, patient denies ausea or vomiting and no abdominal pain, no diarrhea the patient complaining of more pain to the right hip especially with movement Patient did have white count 10.4 as of yesterday, creatinine is 1.8 Objective - Vital Signs Vital signs: Vital Signs Temp 97.5 F L 12/06/22 07:16 Pulse 82 12/06/22 07:35 Resp 17 12/06/22 07:35 BP 96/63 12/06/22 07:16 Pulse Ox 95 12/06/22 09:00 FiO2 21 12/06/22 09:00 Intake & Output 12/05/22 12/06/22 12/06/22 18:59 06:59 18:59 Intake Total 310 310 Output Total 540 720 120 Balance -230 -410 -120 Intake: Blood Product 310 310 Rc As-1 Unit 310 [id number] Rc As-1 Unit 0 310 [id number] Output: Drainage 240 120 120 Right Hip 240 120 120 Urine 300 600 Other: Voiding Method Indwelling Catheter Indwelling Catheter Indwelling Catheter - Exam GENERAL DESCRIPTION: An elderly female lying in bed in no distress RESPIRATORY SYSTEM: Unlabored breathing , decreased breath sounds at bases HEART: S1 S2 regular rate and rhythm , ABDOMEN: Soft , no tenderness EXTREMITIES: No edema feet - Labs CBC & Chem 7: 12/05/22 21:32 12/06/22 05:26 Labs: Abnormal Lab Results - Last 24 Hours (Table) 12/05/22 12/05/22 12/05/22 Range/Units 10:46 16:46 21:11 RBC (3.80-5.40) m/uL Hgb (11.4-16.0) gm/dL Hct (34.0-46.0) % RDW (11.5-15.5) % Neutrophils # (1.3-7.7) k/uL Sodium (135-145) mmol/L Potassium (3.5-5.5) mmol/L Carbon Dioxide (21.6-31.8) mmol/L BUN (9.0-27.0) mg/dL Creatinine (0.6-1.5) mg/dL Est GFR (CKD-EPI) (>=60) BUN/Creatinine Ratio (12.00-20.00) Ratio Glucose (70-110) mg/dL POC Glucose (mg/dL) 340 H 295 H (70-110) mg/dL Calcium (8.7-10.3) mg/dL Crossmatch See Detail 12/05/22 12/06/22 12/06/22 Range/Units 21:32 05:26 06:24 RBC 3.06 L (3.80-5.40) m/uL Hgb 9.2 L (11.4-16.0) gm/dL Hct 29.0 L (34.0-46.0) % RDW 16.7 H (11.5-15.5) % Neutrophils # 8.3 H (1.3-7.7) k/uL Sodium 132 L (135-145) mmol/L Potassium 5.8 H (3.5-5.5) mmol/L Carbon Dioxide 18.1 L (21.6-31.8) mmol/L BUN 46.1 H (9.0-27.0) mg/dL Creatinine 1.8 H (0.6-1.5) mg/dL Est GFR (CKD-EPI) 28 L (>=60) BUN/Creatinine Ratio 25.61 H (12.00-20.00) Ratio Glucose 118 H (70-110) mg/dL POC Glucose (mg/dL) 131 H (70-110) mg/dL Calcium 7.9 L (8.7-10.3) mg/dL Crossmatch Microbiology - Last 24 Hours (Table) 11/30/22 14:15 Blood Culture - Final Blood 11/30/22 14:00 Blood Culture - Final Blood 12/04/22 08:59 Gram Stain - Preliminary Hip - Right Wound Culture - Preliminary Presumptive Staph aureus 12/04/22 08:50 Gram Stain - Preliminary Hip - Right Wound Culture - Preliminary Presumptive Staph aureus Assessment and Plan (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 Current Visit: Yes Status: Acute Code(s): T84.51XA - SNOMED Code(s): 64323634906928190 Plan: 1patient presented hospital with a increasing pain to the right hip in addition to the reopening of the right hip wound and drainage high clinical suspicious for right hip septic arthritis with a previous culture positive for MSSA 2-cefazolin allergy therapy limit the number of antibiotics safe to use 3-renal insufficiency high risk of nephrotoxicity from vancomycin, patient did have improvement in her creatinine as of yesterday 4Patient is status post surgery with removal of the infected hardware and place ment of antibiotic spacer, culture with staph aureus 5Patient with documented ALLERGY of cefazolin on the chart however the patient has received multiple courses of cefazolin as per discussion with the pharmacist, cefazolin ALLERGY was intubated in the system back in June 2022 without any clear reason as she did not receive cefazolin at that point after discussion with the pharmacist we will give her cefazolin 1 g dose 1 and if the patient do okay with that we'll continue with the cefazolin and discontinue daptomycin will order a PICC line Dictation was produced using [employer] dictation software. please excuse any grammatical, word or spelling errors. Time with Patient: Greater than 30
[2022-12-06] MEDS ORDERED: SODIUM ZIRCONIUM CYCLOSILICATE 10 GM PACKET PO ONE (14:00)
[2022-12-06 16:31] LABS: Glucose,Whole Blood 121 mg/dL (70-110)
[2022-12-06 20:30] LABS: Glucose,Whole Blood 178 mg/dL (70-110)
--- NOTE | 2022-12-06 21:12 | P.PN ---
Subjective Progress Note Date: 12/06/22 81 years old female with past medical history of Diabetes Mellitus, Hypertension, Rt hip Replacement, Orthopedic Surgery, right hip I&D and revision (03/09/21) Patient she is awake and alert, she says she came because of her right hip infection. She states that her in 2019 she broke her hip and she got infected and after treatment she broke again 2020 and now is looks have similar problem. She has purulent discharge from the fistula and the lateral side of the right upper thigh. Patient denies other complaints. No chest pain or dyspnea. She denies smoking alcohol or illicit drugs Afebrile vitals stable Labs show leukocytosis 16.4 Hemoglobin 7.1, patient has history of anemia and hemoglobin fluctuating 6.5-10+ since beginning of 2021) last hemoglobin or system on 06/2022 was 7.9. Sodium 1:30, creatinine 2.0 which is elevated from baseline. On 03/30/22 creatinine was 1.59, before that it was 1.0-1. X-ray of the hip and pelvis showing no fracture Echocardiogram on 03/23/2020: Ejection fraction 55-60% with [id number] mitral and tricuspid regurgitation 12/03/2022 patient presented hospital with a increasing pain to the right hip in addition to the reopening of the right hip wound and drainage high clinical suspicious for right hip septic arthritis with a previous culture positive for MSSA -cefazolin allergy therapy limit the number of antibiotics safe to use -renal insufficiency high risk of nephrotoxicity from vancomycin, patient did have improvement in her creatinine as of yesterday Patient has been evaluated by Ortho with a plan for surgery tomorrow morning Patient to continue with daptomycin and monitor clinical course closely 12/04/2022 Patient is seen and evaluated in room at bedside; patient is status post Revision right total hip arthroplasty/extraction femoral and acetabular components with reimplantation femoral stem/cement spacer; POD # 0 Vital signs are reviewed and stable with temperature of 97.5, pulse 58, respirations 17 and blood pressure 174/64 with O2 saturation 100% on 2 L Laboratory review shows a hemoglobin of 7.9, WBC of 12.3; creatinine slightly trended up at 1.7 from 1.44 yesterday;sodium level of 128 down from 1:30 to yesterday - Patient remains on IV daptomycin -- Blood glucoses reviewed and remain elevated ; we will recommend adjusting therapy once oral intake is established 12/05/2022 Patient is seen and evaluated in follow-up this morning. Hemoglobin was found to be 5.6 this morning and will order 2 units and follow-up with repeat labs prior to ordering any additional units. Patient is significantly weak and maintained on antibiotics with infectious disease following along with orthopedics. Patient is status post revision with orthopedics along with an antibiotic spacer placed. Patient is afebrile not really eating much and is significantly weak. Patient denies shortness of breath or chest pain. Patient is lethargic. Patient maintained on gentle IV hydration and sodium is improved slightly at 130. Patient is attempting to eat although not very hungry she reports. Blood sugars are uncontrolled and elevated will add long-acting insulin and continue sliding scale and Accu-Cheks. 12/06/2022 Patient is seen in follow-up today reporting extreme right hip pain very sensitive to touch and reports is not getting up out of bed. Patient did receive 2 units of PRBC yesterday and hemoglobin is 9.2 today. Patient is afebrile with no reports of chest pain or shortness of breath noted. Infectious disease following discussing IV antibiotic therapy and patient is being started on cefazolin. Patient to receive a PICC line patient will definitely require IV antibiotics on discharge. Case management following working on discharge planning to [facility] summary closer towards family. Patient is is to remain nonweightbearing of the right extremity per orthopedics is following closely. Blood sugar slightly improved and will continue current regimen. Potassium was elevated at 5.8 today and will give a dose of lokelma and continue low potassium diabetic diet and follow-up with repeat labs. Review of systems: Constitutional: reports of fatigue, no fever, or chills Cardiovascular: No reports of chest pain or palpitations Respiratory: No reports of shortness of breath or cough GI: No reports of nausea, vomiting, or diarrhea, reports not much of an appetite : No reports of dysuria or retention Neurovascular: reports of generalized weakness And severe right hip pain All medications have been reviewed Physical exam: GENERAL: The patient is alert and oriented x3, lethargic But more awake today . Well developed, thin built, elderly appearing, pale HEENT: Pupils are round and equally reacting to light. EOMI. No scleral icterus. No conjunctival pallor. Normocephalic, atraumatic. No pharyngeal erythema. No thyromegaly. CARDIOVASCULAR: S1 and S2 present. No murmurs, rubs, or gallops. PULMONARY: Chest is clear to auscultation, no wheezing , no crackles. ABDOMEN: Soft, nontender, nondistended, normoactive bowel sounds. No palpable organomegaly. MUSCULOSKELETAL: No joint swelling or deformity. EXTREMITIES: No cyanosis, clubbing, or pedal edema. surgical dressing on the right hip currently dry and intact with drain noted, extremely sensitive to minimal palpation NEUROLOGICAL: Gross neurological examination did not reveal any focal deficits. SKIN: No rashes. no petechiae. Assessment: Septic arthritis of the right hip, recurrent Sepsis secondary to above Chronic normocytic, normochromic anemia Acute kidney injury on chronic kidney disease stage III Hyperkalemia Hypertension Diabetes mellitus, uncontrolled with hypoglycemia History of right hip replacement and history of infected right hip status post I &D and revision on 03/09/2021 as well as 12/03/2022 Pulmonary hypertension history Moderate protein calorie malnutrition with BMI of 21.0 GI prophylaxis DVT prophylaxis No code Plan: Continue with antibiotic, currently with IV antibiotics and has been transitioned to cefazolin per ID team will follow the case closely.Cultures showing staph aureus and will require IV antibiotics on discharge. Patient did receive a PICC line. Orthopedic team following his patient is status post revision of the right total hip arthroplasty with extraction of the femoral and acetabular components with reimplantation of the femoral stem was of a spacer along with incision and drainage of the right hip Continue gentle IV hydration and follow-up on repeat labs. Creatinine is 1.7 Hemoglobin is 9.3 today after 2 units . repeat labs ordered for am. Potassium 5.8 today and will dose of lokelma and recommend low potassium diet Continue Accu-Cheks before meals and at bedtime along with sliding scale and long-acting Awaiting PT/OT therapy with case management following as family at the bedside would like the patient to move closer to her which is being worked on currently Infectious disease following an PICC line is being ordered as patient will require IV antibiotic therapy on discharge. The impression and plan of care has been dictated by Mara Lebron, Nurse Practitioner as directed. Dr. Chau MD I have performed a history and examination and MDM of this patient, discussed the same with the dictator, and agree with the dictator's assessment and plan as written ,documented as a scribe. Based on total visit time, I have performed more than 50% of the visit. Objective - Vital Signs Vital signs: Vital Signs Temp 97.5 F L 12/06/22 07:16 Pulse 82 12/06/22 07:35 Resp 17 12/06/22 07:35 BP 96/63 12/06/22 07:16 Pulse Ox 95 12/06/22 09:00 FiO2 21 12/06/22 09:00 Intake & Output 12/05/22 12/06/22 12/06/22 18:59 06:59 18:59 Intake Total 310 310 Output Total 540 720 120 Balance -230 -410 -120 Intake: Blood Product 310 310 Rc As-1 Unit 310 [id number] Rc As-1 Unit 0 310 [id number] Output: Drainage 240 120 120 Right Hip 240 120 120 Urine 300 600 Other: Voiding Method Indwelling Catheter Indwelling Catheter Indwelling Catheter - Labs CBC & Chem 7: 12/05/22 21:32 12/06/22 05:26 Labs: Abnormal Lab Results - Last 24 Hours (Table) 12/05/22 12/05/22 12/05/22 Range/Units 05:47 10:46 11:09 RBC (3.80-5.40) m/uL Hgb (11.4-16.0) gm/dL Hct (34.0-46.0) % RDW (11.5-15.5) % Neutrophils # (1.3-7.7) k/uL Sodium 130 L (135-145) mmol/L Carbon Dioxide 18.9 L (21.6-31.8) mmol/L BUN 43.8 H (9.0-27.0) mg/dL Creatinine 1.7 H (0.6-1.5) mg/dL Est GFR (CKD-EPI) 30 L (>=60) BUN/Creatinine Ratio 25.76 H (12.00-20.00) Ratio Glucose 190 H (70-110) mg/dL POC Glucose (mg/dL) 344 H (70-110) mg/dL Calcium 8.0 L (8.7-10.3) mg/dL Crossmatch See Detail 12/05/22 12/05/22 12/05/22 Range/Units 16:46 21:11 21:32 RBC 3.06 L (3.80-5.40) m/uL Hgb 9.2 L (11.4-16.0) gm/dL Hct 29.0 L (34.0-46.0) % RDW 16.7 H (11.5-15.5) % Neutrophils # 8.3 H (1.3-7.7) k/uL Sodium (135-145) mmol/L Carbon Dioxide (21.6-31.8) mmol/L BUN (9.0-27.0) mg/dL Creatinine (0.6-1.5) mg/dL Est GFR (CKD-EPI) (>=60) BUN/Creatinine Ratio (12.00-20.00) Ratio Glucose (70-110) mg/dL POC Glucose (mg/dL) 340 H 295 H (70-110) mg/dL Calcium (8.7-10.3) mg/dL Crossmatch 12/06/22 Range/Units 06:24 RBC (3.80-5.40) m/uL Hgb (11.4-16.0) gm/dL Hct (34.0-46.0) % RDW (11.5-15.5) % Neutrophils # (1.3-7.7) k/uL Sodium (135-145) mmol/L Carbon Dioxide (21.6-31.8) mmol/L BUN (9.0-27.0) mg/dL Creatinine (0.6-1.5) mg/dL Est GFR (CKD-EPI) (>=60) BUN/Creatinine Ratio (12.00-20.00) Ratio Glucose (70-110) mg/dL POC Glucose (mg/dL) 131 H (70-110) mg/dL Calcium (8.7-10.3) mg/dL Crossmatch Microbiology - Last 24 Hours (Table) 11/30/22 14:15 Blood Culture - Final Blood 11/30/22 14:00 Blood Culture - Final Blood 12/04/22 08:59 Gram Stain - Preliminary Hip - Right Wound Culture - Preliminary Presumptive Staph aureus 12/04/22 08:50 Gram Stain - Preliminary Hip - Right Wound Culture - Preliminary Presumptive Staph aureus
[2022-12-06] MEDS: SENNOSIDES-DOCUSATE SODIUM 1 EACH TAB PO SCH (21:59)
[2022-12-06] MEDS: SODIUM CHLORIDE 0.9% 1,000 ML IV SCH (22:45)
[2022-12-07] MEDS: HYDROmorphone 0.5 MG/0.5 ML SYRINGE IVP PRN ×2 (01:36→08:48)
[2022-12-07] MEDS: SODIUM CHLORIDE 0.9% 1,000 ML IV SCH (02:04)
[2022-12-07 05:22] LABS: Glucose,Whole Blood 92 mg/dL (70-110)
[2022-12-07] MEDS: INSULIN ASPART (NovoLOG) 100 UNIT/ML VIAL SQ SCH ×4 (05:47→21:04)
[2022-12-07] MEDS: INSULIN DETEMIR (LEVEMIR) 100 UNIT/ML SYR SQ SCH ×2 (06:41→21:04)
[2022-12-07] MEDS: FERROUS SULFATE 325 MG TAB PO SCH ×2 (08:49→21:05)
[2022-12-07] MEDS: ASPIRIN 81 MG PO SCH (08:49)
[2022-12-07] MEDS: FAMOTIDINE 20 MG/2 ML VIAL IV SCH (08:49)
[2022-12-07] MEDS: METOPROLOL SUCCINATE (ER) 25 MG TAB.ER.24H PO SCH ×2 (08:50→21:04)
[2022-12-07] MEDS: ENOXAPARIN 30 MG/0.3 ML SYRINGE SQ SCH (08:50)
[2022-12-07] MEDS ORDERED: LIDOCAINE 1% INJ 10MG/ML (5 ML VIAL-PF) SQ ONE (09:17)
--- NOTE | 2022-12-07 10:02 | P.PN ---
Subjective Progress Note Date: 12/07/22 Principal diagnosis: Right hip septic arthritis/infection Patient was seen at bedside this morning lying semirecumbent position with dressing present to the right lateral hip. Patient says she is having a lot of pain to RLE whenever she moves attempts to move it. Patient is looking forward to working with therapy. Patient about to go for PICC line placement this morning. Patient denies any other issues at this time. Patient denies chest pain, fever, drainage breath, nausea, change in vision, loss of bowel/bladder control. Objective - Vital Signs Vital signs: Vital Signs Temp 97.9 F 12/07/22 07:23 Pulse 69 12/07/22 07:23 Resp 17 12/07/22 07:23 BP 126/53 12/07/22 07:23 Pulse Ox 98 12/07/22 07:23 FiO2 21 12/06/22 09:00 Intake & Output 12/06/22 12/07/22 12/07/22 18:59 06:59 18:59 Intake Total 850 Output Total 120 60 Balance 730 -60 Intake: Intake, IV Titration 450 Amount Sodium Chloride 0.9% 1, 400 000 ml @ 75 mls/hr IV . [id number] [facility] Rx#:[id number] ceFAZolin 2 gm In Sodium 50 Chloride 0.9% 50 ml @ 100 mls/hr IVPB Q12HR [facility] Rx #:[id number] Oral 400 Output: Drainage 120 60 Right Hip 120 60 Other: Voiding Method Indwelling Catheter # Voids 2 # Bowel Movements 1 - Exam Inspection: Bulky dressing present over the right lateral hip. Negative for any active drainage. 60 cc output overnight. There is some spotting present over the dressing. Dressing removed and new dressing placed at bedside. Drain removed at bedside. Sutures are well aligned and in good placement. There is minimal erythema surrounding the incision.. Negative for any open fractures, significant ecchymosis. Sensation: Equal, symmetric, bilateral intact at the upper and lower extremities. Range of motion: Patient has full range of motion throughout bilateral upper extremities on exam. There is some minimal limited range of motion in the right hip secondary to referred pain to the right hip. Full range of motion thr oughout rest of lower extremities. Motor: 4/5 in resisted right hip flexion/extension. 4+/5 in all other major motor is in bilateral lower and upper extremities. Palpation: Fair to moderate amount of tenderness to palpation over the superior portion of the incision near the drainage. Nontender to palpation throughout rest of exam. Special tests: Negative log roll maneuver. Negative Homans. Neurovascular status: Radial pulses intact, 2+ bilaterally. Skin is lukewarm to touch in the right lower extremity. DP pulses palpable. Cap refill under 3 seconds in digits of upper extremities. - Labs CBC & Chem 7: 12/05/22 21:32 12/06/22 05:26 Labs: Abnormal Lab Results - Last 24 Hours (Table) 12/05/22 12/06/22 12/06/22 Range/Units 10:46 05:26 16:30 Sodium 132 L (135-145) mmol/L Potassium 5.8 H (3.5-5.5) mmol/L Carbon Dioxide 18.1 L (21.6-31.8) mmol/L BUN 46.1 H (9.0-27.0) mg/dL Creatinine 1.8 H (0.6-1.5) mg/dL Est GFR (CKD-EPI) 28 L (>=60) BUN/Creatinine Ratio 25.61 H (12.00-20.00) Ratio Glucose 118 H (70-110) mg/dL POC Glucose (mg/dL) 121 H (70-110) mg/dL Calcium 7.9 L (8.7-10.3) mg/dL Crossmatch See Detail 12/06/22 Range/Units 20:28 Sodium (135-145) mmol/L Potassium (3.5-5.5) mmol/L Carbon Dioxide (21.6-31.8) mmol/L BUN (9.0-27.0) mg/dL Creatinine (0.6-1.5) mg/dL Est GFR (CKD-EPI) (>=60) BUN/Creatinine Ratio (12.00-20.00) Ratio Glucose (70-110) mg/dL POC Glucose (mg/dL) 178 H (70-110) mg/dL Calcium (8.7-10.3) mg/dL Crossmatch Microbiology - Last 24 Hours (Table) 12/04/22 08:50 Anaerobic Culture - Preliminary Hip - Right 12/04/22 08:59 Anaerobic Culture - Preliminary Hip - Right 12/04/22 08:59 Gram Stain - Final Hip - Right Wound Culture - Final Staphylococcus aureus 12/04/22 08:50 Gram Stain - Final Hip - Right Wound Culture - Final Staphylococcus aureus 12/01/22 07:05 Blood Culture - Final Blood Assessment and Plan Assessment: 1. 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 Patient stable at bedside this morning with dressing on right hip. Drain removed at bedside; new dressing placed over incision. Patient to be only toe-touch weightbearing for transfers only. Remain nonweightbearing otherwise. PT/OT daily. Pain medication as needed. PICC line to be placed this morning. Abx per ID. Patient stable from an orthopedic standpoint for discharge to rehab. We will continue to be available as needed. 2. Appreciate medical and infectious disease management 3. Pain management - Tylenol; Schneider 4. DVT prophylaxis - Lovenox; aspirin 5. GI prophylaxis - Pepcid; milk of magnesia 6. PT/OT - right lower extremity toe-touch for transfers only. Remain nonweightbearing to the right lower extremity otherwise. Left lower extremity weightbearing as tolerated 7. Encourage incentive spirometer use 8. Discharge planning - plan for discharge to rehab when bed available Time with Patient: Less than 30
[2022-12-07] MEDS: HYDROcodone/APAP 5-325MG 1 EACH TAB PO PRN ×2 (11:16→18:50)
[2022-12-07 11:28] LABS: Glucose,Whole Blood 136 mg/dL (70-110)
--- NOTE | 2022-12-07 12:09 | P.PN ---
Subjective Progress Note Date: 12/07/22 Principal diagnosis: Right hip septic arthritis Patient is a 81-year-old female with a past medical history significant for diabetes mellitus hypertension patient also have a hip history of right hip septic arthritis and this patient was status post I&D and exchange of the femoral head that was done in March 2021 , patient presented to hospital with reopening of the right hip incision wound and drainage. Patient is status post revision right total hip arthroplasty/extension of the femoral and acetabular components and placement of cement spacer On today's evaluation and that is 12/07/2022, the patient continues to be afebrile, the patient is breathing on room air, the patient denies chest pain and no cough, patient denies abdominal pain, no nausea/vomiting /diarrhea , the patient is complaining of grams to the right hip leg area Patient did have white count 10.4 as of 12/05/2022, creatinine is 1.8 as of 12/06/2022 Objective - Vital Signs Vital signs: Vital Signs Temp 97.9 F 12/07/22 07:23 Pulse 69 12/07/22 07:23 Resp 17 12/07/22 07:23 BP 126/53 12/07/22 07:23 Pulse Ox 98 12/07/22 07:23 FiO2 21 12/06/22 09:00 Intake & Output 12/06/22 12/07/22 12/07/22 18:59 06:59 18:59 Intake Total 850 Output Total 120 60 120 Balance 730 -60 -120 Weight 60.781 kg Intake: Intake, IV Titration 450 Amount Sodium Chloride 0.9% 1, 400 000 ml @ 75 mls/hr IV . [id number] [facility] Rx#:[id number] ceFAZolin 2 gm In Sodium 50 Chloride 0.9% 50 ml @ 100 mls/hr IVPB Q12HR [facility] Rx #:[id number] Oral 400 Output: Drainage 120 60 120 Right Hip 120 60 120 Other: Voiding Method Indwelling Catheter Bedside Commode # Voids 2 # Bowel Movements 1 - Exam GENERAL DESCRIPTION: An elderly female lying in bed in no distress RESPIRATORY SYSTEM: Unlabored breathing , decreased breath sounds at bases HEART: S1 S2 regular rate and rhythm , ABDOMEN: Soft , no tenderness EXTREMITIES: No edema feet - Labs CBC & Chem 7: 12/05/22 21:32 12/06/22 05:26 Labs: Abnormal Lab Results - Last 24 Hours (Table) 12/05/22 12/06/22 12/06/22 Range/Units 10:46 16:30 20:28 POC Glucose (mg/dL) 121 H 178 H (70-110) mg/dL Crossmatch See Detail 12/07/22 Range/Units 11:27 POC Glucose (mg/dL) 136 H (70-110) mg/dL Crossmatch Microbiology - Last 24 Hours (Table) 12/04/22 08:50 Anaerobic Culture - Preliminary Hip - Right 12/04/22 08:59 Anaerobic Culture - Preliminary Hip - Right 12/04/22 08:59 Gram Stain - Final Hip - Right Wound Culture - Final Staphylococcus aureus 12/04/22 08:50 Gram Stain - Final Hip - Right Wound Culture - Final Staphylococcus aureus 12/01/22 07:05 Blood Culture - Final Blood Assessment and Plan (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 Current Visit: Yes Status: Acute Code(s): T84.51XA - INFECT/INFLM REACTION DUE TO INTERNAL RIGHT HIP PROSTH, INIT SNOMED Code(s): 65251154233663570 Plan: 1patient presented hospital with a increasing pain to the right hip in addition to the reopening of the right hip wound and drainage high clinical suspicious for right hip septic arthritis with a previous culture positive for MSSA 2-cefazolin allergy therapy limit the number of antibiotics safe to use 3-renal insufficiency high risk of nephrotoxicity from vancomycin, patient did have improvement in her creatinine as of yesterday 4Patient is status post surgery with removal of the infected hardware and placement of antibiotic spacer, culture with staph aureus 5Patient with documented ALLERGY of cefazolin on the chart however the patient has received multiple courses of cefazolin as per discussion with the pharmacist, cefazolin ALLERGY was entered in the system back in June 2022 without any clear reason 6-patient seemed to have tolerated cefazolin for the last 24 hours with no itching or rash or difficulty breathing plan is to continue with the cefazolin 2 g every 12 followed dose has been adjusted to the kidney function by the pharmacist in 6 weeks and close outpatient follow-up Brother at the bedside questions were answered, will need to follow up with inf ectious disease where the patient is getting transferred Dictation was produced using SpeechTransation software. please excuse any grammatical, word or spelling errors. Time with Patient: Less than 30
--- NOTE | 2022-12-07 13:01 | IR ---
PICC LINE PLACEMENT: HISTORY: Infection requiring long-term antibiotic therapy PROCEDURE: Ultrasound and fluoroscopic guidance of PICC line placement. COMPLICATIONS: None ANESTHESIA: 1. 1% Lidocaine locally. FINDINGS/TECHNIQUE: The procedure was explained to the patient. The risks, complications, benefits and alternatives were discussed and any questions were answered. Informed consent was obtained. The patient was placed supine on the fluoroscopic table and prepped and draped in the usual sterile fash ion. Utilizing a 21 gauge needle and sonographic and fluoroscopic guidance, access in the right bas ilic vein was achieved and there is placement of a 0.018 guidewire. The vein is patent. A 4-F sheat h was placed over the guidewire. The guidewire and dilator were removed and a 4-F. PICC line was mustapha tika through the sheath with the tip at the level of the SVC. The sheath was removed, the catheter wa s flushed and sutured into position. The patient was stable throughout the procedure and remained st able upon discharge from the Department of Radiology. The vein puncture was patent under ultrasound. A leiva scale image was obtained to document patency of the vein punctured. All elements of the maximal barrier technique were utilized. FLUOROSCOPY TIME: DAP 0.1467Gy cm2 IMPRESSION: Successful PICC line placement under ultrasound and fluoroscopic guidance.
--- NOTE | 2022-12-07 13:48 | P.DS ---
Providers Date of admission: 11/30/22 15:34 Expected date of discharge: 12/07/22 Attending physician: Srinath Radford MD Consults: 11/30/22 15:34 Consult Physician Urgent Consulting Provider: Jesus Apodaca Consult Reason/Comments: infected right hip prosthesis Do you want consulting provider notified?: Already Contacted Consult Physician Urgent Consulting Provider: Charles Wallace Consult Reason/Comments: infected right hip prosthesis Do you want consulting provider notified?: Yes Primary care physician: Maribell Verduzco [facility] Course: Final diagnosis Septic arthritis of the right hip, recurrent Sepsis secondary to above Chronic normocytic, normochromic anemia Acute kidney injury on chronic kidney disease stage III Hyperkalemia, improved Hypertension Diabetes mellitus, uncontrolled with hypoglycemia and hyperglycemia History of right hip replacement and history of infected right hip status post I&D and revision on 03/09/2021 as well as 12/03/2022 cultures of the right hip showing MSSA Pulmonary hypertension history Moderate protein calorie malnutrition with BMI of 21.0 GI prophylaxis DVT prophylaxis No code Discharge disposition Patient is being discharged in a stable condition with guarded prognosis to [facility] for continued strength and mobility. Patient will follow-up with Dr. Verduzco in the outpatient setting upon discharge. Patient is to continue with IV antibiotics per ID recommendations and close outpatient follow-up with infectious disease Dr. Wallace in 7-10 days. Patient also follow-up with orthopedics Dr. Apodaca outpatient in 1-2 weeks as scheduled. Total time taken is greater than 35 minutes. Hospital course This is a 81-year-old female who was recently admitted with right hip pain having some purulent discharge with previous history of right hip incision and drainage and revision back in March 2021. Patient started developing a fistula on the lateral side of the right upper thigh being seen and evaluated by infectious disease and cultures finalized showing MSSA. Patient has had prolonged hospitalization and underwent a repeat revision with reimplantation of the femoral stem with cement spacer. Patient with significant weakness will be going to ECF for continued strength and mobility. Patient did require an IV PICC line and is going on antibiotics per ID recommendations and will follow-up closely with orthopedics along with infectious disease. Patient is a diabetic and recommend low potassium diabetic diet with continued Accu-Cheks before meals and at bedtime. Patient had been treated with sliding scale along with long- acting and will continue. Metformin being resumed. Patient showing some clinical improvement and has been cleared by consultations for discharge to ECF today. Insurance authorization was obtained. Please refer to the consultation notes for further HPI. Currently no reports of chest pain, shortness of breath, or palpitations. Patient is afebrile. No reports of nausea or vomiting and patient is tolerating diet. Patient will be going to ECF today. Physical exam: Gen: This is a 81-year-old female who is awake, alert and oriented 3, thin built, elderly appearing HEENT: Head is atraumatic, normocephalic. Pupils equal, round. Sclerae is anicteric. NECK: Supple. No JVD. No lymphadenopathy. No thyromegaly. LUNGS: Clear to auscultation. No wheezes or rhonchi. No intercostal retractions. HEART: Regular rate and rhythm. No murmur. ABDOMEN: Soft. Bowel sounds are present. No masses. No tenderness. EXTREMITIES: No pedal edema. No calf tenderness. Right hip tender on palpation NEUROLOGICAL: Patient is awake, alert and oriented x3. Cranial nerves 2 through 12 are grossly intact. Diffusely weak Please refer to medication reconciliation sheet for a list of medications. The impression and plan of care has been dictated by Mara Lebron, Nurse Practitioner as directed. Dr. Chau MD I have performed a history and examination and MDM of this patient, discussed the same with the dictator, and agree with the dictator's assessment and plan as written ,documented as a scribe. Based on total visit time, I have performed more than 50% of the visit. Patient Condition at Discharge: Stable Plan - Discharge Summary Discharge Rx Participant: No New Discharge Prescriptions: New Insulin Detemir (Levemir) [Levemir] 9 unit SQ BID@0700,2100 each Enoxaparin [Lovenox] 30 mg SQ DAILY each Magnesium Hydroxide [Milk of Magnesia] 2,400 mg PO DAILY PRN ml PRN Reason: Constipation INSULIN ASPART (NovoLOG) [NovoLOG (formulary)] 0 unit SQ ACHS each Sennosides-Docusate Sodium [Senokot-S] 2 each PO HS tab HYDROcodone/APAP 5-325MG [Warbranch 5-325] 1 tab PO Q4HR PRN #21 tab PRN Reason: Pain Acetaminophen Tab [Tylenol] 650 mg PO Q6HR PRN tab PRN Reason: Mild Pain Or Fever > 100.5 Continue Metoprolol Succinate (ER) [Toprol XL] 12.5 mg PO BID Ferrous Sulfate [Iron (65 MG Elemental)] 162.5 mg PO BID Ascorbic Acid [Vitamin C] 1,000 mg PO DAILY metFORMIN HCL ER [Glucophage XR] 500 mg PO DAILY Furosemide [Lasix] 20 mg PO Q48H Aspirin [Adult Low Dose Aspirin EC] 81 mg PO DAILY Cholecalciferol [Vitamin D3 (25 Mcg = 1000 Iu)] 25 mcg PO DAILY Atorvastatin [Lipitor] 20 mg PO DAILY Omeprazole [PriLOSEC] 20 mg PO DAILY Dapsone 100 mg PO DAILY PRN PRN Reason: AFTER GLUTEN calcitrioL [Calcitriol] 0.25 mcg PO FR Discontinued Ciprofloxacin HCl [Cipro] 250 mg PO DAILY Docusate [Colace] 100 mg PO DAILY PRN PRN Reason: Constipation Discharge Medication List Metoprolol Succinate (ER) [Toprol XL] 12.5 mg PO BID 03/13/20 [History] Aspirin [Adult Low Dose Aspirin EC] 81 mg PO DAILY 07/30/20 [History] Ascorbic Acid [Vitamin C] 1,000 mg PO DAILY 03/09/21 [History] Cholecalciferol [Vitamin D3 (25 Mcg = 1000 Iu)] 25 mcg PO DAILY 03/09/21 [History] Ferrous Sulfate [Iron (65 MG Elemental)] 162.5 mg PO BID 03/09/21 [History] Atorvastatin [Lipitor] 20 mg PO DAILY 05/05/22 [History] Dapsone 100 mg PO DAILY PRN 11/30/22 [History] Furosemide [Lasix] 20 mg PO Q48H 11/30/22 [History] Omeprazole [PriLOSEC] 20 mg PO DAILY 11/30/22 [History] calcitrioL [Calcitriol] 0.25 mcg PO FR 11/30/22 [History] metFORMIN HCL ER [Glucophage XR] 500 mg PO DAILY 11/30/22 [History] Acetaminophen Tab [Tylenol] 650 mg PO Q6HR PRN tab 12/07/22 [Rx] Enoxaparin [Lovenox] 30 mg SQ DAILY each 12/07/22 [Rx] HYDROcodone/APAP 5-325MG [Warbranch 5-325] 1 tab PO Q4HR PRN #21 tab 12/07/22 [Rx] INSULIN ASPART (NovoLOG) [NovoLOG (formulary)] 0 unit SQ ACHS each 12/07/22 [Rx] Insulin Detemir (Levemir) [Levemir] 9 unit SQ BID@0700,2100 each 12/07/22 [Rx] Magnesium Hydroxide [Milk of Magnesia] 2,400 mg PO DAILY PRN ml 12/07/22 [Rx] Sennosides-Docusate Sodium [Senokot-S] 2 each PO HS tab 12/07/22 [Rx] Follow up Appointment(s)/Referral(s): Vignesh Vance DO [Doctor of Osteopathic Medicine] - 1-2 days [facility] Visiting Nurse, [NON-STAFF] - As Needed Ernst Pringle DO [Doctor of Osteopathic Medicine] - 1 Week Charles Wallace MD [STAFF PHYSICIAN] - 1 Week Activity/Diet/Wound Care/Special Instructions: Patient is going to ECF Activity as tolerated Patient continue with IV antibiotics per ID recommendations and close outpatient follow-up with infectious disease along with orthopedics Per orthopedics patient is to be only toe touch weightbearing for transfers only and remain nonweight bearing otherwise and recommending physical therapy daily. Left lower extremity weightbearing as tolerated Continue with incentive spirometer use at least 10 times every hour while awake Recommend follow-up labs of CBC, CMP, magnesium in 2-3 days Continue consistent carb heart healthy low potassium diet that his gluten-free Continue Accu-Cheks before meals and at bedtime and treat with sliding scale NovoLog sliding scale 0-150 equals 0 units 151-200 equals 2 units 201-250 equals 4 units 251-300 equals 6 units 301-350 equals 8 units 351-400 equals 10 units Please notify provider if blood sugar is 400 or above Continue oral supplements with ensure 3 times a day between meals, prefers chocolate Discharge Disposition: TRANSFER TO SNF/ECF
[2022-12-07 13:52] LABS: Basophils # (A) 0.03 X 10*3/uL (0.00-0.10); Basophils % (A) 0.3 %; Eosinophils # (A) 0.14 X 10*3/uL (0.04-0.35); Eosinophils % (A) 1.3 %; HCT 26.5 % (37.2-46.3); HGB 8.4 d/dL (12.0-15.0); Lymphocytes # (A) 1.57 X 10*3/uL (0.90-5.00); Lymphocytes % (A) 14.1 %; MCH 29.4 pg (27.0-32.0); MCHC 31.7 d/dL (32.0-37.0); MCV 92.7 FL (80.0-97.0); Mean Platelet Volume 10.2 FL (9.5-12.2); Monocytes # (A) 0.79 X 10*3/uL (0.20-1.00); Monocytes % (A) 7.1 %; NRBC Per 100 WBC 0 X 10*3/uL (0.00-0.01); Neutrophils # (A) 8.43 X 10*3/uL (1.80-7.70); Neutrophils % (A) 75.8 %; Platelet Count 275 X 10*3/uL (140-440); RBC 2.86 X 10*6/uL (4.10-5.20); RDW 17.4 % (11.5-14.5); WBC 11.11 X 10*3/uL (4.50-10.00)
[2022-12-07 13:56] LABS: ALT 9 U/L (8-44); AST 10 U/L (13-35); Albumin 2.4 d/dL (3.8-4.9); Albumin/Globulin Ratio 1.09 Ratio (1.60-3.17); Alkaline Phosphatase 70 U/L (41-126); BUN/Creat Ratio 24.29 Ratio (12.00-20.00); Blood Urea Nitrogen 41.3 mg/dL (9.0-27.0); Carbon Dioxide 18.5 mmol/L (21.6-31.8); Chloride 107 mmol/L (96-109); Globulin 2.2 d/dL (1.6-3.3); Glucose 60 mg/dL (70-110); Potassium 5.3 mmol/L (3.5-5.5); Sodium 136 mmol/L (135-145); Total Bilirubin 0.4 mg/dL (0.3-1.2); Total Protein 4.6 d/dL (6.2-8.2)
[2022-12-07 16:42] LABS: Glucose,Whole Blood 128 mg/dL (70-110)
[2022-12-07 20:26] LABS: Glucose,Whole Blood 196 mg/dL (70-110)
[2022-12-07] MEDS: SENNOSIDES-DOCUSATE SODIUM 1 EACH TAB PO SCH (21:04)
[2022-12-08] MEDS: HYDROcodone/APAP 5-325MG 1 EACH TAB PO PRN ×2 (02:40→09:10)
[2022-12-08] MEDS: SODIUM CHLORIDE 0.9% 1,000 ML IV SCH ×2 (03:09→05:47)
[2022-12-08 06:12] LABS: Glucose,Whole Blood 64 mg/dL (70-110)
[2022-12-08 06:24] LABS: Glucose,Whole Blood 90 mg/dL (70-110)
[2022-12-08] MEDS: INSULIN ASPART (NovoLOG) 100 UNIT/ML VIAL SQ SCH (06:37)
[2022-12-08] MEDS: INSULIN DETEMIR (LEVEMIR) 100 UNIT/ML SYR SQ SCH (06:52)
[2022-12-08 09:06] VITALS: BP 147/62; PULSE 68; RESP 18; TEMP 98.4
[2022-12-08] MEDS: METOPROLOL SUCCINATE (ER) 25 MG TAB.ER.24H PO SCH (09:08)
[2022-12-08] MEDS: FERROUS SULFATE 325 MG TAB PO SCH (09:08)
[2022-12-08] MEDS: ASPIRIN 81 MG PO SCH (09:08)
[2022-12-08] MEDS: FAMOTIDINE 20 MG/2 ML VIAL IV SCH (09:09)
[2022-12-08] MEDS: ENOXAPARIN 30 MG/0.3 ML SYRINGE SQ SCH (09:09)
[2022-12-08] MEDS: HYDROmorphone 0.5 MG/0.5 ML SYRINGE IVP PRN (10:58)
== END 2022-12-08 11:22 | DRG 466 ==
LOC: EC 12:44 → 4SSUR 15:34
PROVIDERS: ADMIT Internal Medicine; ATTEND Internal Medicine
PROC: 30233N1 Transfusion of Nonautologous Red Blood Cells into Peripheral Vein, Percutaneous Approach (ICD-10-PCS; 2022-12-01)
PROC: 0SR90J9 Replacement of Right Hip Joint with Synthetic Substitute, Cemented, Open Approach (ICD-10-PCS; 2022-12-04)
PROC: 0S9900Z Drainage of Right Hip Joint with Drainage Device, Open Approach (ICD-10-PCS; 2022-12-04)
PROC: 0SP90JZ Removal of Synthetic Substitute from Right Hip Joint, Open Approach (ICD-10-PCS; principal; 2022-12-04 08:00)
PROC: 02HV33Z Insertion of Infusion Device into Superior Vena Cava, Percutaneous Approach (ICD-10-PCS; 2022-12-07)
DX: T84.51XA Infection and inflammatory reaction due to internal right hip prosthesis, initial encounter (principal); A41.01 Sepsis due to Methicillin susceptible Staphylococcus aureus; N17.9 Acute kidney failure, unspecified; E44.0 Moderate protein-calorie malnutrition; E11.649 Type 2 diabetes mellitus with hypoglycemia without coma; I27.20 Pulmonary hypertension, unspecified; E11.22 Type 2 diabetes mellitus with diabetic chronic kidney disease; N18.30 Chronic kidney disease, stage 3 unspecified; I12.9 Hypertensive chronic kidney disease with stage 1 through stage 4 chronic kidney disease, or unspecified chronic kidney disease; E11.65 Type 2 diabetes mellitus with hyperglycemia; I08.1 Rheumatic disorders of both mitral and tricuspid valves; H57.9 Unspecified disorder of eye and adnexa; E87.5 Hyperkalemia; D63.1 Anemia in chronic kidney disease; Z96.611 Presence of right artificial shoulder joint; Z96.612 Presence of left artificial shoulder joint; Y83.1 Surgical operation with implant of artificial internal device as the cause of abnormal reaction of the patient, or of later complication, without mention of misadventure at the time of the procedure; Z79.82 Long term (current) use of aspirin; Z79.899 Other long term (current) drug therapy; Z79.84 Long term (current) use of oral hypoglycemic drugs; Z88.1 Allergy status to other antibiotic agents; Z91.018 Allergy to other foods; Z87.891 Personal history of nicotine dependence; Z86.19 Personal history of other infectious and parasitic diseases; Z68.21 Body mass index [BMI] 21.0-21.9, adult
CPT/HCPCS: 36415; 36573; 73501; 73502; 80048; 80053; 83036; 83605; 83735; 85025; 85652; 86140; 86850; 86900; 86901; 86920; 87040; 87070; 87075; 87077; 87186; 87205; 94760; 96365; 96366; 96368; 99285